=== PATIENT | female | born 1975 | race Caucasian/White ===

== ENCOUNTER → 2017-08-30 | Outpatient (CLI) | payer MEDICAID, OTHER ==
--- NOTE | 2017-08-30 18:55 | Diagnostic Imaging Report ---
Digital mammogram bilateral diagnostic. INDICATION: Left breast rash. This is the patient's baseline study. At this time, the patient does note a rash in the periareolar region of the left breast. The current study was also evaluated with a Computer Aided Detection (CAD) system. FINDINGS: There are bilateral breast implants in place. The implants appear to be intact. There is no sign of an extracapsular rupture of either implant. The fibroglandular tissue overlying the implants is heterogeneously dense. This does limit the sensitivity of this exam. There is no primary or secondary sign of malignancy noted. There is no abnormality in the left periareolar region to correspond to the patient's rash either. Even so, I would recommend that ultrasound of the left periareolar region be performed for further study. IMPRESSION: 1. There is no evidence for malignancy and there is no abnormality to account for the patient's left breast rash. Ultrasound will be recommended for further study. 2. The implants appear to be intact. ACR BI-RADS Category 0: Incomplete. (Needs additional imaging evaluation). Result letter will be mailed to the patient. Note: At least 10% of breast cancer is not imaged by mammography. Dictated by: Dictated on workstation # [id number]
--- NOTE | 2017-08-30 19:05 | Diagnostic Imaging Report ---
EXAMINATION: Ultrasound of the left breast limited. INDICATION: Left breast rash. FINDINGS: By history, the patient has a rash in the periareolar region of the left breast. The diagnostic mammogram performed earlier today failed to show any sign of malignancy or an acute abnormality in this area. On this exam, there is no discrete solid or cystic mass in the breast tissue in the region of the mass. Clinical follow-up is recommended. IMPRESSION: 1. There is no evidence for malignancy or for an acute abnormality. Clinical follow-up is recommended. 2. A dermatologic consult should be considered for further evaluation. ACR BI-RADS Category 1: Negative. Result letter will be mailed to the patient. Note: At least 10% of breast cancer is not imaged by mammography. Dictated by: Dictated on workstation # [id number]
== END ==
LOC: RAD 08:46
PROVIDERS: ATTEND Nurse Practitioner Family
DX: N64.89 Other specified disorders of breast (principal); Z98.82 Breast implant status
CPT/HCPCS: 76642; 77066

== ENCOUNTER 2019-01-13 17:13 | Emergency (ER) | payer OTHER ==
[~2019-01-13] VITALS: Ht 162.6 cm; Wt 65.8 kg
--- OUTSIDE RECORDS SUMMARY | 2019-01-13 17:20 | XMS REPORT | CCD ---
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 [employer] Name Role Phone PP Unavailable CCM Unavailable Summary Purpose Interface Exchange Insurance Providers Payer name Policy type / Coverage type Covered green party ID Effective Begin Date Effective End Date [facility] Commercial Insurance [id number] Unknown Family history Father Diagnosis Age At Onset Cancer Unknown Mother Diagnosis Age At Onset kidney disease Unknown genetic disease Unknown Hypertension Unknown Polycystic ovarian disease Unknown Arthritis Unknown Social History Social History Element Codes Description Effective Dates Marital status Unknown naun 03/15/2016 Number of children Unknown 2 03/15/[address]: 8962169 Quit less than 5 years ago 03/15/[address]: 748736 Currently drinks alcohol 03/15/2016 Frequency of drinks SNOMED CT: 747720994 1- 4 drinks per week 03/15/2016 Allergies, Adverse Reactions, Alerts Substance Reaction Codes Entered Date Inactivated Date Status Penicillin Unknown 03/15/2016 No Inactive Date Active Past Medical History Illness Codes Condition Status Onset Date Resolved Date Cutaneous abscess of right upper limb ICD-9: 682.3 ICD-10: L02.413 Active 01/07/2019 Unknown Contusion of right lower leg, initial encounter ICD-9: 924.10 ICD-10: S80.11XA Active 12/15/2018 Unknown Varicose veins of right lower extremity with other complications ICD-9: 454.8 ICD-10: I83.891 Active 12/15/2018 Unknown Menopausal and female climacteric states ICD-9: 627.2 ICD-10: N95.1 Active 11/25/2018 Unknown Other urticaria ICD-9: 708.8 ICD-10: L50.8 Active 08/13/2018 Unknown Rash and other nonspecific skin eruption ICD-9: 782.1 ICD-10: R21 Active 08/20/2017 Unknown Attention-deficit hyperactivity disorder, combined type ICD-9: 314.01 ICD-10: F90.2 Active 05/08/2017 Unknown Acute upper respiratory infection, unspecified ICD-9: 465.9 ICD-10: J06.9 Active 06/30/2018 Unknown Cough ICD-9: 786.2 ICD-10: R05 Active 06/30/2018 Unknown 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 ICD-10: B00.1 Active 05/08/2017 Unknown Mastodynia ICD-9: 611.71 ICD-10: N64.4 Active 12/31/2016 Unknown Cellulitis of left lower limb ICD-9: 682.6 ICD-10: L03.116 Active 03/14/2016 Unknown Problems Condition Codes Effective Dates Condition Status Cutaneous abscess of right upper limb ICD-9: 682.3 ICD-10: L02.413 01/07/2019 Active Contusion of right lower leg, initial encounter ICD-9: 924.10 ICD-10: S80.11XA 12/15/2018 Active Varicose veins of right lower extremity with other complications ICD-9: 454.8 ICD-10: I83.891 12/15/2018 Active Menopausal and female climacteric states ICD-9: 627.2 ICD-10: N95.1 11/25/2018 Active Other urticaria ICD-9: 708.8 ICD-10: L50.8 08/13/2018 Active Rash and other nonspecific skin eruption ICD-9: 782.1 ICD-10: R21 08/20/2017 Active Attention-deficit hyperactivity disorder, combined type ICD-9: 314.01 ICD-10: F90.2 05/08/2017 Active Acute upper respiratory infection, unspecified ICD-9: 465.9 ICD-10: J06.9 06/30/2018 Active Cough ICD-9: 786.2 ICD-10: R05 06/30/2018 Active 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 ICD-10: B00.1 05/08/2017 Active Mastodynia ICD-9: 611.71 ICD-10: N64.4 12/31/2016 Active Cellulitis of left lower limb ICD-9: 682.6 ICD-10: L03.116 03/14/2016 Active Medications Medication Codes Instructions Start Date Stop Date Status Fill Instructions doxycycline hyclate 100 mg capsule RxNorm: 0869739 1 Capsule(s) PO BID 01/07/2019 01/16/2019 Active dapsone 100 mg tablet RxNorm: 616058 1 Tablet(s) PO daily 01/07/2019 01/13/2019 Active Adderall 30 mg tablet RxNorm: 299752 1/2 Tablet(s) PO BID 12/09/2018 03/08/2019 Active Vitamin D2 50,000 unit capsule RxNorm: 7166890 1 Capsule(s) PO QW 11/28/2018 No Stop Date Active Vitamin D2 50,000 unit capsule RxNorm: 5096158 1 Capsule(s) PO QW 11/27/2018 11/27/2018 Inactive valacyclovir 1 gram tablet RxNorm: 516063 1 Tablet(s) PO TID as needed 11/25/2018 01/23/2019 Active Adderall 30 mg tablet RxNorm: 131911 1/2 Tablet(s) PO BID 11/06/2018 12/05/2018 Inactive Adderall 30 mg tablet RxNorm: 575135 1/2 Tablet(s) PO BID 10/07/2018 11/05/2018 Inactive lamotrigine 150 mg tablet RxNorm: 033374 Tablet(s) TAKE 1 TABLET BY MOUTH ONCE DAILY 09/25/2018 No Stop Date Active Adderall 30 mg tablet RxNorm: 416334 1/2 Tablet(s) PO BID 09/09/2018 10/06/2018 Inactive prednisone 10 mg tablet RxNorm: 145562 1 Tablet(s) PO UD 08/13/2018 No Stop Date Active 60,50,40,30,20,10 betamethasone dipropionate 0.05 % topical cream RxNorm: 991114 1 Application TOP BID 08/13/2018 No Stop Date Active Adderall 30 mg tablet RxNorm: 438995 1/2 Tablet(s) PO BID 08/11/2018 09/08/2018 Inactive Adderall 30 mg tablet RxNorm: 340187 1/2 Tablet(s) PO BID 07/15/2018 08/10/2018 Inactive Kenalog 40 mg/mL suspension for injection RxNorm: 8230376 Milliliter(s) Inj 06/30/2018 06/30/2018 Inactive lamotrigine 150 mg tablet RxNorm: 711198 Tablet(s) TAKE 1 TABLET BY MOUTH ONCE DAILY 06/27/2018 09/24/2018 Inactive Adderall 30 mg tablet RxNorm: 447303 1/2 Tablet(s) PO BID 06/27/2018 07/14/2018 Inactive acyclovir 400 mg tablet RxNorm: 618725 1 Tablet(s) PO TID 05/12/2018 06/09/2018 Inactive Adderall 30 mg tablet RxNorm: 278509 1/2 Tablet(s) PO BID 04/07/2018 05/06/2018 Inactive lamotrigine 150 mg tablet RxNorm: 610560 TAKE 1 TABLET BY MOUTH ONCE DAILY 03/31/2018 06/26/2018 Inactive Adderall 30 mg tablet RxNorm: 434859 1/2 Tablet(s) PO BID 03/19/2018 04/06/2018 Inactive lamotrigine 150 mg tablet RxNorm: 193200 TAKE ONE TABLET BY MOUTH ONCE DAILY 01/30/2018 03/30/2018 Inactive Adderall 30 mg tablet RxNorm: 032937 1/2 Tablet(s) PO BID 01/20/2018 02/18/2018 Inactive Adderall 30 mg tablet RxNorm: 038827 1/2 Tablet(s) PO BID 10/29/2017 11/27/2017 Inactive Diflucan 150 mg tablet RxNorm: 749182 1 Tablet(s) PO daily 08/20/2017 08/24/2017 Inactive betamethasone dipropionate 0.05 % topical cream RxNorm: 902218 1 Application TOP BID 08/20/2017 08/12/2018 Inactive triamcinolone acetonide 0.025 % topical cream RxNorm: 8332631 1 Application TOP BID 08/07/2017 No Stop Date Active Adderall 30 mg tablet RxNorm: 222896 1/2 Tablet(s) PO BID 08/07/2017 09/05/2017 Inactive triamcinolone acetonide 0.025 % topical cream RxNorm: 7894564 1 Application TOP BID 07/31/2017 08/06/2017 Inactive Adderall XR 30 mg capsule,extended release RxNorm: 496904 1 Capsule(s) PO daily 07/31/2017 08/06/2017 Inactive lamotrigine 150 mg tablet RxNorm: 915327 1 Tablet(s) PO daily 06/04/2017 10/01/2017 Inactive Adderall 30 mg tablet RxNorm: 084946 1/2 Tablet(s) PO BID 05/08/2017 06/06/2017 Inactive acyclovir 400 mg tablet RxNorm: 191551 1 Tablet(s) PO TID 05/08/2017 06/06/2017 Inactive nystatin 100,000 unit/gram topical cream RxNorm: 727938 1 Application TOP BID 12/31/2016 No Stop Date Active triamcinolone acetonide 0.025 % topical cream RxNorm: 2387603 1 Application TOP BID 12/31/2016 07/30/2017 Inactive Bactrim DS 800 mg-160 mg tablet RxNorm: 063073 1 Tablet(s) PO BID 03/15/2016 03/28/2016 Inactive Adderall XR 30 mg capsule,extended release RxNorm: 352667 1 Capsule(s) PO daily No Start Date 07/30/2017 Inactive Vitamin D2 50,000 unit capsule RxNorm: 5845555 1 Capsule(s) PO QW No Start Date 11/26/2018 Inactive lamotrigine 150 mg tablet RxNorm: 562625 1 Tablet(s) PO daily No Start Date 06/03/2017 Inactive Medication Administered Medication Codes Instructions Start Date Status Kenalog 40 mg/mL suspension for injection RxNorm: 1120065 Milliliter 06/30/2018 No longer Active Immunizations No Immunization data Assessments Condition Codes Effective Dates Cutaneous abscess of right upper limb ICD-10: L02.413 ICD-9: 682.3 01/07/2019 Contusion of right lower leg, initial encounter ICD-10: S80.11XA ICD-9: 924.10 12/15/2018 Varicose veins of right lower extremity with other complications ICD-10: I83.891 ICD-9: 454.8 12/15/2018 Menopausal and female climacteric states ICD-10: N95.1 ICD-9: 627.2 11/25/2018 Other urticaria ICD-10: L50.8 ICD-9: 708.8 08/13/2018 Rash and other nonspecific skin eruption ICD-10: R21 ICD-9: 782.1 08/13/2018 Attention-deficit hyperactivity disorder, combined type ICD-10: F90.2 ICD-9: 314.01 07/21/2018 Cough ICD-10: R05 ICD-9: 786.2 06/30/2018 Acute upper respiratory infection, unspecified ICD-10: J06.9 ICD-9: 465.9 06/30/2018 Herpesviral vesicular dermatitis ICD-10: B00.1 ICD-9: 054.9 05/08/2017 Mastodynia ICD-10: N64.4 ICD-9: 611.71 12/31/2016 Cellulitis of left lower limb ICD-10: L03.116 ICD-9: 682.6 03/15/2016 Reason For Visit Reason For Visit Effective Dates Notes skin lesion 01/07/2019 ecchymosis 12/15/2018 menopausal symptoms 11/25/2018 rash 08/13/2018 medication follow up 07/21/2018 cough 06/30/2018 medication follow up 01/21/2018 medication follow up 08/20/2017 oral ulcers 05/08/2017 cold sore breast complaint 12/31/2016 rash 03/15/2016 Results Observation Observation Code Item Item Code Result Date Estrogens, Total LC 309419 ESTROGENS, TOTAL 47 PG/ML 11/18/2018 Estrogens Total 211749 ESTROGENS, TOTAL 342 pg/mL 01/04/2017 Comp Metabolic Ifa097 NA 140 mEq/L 12/31/2016 Comp Metabolic Xhr851 K 4.2 mEq/L 12/31/2016 Comp Metabolic Srf841 CL 103 mEq/L 12/31/2016 Comp Metabolic Iny492 CO2 29.0 mEq/L 12/31/2016 Comp Metabolic Fwx578 ANION GAP 12 12/31/2016 Comp Metabolic Ndt945 GLUCOSE 87 mg/dL 12/31/2016 Comp Metabolic Rkc881 Creat 0.7 mg/dL 12/31/2016 Comp Metabolic Kal138 eGFR 96 ml/min/1.73m2 12/31/2016 Comp Metabolic Fff389 BUN 9 mg/dL 12/31/2016 Comp Metabolic Kuw036 B/C Ratio 12.7 Ratio 12/31/2016 Comp Metabolic Ymm177 CALCIUM 9.1 mg/dL 12/31/2016 Comp Metabolic Mnd891 ALK PHOS 93 U/L 12/31/2016 Comp Metabolic Pnl630 AST(SGOT) 12 U/L 12/31/2016 Comp Metabolic Qck403 ALT(SGPT) 10 U/L 12/31/2016 Comp Metabolic Fje763 BILI T 0.4 mg/dL 12/31/2016 Comp Metabolic Cum720 ALBUMIN 4.2 g/dL 12/31/2016 Comp Metabolic Byn797 TPRO 6.1 g/dL 12/31/2016 Comp Metabolic Muc206 GLOB 2.0 g/dL 12/31/2016 Comp Metabolic Dfu975 A/G Ratio 2.1 Ratio 12/31/2016 Comp Metabolic Phx118 Osmo 277 mOsmo 12/31/2016 Cbc With Differential Ord2 WBC 6.01 K/ul 12/31/2016 Cbc With Differential Ord2 RBC 4.51 M/ul 12/31/2016 Cbc With Differential Ord2 HGB 14.3 g/dl 12/31/2016 Cbc With Differential Ord2 HCT 42.1 % 12/31/2016 Cbc With Differential Ord2 Neut% 63.6 % 12/31/2016 Cbc With Differential Ord2 MCV 93.3 fl 12/31/2016 Cbc With Differential Ord2 Lymph% 24.1 % 12/31/2016 Cbc With Differential Ord2 MCH 31.7 pg 12/31/2016 Cbc With Differential Ord2 Webster% 11.3 % 12/31/2016 Cbc With Differential Ord2 MCHC 34.0 pg 12/31/2016 Cbc With Differential Ord2 Eos% 0.8 % 12/31/2016 Cbc With Differential Ord2 PLT 267 K/ul 12/31/2016 Cbc With Differential Ord2 Baso% 0.2 % 12/31/2016 Cbc With Differential Ord2 RDW 12.4 % 12/31/2016 Cbc With Differential Ord2 Neut ABS# 3.82 K/ul 12/31/2016 Cbc With Differential Ord2 Lymph ABS# 1.45 K/ul 12/31/2016 Cbc With Differential Ord2 Webster ABS# 0.7 K/ul 12/31/2016 Cbc With Differential Ord2 Eos ABS# 0.1 K/ul 12/31/2016 Cbc With Differential Ord2 Baso ABS# 0.0 K/ul 12/31/2016 Tsh Ord6 hTSH II 2.46 uIU/mL 12/31/2016 Progesterone Uan120 Prog 3.96 ng/mL 12/31/2016 Review of Systems System Result Effective Dates Constitutional No recent illness 01/07/2019 Constitutional No chills 01/07/2019 Constitutional No diaphoresis 01/07/2019 Constitutional No fever 01/07/2019 Eyes No eye erythema 01/07/2019 Ears/Nose/Throat/Neck No nasal discharge 01/07/2019 Cardiovascular No chest pain/pressure 01/07/2019 Respiratory No cough 01/07/2019 Neurologic No alteration of consciousness 01/07/2019 Neurologic No mental status change 01/07/2019 Dermatologic cyst 01/07/2019 Constitutional No recent illness 12/15/2018 Constitutional No chills 12/15/2018 Constitutional No diaphoresis 12/15/2018 Constitutional No fever 12/15/2018 Eyes No eye erythema 12/15/2018 Ears/Nose/Throat/Neck No nasal discharge 12/15/2018 Cardiovascular No chest pain/pressure 12/15/2018 Respiratory No cough 12/15/2018 Neurologic No alteration of consciousness 12/15/2018 Neurologic No mental status change 12/15/2018 Dermatologic ecchymosis 12/15/2018 Constitutional No recent illness 11/25/2018 Constitutional No chills 11/25/2018 Constitutional No diaphoresis 11/25/2018 Constitutional No fever 11/25/2018 Eyes No eye erythema 11/25/2018 Ears/Nose/Throat/Neck No nasal discharge 11/25/2018 Cardiovascular No chest pain/pressure 11/25/2018 Cardiovascular No dyspnea 11/25/2018 Respiratory No chest congestion 11/25/2018 Respiratory No cough 11/25/2018 Gastrointestinal No abdominal pain 11/25/2018 Neurologic No alteration of consciousness 11/25/2018 Neurologic No mental status change 11/25/2018 Genitourinary/Nephrology No breast complaint 11/25/2018 Genitourinary/Nephrology menopausal symptoms 11/25/2018 Genitourinary/Nephrology No pelvic pain 11/25/2018 Constitutional No recent illness 08/13/2018 Constitutional No chills 08/13/2018 Constitutional No diaphoresis 08/13/2018 Constitutional No fever 08/13/2018 Eyes No eye erythema 08/13/2018 Ears/Nose/Throat/Neck No nasal discharge 08/13/2018 Cardiovascular No chest pain/pressure 08/13/2018 Respiratory No cough 08/13/2018 Neurologic No alteration of consciousness 08/13/2018 Neurologic No mental status change 08/13/2018 Dermatologic rash 08/13/2018 Constitutional No recent illness 07/21/2018 Constitutional No chills 07/21/2018 Constitutional No diaphoresis 07/21/2018 Constitutional No fever 07/21/2018 Eyes No eye erythema 07/21/2018 Ears/Nose/Throat/Neck No nasal allergies 07/21/2018 Ears/Nose/Throat/Neck No nasal discharge 07/21/2018 Cardiovascular No chest pain/pressure 07/21/2018 Cardiovascular No dyspnea 07/21/2018 Respiratory No chest congestion 07/21/2018 Respiratory No cough 07/21/2018 Gastrointestinal No abdominal pain 07/21/2018 Gastrointestinal No constipation 07/21/2018 Gastrointestinal No diarrhea 07/21/2018 Gastrointestinal No nausea 07/21/2018 Gastrointestinal No vomiting 07/21/2018 Musculoskeletal No joint complaint 07/21/2018 Dermatologic No rash 07/21/2018 Neurologic No alteration of consciousness 07/21/2018 Neurologic No mental status change 07/21/2018 Constitutional recent illness 06/30/2018 Constitutional anorexia 06/30/2018 Constitutional night sweats 06/30/2018 Constitutional chills 06/30/2018 Constitutional diaphoresis 06/30/2018 Constitutional fatigue 06/30/2018 Constitutional fever 06/30/2018 Constitutional insomnia 06/30/2018 Constitutional malaise 06/30/2018 Constitutional No weight loss 06/30/2018 Constitutional No weight gain 06/30/2018 Eyes No eye discharge 06/30/2018 Eyes No eye erythema 06/30/2018 Ears/Nose/Throat/Neck No dizziness 06/30/2018 Ears/Nose/Throat/Neck No headache 06/30/2018 Ears/Nose/Throat/Neck nasal discharge 06/30/2018 Ears/Nose/Throat/Neck No otalgia 06/30/2018 Ears/Nose/Throat/Neck sinus congestion 06/30/2018 Ears/Nose/Throat/Neck sore throat 06/30/2018 Cardiovascular No chest pain/pressure 06/30/2018 Respiratory cough 06/30/2018 Respiratory productive sputum 06/30/2018 Gastrointestinal No vomiting 06/30/2018 Gastrointestinal No nausea 06/30/2018 Gastrointestinal No diarrhea 06/30/2018 Genitourinary/Nephrology No dysuria 06/30/2018 Musculoskeletal No joint complaint 06/30/2018 Dermatologic No rash 06/30/2018 Constitutional No recent illness 01/21/2018 Constitutional No chills 01/21/2018 Constitutional No diaphoresis 01/21/2018 Constitutional No fever 01/21/2018 Eyes No eye erythema 01/21/2018 Ears/Nose/Throat/Neck No nasal allergies 01/21/2018 Ears/Nose/Throat/Neck No nasal discharge 01/21/2018 Cardiovascular No chest pain/pressure 01/21/2018 Cardiovascular No dyspnea 01/21/2018 Respiratory No chest congestion 01/21/2018 Respiratory No cough 01/21/2018 Gastrointestinal No abdominal pain 01/21/2018 Gastrointestinal No constipation 01/21/2018 Gastrointestinal No diarrhea 01/21/2018 Gastrointestinal No nausea 01/21/2018 Gastrointestinal No vomiting 01/21/2018 Musculoskeletal No joint complaint 01/21/2018 Neurologic No alteration of consciousness 01/21/2018 Neurologic No mental status change 01/21/2018 Dermatologic No rash 01/21/2018 Constitutional No recent illness 08/20/2017 Constitutional No chills 08/20/2017 Constitutional No diaphoresis 08/20/2017 Constitutional No fever 08/20/2017 Eyes No eye erythema 08/20/2017 Ears/Nose/Throat/Neck No nasal discharge 08/20/2017 Ears/Nose/Throat/Neck No nasal allergies 08/20/2017 Cardiovascular No chest pain/pressure 08/20/2017 Cardiovascular No dyspnea 08/20/2017 Respiratory No cough 08/20/2017 Respiratory No chest congestion 08/20/2017 Gastrointestinal No abdominal pain 08/20/2017 Gastrointestinal No constipation 08/20/2017 Gastrointestinal No diarrhea 08/20/2017 Gastrointestinal No vomiting 08/20/2017 Gastrointestinal No nausea 08/20/2017 Musculoskeletal No joint complaint 08/20/2017 Dermatologic rash 08/20/2017 Neurologic No alteration of consciousness 08/20/2017 Neurologic No mental status change 08/20/2017 Constitutional No recent illness 05/08/2017 Constitutional No chills 05/08/2017 Constitutional No diaphoresis 05/08/2017 Constitutional No fever 05/08/2017 Eyes No eye erythema 05/08/2017 Ears/Nose/Throat/Neck No nasal discharge 05/08/2017 Ears/Nose/Throat/Neck No nasal allergies 05/08/2017 Cardiovascular No chest pain/pressure 05/08/2017 Cardiovascular No dyspnea 05/08/2017 Respiratory No cough 05/08/2017 Respiratory No chest congestion 05/08/2017 Musculoskeletal No joint complaint 05/08/2017 Dermatologic sores 05/08/2017 Neurologic No alteration of consciousness 05/08/2017 Neurologic No mental status change 05/08/2017 Constitutional No recent illness 12/31/2016 Constitutional No chills 12/31/2016 Constitutional No diaphoresis 12/31/2016 Constitutional No fever 12/31/2016 Eyes No eye erythema 12/31/2016 Ears/Nose/Throat/Neck No nasal allergies 12/31/2016 Ears/Nose/Throat/Neck No nasal discharge 12/31/2016 Cardiovascular No chest pain/pressure 12/31/2016 Cardiovascular No dyspnea 12/31/2016 Respiratory No cough 12/31/2016 Respiratory No dyspnea 12/31/2016 Gastrointestinal No abdominal pain 12/31/2016 Dermatologic rash 12/31/2016 Neurologic No alteration of consciousness 12/31/2016 Neurologic No mental status change 12/31/2016 Genitourinary/Nephrology breast complaint 12/31/2016 Constitutional No recent illness 03/15/2016 Constitutional No diaphoresis 03/15/2016 Constitutional No chills 03/15/2016 Constitutional No fever 03/15/2016 Eyes No eye erythema 03/15/2016 Ears/Nose/Throat/Neck No nasal discharge 03/15/2016 Ears/Nose/Throat/Neck No nasal allergies 03/15/2016 Cardiovascular No chest pain/pressure 03/15/2016 Cardiovascular No dyspnea 03/15/2016 Respiratory No cough 03/15/2016 Respiratory No chest congestion 03/15/2016 Respiratory No dyspnea 03/15/2016 Gastrointestinal No abdominal pain 03/15/2016 Gastrointestinal No constipation 03/15/2016 Gastrointestinal No diarrhea 03/15/2016 Gastrointestinal No vomiting 03/15/2016 Gastrointestinal No nausea 03/15/2016 Gastrointestinal No gastroesophageal reflux 03/15/2016 Genitourinary/Nephrology No flank pain 03/15/2016 Musculoskeletal No joint complaint 03/15/2016 Dermatologic rash 03/15/2016 Neurologic No alteration of consciousness 03/15/2016 Neurologic No mental status change 03/15/2016 Physical Exam Exam Name System Name Item Name Status Result Effective Dates Notes Full Exam - Dermatology Constitutional general appearance Overall: well nourished 01/07/2019 None Full Exam - Dermatology Constitutional general appearance Overall: well developed 01/07/2019 None Full Exam - Dermatology Constitutional general appearance Overall: in no acute distress 01/07/2019 None Full Exam - Dermatology Eyes conjunctiva/eyelids Overall: clear conjunctiva bilaterally 01/07/2019 None Full Exam - Dermatology Eyes conjunctiva/eyelids Overall: clear corneas 01/07/2019 None Full Exam - Dermatology Eyes conjunctiva/eyelids Overall: normal eyelids 01/07/2019 None Full Exam - Dermatology Ears/Nose/Throat lips/teeth/gingiva Overall: benign lips 01/07/2019 None Full Exam - Dermatology Ears/Nose/Throat oropharynx Overall: clear oral mucosa 01/07/2019 None Full Exam - Dermatology Respiratory respiratory effort/rhythm Overall: no retractions 01/07/2019 None Full Exam - Dermatology Respiratory respiratory effort/rhythm Overall: normal rate 01/07/2019 None Full Exam - Dermatology Musculoskeletal head and neck Overall: head atraumatic 01/07/2019 None Full Exam - Dermatology Psychiatric orientation Overall: oriented to person, place and time 01/07/2019 None Full Exam - Dermatology Psychiatric mood and affect Overall: normal mood and affect 01/07/2019 None Full Exam - Dermatology Integument insp & palp - right upper extremity Location: on the forearm 01/07/2019 None Full Exam - Dermatology Integument insp & palp - right upper extremity Lesion: cyst 01/07/2019 None Full Exam - Dermatology Integument insp & palp - right upper extremity Color: erythematous 01/07/2019 mild Full Exam - Dermatology Integument insp & palp - right upper extremity Appearance: edematous 01/07/2019 None Full Exam - Dermatology Integument insp & palp - right upper extremity Appearance: tender 01/07/2019 None Full Exam - Dermatology Constitutional general appearance Overall: well nourished 12/15/2018 None Full Exam - Dermatology Constitutional general appearance Overall: well developed 12/15/2018 None Full Exam - Dermatology Constitutional general appearance Overall: in no acute distress 12/15/2018 None Full Exam - Dermatology Eyes conjunctiva/eyelids Overall: clear conjunctiva bilaterally 12/15/2018 None Full Exam - Dermatology Eyes conjunctiva/eyelids Overall: clear corneas 12/15/2018 None Full Exam - Dermatology Eyes conjunctiva/eyelids Overall: normal eyelids 12/15/2018 None Full Exam - Dermatology Ears/Nose/Throat lips/teeth/gingiva Overall: benign lips 12/15/2018 None Full Exam - Dermatology Ears/Nose/Throat oropharynx Overall: clear oral mucosa 12/15/2018 None Full Exam - Dermatology Respiratory respiratory effort/rhythm Overall: no retractions 12/15/2018 None Full Exam - Dermatology Respiratory respiratory effort/rhythm Overall: normal rate 12/15/2018 None Full Exam - Dermatology Musculoskeletal head and neck Overall: head atraumatic 12/15/2018 None Full Exam - Dermatology Psychiatric orientation Overall: oriented to person, place and time 12/15/2018 None Full Exam - Dermatology Psychiatric mood and affect Overall: normal mood and affect 12/15/2018 None Full Exam - Dermatology Integument insp & palp - right lower extremity Location: on the calf 12/15/2018 ecchymosis - approximately 2 in x 1 in Full Exam - General 1994 Constitutional general appearance Overall: well developed 11/25/2018 None Full Exam - General 1994 Constitutional general appearance Overall: in no acute distress 11/25/2018 None Full Exam - General 1994 Constitutional general appearance Overall: well nourished 11/25/2018 None Full Exam - General 1994 Eyes conjunctiva/eyelids Overall: conjunctiva clear 11/25/2018 None Full Exam - General 1994 Eyes conjunctiva/eyelids Overall: cornea clear 11/25/2018 None Full Exam - General 1994 Eyes conjunctiva/eyelids Overall: eyelids normal 11/25/2018 None Full Exam - General 1994 Ears/Nose/Throat lips/teeth/gingiva Overall: benign lips 11/25/2018 None Full Exam - General 1994 Ears/Nose/Throat oral cavity/pharynx/larynx Overall: oral mucosa clear 11/25/2018 None Full Exam - General 1994 Ears/Nose/Throat oral cavity/pharynx/larynx Overall: oropharyngeal mucosa clear 11/25/2018 None Full Exam - General 1994 Respiratory auscultation Overall: breath sounds clear bilaterally 11/25/2018 None Full Exam - General 1994 Respiratory respiratory effort/rhythm Overall: no retractions 11/25/2018 None Full Exam - General 1994 Respiratory respiratory effort/rhythm Overall: normal rate 11/25/2018 None Full Exam - General 1994 Cardiovascular auscultation of heart Overall: regular rate 11/25/2018 None Full Exam - General 1994 Cardiovascular auscultation of heart Overall: normal heart sounds 11/25/2018 None Full Exam - General 1994 Musculoskeletal head and neck Overall: head atraumatic 11/25/2018 None Full Exam - General 1994 Neurologic cranial nerves Overall: crainial nerves 2 - 12 grossly intact 11/25/2018 None Full Exam - General 1994 Psychiatric orientation/consciousness Overall: oriented to person, place and time 11/25/2018 None Full Exam - General 1994 Psychiatric mood and affect Overall: normal mood and affect 11/25/2018 None Full Exam - General 1994 Psychiatric appearance Overall: well-groomed, good eye contact 11/25/2018 None Full Exam - Dermatology Constitutional general appearance Overall: well nourished 08/13/2018 None Full Exam - Dermatology Constitutional general appearance Overall: well developed 08/13/2018 None Full Exam - Dermatology Constitutional general appearance Overall: in no acute distress 08/13/2018 None Full Exam - Dermatology Eyes conjunctiva/eyelids Overall: clear conjunctiva bilaterally 08/13/2018 None Full Exam - Dermatology Eyes conjunctiva/eyelids Overall: clear corneas 08/13/2018 None Full Exam - Dermatology Eyes conjunctiva/eyelids Overall: normal eyelids 08/13/2018 None Full Exam - Dermatology Ears/Nose/Throat lips/teeth/gingiva Overall: benign lips 08/13/2018 None Full Exam - Dermatology Ears/Nose/Throat oropharynx Overall: clear oral mucosa 08/13/2018 None Full Exam - Dermatology Respiratory respiratory effort/rhythm Overall: no retractions 08/13/2018 None Full Exam - Dermatology Respiratory respiratory effort/rhythm Overall: normal rate 08/13/2018 None Full Exam - Dermatology Musculoskeletal head and neck Overall: head atraumatic 08/13/2018 None Full Exam - Dermatology Psychiatric orientation Overall: oriented to person, place and time 08/13/2018 None Full Exam - Dermatology Psychiatric mood and affect Overall: normal mood and affect 08/13/2018 None Full Exam - Dermatology Integument insp & palp - right lower extremity Lesion: patch 08/13/2018 None Full Exam - Dermatology Integument insp & palp - right lower extremity Color: erythematous 08/13/2018 None Full Exam - Dermatology Integument insp & palp - left lower extremity Color: erythematous 08/13/2018 None Full Exam - Dermatology Integument insp & palp - left lower extremity Lesion: patch 08/13/2018 None Full Exam - Dermatology Integument insp & palp - left upper extremity Lesion: patch 08/13/2018 None Full Exam - Dermatology Integument insp & palp - left upper extremity Color: erythematous 08/13/2018 None Full Exam - Dermatology Integument insp & palp - right upper extremity Lesion: patch 08/13/2018 None Full Exam - Dermatology Integument insp & palp - right upper extremity Color: erythematous 08/13/2018 None Full Exam - General 1994 Constitutional general appearance Overall: well developed 07/21/2018 None Full Exam - General 1994 Constitutional general appearance Overall: in no acute distress 07/21/2018 None Full Exam - General 1994 Constitutional general appearance Overall: well nourished 07/21/2018 None Full Exam - General 1994 Eyes conjunctiva/eyelids Overall: conjunctiva clear 07/21/2018 None Full Exam - General 1994 Eyes conjunctiva/eyelids Overall: cornea clear 07/21/2018 None Full Exam - General 1994 Eyes conjunctiva/eyelids Overall: eyelids normal 07/21/2018 None Full Exam - General 1994 Ears/Nose/Throat lips/teeth/gingiva Overall: benign lips 07/21/2018 None Full Exam - General 1994 Ears/Nose/Throat oral cavity/pharynx/larynx Overall: oral mucosa clear 07/21/2018 None Full Exam - General 1994 Respiratory auscultation Overall: breath sounds clear bilaterally 07/21/2018 None Full Exam - General 1994 Respiratory respiratory effort/rhythm Overall: no retractions 07/21/2018 None Full Exam - General 1994 Respiratory respiratory effort/rhythm Overall: normal rate 07/21/2018 None Full Exam - General 1994 Cardiovascular auscultation of heart Overall: regular rate 07/21/2018 None Full Exam - General 1994 Cardiovascular auscultation of heart Overall: normal heart sounds 07/21/2018 None Full Exam - General 1994 Abdomen abdominal exam Overall: no tenderness 07/21/2018 None Full Exam - General 1994 Abdomen abdominal exam Overall: normal bowel sounds 07/21/2018 None Full Exam - General 1994 Musculoskeletal gait and station Overall: normal gait 07/21/2018 None Full Exam - General 1994 Musculoskeletal gait and station Overall: normal station 07/21/2018 None Full Exam - General 1994 Musculoskeletal head and neck Overall: head atraumatic 07/21/2018 None Full Exam - General 1994 Neurologic cranial nerves Overall: crainial nerves 2 - 12 grossly intact 07/21/2018 None Full Exam - General 1994 Psychiatric orientation/consciousness Overall: oriented to person, place and time 07/21/2018 None Full Exam - General 1994 Psychiatric mood and affect Overall: normal mood and affect 07/21/2018 None Full Exam - General 1994 Psychiatric appearance Overall: well-groomed, good eye contact 07/21/2018 None Full Exam - General 1994 Ears/Nose/Throat otoscopic exam Overall: tympanic membranes clear 07/21/2018 None Full Exam - General 1994 Ears/Nose/Throat otoscopic exam Overall: external auditory canals clear 07/21/2018 None Full Exam - ENT Constitutional general appearance Overall: well nourished 06/30/2018 None Full Exam - ENT Constitutional general appearance Overall: well developed 06/30/2018 None Full Exam - ENT Constitutional general appearance Overall: in no acute distress 06/30/2018 None Full Exam - ENT Neurologic orientation Overall: oriented to person, place and time 06/30/2018 None Full Exam - ENT Integument inspection of skin Overall: no rash, lesions 06/30/2018 None Full Exam - ENT Lymphatic palpation of lymph nodes Overall: anterior cervical chain benign 06/30/2018 None Full Exam - ENT Lymphatic palpation of lymph nodes Overall: posterior cervical chain benign 06/30/2018 None Full Exam - ENT Cardiovascular auscultation of heart Overall: regular rate 06/30/2018 None Full Exam - ENT Cardiovascular auscultation of heart Overall: normal heart sounds 06/30/2018 None Full Exam - ENT Respiratory auscultation Overall: breath sounds clear bilaterally 06/30/2018 None Full Exam - ENT Respiratory inspection Overall: no retractions 06/30/2018 None Full Exam - ENT Respiratory inspection Overall: normal rate 06/30/2018 None Full Exam - ENT Face and Head palpation Overall: no sinus tenderness 06/30/2018 None Full Exam - ENT Ears/Nose/Throat otoscopic exam Overall: external auditory canals normal 06/30/2018 None Full Exam - ENT Ears/Nose/Throat otoscopic exam Overall: tympanic membranes normal 06/30/2018 None Full Exam - ENT Ears/Nose/Throat oropharynx Overall: oral mucosa clear 06/30/2018 None Full Exam - General 1994 Constitutional general appearance Overall: well developed 01/21/2018 None Full Exam - General 1994 Constitutional general appearance Overall: in no acute distress 01/21/2018 None Full Exam - General 1994 Constitutional general appearance Overall: well nourished 01/21/2018 None Full Exam - General 1994 Eyes conjunctiva/eyelids Overall: conjunctiva clear 01/21/2018 None Full Exam - General 1994 Eyes conjunctiva/eyelids Overall: cornea clear 01/21/2018 None Full Exam - General 1994 Eyes conjunctiva/eyelids Overall: eyelids normal 01/21/2018 None Full Exam - General 1994 Ears/Nose/Throat lips/teeth/gingiva Overall: benign lips 01/21/2018 None Full Exam - General 1994 Ears/Nose/Throat oral cavity/pharynx/larynx Overall: oral mucosa clear 01/21/2018 None Full Exam - General 1994 Respiratory auscultation Overall: breath sounds clear bilaterally 01/21/2018 None Full Exam - General 1994 Respiratory respiratory effort/rhythm Overall: no retractions 01/21/2018 None Full Exam - General 1994 Respiratory respiratory effort/rhythm Overall: normal rate 01/21/2018 None Full Exam - General 1994 Cardiovascular auscultation of heart Overall: regular rate 01/21/2018 None Full Exam - General 1994 Cardiovascular auscultation of heart Overall: normal heart sounds 01/21/2018 None Full Exam - General 1994 Musculoskeletal gait and station Overall: normal gait 01/21/2018 None Full Exam - General 1994 Musculoskeletal gait and station Overall: normal station 01/21/2018 None Full Exam - General 1994 Musculoskeletal head and neck Overall: head atraumatic 01/21/2018 None Full Exam - General 1994 Neurologic cranial nerves Overall: crainial nerves 2 - 12 grossly intact 01/21/2018 None Full Exam - General 1994 Psychiatric orientation/consciousness Overall: oriented to person, place and time 01/21/2018 None Full Exam - General 1994 Psychiatric mood and affect Overall: normal mood and affect 01/21/2018 None Full Exam - General 1994 Psychiatric appearance Overall: well-groomed, good eye contact 01/21/2018 None Full Exam - General 1994 Abdomen abdominal exam Overall: normal bowel sounds 01/21/2018 None Full Exam - General 1994 Abdomen abdominal exam Overall: no tenderness 01/21/2018 None Full Exam - General 1994 Constitutional general appearance Overall: well developed 08/20/2017 None Full Exam - General 1994 Constitutional general appearance Overall: in no acute distress 08/20/2017 None Full Exam - General 1994 Constitutional general appearance Overall: well nourished 08/20/2017 None Full Exam - General 1994 Eyes conjunctiva/eyelids Overall: conjunctiva clear 08/20/2017 None Full Exam - General 1994 Eyes conjunctiva/eyelids Overall: cornea clear 08/20/2017 None Full Exam - General 1994 Eyes conjunctiva/eyelids Overall: eyelids normal 08/20/2017 None Full Exam - General 1994 Ears/Nose/Throat lips/teeth/gingiva Overall: benign lips 08/20/2017 None Full Exam - General 1994 Ears/Nose/Throat oral cavity/pharynx/larynx Overall: oral mucosa clear 08/20/2017 None Full Exam - General 1994 Respiratory respiratory effort/rhythm Overall: no retractions 08/20/2017 None Full Exam - General 1994 Respiratory respiratory effort/rhythm Overall: normal rate 08/20/2017 None Full Exam - General 1994 Respiratory auscultation Overall: breath sounds clear bilaterally 08/20/2017 None Full Exam - General 1994 Cardiovascular auscultation of heart Overall: regular rate 08/20/2017 None Full Exam - General 1994 Cardiovascular auscultation of heart Overall: normal heart sounds 08/20/2017 None Full Exam - General 1994 Musculoskeletal head and neck Overall: head atraumatic 08/20/2017 None Full Exam - General 1994 Musculoskeletal gait and station Overall: normal gait 08/20/2017 None Full Exam - General 1994 Musculoskeletal gait and station Overall: normal station 08/20/2017 None Full Exam - General 1994 Chest/Breast breast/chest inspection Skin appearance: rash 08/20/2017 dry - left lower breast Full Exam - General 1994 Neurologic cranial nerves Overall: crainial nerves 2 - 12 grossly intact 08/20/2017 None Full Exam - General 1994 Psychiatric orientation/consciousness Overall: oriented to person, place and time 08/20/2017 None Full Exam - General 1994 Psychiatric mood and affect Overall: normal mood and affect 08/20/2017 None Full Exam - General 1994 Psychiatric appearance Overall: well-groomed, good eye contact 08/20/2017 None Full Exam - General 1994 Constitutional general appearance Overall: well developed 05/08/2017 None Full Exam - General 1994 Constitutional general appearance Overall: in no acute distress 05/08/2017 None Full Exam - General 1994 Constitutional general appearance Overall: well nourished 05/08/2017 None Full Exam - General 1994 Eyes conjunctiva/eyelids Overall: conjunctiva clear 05/08/2017 None Full Exam - General 1994 Eyes conjunctiva/eyelids Overall: cornea clear 05/08/2017 None Full Exam - General 1994 Eyes conjunctiva/eyelids Overall: eyelids normal 05/08/2017 None Full Exam - General 1994 Ears/Nose/Throat lips/teeth/gingiva Overall: benign lips 05/08/2017 None Full Exam - General 1994 Ears/Nose/Throat oral cavity/pharynx/larynx Overall: oral mucosa clear 05/08/2017 None Full Exam - General 1994 Respiratory respiratory effort/rhythm Overall: normal rate 05/08/2017 None Full Exam - General 1994 Respiratory respiratory effort/rhythm Overall: no retractions 05/08/2017 None Full Exam - General 1994 Respiratory auscultation Overall: breath sounds clear bilaterally 05/08/2017 None Full Exam - General 1994 Cardiovascular auscultation of heart Overall: normal heart sounds 05/08/2017 None Full Exam - General 1994 Cardiovascular auscultation of heart Overall: regular rate 05/08/2017 None Full Exam - General 1994 Musculoskeletal gait and station Overall: normal gait 05/08/2017 None Full Exam - General 1994 Musculoskeletal gait and station Overall: normal station 05/08/2017 None Full Exam - General 1994 Musculoskeletal head and neck Overall: head atraumatic 05/08/2017 None Full Exam - General 1994 Neurologic cranial nerves Overall: crainial nerves 2 - 12 grossly intact 05/08/2017 None Full Exam - General 1994 Psychiatric orientation/consciousness Overall: oriented to person, place and time 05/08/2017 None Full Exam - General 1994 Psychiatric mood and affect Overall: normal mood and affect 05/08/2017 None Full Exam - General 1994 Integument inspection of skin Location: face 05/08/2017 lip Full Exam - General 1994 Integument inspection of skin Rash/Lesions: vesicle 05/08/2017 None Full Exam - General 1994 Integument inspection of skin Pigmentation: erythematous 05/08/2017 healing Full Exam - Genitourinary/Female Constitutional general appearance Overall: well nourished 12/31/2016 None Full Exam - Genitourinary/Female Constitutional general appearance Overall: well developed 12/31/2016 None Full Exam - Genitourinary/Female Constitutional general appearance Overall: in no acute distress 12/31/2016 None Full Exam - Genitourinary/Female Eyes conjunctiva/eyelids Overall: conjunctiva clear 12/31/2016 None Full Exam - Genitourinary/Female Eyes conjunctiva/eyelids Overall: eyelids normal 12/31/2016 None Full Exam - Genitourinary/Female Ears/Nose/Throat oral cavity/pharynx/larynx Overall: oral mucosa clear 12/31/2016 None Full Exam - Genitourinary/Female Ears/Nose/Throat lips/teeth/gingiva Overall: benign lips 12/31/2016 None Full Exam - Genitourinary/Female Respiratory auscultation Overall: breath sounds clear bilaterally 12/31/2016 None Full Exam - Genitourinary/Female Respiratory respiratory effort/rhythm Overall: no retractions 12/31/2016 None Full Exam - Genitourinary/Female Respiratory respiratory effort/rhythm Overall: normal rate 12/31/2016 None Full Exam - Genitourinary/Female Cardiovascular auscultation of heart Overall: regular rate 12/31/2016 None Full Exam - Genitourinary/Female Cardiovascular auscultation of heart Overall: normal heart sounds 12/31/2016 None Full Exam - Genitourinary/Female Chest/Breast breast inspection and palpation Skin appearance: rash 12/31/2016 None Full Exam - Genitourinary/Female Chest/Breast breast inspection and palpation Skin appearance: red 12/31/2016 None Full Exam - Genitourinary/Female Chest/Breast breast inspection and palpation Implants: artifical implants 12/31/2016 None Full Exam - Genitourinary/Female Chest/Breast breast inspection and palpation Breast symmetry: asymmetric 12/31/2016 None Full Exam - Genitourinary/Female Musculoskeletal gait and station Overall: normal gait 12/31/2016 None Full Exam - Genitourinary/Female Musculoskeletal gait and station Overall: normal station 12/31/2016 None Full Exam - Genitourinary/Female Musculoskeletal spine, ribs and pelvis Overall: good posture 12/31/2016 None Full Exam - Genitourinary/Female Neurologic mood and affect Overall: normal affect 12/31/2016 None Full Exam - Genitourinary/Female Neurologic mood and affect Overall: normal mood 12/31/2016 None Full Exam - Genitourinary/Female Psychiatric orientation/consciousness Overall: oriented to person, place and time 12/31/2016 None Full Exam - Genitourinary/Female Psychiatric appearance Overall: well-groomed, good eye contact 12/31/2016 None Full Exam - General 1994 Constitutional general appearance Overall: well developed 03/15/2016 None Full Exam - General 1994 Constitutional general appearance Overall: in no acute distress 03/15/2016 None Full Exam - General 1994 Constitutional general appearance Overall: well nourished 03/15/2016 None Full Exam - General 1994 Eyes conjunctiva/eyelids Overall: conjunctiva clear 03/15/2016 None Full Exam - General 1994 Eyes conjunctiva/eyelids Overall: cornea clear 03/15/2016 None Full Exam - General 1994 Eyes conjunctiva/eyelids Overall: eyelids normal 03/15/2016 None Full Exam - General 1994 Eyes pupils and irises Overall: pupils equal, round, reactive to light and accomodation 03/15/2016 None Full Exam - General 1994 Ears/Nose/Throat otoscopic exam Overall: external auditory canals clear 03/15/2016 None Full Exam - General 1994 Ears/Nose/Throat otoscopic exam Overall: tympanic membranes clear 03/15/2016 None Full Exam - General 1994 Ears/Nose/Throat lips/teeth/gingiva Overall: benign lips 03/15/2016 None Full Exam - General 1994 Ears/Nose/Throat lips/teeth/gingiva Overall: normal dentition 03/15/2016 None Full Exam - General 1994 Ears/Nose/Throat oral cavity/pharynx/larynx Overall: oral mucosa clear 03/15/2016 None Full Exam - General 1994 Ears/Nose/Throat oral cavity/pharynx/larynx Overall: oropharyngeal mucosa clear 03/15/2016 None Full Exam - General 1994 Ears/Nose/Throat oral cavity/pharynx/larynx Overall: no masses 03/15/2016 None Full Exam - General 1994 Respiratory auscultation Overall: breath sounds clear bilaterally 03/15/2016 None Full Exam - General 1994 Respiratory respiratory effort/rhythm Overall: no retractions 03/15/2016 None Full Exam - General 1994 Respiratory respiratory effort/rhythm Overall: normal rate 03/15/2016 None Full Exam - General 1994 Cardiovascular auscultation of heart Overall: regular rate 03/15/2016 None Full Exam - General 1994 Cardiovascular auscultation of heart Overall: normal heart sounds 03/15/2016 None Full Exam - General 1994 Cardiovascular extremities Overall: no clubbing 03/15/2016 None Full Exam - General 1994 Abdomen abdominal exam Overall: no tenderness 03/15/2016 None Full Exam - General 1994 Abdomen abdominal exam Overall: normal bowel sounds 03/15/2016 None Full Exam - General 1994 Lymphatic neck nodes Overall: anterior cervical chain benign 03/15/2016 None Full Exam - General 1994 Lymphatic neck nodes Overall: posterior cervical chain benign 03/15/2016 None Full Exam - General 1994 Musculoskeletal spine, ribs and pelvis Overall: good posture 03/15/2016 None Full Exam - General 1994 Musculoskeletal gait and station Overall: normal gait 03/15/2016 None Full Exam - General 1994 Musculoskeletal gait and station Overall: normal station 03/15/2016 None Full Exam - General 1994 Musculoskeletal head and neck Overall: head atraumatic 03/15/2016 None Full Exam - General 1994 Neurologic cranial nerves Overall: crainial nerves 2 - 12 grossly intact 03/15/2016 None Full Exam - General 1994 Psychiatric orientation/consciousness Overall: oriented to person, place and time 03/15/2016 None Full Exam - General 1994 Psychiatric mood and affect Overall: normal mood and affect 03/15/2016 None Full Exam - General 1994 Psychiatric appearance Overall: well-groomed, good eye contact 03/15/2016 None Full Exam - General 1994 Integument inspection of skin Rash/Lesions: patch 03/15/2016 None Full Exam - General 1994 Integument inspection of skin Pigmentation: erythematous 03/15/2016 Warmth - left hip - some streaking present. Procedures Procedure Codes Date TRIAMCINOLONE ACET INJ NOS CPT-4: J3301 06/30/2018 Vital Signs Date Vital 01/07/2019 Blood Pressure 1: 120/68 Code: 8480-6 BMI: 25.3 Code: 07182-2 Heart Rate 1: 86 bpm Height: 5'4" SpO2: 98% Weight: 150 lbs 12/15/2018 Blood Pressure 1: 124/68 Code: 8480-6 BMI: 25.2 Code: 49122-3 Heart Rate 1: 80 bpm Height: 5'4" SpO2: 98% Weight: 149 lbs 11/25/2018 Blood Pressure 1: 122/70 Code: 8480-6 BMI: 24.8 Code: 31301-5 Heart Rate 1: 64 bpm Height: 5'4" SpO2: 98% Weight: 147 lbs 08/13/2018 Heart Rate 1: 94 bpm Height: Weight: 07/21/2018 Blood Pressure 1: 118/74 Code: 8480-6 BMI: 24.2 Code: 53451-1 Heart Rate 1: 100 bpm Height: 5'4" SpO2: 98% Weight: 143 lbs 06/30/2018 Blood Pressure 1: 120/68 Code: 8480-6 BMI: 24.5 Code: 95814-9 Heart Rate 1: 100 bpm Height: 5'4" SpO2: 96% Temperature: 37.1 (C) / 98.7 (F) Weight: 145 lbs 01/21/2018 Blood Pressure 1: 122/70 Code: 8480-6 BMI: 24.5 Code: 94554-1 Heart Rate 1: 97 bpm Height: 5'4" SpO2: 98% Weight: 145 lbs 08/20/2017 Blood Pressure 1: 120/78 Code: 8480-6 BMI: 24.3 Code: 11646-7 Heart Rate 1: 97 bpm Height: 5'4" SpO2: 97% Weight: 144 lbs 05/08/2017 Blood Pressure 1: 124/78 Code: 8480-6 BMI: 24.7 Code: 83130-4 Heart Rate 1: 101 bpm Height: 5'4" SpO2: 98% Weight: 146 lbs 12/31/2016 Blood Pressure 1: 128/74 Code: 8480-6 Heart Rate 1: 94 bpm SpO2: 99% Weight: 141 lbs 03/15/2016 Blood Pressure 1: 126/80 Code: 8480-6 BMI: 23.5 Code: 39838-2 Heart Rate 1: 94 bpm Height: 5'4" SpO2: 97% Weight: 139 lbs Functional Status No Functional Status data History of Present Illness Symptom Name Status Result Effective Date Notes Severity moderate 01/07/2019 None Onset and Resolution sudden in onset 01/07/2019 None Onset of Symptom 4 days ago 01/07/2019 None Pertinent Findings Denies fever 01/07/2019 None Location right arm 01/07/2019 None Quality acute 01/07/2019 None Location on the right leg 12/15/2018 None Quality acute 12/15/2018 None Onset and Resolution sudden in onset 12/15/2018 None Quality intermittent 11/25/2018 None Quality chronic 11/25/2018 None Onset and Resolution ongoing 11/25/2018 None Pertinent Findings Denies pelvic pain 11/25/2018 None Pertinent Findings Denies fever 11/25/2018 None Location-Major on the arms 08/13/2018 None Location-Major on the legs 08/13/2018 None Quality acute 08/13/2018 None Color erythematous 08/13/2018 None Pertinent Findings Denies fever 08/13/2018 None Location oral intake 07/21/2018 None Quality chronic 07/21/2018 None Location in the throat 06/30/2018 None Quality productive 06/30/2018 None Onset of Symptom 1 weeks ago 06/30/2018 None Pertinent Findings chest discomfort 06/30/2018 None Pertinent Findings Denies dyspnea 06/30/2018 None Pertinent Findings fever 06/30/2018 None Limitation on Activities does not limit activities 06/30/2018 None Frequency of Episodes increasing 06/30/2018 None Triggers no known associated factors 06/30/2018 None medication follow up Additional Comments medication use 01/21/2018 None medication follow up Location oral intake 01/21/2018 None medication follow up Location oral intake 08/20/2017 None oral ulcers Alleviating Factors prescription medication 05/08/2017 None oral ulcers Limitation on Activities does not limit activities 05/08/2017 None oral ulcers Pertinent Findings Denies fever 05/08/2017 None breast complaint Location in the left lower outer quadrant 12/31/2016 None breast complaint Location in the left lower inner quadrant 12/31/2016 None breast complaint Quality erythema 12/31/2016 None breast complaint Onset and Resolution ongoing 12/31/2016 None breast complaint Onset of Symptom 2 years ago 12/31/2016 None breast complaint Severity moderate 12/31/2016 None breast complaint Pertinent Findings Denies breast pain 12/31/2016 None breast complaint Pertinent Findings Denies fever 12/31/2016 None rash Location-Extremities on the left leg 03/15/2016 None rash Quality new 03/15/2016 None rash Quality constant 03/15/2016 None rash Color red 03/15/2016 None rash Quality worsening 03/15/2016 None rash Quality enlarging 03/15/2016 None rash Onset and Resolution sudden in onset 03/15/2016 None rash Onset of Symptom 1 week ago 03/15/2016 None rash Triggers no known triggers 03/15/2016 None rash Pertinent Findings itching 03/15/2016 None Advance Directives No Advance Directive data Encounters Encounter Performer Location Codes Date EST. PATIENT, LEVEL III Diagnosis: Cutaneous abscess of right upper limb[ICD10: L02.413] Anais Heredia MD, [facility] CPT-4: 46455 01/07/2019 [id number] EST. PATIENT, LEVEL III Diagnosis: Contusion of right lower leg, initial encounter[ICD10: S80.11XA] Diagnosis: Varicose veins of right lower extremity with other complications[ICD10: I83.891] Anais Heredia MD, [facility] CPT-4: 79605 12/15/2018 [id number] EST. PATIENT, LEVEL III Diagnosis: Menopausal and female climacteric states[ICD10: N95.1] Anais Heredia MD, [facility] CPT-4: 50821 11/25/2018 13486 EST. PATIENT, LEVEL III Diagnosis: Rash and other nonspecific skin eruption[ICD10: R21] Diagnosis: Other urticaria[ICD10: L50.8] [facility] CPT-4: 56885 08/13/2018 [id number] EST. PATIENT, LEVEL III Diagnosis: Attention-deficit hyperactivity disorder, combined type[ICD10: F90.2] Anais Heredia MD, [facility] CPT-4: 50476 07/21/2018 ([id number]) 04532 EST. PATIENT, LEVEL III Diagnosis: Cough[ICD10: R05] Diagnosis: Acute upper respiratory infection, unspecified[ICD10: J06.9] Elena Heredia MD, [facility] CPT-4: 05338 06/30/2018 [id number] EST. PATIENT, LEVEL III Diagnosis: Attention-deficit hyperactivity disorder, combined type[ICD10: F90.2] Anais Heredia MD, [facility] CPT-4: 04058 01/21/2018 [id number] EST. PATIENT, LEVEL III Diagnosis: Attention-deficit hyperactivity disorder, combined type[ICD10: F90.2] Diagnosis: Rash and other nonspecific skin eruption[ICD10: R21] Anais Heredia MD, [facility] CPT-4: 48258 08/20/2017 [id number] EST. 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 PATIENT, LEVEL III Diagnosis: Mastodynia[ICD10: N64.4] Anais Heredia MD, [facility] CPT-4: 09098 12/31/2016 ([id number]) OFFICE VISIT, NEW - LEVEL 3 Diagnosis: Cellulitis of left lower limb[ICD10: L03.116] Anais Heredia MD, [facility] CPT-4: 52413 03/15/2016 Plan of Care Planned Activity Notes Codes Status Date Visit Plan: Abscess/Cellulitis - The patient was instructed in appropriate wound care. The patient was instructed to use the antibiotic ointment as per RX. The patient is to call for any change in symptoms, increase in size of the lesion, increase in pain, worsening redness, warmth, discharge. 01/07/2019 Appointment: [facility] [id number] ([facility] 01/07/2019 Patient Education: Patient Medication Summary Completed 01/07/2019 Visit Plan: Bruise - right leg, Varicose Veins - recommended thigh-high compression, elevation of lower legs while seated. Pt to consider treatment for varicose veins with vein specialist. 12/15/2018 Appointment: Anais Hennessy WPtel: [facility] [place] [facility] [place] [id number] (30 min) Complex 12/15/2018 Patient Education: Patient Medication Summary Completed 12/15/2018 Visit Plan: menopausal symptoms, flushing, hot flashes, skin changes - will order hormone replacement therapy through [facility]. Pt is to notify clinic if symptoms do not improve, if they worsen, or with any changes, questions, or concerns. 11/25/2018 Appointment: Anais Hennessy WPtel: [facility] [place] [facility] [place] [id number] (30 min) Complex 11/25/2018 Patient Education: Patient Medication Summary Completed 11/25/2018 Visit Plan: Rash - The patient was instructed to use the medication as per RX. The patient is to call for any change in symptoms, increase in size of the lesion, increase in pain, worsening redness, warmth, discharge. 08/13/2018 Appointment: Anais Hennessy WPtel: [facility] [place] [facility] [place] [id number] (30 min) Complex 08/13/2018 Patient Education: Patient Medication Summary Completed 08/13/2018 Visit Plan: ADHD - medication working well for treatment of the pt's medical condition and the pt is to continue with current medication for treatment of the symptoms of ADHD. The pt is to call if they notice palpi tations, rapid weight loss, severe insomnia that does improve. Pt is to call for any acute concerns, or if the medication does not seem to be working for improvement of the ADHD symptoms. Pt is aware of risk associated with medication use, and the danger of the medication if in the hands of someone to whom the medication was not prescribed. 07/21/2018 Appointment: Anais Hennessy WPtel: [address] [id number] (15 min) Moderate 07/21/2018 Patient Education: Patient Medication Summary Completed 07/21/2018 Visit Plan: URI - Pt advised to increase fluids, vitamin C. Discussed natural and expected course of this diagnosis and need to alert me if symptoms do not follow expected course, or if any worse. RX sent to patient's pharmacy. 06/30/2018 Appointment: Elena Dong WPtel: [address] [id number] (15 min) Moderate 06/30/2018 Patient Education: Patient Medication Summary Completed 06/30/2018 Visit Plan: ADHD - medication working well for treatment of the pt's medical condition and the pt is to continue with current medication for treatment of the symptoms of ADHD. The pt is to call if they notice palpi tations, rapid weight loss, severe insomnia that does improve. Pt is to call for any acute concerns, or if the medication does not seem to be working for improvement of the ADHD symptoms. Pt is aware of risk associated with medication use, and the danger of the medication if in the hands of someone to whom the medication was not prescribed. 01/21/2018 Appointment: [facility] Henness[facility] WPtel[facility] [address] [facility] ([facility] 01/21/2018 Patient Education: Patient Medication Summary Completed 01/21/2018 Care Plan: Comp Metabolic Pending 01/21/2018 Care Plan: Cbc With Differential Pending 01/21/2018 Care Plan: Tsh Pending 01/21/2018 Care Plan: Lipid Pending 01/21/2018 Visit Plan: ADHD - medication working well for treatment of the pt's medical condition and the pt is to continue with current medication for treatment of the symptoms of ADHD. The pt is to call if they notice palpi tations, rapid weight loss, severe insomnia that does improve. Pt is to call for any acute concerns, or if the medication does not seem to be working for improvement of the ADHD symptoms. Pt is aware of risk associated with medication use, and the danger of the medication if in the hands of someone to whom the medication was not prescribed. Rash - left lower breast - improved with steroids - will send RX - will order mammogram - pt is to notify clinic with any changes, questions, or concerns. 08/20/2017 Appointment: Anais Hennessy WPtel: [facility] [place] [facility] [place] [id number] (30 min) Complex 08/20/2017 Patient Education: Patient Medication Summary Completed 08/20/2017 Care Plan: Unilateral DIAGNOSTICMAMMOGRAPHYDIGITAL LOINC : 33730-8 Pending 08/20/2017 Care Plan: SCREENINGMAMMOGRAPHYDIGITAL LOINC : 47267-8 Pending 08/20/2017 Visit Plan: Cold sores - will send RX - pt is to notify clinic if symptoms do not improve, if they worsen, or with any questions or concerns. ADHD - medication working well for treatment of the pt's medical condition and the pt is to continue with current medication for treatment of the symptoms of ADHD. The pt is to call if they notice palpitations, rapid weight loss, severe insomnia that does improve. Pt is to call for any acute concerns, or if the medication does not seem to be working for improvement of the ADHD symptoms. Pt is aware of risk associated with medication use, and the danger of the medication if in the hands of someone to whom the medication was not prescribed. 05/08/2017 Appointment: Anais Hennessy WPtel: [address] [place], [place] [id number] (15 min) Moderate 05/08/2017 Patient Education: Patient Medication Summary Completed 05/08/2017 Visit Plan: Rash to left breast - will send RX, will order mammogram - pt is to call for acute change in symptoms, worsening redness, warmth, discharge, increase in size of the lesion, increase in pain. 12/31/2016 Appointment: Anais Hennessy WPtel: [facility] [place] [facility] [place] [id number] (30 min) Complex 12/31/2016 Patient Education: Patient Medication Summary Completed 12/31/2016 Visit Plan: Cellulitis - continue with oral antibiotics as previously directed, return to clinic as previously directed, call for acute change in symptoms, worsening redness, warmth, discharge. 03/15/2016 Appointment: Anais Hennessy WPtel: [address] [place], [place] [id number] New Patient 03/15/2016 Patient Education: Patient Medication Summary Completed 03/15/2016 Instructions Comment . ADHD - medication working well for treatment of the pt's medical condition and the pt is to continue with current medication for treatment of the symptoms of ADHD. The pt is to call if they notice palpitations, rapid weight loss, severe insomnia that does improve. Pt is to call for any acute concerns, or if the medication does not seem to be working for improvement of the ADHD symptoms. Pt is aware of risk associated with medication use, and the danger of the medication if in the hands of someone to whom the medication was not prescribed. Rash - left lower breast - improved with steroids - will send RX - will order mammogram - pt is to notify clinic with any changes, questions, or concerns. . Rash to left breast - will send RX, will order mammogram - pt is to call for acute change in symptoms, worsening redness, warmth, discharge, increase in size of the lesion, increase in pain. . menopausal symptoms, flushing, hot flashes, skin changes - will order hormone replacement therapy through [facility]. Pt is to notify clinic if symptoms do not improve, if they worsen, or with any changes, questions, or concerns. . Abscess/Cellulitis - The patient was instructed in appropriate wound care. The patient was instructed to use the antibiotic ointment as per RX. The patient is to call for any change in symptoms, increase in size of the lesion, increase in pain, worsening redness, warmth, discharge. . ADHD - medication working well for treatment of the pt's medical condition and the pt is to continue with current medication for treatment of the symptoms of ADHD. The pt is to call if they notice palpitations, rapid weight loss, severe insomnia that does improve. Pt is to call for any acute concerns, or if the medication does not seem to be working for improvement of the ADHD symptoms. Pt is aware of risk associated with medication use, and the danger of the medication if in the hands of someone to whom the medication was not prescribed. . ADHD - medication working well for treatment of the pt's medical condition and the pt is to continue with current medication for treatment of the symptoms of ADHD. The pt is to call if they notice palpitations, rapid weight loss, severe insomnia that does improve. Pt is to call for any acute concerns, or if the medication does not seem to be working for improvement of the ADHD symptoms. Pt is aware of risk associated with medication use, and the danger of the medication if in the hands of someone to whom the medication was not prescribed. kenalog let us know if worse and we can send in an antibiotic . URI - Pt advised to increase fluids, vitamin C. Discussed natural and expected course of this diagnosis and need to alert me if symptoms do not follow expected course, or if any worse. RX sent to patient's pharmacy. If not any better follow up on Saturday. . Cellulitis - continue with oral antibiotics as previously directed, return to clinic as previously directed, call for acute change in symptoms, worsening redness, warmth, discharge. . Bruise - right leg, Varicose Veins - recommended thigh-high compression, elevation of lower legs while seated. Pt to consider treatment for varicose veins with vein specialist. . Rash - The patient was instructed to use the medication as per RX. The patient is to call for any change in symptoms, increase in size of the lesion, increase in pain, worsening redness, warmth, discharge. . Cold sores - will send RX - pt is to notify clinic if symptoms do not improve, if they worsen, or with any questions or concerns. ADHD - medication working well for treatment of the pt's medical condition and the pt is to continue with current medication for treatment of the symptoms of ADHD. The pt is to call if they notice palpitations, rapid weight loss, severe insomnia that does improve. Pt is to call for any acute concerns, or if the medication does not seem to be working for improvement of the ADHD symptoms. Pt is aware of risk associated with medication use, and the danger of the medication if in the hands of someone to whom the medication was not prescribed.
--- OUTSIDE RECORDS SUMMARY | 2019-01-13 17:21 | XMS REPORT | CCD ---
Author Author Anais Hennessy MD, [facility] Address [address] [place] [address] Phone Care Team Providers Care Manager Home Healthcare Name Role Phone PP Unavailable CCM Unavailable Summary Purpose Interface Exchange Insurance Providers Payer name Policy type / Coverage type Covered republican ID Effective Begin Date Effective End Date [facility] Commercial Insurance [id number] Unknown Family history Father Diagnosis Age At Onset Cancer Unknown Mother Diagnosis Age At Onset kidney disease Unknown genetic disease Unknown Hypertension Unknown Polycystic ovarian disease Unknown Arthritis Unknown Social History Social History Element Codes Description Effective Dates Marital status Unknown naun 03/15/2016 Number of children Unknown 2 03/15/[address]: 5376407 Quit less than 5 years ago 03/15/[address]: 563253 Currently drinks alcohol 03/15/2016 Frequency of drinks SNOMED CT: 076033496 1- 4 drinks per week 03/15/2016 Allergies, Adverse Reactions, Alerts Substance Reaction Codes Entered Date Inactivated Date Status Penicillin Unknown 03/15/2016 No Inactive Date Active Past Medical History Illness Codes Condition Status Onset Date Resolved Date Contusion of right lower leg, initial encounter [...] Problems Condition Codes Effective Dates Condition Status Contusion of right lower leg, initial encounter [...] Start Date Stop Date Status Fill Instructions Adderall 30 mg tablet RxNorm: 725243 1/2 Tablet(s) PO BID 12/09/2018 03/08/2019 Active Vitamin D2 50,000 unit capsule RxNorm: 9605231 1 Capsule(s) PO QW 11/28/2018 No Stop Date Active Vitamin D2 50,000 unit capsule RxNorm: 4228733 1 Capsule(s) PO QW 11/27/2018 11/27/2018 Inactive valacyclovir 1 gram tablet RxNorm: 383719 1 Tablet(s) PO TID as needed 11/25/2018 01/23/2019 Active Adderall 30 mg tablet RxNorm: 359829 1/2 Tablet(s) PO BID 11/06/2018 12/05/2018 Inactive Adderall 30 mg tablet RxNorm: 249037 1/2 Tablet(s) PO BID 10/07/2018 11/05/2018 Inactive lamotrigine 150 mg tablet RxNorm: 364224 Tablet(s) TAKE 1 TABLET BY MOUTH ONCE DAILY 09/25/2018 No Stop Date Active Adderall 30 mg tablet RxNorm: 059423 1/2 Tablet(s) PO BID 09/09/2018 10/06/2018 Inactive prednisone 10 mg tablet RxNorm: 244678 1 Tablet(s) PO UD 08/13/2018 No Stop Date Active 60,50,40,30,20,10 betamethasone dipropionate 0.05 % topical cream RxNorm: 520632 1 Application TOP BID 08/13/2018 No Stop Date Active Adderall 30 mg tablet RxNorm: 271000 1/2 Tablet(s) PO BID 08/11/2018 09/08/2018 Inactive Adderall 30 mg tablet RxNorm: 704920 1/2 Tablet(s) PO BID 07/15/2018 08/10/2018 Inactive Kenalog 40 mg/mL suspension for injection RxNorm: 8728323 Milliliter(s) Inj 06/30/2018 06/30/2018 Inactive lamotrigine 150 mg tablet RxNorm: 016679 Tablet(s) TAKE 1 TABLET BY MOUTH ONCE DAILY 06/27/2018 09/24/2018 Inactive Adderall 30 mg tablet RxNorm: 595434 1/2 Tablet(s) PO BID 06/27/2018 07/14/2018 Inactive acyclovir 400 mg tablet RxNorm: 031092 1 Tablet(s) PO TID 05/12/2018 06/09/2018 Inactive Adderall 30 mg tablet RxNorm: 414679 1/2 Tablet(s) PO BID 04/07/2018 05/06/2018 Inactive lamotrigine 150 mg tablet RxNorm: 884298 TAKE 1 TABLET BY MOUTH ONCE DAILY 03/31/2018 06/26/2018 Inactive Adderall 30 mg tablet RxNorm: 040026 1/2 Tablet(s) PO BID 03/19/2018 04/06/2018 Inactive lamotrigine 150 mg tablet RxNorm: 411085 TAKE ONE TABLET BY MOUTH ONCE DAILY 01/30/2018 03/30/2018 Inactive Adderall 30 mg tablet RxNorm: 624754 1/2 Tablet(s) PO BID 01/20/2018 02/18/2018 Inactive Adderall 30 mg tablet RxNorm: 237984 1/2 Tablet(s) PO BID 10/29/2017 11/27/2017 Inactive Diflucan 150 mg tablet RxNorm: 793203 1 Tablet(s) PO daily 08/20/2017 08/24/2017 Inactive betamethasone dipropionate 0.05 % topical cream RxNorm: 982243 1 Application TOP BID 08/20/2017 08/12/2018 Inactive triamcinolone acetonide 0.025 % topical cream RxNorm: 3187291 1 Application TOP BID 08/07/2017 No Stop Date Active Adderall 30 mg tablet RxNorm: 397782 1/2 Tablet(s) PO BID 08/07/2017 09/05/2017 Inactive triamcinolone acetonide 0.025 % topical cream RxNorm: 5989565 1 Application TOP BID 07/31/2017 08/06/2017 Inactive Adderall XR 30 mg capsule,extended release RxNorm: 489853 1 Capsule(s) PO daily 07/31/2017 08/06/2017 Inactive lamotrigine 150 mg tablet RxNorm: 972171 1 Tablet(s) PO daily 06/04/2017 10/01/2017 Inactive Adderall 30 mg tablet RxNorm: 646159 1/2 Tablet(s) PO BID 05/08/2017 06/06/2017 Inactive acyclovir 400 mg tablet RxNorm: 482786 1 Tablet(s) PO TID 05/08/2017 06/06/2017 Inactive nystatin 100,000 unit/gram topical cream RxNorm: 507637 1 Application TOP BID 12/31/2016 No Stop Date Active triamcinolone acetonide 0.025 % topical cream RxNorm: 8761866 1 Application TOP BID 12/31/2016 07/30/2017 Inactive Bactrim DS 800 mg-160 mg tablet RxNorm: 693134 1 Tablet(s) PO BID 03/15/2016 03/28/2016 Inactive Adderall XR 30 mg capsule,extended release RxNorm: 551750 1 Capsule(s) PO daily No Start Date 07/30/2017 Inactive Vitamin D2 50,000 unit capsule RxNorm: 1513224 1 Capsule(s) PO QW No Start Date 11/26/2018 Inactive lamotrigine 150 mg tablet RxNorm: 482213 1 Tablet(s) PO daily No Start Date 06/03/2017 Inactive Medication Administered Medication Codes Instructions Start Date Status Kenalog 40 mg/mL suspension for injection RxNorm: 0660722 Milliliter 06/30/2018 No longer Active Immunizations No Immunization data Assessments Condition Codes Effective Dates Contusion of right lower leg, initial encounter [...] Visit Reason For Visit Effective Dates Notes ecchymosis 12/15/2018 menopausal symptoms 11/25/2018 rash 08/13/2018 medication follow up 07/21/2018 cough 06/30/2018 medication follow up 01/21/2018 medication follow up 08/20/2017 oral ulcers 05/08/2017 cold sore breast complaint 12/31/2016 rash 03/15/2016 Results Observation Observation Code Item Item Code Result Date Estrogens, Total LC 577055 ESTROGENS, TOTAL 47 PG/ML 11/18/2018 Estrogens Total 734938 ESTROGENS, TOTAL 342 pg/mL 01/04/2017 Comp Metabolic Kaz331 NA 140 mEq/L 12/31/2016 Comp Metabolic Bpe110 K 4.2 mEq/L 12/31/2016 Comp Metabolic Fzb849 CL 103 mEq/L 12/31/2016 Comp Metabolic Uhz285 CO2 29.0 mEq/L 12/31/2016 Comp Metabolic Ywx812 ANION GAP 12 12/31/2016 Comp Metabolic Edj266 GLUCOSE 87 mg/dL 12/31/2016 Comp Metabolic Jlp651 Creat 0.7 mg/dL 12/31/2016 Comp Metabolic Oma092 eGFR 96 ml/min/1.73m2 12/31/2016 Comp Metabolic Giq033 BUN 9 mg/dL 12/31/2016 Comp Metabolic Txm787 B/C Ratio 12.7 Ratio 12/31/2016 Comp Metabolic Tst396 CALCIUM 9.1 mg/dL 12/31/2016 Comp Metabolic Ckz469 ALK PHOS 93 U/L 12/31/2016 Comp Metabolic Zgh090 AST(SGOT) 12 U/L 12/31/2016 Comp Metabolic Ctp786 ALT(SGPT) 10 U/L 12/31/2016 Comp Metabolic Vjq593 BILI T 0.4 mg/dL 12/31/2016 Comp Metabolic Gru550 ALBUMIN 4.2 g/dL 12/31/2016 Comp Metabolic Pfj941 TPRO 6.1 g/dL 12/31/2016 Comp Metabolic Vor084 GLOB 2.0 g/dL 12/31/2016 Comp Metabolic Dhx586 A/G Ratio 2.1 Ratio 12/31/2016 Comp Metabolic Jse041 Osmo 277 mOsmo 12/31/2016 Cbc With Differential [...] 31.7 pg 12/31/2016 Cbc With Differential Ord2 [place]% 11.3 % 12/31/2016 Cbc With Differential Ord2 [...] 1.45 K/ul 12/31/2016 Cbc With Differential Ord2 [place] ABS# 0.7 K/ul 12/31/2016 Cbc With Differential Ord2 Eos ABS# 0.1 K/ul 12/31/2016 Cbc With Differential Ord2 Baso ABS# 0.0 K/ul 12/31/2016 Tsh Ord6 hTSH II 2.46 uIU/mL 12/31/2016 Progesterone Bvm694 Prog 3.96 ng/mL 12/31/2016 Review of Systems System Result Effective Dates Constitutional No recent illness 12/15/2018 Constitutional No [...] normal 11/25/2018 None Full Exam - General 1995 Ears/Nose/Throat lips/teeth/gingiva Overall: benign lips 11/25/2018 None Full Exam - General 1995 Ears/Nose/Throat oral cavity/pharynx/larynx Overall: oral mucosa clear [...] CPT-4: J3301 06/30/2018 Vital Signs Date Vital 12/15/2018 Blood Pressure 1: 124/68 Code: 8480-6 BMI: 25.2 Code: 59552-9 Heart Rate 1: 80 bpm Height: 5'4" SpO2: 98% Weight: 149 lbs 11/25/2018 Blood Pressure 1: 122/70 Code: 8480-6 BMI: 24.8 Code: 47879-2 Heart Rate 1: 64 bpm Height: 5'4" SpO2: 98% Weight: 147 lbs 08/13/2018 Heart Rate 1: 94 bpm Height: Weight: 07/21/2018 Blood Pressure 1: 118/74 Code: 8480-6 BMI: 24.2 Code: 40235-7 Heart Rate 1: 100 bpm Height: 5'4" SpO2: 98% Weight: 143 lbs 06/30/2018 Blood Pressure 1: 120/68 Code: 8480-6 BMI: 24.5 Code: 89007-1 Heart Rate 1: 100 bpm Height: 5'4" SpO2: 96% Temperature: 37.1 (C) / 98.7 (F) Weight: 145 lbs 01/21/2018 Blood Pressure 1: 122/70 Code: 8480-6 BMI: 24.5 Code: 58528-4 Heart Rate 1: 97 bpm Height: 5'4" SpO2: 98% Weight: 145 lbs 08/20/2017 Blood Pressure 1: 120/78 Code: 8480-6 BMI: 24.3 Code: 63689-8 Heart Rate 1: 97 bpm Height: 5'4" SpO2: 97% Weight: 144 lbs 05/08/2017 Blood Pressure 1: 124/78 Code: 8480-6 BMI: 24.7 Code: 96086-3 Heart Rate 1: 101 bpm Height: 5'4" SpO2: 98% Weight: 146 lbs 12/31/2016 Blood Pressure 1: 128/74 Code: 8480-6 Heart Rate 1: 94 bpm SpO2: 99% Weight: 141 lbs 03/15/2016 Blood Pressure 1: 126/80 Code: 8480-6 BMI: 23.5 Code: 02343-0 Heart Rate 1: 94 bpm Height: 5'4" SpO2: 97% Weight: 139 lbs Functional Status No Functional Status data History of Present Illness Symptom Name Status Result Effective Date Notes Location on the right leg 12/15/2018 None [...] data Encounters Encounter Performer Location Codes Date 14653 EST. PATIENT, LEVEL III Diagnosis: Contusion of right lower leg, initial encounter[ICD10: S80.11XA] Diagnosis: Varicose veins of right lower extremity with other complications[ICD10: I83.891] Anais Heredia MD, [facility] CPT-4: 29599 12/15/2018 62582 EST. PATIENT, LEVEL III Diagnosis: Menopausal and female climacteric states[ICD10: N95.1] Anais Heredia MD, [facility] CPT-4: 06648 11/25/2018 45942 EST. PATIENT, LEVEL III Diagnosis: Rash and other nonspecific skin eruption[ICD10: R21] Diagnosis: Other urticaria[ICD10: L50.8] Anais Heredia MD, [facility] CPT-4: 60303 08/13/2018 [id number] EST. PATIENT, LEVEL III Diagnosis: Attention-deficit hyperactivity disorder, combined type[ICD10: F90.2] Anais Heredia MD, [facility] CPT-4: 82566 07/21/2018 ([id number]) 34579 EST. PATIENT, LEVEL III Diagnosis: Cough[ICD10: R05] Diagnosis: Acute upper respiratory infection, unspecified[ICD10: J06.9] Elena Heredia MD, [facility] CPT-4: 04086 06/30/2018 35625 EST. PATIENT, LEVEL III Diagnosis: Attention-deficit hyperactivity disorder, combined type[ICD10: F90.2] Anais Heredia MD, [facility] CPT-4: 63777 01/21/2018 27044 EST. PATIENT, LEVEL III Diagnosis: Attention-deficit hyperactivity disorder, combined type[ICD10: F90.2] Diagnosis: Rash and other nonspecific skin eruption[ICD10: R21] Anais Heredia MD, [facility] CPT-4: 20943 08/20/2017 [id number] EST. 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 PATIENT, LEVEL III Diagnosis: Mastodynia[ICD10: N64.4] [facility] CPT-4: 02930 12/31/2016 ([id number]) OFFICE VISIT, NEW - LEVEL 3 Diagnosis: Cellulitis of left lower limb[ICD10: L03.116] [facility] CPT-4: 88921 03/15/2016 Plan of Care Planned Activity Notes Codes Status Date Visit Plan: Bruise - right leg, Varicose Veins - recommended thigh-high compression, elevation of lower legs while seated. Pt to consider treatment for varicose veins with vein specialist. 12/15/2018 Patient Education: Patient Medication Summary Completed 12/15/2018 Visit Plan: menopausal symptoms, flushing, hot flashes, skin changes - will order hormone replacement therapy through [facility]. Pt is to notify clinic if symptoms do not improve, if they worsen, or with any changes, questions, or concerns. 11/25/2018 App[facility]ment: [facility]el[facility] [phone] [facility] ([facility] Complex 11/25/2018 Patient Education: Patient Medication Summary Completed 11/25/2018 Visit Plan: Rash - The patient was instructed to use the medication as per RX. The patient is to call for any change in symptoms, increase in size of the lesion, increase in pain, worsening redness, warmth, discharge. 08/13/2018 Appointment: Anais Hen[facility]ytel[facility] [phone] [facility] ([facility] min) Complex 08/13/2018 Patient Education: Patient [...] medication was not prescribed. 07/21/2018 Appointment: Anais Hennessytel: [phone] [facility] (15 min) Moderate 07/21/2018 Patient Education: Patient Medication Summary Completed 07/21/2018 Visit Plan: URI - Pt advised to increase fluids, vitamin C. Discussed natural and expected course of this diagnosis and need to alert me if symptoms do not follow expected course, or if any worse. RX sent to patient's pharmacy. 06/30/2018 Appointment: Elena Dong WPtel: [phone] [phone] (15 min) Moderate 06/30/2018 Patient Education: Patient [...] not prescribed. 01/21/2018 Appointment: Anais Hennessy WPtel: [facility] (30 min) Complex 01/21/2018 Patient Education: Patient [...] or concerns. 08/20/2017 Appointment: [facility] Henness[facility]Ptel[facility] [phone] [facility] ([facility] min) Complex 08/20/2017 Patient Education: Patient Medication Summary Completed 08/20/2017 Care Plan: Unilateral DIAGNOSTICMAMMOGRAPHYDIGITAL LOINC : 12045-4 Pending 08/20/2017 Care Plan: SCREENINGMAMMOGRAPHYDIGITAL LOINC : 87105-6 Pending 08/20/2017 Visit Plan: Cold sores - [...] not prescribed. 05/08/2017 Appointment: Anais Hennessy WPtel: [facility] (15 min) Moderate 05/08/2017 Patient Education: Patient Medication Summary Completed 05/08/2017 Visit Plan: Rash to left breast - will send RX, will order mammogram - pt is to call for acute change in symptoms, worsening redness, warmth, discharge, increase in size of the lesion, increase in pain. 12/31/2016 Appointment: Anais Hennessy WPtel: [facility] (30 min) Complex 12/31/2016 Patient Education: Patient Medication Summary Completed 12/31/2016 Visit Plan: Cellulitis - continue with oral antibiotics as previously directed, return to clinic as previously directed, call for acute change in symptoms, worsening redness, warmth, discharge. 03/15/2016 Appointment: Anais Hennessy WPtel[facility] [phone] [facility] New Patient 03/15/2016 Patient Education: Patient Medication [...] - will order hormone replacement therapy through [facility]. Pt is to notify clinic if symptoms do not improve, if they worsen, or with any changes, questions, or concerns. . ADHD - medication working well for [...] to whom the medication was not prescribed. howie let us know if worse and we [...]
--- OUTSIDE RECORDS SUMMARY | 2019-01-13 17:22 | XMS REPORT | CCD ---
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 Name Role Phone PP Unavailable CCM Unavailable Summary Purpose Interface Exchange Insurance Providers Payer name Policy type / Coverage type Covered green party ID Effective Begin Date Effective End Date [facility] Commercial Insurance [id number] Unknown Family history Father Diagnosis Age At Onset Cancer Unknown Mother Diagnosis Age At Onset kidney disease Unknown genetic disease Unknown Hypertension Unknown Polycystic ovarian disease Unknown Arthritis Unknown Social History Social History Element Codes Description Effective Dates Marital status Unknown naun 03/15/2016 Number of children Unknown 2 03/15/[address]: 8254007 Quit less than 5 years ago 03/15/[address]: 720464 Currently drinks alcohol 03/15/2016 Frequency of drinks SNOMED CT: 869379540 1- 4 drinks per week 03/15/2016 Allergies, [...] Fill Instructions Adderall 30 mg tablet RxNorm: 066832 1/2 Tablet(s) PO BID 12/09/2018 03/08/2019 Active Vitamin D2 50,000 unit capsule RxNorm: 9104666 1 Capsule(s) PO QW 11/28/2018 No Stop Date Active Vitamin D2 50,000 unit capsule RxNorm: 6375205 1 Capsule(s) PO QW 11/27/2018 11/27/2018 Inactive valacyclovir 1 gram tablet RxNorm: 765860 1 Tablet(s) PO TID as needed 11/25/2018 01/23/2019 Active Adderall 30 mg tablet RxNorm: 191516 1/2 Tablet(s) PO BID 11/06/2018 12/05/2018 Inactive Adderall 30 mg tablet RxNorm: 429541 1/2 Tablet(s) PO BID 10/07/2018 11/05/2018 Inactive lamotrigine 150 mg tablet RxNorm: 192117 Tablet(s) TAKE 1 TABLET BY MOUTH ONCE DAILY 09/25/2018 No Stop Date Active Adderall 30 mg tablet RxNorm: 090241 1/2 Tablet(s) PO BID 09/09/2018 10/06/2018 Inactive prednisone 10 mg tablet RxNorm: 670687 1 Tablet(s) PO UD 08/13/2018 No Stop Date Active 60,50,40,30,20,10 betamethasone dipropionate 0.05 % topical cream RxNorm: 625739 1 Application TOP BID 08/13/2018 No Stop Date Active Adderall 30 mg tablet RxNorm: 324323 1/2 Tablet(s) PO BID 08/11/2018 09/08/2018 Inactive Adderall 30 mg tablet RxNorm: 950882 1/2 Tablet(s) PO BID 07/15/2018 08/10/2018 Inactive Kenalog 40 mg/mL suspension for injection RxNorm: 0967695 Milliliter(s) Inj 06/30/2018 06/30/2018 Inactive lamotrigine 150 mg tablet RxNorm: 884405 Tablet(s) TAKE 1 TABLET BY MOUTH ONCE DAILY 06/27/2018 09/24/2018 Inactive Adderall 30 mg tablet RxNorm: 275520 1/2 Tablet(s) PO BID 06/27/2018 07/14/2018 Inactive acyclovir 400 mg tablet RxNorm: 302127 1 Tablet(s) PO TID 05/12/2018 06/09/2018 Inactive Adderall 30 mg tablet RxNorm: 860997 1/2 Tablet(s) PO BID 04/07/2018 05/06/2018 Inactive lamotrigine 150 mg tablet RxNorm: 011734 TAKE 1 TABLET BY MOUTH ONCE DAILY 03/31/2018 06/26/2018 Inactive Adderall 30 mg tablet RxNorm: 389716 1/2 Tablet(s) PO BID 03/19/2018 04/06/2018 Inactive lamotrigine 150 mg tablet RxNorm: 293298 TAKE ONE TABLET BY MOUTH ONCE DAILY 01/30/2018 03/30/2018 Inactive Adderall 30 mg tablet RxNorm: 188758 1/2 Tablet(s) PO BID 01/20/2018 02/18/2018 Inactive Adderall 30 mg tablet RxNorm: 637920 1/2 Tablet(s) PO BID 10/29/2017 11/27/2017 Inactive Diflucan 150 mg tablet RxNorm: 402892 1 Tablet(s) PO daily 08/20/2017 08/24/2017 Inactive betamethasone dipropionate 0.05 % topical cream RxNorm: 471407 1 Application TOP BID 08/20/2017 08/12/2018 Inactive triamcinolone acetonide 0.025 % topical cream RxNorm: 2705629 1 Application TOP BID 08/07/2017 No Stop Date Active Adderall 30 mg tablet RxNorm: 177364 1/2 Tablet(s) PO BID 08/07/2017 09/05/2017 Inactive triamcinolone acetonide 0.025 % topical cream RxNorm: 9096802 1 Application TOP BID 07/31/2017 08/06/2017 Inactive Adderall XR 30 mg capsule,extended release RxNorm: 141530 1 Capsule(s) PO daily 07/31/2017 08/06/2017 Inactive lamotrigine 150 mg tablet RxNorm: 479986 1 Tablet(s) PO daily 06/04/2017 10/01/2017 Inactive Adderall 30 mg tablet RxNorm: 972648 1/2 Tablet(s) PO BID 05/08/2017 06/06/2017 Inactive acyclovir 400 mg tablet RxNorm: 780264 1 Tablet(s) PO TID 05/08/2017 06/06/2017 Inactive nystatin 100,000 unit/gram topical cream RxNorm: 706744 1 Application TOP BID 12/31/2016 No Stop Date Active triamcinolone acetonide 0.025 % topical cream RxNorm: 2148644 1 Application TOP BID 12/31/2016 07/30/2017 Inactive Bactrim DS 800 mg-160 mg tablet RxNorm: 570132 1 Tablet(s) PO BID 03/15/2016 03/28/2016 Inactive Adderall XR 30 mg capsule,extended release RxNorm: 710832 1 Capsule(s) PO daily No Start Date 07/30/2017 Inactive Vitamin D2 50,000 unit capsule RxNorm: 1959730 1 Capsule(s) PO QW No Start Date 11/26/2018 Inactive lamotrigine 150 mg tablet RxNorm: 497785 1 Tablet(s) PO daily No Start Date 06/03/2017 Inactive Medication Administered Medication Codes Instructions Start Date Status Kenalog 40 mg/mL suspension for injection RxNorm: 6075214 Milliliter 06/30/2018 No longer Active Immunizations No [...] Item Code Result Date Estrogens, Total LC 036136 ESTROGENS, TOTAL 47 PG/ML 11/18/2018 Estrogens Total 753268 ESTROGENS, TOTAL 342 pg/mL 01/04/2017 Comp Metabolic Mti800 NA 140 mEq/L 12/31/2016 Comp Metabolic Tqh960 K 4.2 mEq/L 12/31/2016 Comp Metabolic Ugj072 CL 103 mEq/L 12/31/2016 Comp Metabolic Jyh211 CO2 29.0 mEq/L 12/31/2016 Comp Metabolic Xoy099 ANION GAP 12 12/31/2016 Comp Metabolic Cdq848 GLUCOSE 87 mg/dL 12/31/2016 Comp Metabolic Idp153 Creat 0.7 mg/dL 12/31/2016 Comp Metabolic Ivy332 eGFR 96 ml/min/1.73m2 12/31/2016 Comp Metabolic Qpd239 BUN 9 mg/dL 12/31/2016 Comp Metabolic Luf351 B/C Ratio 12.7 Ratio 12/31/2016 Comp Metabolic Ygs077 CALCIUM 9.1 mg/dL 12/31/2016 Comp Metabolic Mex474 ALK PHOS 93 U/L 12/31/2016 Comp Metabolic Jpy120 AST(SGOT) 12 U/L 12/31/2016 Comp Metabolic Rfb345 ALT(SGPT) 10 U/L 12/31/2016 Comp Metabolic Irt246 BILI T 0.4 mg/dL 12/31/2016 Comp Metabolic Zlc147 ALBUMIN 4.2 g/dL 12/31/2016 Comp Metabolic Wwx151 TPRO 6.1 g/dL 12/31/2016 Comp Metabolic Gqr634 GLOB 2.0 g/dL 12/31/2016 Comp Metabolic Wmu665 A/G Ratio 2.1 Ratio 12/31/2016 Comp Metabolic Xiq519 Osmo 277 mOsmo 12/31/2016 Cbc With Differential [...] 31.7 pg 12/31/2016 Cbc With Differential Ord2 [place]% 11.3 % 12/31/2016 Cbc With Differential Ord2 [...] 1.45 K/ul 12/31/2016 Cbc With Differential Ord2 [place] ABS# 0.7 K/ul 12/31/2016 Cbc With Differential Ord2 Eos ABS# 0.1 K/ul 12/31/2016 Cbc With Differential Ord2 Baso ABS# 0.0 K/ul 12/31/2016 Tsh Ord6 hTSH II 2.46 uIU/mL 12/31/2016 Progesterone Nkj701 Prog 3.96 ng/mL 12/31/2016 Review of Systems [...] 1: 124/68 Code: 8480-6 BMI: 25.2 Code: 96710-0 Heart Rate 1: 80 bpm Height: 5'4" SpO2: 98% Weight: 149 lbs 11/25/2018 Blood Pressure 1: 122/70 Code: 8480-6 BMI: 24.8 Code: 70735-2 Heart Rate 1: 64 bpm Height: 5'4" SpO2: 98% Weight: 147 lbs 08/13/2018 Heart Rate 1: 94 bpm Height: Weight: 07/21/2018 Blood Pressure 1: 118/74 Code: 8480-6 BMI: 24.2 Code: 33585-9 Heart Rate 1: 100 bpm Height: 5'4" SpO2: 98% Weight: 143 lbs 06/30/2018 Blood Pressure 1: 120/68 Code: 8480-6 BMI: 24.5 Code: 63665-7 Heart Rate 1: 100 bpm Height: 5'4" SpO2: 96% Temperature: 37.1 (C) / 98.7 (F) Weight: 145 lbs 01/21/2018 Blood Pressure 1: 122/70 Code: 8480-6 BMI: 24.5 Code: 45283-7 Heart Rate 1: 97 bpm Height: 5'4" SpO2: 98% Weight: 145 lbs 08/20/2017 Blood Pressure 1: 120/78 Code: 8480-6 BMI: 24.3 Code: 22765-5 Heart Rate 1: 97 bpm Height: 5'4" SpO2: 97% Weight: 144 lbs 05/08/2017 Blood Pressure 1: 124/78 Code: 8480-6 BMI: 24.7 Code: 03685-1 Heart Rate 1: 101 bpm Height: 5'4" SpO2: 98% Weight: 146 lbs 12/31/2016 Blood Pressure 1: 128/74 Code: 8480-6 Heart Rate 1: 94 bpm SpO2: 99% Weight: 141 lbs 03/15/2016 Blood Pressure 1: 126/80 Code: 8480-6 BMI: 23.5 Code: 29169-2 Heart Rate 1: 94 bpm Height: 5'4" [...] data Encounters Encounter Performer Location Codes Date 07651 EST. PATIENT, LEVEL III Diagnosis: Contusion of right lower leg, initial encounter[ICD10: S80.11XA] Diagnosis: Varicose veins of right lower extremity with other complications[ICD10: I83.891] Anais Heredia MD, [facility] CPT-4: 18304 12/15/2018 40011 EST. PATIENT, LEVEL III Diagnosis: Menopausal and female climacteric states[ICD10: N95.1] Anais Heredia MD, [facility] CPT-4: 29030 11/25/2018 03352 EST. PATIENT, LEVEL III Diagnosis: Rash and other nonspecific skin eruption[ICD10: R21] Diagnosis: Other urticaria[ICD10: L50.8] Anais Heredia MD, [facility] CPT-4: 08982 08/13/2018 05860 EST. PATIENT, LEVEL III Diagnosis: Attention-deficit hyperactivity disorder, combined type[ICD10: F90.2] Anais Heredia MD, [facility] CPT-4: 48862 07/21/2018 ([id number]) 81104 EST. PATIENT, LEVEL III Diagnosis: Cough[ICD10: R05] Diagnosis: Acute upper respiratory infection, unspecified[ICD10: J06.9] Elena Heredia MD, [facility] CPT-4: 05938 06/30/2018 17781 EST. PATIENT, LEVEL III Diagnosis: Attention-deficit hyperactivity disorder, combined type[ICD10: F90.2] Anais Heredia MD, [facility] CPT-4: 62059 01/21/2018 33155 EST. PATIENT, LEVEL III Diagnosis: Attention-deficit hyperactivity disorder, combined type[ICD10: F90.2] Diagnosis: Rash and other nonspecific skin eruption[ICD10: R21] Anais Heredia MD, [facility] CPT-4: 61535 08/20/2017 50941 EST. 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 PATIENT, LEVEL III Diagnosis: Mastodynia[ICD10: N64.4] [facility] CPT-4: 10398 12/31/2016 ([id number]) OFFICE VISIT, NEW - LEVEL 3 Diagnosis: Cellulitis of left lower limb[ICD10: L03.116] [facility] CPT-4: 00212 03/15/2016 Plan of Care Planned Activity Notes Codes Status Date Visit Plan: Bruise - right leg, Varicose Veins - recommended thigh-high compression, elevation of lower legs while seated. Pt to consider treatment for varicose veins with vein specialist. 12/15/2018 Patient Education: Patient Medication Summary Completed 12/15/2018 Visit Plan: menopausal symptoms, flushing, hot flashes, skin changes - will order hormone replacement therapy through [facility]. Pt is to notify clinic if symptoms do not improve, if they worsen, or with any changes, questions, or concerns. 11/25/2018 [facility] [phone] [facility] ([facility] 11/25/2018 Patient Education: Patient Medication Summary Completed 11/25/2018 Visit Plan: Rash - The patient was instructed to use the medication as per RX. The patient is to call for any change in symptoms, increase in size of the lesion, increase in pain, worsening redness, warmth, discharge. 08/13/2018 [facility]ment: [facility] [phone] [facility] ([facility] 08/13/2018 Patient Education: [...] not prescribed. 07/21/2018 Appointment: Anais Hennessytel: [phone] [facility] (15 min) Moderate 07/21/2018 Patient Education: Patient Medication Summary Completed 07/21/2018 Visit Plan: URI - Pt advised to increase fluids, vitamin C. Discussed natural and expected course of this diagnosis and need to alert me if symptoms do not follow expected course, or if any worse. RX sent to patient's pharmacy. 06/30/2018 Appointment: Elena Dong WPtel: [phone] [phone] (15 min) Moderate 06/30/2018 Patient Education: Patient [...] not prescribed. 01/21/2018 Appointment: Anais Hennessy WPtel: [facility] (30 min) Complex 01/21/2018 Patient Education: Patient [...] concerns. 08/20/2017 [facility]ment: [facility] [phone] [facility] ([facility] Complex 08/20/2017 Patient Education: Patient Medication Summary Completed 08/20/2017 Care Plan: Unilateral DIAGNOSTICMAMMOGRAPHYDIGITAL LOINC : 23482-3 Pending 08/20/2017 Care Plan: SCREENINGMAMMOGRAPHYDIGITAL LOINC : 65615-7 Pending 08/20/2017 Visit Plan: Cold sores - [...] not prescribed. 05/08/2017 Appointment: Anais Hennessy WPtel: [facility] (15 min) Moderate 05/08/2017 Patient Education: Patient Medication Summary Completed 05/08/2017 Visit Plan: Rash to left breast - will send RX, will order mammogram - pt is to call for acute change in symptoms, worsening redness, warmth, discharge, increase in size of the lesion, increase in pain. 12/31/2016 Appointment: Anais Hennessy WPtel: [facility] (30 min) Complex 12/31/2016 Patient Education: Patient Medication Summary Completed 12/31/2016 Visit Plan: Cellulitis - continue with oral antibiotics as previously directed, return to clinic as previously directed, call for acute change in symptoms, worsening redness, warmth, discharge. 03/15/2016 App[facility]ment: [facility] [phone] [facility] [facility] 03/15/2016 Patient Education: Patient [...] - will order hormone replacement therapy through [facility]. Pt is to notify clinic [...]
--- OUTSIDE RECORDS SUMMARY | 2019-01-13 17:23 | XMS REPORT | CCD ---
Author Author Anais Hennessy MD, [facility] Address [address] [place] [address] Phone Care Team Providers Care Front End Assistant Name Role Phone PP Unavailable CCM Unavailable Summary Purpose Interface Exchange Insurance Providers Payer name Policy type / Coverage type Covered republican ID Effective Begin Date Effective End Date [facility] Commercial Insurance [id number] Unknown Family history Father Diagnosis Age At Onset Cancer Unknown Mother Diagnosis Age At Onset kidney disease Unknown genetic disease Unknown Hypertension Unknown Polycystic ovarian disease Unknown Arthritis Unknown Social History Social History Element Codes Description Effective Dates Marital status Unknown naun 03/15/2016 Number of children Unknown 2 03/15/[address]: 6000493 Quit less than 5 years ago 03/15/[address]: 753894 Currently drinks alcohol 03/15/2016 Frequency of drinks SNOMED CT: 533912220 1- 4 drinks per week 03/15/2016 Allergies, Adverse Reactions, Alerts Substance Reaction Codes Entered Date Inactivated Date Status Penicillin Unknown 03/15/2016 No Inactive Date Active Past Medical History Illness Codes Condition Status Onset Date Resolved Date Menopausal and female climacteric states ICD-9: 627.2 [...] Problems Condition Codes Effective Dates Condition Status Menopausal and female climacteric states ICD-9: 627.2 [...] Fill Instructions Adderall 30 mg tablet RxNorm: 894792 1/2 Tablet(s) PO BID 12/09/2018 03/08/2019 Active Vitamin D2 50,000 unit capsule RxNorm: 6437700 1 Capsule(s) PO QW 11/28/2018 No Stop Date Active Vitamin D2 50,000 unit capsule RxNorm: 1629025 1 Capsule(s) PO QW 11/27/2018 11/27/2018 Inactive valacyclovir 1 gram tablet RxNorm: 052759 1 Tablet(s) PO TID as needed 11/25/2018 01/23/2019 Active Adderall 30 mg tablet RxNorm: 131806 1/2 Tablet(s) PO BID 11/06/2018 12/05/2018 Inactive Adderall 30 mg tablet RxNorm: 002295 1/2 Tablet(s) PO BID 10/07/2018 11/05/2018 Inactive lamotrigine 150 mg tablet RxNorm: 064306 Tablet(s) TAKE 1 TABLET BY MOUTH ONCE DAILY 09/25/2018 No Stop Date Active Adderall 30 mg tablet RxNorm: 838700 1/2 Tablet(s) PO BID 09/09/2018 10/06/2018 Inactive prednisone 10 mg tablet RxNorm: 829098 1 Tablet(s) PO UD 08/13/2018 No Stop Date Active 60,50,40,30,20,10 betamethasone dipropionate 0.05 % topical cream RxNorm: 120436 1 Application TOP BID 08/13/2018 No Stop Date Active Adderall 30 mg tablet RxNorm: 192502 1/2 Tablet(s) PO BID 08/11/2018 09/08/2018 Inactive Adderall 30 mg tablet RxNorm: 685691 1/2 Tablet(s) PO BID 07/15/2018 08/10/2018 Inactive Kenalog 40 mg/mL suspension for injection RxNorm: 3767354 Milliliter(s) Inj 06/30/2018 06/30/2018 Inactive lamotrigine 150 mg tablet RxNorm: 950946 Tablet(s) TAKE 1 TABLET BY MOUTH ONCE DAILY 06/27/2018 09/24/2018 Inactive Adderall 30 mg tablet RxNorm: 337707 1/2 Tablet(s) PO BID 06/27/2018 07/14/2018 Inactive acyclovir 400 mg tablet RxNorm: 244782 1 Tablet(s) PO TID 05/12/2018 06/09/2018 Inactive Adderall 30 mg tablet RxNorm: 795610 1/2 Tablet(s) PO BID 04/07/2018 05/06/2018 Inactive lamotrigine 150 mg tablet RxNorm: 557294 TAKE 1 TABLET BY MOUTH ONCE DAILY 03/31/2018 06/26/2018 Inactive Adderall 30 mg tablet RxNorm: 392835 1/2 Tablet(s) PO BID 03/19/2018 04/06/2018 Inactive lamotrigine 150 mg tablet RxNorm: 597832 TAKE ONE TABLET BY MOUTH ONCE DAILY 01/30/2018 03/30/2018 Inactive Adderall 30 mg tablet RxNorm: 435818 1/2 Tablet(s) PO BID 01/20/2018 02/18/2018 Inactive Adderall 30 mg tablet RxNorm: 745425 1/2 Tablet(s) PO BID 10/29/2017 11/27/2017 Inactive Diflucan 150 mg tablet RxNorm: 570257 1 Tablet(s) PO daily 08/20/2017 08/24/2017 Inactive betamethasone dipropionate 0.05 % topical cream RxNorm: 571898 1 Application TOP BID 08/20/2017 08/12/2018 Inactive triamcinolone acetonide 0.025 % topical cream RxNorm: 0339401 1 Application TOP BID 08/07/2017 No Stop Date Active Adderall 30 mg tablet RxNorm: 198535 1/2 Tablet(s) PO BID 08/07/2017 09/05/2017 Inactive triamcinolone acetonide 0.025 % topical cream RxNorm: 9730824 1 Application TOP BID 07/31/2017 08/06/2017 Inactive Adderall XR 30 mg capsule,extended release RxNorm: 563001 1 Capsule(s) PO daily 07/31/2017 08/06/2017 Inactive lamotrigine 150 mg tablet RxNorm: 220838 1 Tablet(s) PO daily 06/04/2017 10/01/2017 Inactive Adderall 30 mg tablet RxNorm: 619056 1/2 Tablet(s) PO BID 05/08/2017 06/06/2017 Inactive acyclovir 400 mg tablet RxNorm: 948638 1 Tablet(s) PO TID 05/08/2017 06/06/2017 Inactive nystatin 100,000 unit/gram topical cream RxNorm: 904436 1 Application TOP BID 12/31/2016 No Stop Date Active triamcinolone acetonide 0.025 % topical cream RxNorm: 3266242 1 Application TOP BID 12/31/2016 07/30/2017 Inactive Bactrim DS 800 mg-160 mg tablet RxNorm: 087548 1 Tablet(s) PO BID 03/15/2016 03/28/2016 Inactive Adderall XR 30 mg capsule,extended release RxNorm: 961114 1 Capsule(s) PO daily No Start Date 07/30/2017 Inactive Vitamin D2 50,000 unit capsule RxNorm: 0038659 1 Capsule(s) PO QW No Start Date 11/26/2018 Inactive lamotrigine 150 mg tablet RxNorm: 386754 1 Tablet(s) PO daily No Start Date 06/03/2017 Inactive Medication Administered Medication Codes Instructions Start Date Status Kenalog 40 mg/mL suspension for injection RxNorm: 8455911 Milliliter 06/30/2018 No longer Active Immunizations No Immunization data Assessments Condition Codes Effective Dates Menopausal and female climacteric states ICD-10: N95.1 [...] Visit Reason For Visit Effective Dates Notes menopausal symptoms 11/25/2018 rash 08/13/2018 medication follow up 07/21/2018 cough 06/30/2018 medication follow up 01/21/2018 medication follow up 08/20/2017 oral ulcers 05/08/2017 cold sore breast complaint 12/31/2016 rash 03/15/2016 Results Observation Observation Code Item Item Code Result Date Estrogens, Total LC 317772 ESTROGENS, TOTAL 47 PG/ML 11/18/2018 Estrogens Total 677099 ESTROGENS, TOTAL 342 pg/mL 01/04/2017 Comp Metabolic Cnc369 NA 140 mEq/L 12/31/2016 Comp Metabolic Uxl822 K 4.2 mEq/L 12/31/2016 Comp Metabolic Alh359 CL 103 mEq/L 12/31/2016 Comp Metabolic Inf177 CO2 29.0 mEq/L 12/31/2016 Comp Metabolic Yys738 ANION GAP 12 12/31/2016 Comp Metabolic Djh510 GLUCOSE 87 mg/dL 12/31/2016 Comp Metabolic Sfg072 Creat 0.7 mg/dL 12/31/2016 Comp Metabolic Slo141 eGFR 96 ml/min/1.73m2 12/31/2016 Comp Metabolic Wnc572 BUN 9 mg/dL 12/31/2016 Comp Metabolic Dhf099 B/C Ratio 12.7 Ratio 12/31/2016 Comp Metabolic Bjq458 CALCIUM 9.1 mg/dL 12/31/2016 Comp Metabolic Txd339 ALK PHOS 93 U/L 12/31/2016 Comp Metabolic Xjk169 AST(SGOT) 12 U/L 12/31/2016 Comp Metabolic Arz702 ALT(SGPT) 10 U/L 12/31/2016 Comp Metabolic Hga517 BILI T 0.4 mg/dL 12/31/2016 Comp Metabolic Rgb434 ALBUMIN 4.2 g/dL 12/31/2016 Comp Metabolic Dwf537 TPRO 6.1 g/dL 12/31/2016 Comp Metabolic Oka054 GLOB 2.0 g/dL 12/31/2016 Comp Metabolic Rwv485 A/G Ratio 2.1 Ratio 12/31/2016 Comp Metabolic Fvf494 Osmo 277 mOsmo 12/31/2016 Cbc With Differential [...] 31.7 pg 12/31/2016 Cbc With Differential Ord2 Amite% 11.3 % 12/31/2016 Cbc With Differential Ord2 [...] 1.45 K/ul 12/31/2016 Cbc With Differential Ord2 Amite ABS# 0.7 K/ul 12/31/2016 Cbc With Differential Ord2 Eos ABS# 0.1 K/ul 12/31/2016 Cbc With Differential Ord2 Baso ABS# 0.0 K/ul 12/31/2016 Tsh Ord6 hTSH II 2.46 uIU/mL 12/31/2016 Progesterone Bop366 Prog 3.96 ng/mL 12/31/2016 Review of Systems System Result Effective Dates Constitutional No recent illness 11/25/2018 Constitutional No [...] Result Effective Dates Notes Full Exam - General 1994 Constitutional general [...] developed 01/21/2018 None Full Exam - General 1995 Constitutional general appearance Overall: in no acute [...] CPT-4: J3301 06/30/2018 Vital Signs Date Vital 11/25/2018 Blood Pressure 1: 122/70 Code: 8480-6 BMI: 24.8 Code: 85585-5 Heart Rate 1: 64 bpm Height: 5'4" SpO2: 98% Weight: 147 lbs 08/13/2018 Heart Rate 1: 94 bpm Height: Weight: 07/21/2018 Blood Pressure 1: 118/74 Code: 8480-6 BMI: 24.2 Code: 39027-8 Heart Rate 1: 100 bpm Height: 5'4" SpO2: 98% Weight: 143 lbs 06/30/2018 Blood Pressure 1: 120/68 Code: 8480-6 BMI: 24.5 Code: 32965-7 Heart Rate 1: 100 bpm Height: 5'4" SpO2: 96% Temperature: 37.1 (C) / 98.7 (F) Weight: 145 lbs 01/21/2018 Blood Pressure 1: 122/70 Code: 8480-6 BMI: 24.5 Code: 76158-3 Heart Rate 1: 97 bpm Height: 5'4" SpO2: 98% Weight: 145 lbs 08/20/2017 Blood Pressure 1: 120/78 Code: 8480-6 BMI: 24.3 Code: 15619-2 Heart Rate 1: 97 bpm Height: 5'4" SpO2: 97% Weight: 144 lbs 05/08/2017 Blood Pressure 1: 124/78 Code: 8480-6 BMI: 24.7 Code: 41782-8 Heart Rate 1: 101 bpm Height: 5'4" SpO2: 98% Weight: 146 lbs 12/31/2016 Blood Pressure 1: 128/74 Code: 8480-6 Heart Rate 1: 94 bpm SpO2: 99% Weight: 141 lbs 03/15/2016 Blood Pressure 1: 126/80 Code: 8480-6 BMI: 23.5 Code: 92024-1 Heart Rate 1: 94 bpm Height: 5'4" SpO2: 97% Weight: 139 lbs Functional Status No Functional Status data History of Present Illness Symptom Name Status Result Effective Date Notes Quality intermittent 11/25/2018 None Quality chronic 11/25/2018 [...] Codes Date EST. PATIENT, LEVEL III Diagnosis: Menopausal and female climacteric states[ICD10: N95.1] Anais Heredia MD, [facility] CPT-4: 17029 11/25/2018 [id number] EST. PATIENT, LEVEL III Diagnosis: Rash and other nonspecific skin eruption[ICD10: R21] Diagnosis: Other urticaria[ICD10: L50.8] [facility] CPT-4: 42572 08/13/2018 [id number] EST. PATIENT, LEVEL III Diagnosis: Attention-deficit hyperactivity disorder, combined type[ICD10: F90.2] Anais Heredia MD, [facility] CPT-4: 98648 07/21/2018 ([id number]) [id number] EST. PATIENT, LEVEL III Diagnosis: Cough[ICD10: R05] Diagnosis: Acute upper respiratory infection, unspecified[ICD10: J06.9] Elena Heredia MD, [facility] CPT-4: 86130 06/30/2018 [id number] EST. PATIENT, LEVEL III Diagnosis: Attention-deficit hyperactivity disorder, combined type[ICD10: F90.2] Anais Heredia MD, [facility] CPT-4: 67562 01/21/2018 29581 EST. PATIENT, LEVEL III Diagnosis: Attention-deficit hyperactivity disorder, combined type[ICD10: F90.2] Diagnosis: Rash and other nonspecific skin eruption[ICD10: R21] Anais Heredia MD, [facility] CPT-4: 86237 08/20/2017 [id number] EST. 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 PATIENT, LEVEL III Diagnosis: Mastodynia[ICD10: N64.4] Anais Heredia MD, [facility] CPT-4: 08760 12/31/2016 ([id number]) OFFICE VISIT, NEW - LEVEL 3 Diagnosis: Cellulitis of left lower limb[ICD10: L03.116] Anais Heredia MD, [facility] CPT-4: 37879 03/15/2016 Plan of Care Planned Activity Notes Codes Status Date Visit Plan: menopausal symptoms, flushing, hot flashes, skin changes - will order hormone replacement therapy through [facility]. Pt is to notify clinic if symptoms do not improve, if they worsen, or with any changes, questions, or concerns. 11/25/2018 Appointment: Anais Hennessy WPtel: [address] [place], [place] [phone] (30 min) [facility] 11/25/2018 Patient Education: Patient Medication Summary Completed 11/25/2018 Visit Plan: Rash - The patient was instructed to use the medication as per RX. The patient is to call for any change in symptoms, increase in size of the lesion, increase in pain, worsening redness, warmth, discharge. 08/13/2018 Appointment: Anais Hennessyl: [phone] [facility] (30 min) Complex 08/13/2018 Patient Education: Patient [...] not prescribed. 07/21/2018 Appointment: Anais Hennessy WPtel: [phone] [facility] (15 min) Moderate 07/21/2018 Patient Education: Patient Medication Summary Completed 07/21/2018 Visit Plan: URI - Pt advised to increase fluids, vitamin C. Discussed natural and expected course of this diagnosis and need to alert me if symptoms do not follow expected course, or if any worse. RX sent to patient's pharmacy. 06/30/2018 Appointment: Elena Dong WPtel: [phone] [phone] (15 min) Moderate 06/30/2018 Patient Education: [...] not prescribed. 01/21/2018 Appointment: Anais Hennessy WPtel: [phone] [facility] (30 min) Complex 01/21/2018 Patient Education: [...] concerns. 08/20/2017 [facility] [phone] [facility] ([facility] 08/20/2017 Patient Education: Patient Medication Summary Completed 08/20/2017 Care Plan: Unilateral DIAGNOSTICMAMMOGRAPHYDIGITAL LOINC : 39364-6 Pending 08/20/2017 Care Plan: SCREENINGMAMMOGRAPHYDIGITAL LOINC : 86805-7 Pending 08/20/2017 Visit Plan: Cold sores - [...] not prescribed. 05/08/2017 [facility]ment: [facility] [phone] [facility] ([facility] 05/08/2017 Patient Education: Patient Medication Summary Completed 05/08/2017 Visit Plan: Rash to left breast - will send RX, will order mammogram - pt is to call for acute change in symptoms, worsening redness, warmth, discharge, increase in size of the lesion, increase in pain. 12/31/2016 Appointment: Anais Hennessy WPtel: [phone] [phone] (30 min) Complex 12/31/2016 Patient Education: Patient Medication Summary Completed 12/31/2016 Visit Plan: Cellulitis - continue with oral antibiotics as previously directed, return to clinic as previously directed, call for acute change in symptoms, worsening redness, warmth, discharge. 03/15/2016 Appointment: Anais Hennessy WPtel: [phone] [facility] New Patient 03/15/2016 Patient Education: Patient Medication [...] - will order hormone replacement therapy through [facility]. Pt is to notify clinic [...] in symptoms, worsening redness, warmth, discharge. . Rash - The patient was instructed [...]
--- OUTSIDE RECORDS SUMMARY | 2019-01-13 17:24 | XMS REPORT | CCD ---
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 Name Role Phone PP Unavailable CCM Unavailable Summary Purpose Interface Exchange Insurance Providers Payer name Policy type / Coverage type Covered democrat ID Effective Begin Date Effective End Date [facility] Commercial Insurance [id number] Unknown Family history Father Diagnosis Age At Onset Cancer Unknown Mother Diagnosis Age At Onset kidney disease Unknown genetic disease Unknown Hypertension Unknown Polycystic ovarian disease Unknown Arthritis Unknown Social History Social History Element Codes Description Effective Dates Marital status Unknown naun 03/15/2016 Number of children Unknown 2 03/15/[address]: 5702903 Quit less than 5 years ago 03/15/[address]: 639421 Currently drinks alcohol 03/15/2016 Frequency of drinks SNOMED CT: 335042451 1- 4 drinks per week 03/15/2016 Allergies, [...] Start Date Stop Date Status Fill Instructions Vitamin D2 50,000 unit capsule RxNorm: 2942772 1 Capsule(s) PO QW 11/28/2018 No Stop Date Active Vitamin D2 50,000 unit capsule RxNorm: 1196904 1 Capsule(s) PO QW 11/27/2018 11/27/2018 Inactive valacyclovir 1 gram tablet RxNorm: 339386 1 Tablet(s) PO TID as needed 11/25/2018 01/23/2019 Active Adderall 30 mg tablet RxNorm: 745311 1/2 Tablet(s) PO BID 11/06/2018 12/05/2018 Active Adderall 30 mg tablet RxNorm: 684849 1/2 Tablet(s) PO BID 10/07/2018 11/05/2018 Inactive lamotrigine 150 mg tablet RxNorm: 350847 Tablet(s) TAKE 1 TABLET BY MOUTH ONCE DAILY 09/25/2018 No Stop Date Active Adderall 30 mg tablet RxNorm: 319445 1/2 Tablet(s) PO BID 09/09/2018 10/06/2018 Inactive prednisone 10 mg tablet RxNorm: 662006 1 Tablet(s) PO UD 08/13/2018 No Stop Date Active 60,50,40,30,20,10 betamethasone dipropionate 0.05 % topical cream RxNorm: 416323 1 Application TOP BID 08/13/2018 No Stop Date Active Adderall 30 mg tablet RxNorm: 426866 1/2 Tablet(s) PO BID 08/11/2018 09/08/2018 Inactive Adderall 30 mg tablet RxNorm: 385331 1/2 Tablet(s) PO BID 07/15/2018 08/10/2018 Inactive Kenalog 40 mg/mL suspension for injection RxNorm: 0347299 Milliliter(s) Inj 06/30/2018 06/30/2018 Inactive lamotrigine 150 mg tablet RxNorm: 343508 Tablet(s) TAKE 1 TABLET BY MOUTH ONCE DAILY 06/27/2018 09/24/2018 Inactive Adderall 30 mg tablet RxNorm: 586043 1/2 Tablet(s) PO BID 06/27/2018 07/14/2018 Inactive acyclovir 400 mg tablet RxNorm: 462955 1 Tablet(s) PO TID 05/12/2018 06/09/2018 Inactive Adderall 30 mg tablet RxNorm: 774973 1/2 Tablet(s) PO BID 04/07/2018 05/06/2018 Inactive lamotrigine 150 mg tablet RxNorm: 120892 TAKE 1 TABLET BY MOUTH ONCE DAILY 03/31/2018 06/26/2018 Inactive Adderall 30 mg tablet RxNorm: 552522 1/2 Tablet(s) PO BID 03/19/2018 04/06/2018 Inactive lamotrigine 150 mg tablet RxNorm: 488194 TAKE ONE TABLET BY MOUTH ONCE DAILY 01/30/2018 03/30/2018 Inactive Adderall 30 mg tablet RxNorm: 614331 1/2 Tablet(s) PO BID 01/20/2018 02/18/2018 Inactive Adderall 30 mg tablet RxNorm: 468533 1/2 Tablet(s) PO BID 10/29/2017 11/27/2017 Inactive Diflucan 150 mg tablet RxNorm: 193560 1 Tablet(s) PO daily 08/20/2017 08/24/2017 Inactive betamethasone dipropionate 0.05 % topical cream RxNorm: 412039 1 Application TOP BID 08/20/2017 08/12/2018 Inactive triamcinolone acetonide 0.025 % topical cream RxNorm: 2854190 1 Application TOP BID 08/07/2017 No Stop Date Active Adderall 30 mg tablet RxNorm: 891453 1/2 Tablet(s) PO BID 08/07/2017 09/05/2017 Inactive triamcinolone acetonide 0.025 % topical cream RxNorm: 9990322 1 Application TOP BID 07/31/2017 08/06/2017 Inactive Adderall XR 30 mg capsule,extended release RxNorm: 543320 1 Capsule(s) PO daily 07/31/2017 08/06/2017 Inactive lamotrigine 150 mg tablet RxNorm: 084144 1 Tablet(s) PO daily 06/04/2017 10/01/2017 Inactive Adderall 30 mg tablet RxNorm: 181417 1/2 Tablet(s) PO BID 05/08/2017 06/06/2017 Inactive acyclovir 400 mg tablet RxNorm: 241120 1 Tablet(s) PO TID 05/08/2017 06/06/2017 Inactive nystatin 100,000 unit/gram topical cream RxNorm: 034105 1 Application TOP BID 12/31/2016 No Stop Date Active triamcinolone acetonide 0.025 % topical cream RxNorm: 1832385 1 Application TOP BID 12/31/2016 07/30/2017 Inactive Bactrim DS 800 mg-160 mg tablet RxNorm: 636313 1 Tablet(s) PO BID 03/15/2016 03/28/2016 Inactive Adderall XR 30 mg capsule,extended release RxNorm: 914059 1 Capsule(s) PO daily No Start Date 07/30/2017 Inactive Vitamin D2 50,000 unit capsule RxNorm: 2976174 1 Capsule(s) PO QW No Start Date 11/26/2018 Inactive lamotrigine 150 mg tablet RxNorm: 030033 1 Tablet(s) PO daily No Start Date 06/03/2017 Inactive Medication Administered Medication Codes Instructions Start Date Status Kenalog 40 mg/mL suspension for injection RxNorm: 8477199 Milliliter 06/30/2018 No longer Active Immunizations No [...] Item Code Result Date Estrogens, Total LC 475930 ESTROGENS, TOTAL 47 PG/ML 11/18/2018 Estrogens Total 581790 ESTROGENS, TOTAL 342 pg/mL 01/04/2017 Comp Metabolic Zzy551 NA 140 mEq/L 12/31/2016 Comp Metabolic Fzk836 K 4.2 mEq/L 12/31/2016 Comp Metabolic Blb502 CL 103 mEq/L 12/31/2016 Comp Metabolic Wge475 CO2 29.0 mEq/L 12/31/2016 Comp Metabolic Mta178 ANION GAP 12 12/31/2016 Comp Metabolic Rvt427 GLUCOSE 87 mg/dL 12/31/2016 Comp Metabolic Cyo053 Creat 0.7 mg/dL 12/31/2016 Comp Metabolic Gce111 eGFR 96 ml/min/1.73m2 12/31/2016 Comp Metabolic Pqm669 BUN 9 mg/dL 12/31/2016 Comp Metabolic Hnf159 B/C Ratio 12.7 Ratio 12/31/2016 Comp Metabolic Mzn471 CALCIUM 9.1 mg/dL 12/31/2016 Comp Metabolic Oek220 ALK PHOS 93 U/L 12/31/2016 Comp Metabolic Llx992 AST(SGOT) 12 U/L 12/31/2016 Comp Metabolic Zhg611 ALT(SGPT) 10 U/L 12/31/2016 Comp Metabolic Aix497 BILI T 0.4 mg/dL 12/31/2016 Comp Metabolic Oxz613 ALBUMIN 4.2 g/dL 12/31/2016 Comp Metabolic Aes828 TPRO 6.1 g/dL 12/31/2016 Comp Metabolic Tim570 GLOB 2.0 g/dL 12/31/2016 Comp Metabolic Cvc010 A/G Ratio 2.1 Ratio 12/31/2016 Comp Metabolic Vki138 Osmo 277 mOsmo 12/31/2016 Cbc With Differential Ord2 WBC 6.01 K/ul 12/31/2016 Cbc With Differential Ord2 RBC 4.51 M/ul 12/31/2016 Cbc With Differential Ord2 HGB 14.3 g/dl 12/31/2016 Cbc With Differential Ord2 Neut% 63.6 % 12/31/2016 Cbc With Differential Ord2 HCT 42.1 % 12/31/2016 Cbc With Differential Ord2 Lymph% 24.1 % 12/31/2016 Cbc With Differential Ord2 MCV 93.3 fl 12/31/2016 Cbc With Differential Ord2 MCH 31.7 pg 12/31/2016 Cbc With Differential Ord2 Bates% 11.3 % 12/31/2016 Cbc With Differential Ord2 [...] 1.45 K/ul 12/31/2016 Cbc With Differential Ord2 Bates ABS# 0.7 K/ul 12/31/2016 Cbc With Differential Ord2 Eos ABS# 0.1 K/ul 12/31/2016 Cbc With Differential Ord2 Baso ABS# 0.0 K/ul 12/31/2016 Tsh Ord6 hTSH II 2.46 uIU/mL 12/31/2016 Progesterone Sbc657 Prog 3.96 ng/mL 12/31/2016 Review of Systems [...] 1: 122/70 Code: 8480-6 BMI: 24.8 Code: 60985-4 Heart Rate 1: 64 bpm Height: 5'4" SpO2: 98% Weight: 147 lbs 08/13/2018 Heart Rate 1: 94 bpm Height: Weight: 07/21/2018 Blood Pressure 1: 118/74 Code: 8480-6 BMI: 24.2 Code: 40405-7 Heart Rate 1: 100 bpm Height: 5'4" SpO2: 98% Weight: 143 lbs 06/30/2018 Blood Pressure 1: 120/68 Code: 8480-6 BMI: 24.5 Code: 43676-5 Heart Rate 1: 100 bpm Height: 5'4" SpO2: 96% Temperature: 37.1 (C) / 98.7 (F) Weight: 145 lbs 01/21/2018 Blood Pressure 1: 122/70 Code: 8480-6 BMI: 24.5 Code: 07847-4 Heart Rate 1: 97 bpm Height: 5'4" SpO2: 98% Weight: 145 lbs 08/20/2017 Blood Pressure 1: 120/78 Code: 8480-6 BMI: 24.3 Code: 46049-7 Heart Rate 1: 97 bpm Height: 5'4" SpO2: 97% Weight: 144 lbs 05/08/2017 Blood Pressure 1: 124/78 Code: 8480-6 BMI: 24.7 Code: 06862-9 Heart Rate 1: 101 bpm Height: 5'4" SpO2: 98% Weight: 146 lbs 12/31/2016 Blood Pressure 1: 128/74 Code: 8480-6 Heart Rate 1: 94 bpm SpO2: 99% Weight: 141 lbs 03/15/2016 Blood Pressure 1: 126/80 Code: 8480-6 BMI: 23.5 Code: 01564-9 Heart Rate 1: 94 bpm Height: 5'4" [...] Anais Heredia MD, [facility] CPT-4: 94054 11/25/2018 [id number] EST. PATIENT, LEVEL III Diagnosis: Rash and other nonspecific skin eruption[ICD10: R21] Diagnosis: Other urticaria[ICD10: L50.8] Anais Heredia MD, [facility] CPT-4: 29504 08/13/2018 [id number] EST. PATIENT, LEVEL III Diagnosis: Attention-deficit hyperactivity disorder, combined type[ICD10: F90.2] Anais Heredia MD, [facility] CPT-4: 28368 07/21/2018 ([id number]) 72913 EST. PATIENT, LEVEL III Diagnosis: Cough[ICD10: R05] Diagnosis: Acute upper respiratory infection, unspecified[ICD10: J06.9] Elena Heredia MD, [facility] CPT-4: 03455 06/30/2018 94617 EST. PATIENT, LEVEL III Diagnosis: Attention-deficit hyperactivity disorder, combined type[ICD10: F90.2] Anais Heredia MD, [facility] CPT-4: 73873 01/21/2018 [id number] EST. PATIENT, LEVEL III Diagnosis: Attention-deficit hyperactivity disorder, combined type[ICD10: F90.2] Diagnosis: Rash and other nonspecific skin eruption[ICD10: R21] Anais Heredia MD, [facility] CPT-4: 87659 08/20/2017 54215 EST. 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 PATIENT, LEVEL III Diagnosis: Mastodynia[ICD10: N64.4] Anais Heredia MD, [facility] CPT-4: 11828 12/31/2016 ([id number]) OFFICE VISIT, NEW - LEVEL 3 Diagnosis: Cellulitis of left lower limb[ICD10: L03.116] Anais Heredia MD, [facility] CPT-4: 10638 03/15/2016 Plan of Care Planned Activity Notes Codes Status Date Visit Plan: menopausal symptoms, flushing, hot flashes, skin changes - will order hormone replacement therapy through [facility]. Pt is to notify clinic if symptoms do not improve, if they worsen, or with any changes, questions, or concerns. 11/25/2018 Appointment: Anais Hennessy WPtel: [facility] [place] (30 min) Complex 11/25/2018 Patient Education: Patient Medication Summary Completed 11/25/2018 Visit Plan: Rash - The patient was instructed to use the medication as per RX. The patient is to call for any change in symptoms, increase in size of the lesion, increase in pain, worsening redness, warmth, discharge. 08/13/2018 Appointment: Anais Hennessy WPtel: [address] [place], [place] [address] [place] (30 min) Complex 08/13/2018 Patient Education: Patient [...] prescribed. 07/21/2018 Appointment: Anais Hennessy WPtel: [phone] [facility] (15 min) Moderate 07/21/2018 Patient Education: Patient Medication Summary Completed 07/21/2018 Visit Plan: URI - Pt advised to increase fluids, vitamin C. Discussed natural and expected course of this diagnosis and need to alert me if symptoms do not follow expected course, or if any worse. RX sent to patient's pharmacy. 06/30/2018 Appointment: Elena Dong WPtel: [phone] [phone] [place] (15 min) Moderate 06/30/2018 Patient Education: Patient [...] not prescribed. 01/21/2018 Appointment: Anais Hennessy WPtel: [phone] [facility] (30 min) Complex 01/21/2018 Patient Education: [...] changes, questions, or concerns. 08/20/2017 Appointment: Anais Hennessyl: [address] [facility] [place] (30 min) Complex 08/20/2017 Patient Education: Patient Medication Summary Completed 08/20/2017 Care Plan: Unilateral DIAGNOSTICMAMMOGRAPHYDIGITAL LOINC : 27198-1 Pending 08/20/2017 Care Plan: SCREENINGMAMMOGRAPHYDIGITAL LOINC : 91620-6 Pending 08/20/2017 Visit Plan: Cold sores - [...] medication was not prescribed. 05/08/2017 Appointment: Anais Hennessyl: [address] [facility] [address] [place] [address] (15 min) Moderate 05/08/2017 Patient Education: Patient Medication Summary Completed 05/08/2017 Visit Plan: Rash to left breast - will send RX, will order mammogram - pt is to call for acute change in symptoms, worsening redness, warmth, discharge, increase in size of the lesion, increase in pain. 12/31/2016 Appointment: Anais Hennessy WPtel: [phone] [facility] [address] [place] [address] (30 min) Complex 12/31/2016 Patient Education: Patient Medication Summary Completed 12/31/2016 Visit Plan: Cellulitis - continue with oral antibiotics as previously directed, return to clinic as previously directed, call for acute change in symptoms, worsening redness, warmth, discharge. 03/15/2016 Appointment: Anais Hennessy WPtel: [address] [facility] [address] [place] [address] New Patient 03/15/2016 Patient Education: Patient Medication [...] - will order hormone replacement therapy through [facility]. Pt is to notify clinic if [...]
--- OUTSIDE RECORDS SUMMARY | 2019-01-13 17:25 | XMS REPORT | CCD ---
Author Author Anais Hennessy MD, [facility] Address [address] [place] [address] Phone Care Team Providers Care Scales Inspector Name Role Phone PP Unavailable CCM Unavailable Summary Purpose Interface Exchange Insurance Providers Payer name Policy type / Coverage type Covered green party ID Effective Begin Date Effective End Date [facility] Commercial Insurance [id number] Unknown Family history Father Diagnosis Age At Onset Cancer Unknown Mother Diagnosis Age At Onset kidney disease Unknown genetic disease Unknown Hypertension Unknown Polycystic ovarian disease Unknown Arthritis Unknown Social History Social History Element Codes Description Effective Dates Marital status Unknown naun 03/15/2016 Number of children Unknown 2 03/15/[address]: 8974887 Quit less than 5 years ago 03/15/[address]: 500931 Currently drinks alcohol 03/15/2016 Frequency of drinks SNOMED CT: 729579938 1- 4 drinks per week 03/15/2016 Allergies, [...] Instructions Vitamin D2 50,000 unit capsule RxNorm: 6041083 1 Capsule(s) PO QW 11/27/2018 No Stop Date Active valacyclovir 1 gram tablet RxNorm: 059667 1 Tablet(s) PO TID as needed 11/25/2018 01/23/2019 Active Adderall 30 mg tablet RxNorm: 593180 1/2 Tablet(s) PO BID 11/06/2018 12/05/2018 Active Adderall 30 mg tablet RxNorm: 927830 1/2 Tablet(s) PO BID 10/07/2018 11/05/2018 Inactive lamotrigine 150 mg tablet RxNorm: 150944 Tablet(s) TAKE 1 TABLET BY MOUTH ONCE DAILY 09/25/2018 No Stop Date Active Adderall 30 mg tablet RxNorm: 084488 1/2 Tablet(s) PO BID 09/09/2018 10/06/2018 Inactive prednisone 10 mg tablet RxNorm: 539858 1 Tablet(s) PO UD 08/13/2018 No Stop Date Active 60,50,40,30,20,10 betamethasone dipropionate 0.05 % topical cream RxNorm: 093295 1 Application TOP BID 08/13/2018 No Stop Date Active Adderall 30 mg tablet RxNorm: 080899 1/2 Tablet(s) PO BID 08/11/2018 09/08/2018 Inactive Adderall 30 mg tablet RxNorm: 309945 1/2 Tablet(s) PO BID 07/15/2018 08/10/2018 Inactive Kenalog 40 mg/mL suspension for injection RxNorm: 3308451 Milliliter(s) Inj 06/30/2018 06/30/2018 Inactive lamotrigine 150 mg tablet RxNorm: 391111 Tablet(s) TAKE 1 TABLET BY MOUTH ONCE DAILY 06/27/2018 09/24/2018 Inactive Adderall 30 mg tablet RxNorm: 600858 1/2 Tablet(s) PO BID 06/27/2018 07/14/2018 Inactive acyclovir 400 mg tablet RxNorm: 052510 1 Tablet(s) PO TID 05/12/2018 06/09/2018 Inactive Adderall 30 mg tablet RxNorm: 829573 1/2 Tablet(s) PO BID 04/07/2018 05/06/2018 Inactive lamotrigine 150 mg tablet RxNorm: 011287 TAKE 1 TABLET BY MOUTH ONCE DAILY 03/31/2018 06/26/2018 Inactive Adderall 30 mg tablet RxNorm: 825922 1/2 Tablet(s) PO BID 03/19/2018 04/06/2018 Inactive lamotrigine 150 mg tablet RxNorm: 372739 TAKE ONE TABLET BY MOUTH ONCE DAILY 01/30/2018 03/30/2018 Inactive Adderall 30 mg tablet RxNorm: 836039 1/2 Tablet(s) PO BID 01/20/2018 02/18/2018 Inactive Adderall 30 mg tablet RxNorm: 353737 1/2 Tablet(s) PO BID 10/29/2017 11/27/2017 Inactive Diflucan 150 mg tablet RxNorm: 177636 1 Tablet(s) PO daily 08/20/2017 08/24/2017 Inactive betamethasone dipropionate 0.05 % topical cream RxNorm: 834521 1 Application TOP BID 08/20/2017 08/12/2018 Inactive triamcinolone acetonide 0.025 % topical cream RxNorm: 8661804 1 Application TOP BID 08/07/2017 No Stop Date Active Adderall 30 mg tablet RxNorm: 465774 1/2 Tablet(s) PO BID 08/07/2017 09/05/2017 Inactive triamcinolone acetonide 0.025 % topical cream RxNorm: 6952942 1 Application TOP BID 07/31/2017 08/06/2017 Inactive Adderall XR 30 mg capsule,extended release RxNorm: 912828 1 Capsule(s) PO daily 07/31/2017 08/06/2017 Inactive lamotrigine 150 mg tablet RxNorm: 422142 1 Tablet(s) PO daily 06/04/2017 10/01/2017 Inactive Adderall 30 mg tablet RxNorm: 947315 1/2 Tablet(s) PO BID 05/08/2017 06/06/2017 Inactive acyclovir 400 mg tablet RxNorm: 752440 1 Tablet(s) PO TID 05/08/2017 06/06/2017 Inactive nystatin 100,000 unit/gram topical cream RxNorm: 487348 1 Application TOP BID 12/31/2016 No Stop Date Active triamcinolone acetonide 0.025 % topical cream RxNorm: 2743120 1 Application TOP BID 12/31/2016 07/30/2017 Inactive Bactrim DS 800 mg-160 mg tablet RxNorm: 722168 1 Tablet(s) PO BID 03/15/2016 03/28/2016 Inactive Adderall XR 30 mg capsule,extended release RxNorm: 129625 1 Capsule(s) PO daily No Start Date 07/30/2017 Inactive Vitamin D2 50,000 unit capsule RxNorm: 9063159 1 Capsule(s) PO QW No Start Date 11/26/2018 Inactive lamotrigine 150 mg tablet RxNorm: 676085 1 Tablet(s) PO daily No Start Date 06/03/2017 Inactive Medication Administered Medication Codes Instructions Start Date Status Kenalog 40 mg/mL suspension for injection RxNorm: 4354322 Milliliter 06/30/2018 No longer Active Immunizations No [...] Item Code Result Date Estrogens, Total LC 573300 ESTROGENS, TOTAL 47 PG/ML 11/18/2018 Estrogens Total 132593 ESTROGENS, TOTAL 342 pg/mL 01/04/2017 Comp Metabolic Mih085 NA 140 mEq/L 12/31/2016 Comp Metabolic Bia373 K 4.2 mEq/L 12/31/2016 Comp Metabolic Fkz832 CL 103 mEq/L 12/31/2016 Comp Metabolic Lpa230 CO2 29.0 mEq/L 12/31/2016 Comp Metabolic Weq468 ANION GAP 12 12/31/2016 Comp Metabolic Tua832 GLUCOSE 87 mg/dL 12/31/2016 Comp Metabolic Hxc091 Creat 0.7 mg/dL 12/31/2016 Comp Metabolic Jcu413 eGFR 96 ml/min/1.73m2 12/31/2016 Comp Metabolic Zqy082 BUN 9 mg/dL 12/31/2016 Comp Metabolic Bpq501 B/C Ratio 12.7 Ratio 12/31/2016 Comp Metabolic Yiq092 CALCIUM 9.1 mg/dL 12/31/2016 Comp Metabolic Wcp542 ALK PHOS 93 U/L 12/31/2016 Comp Metabolic Osc417 AST(SGOT) 12 U/L 12/31/2016 Comp Metabolic Snt765 ALT(SGPT) 10 U/L 12/31/2016 Comp Metabolic App112 BILI T 0.4 mg/dL 12/31/2016 Comp Metabolic Lgg038 ALBUMIN 4.2 g/dL 12/31/2016 Comp Metabolic Mxh618 TPRO 6.1 g/dL 12/31/2016 Comp Metabolic Dfr958 GLOB 2.0 g/dL 12/31/2016 Comp Metabolic Gqg671 A/G Ratio 2.1 Ratio 12/31/2016 Comp Metabolic Pne605 Osmo 277 mOsmo 12/31/2016 Cbc With Differential [...] 31.7 pg 12/31/2016 Cbc With Differential Ord2 Craig% 11.3 % 12/31/2016 Cbc With Differential Ord2 [...] 1.45 K/ul 12/31/2016 Cbc With Differential Ord2 Craig ABS# 0.7 K/ul 12/31/2016 Cbc With Differential Ord2 Eos ABS# 0.1 K/ul 12/31/2016 Cbc With Differential Ord2 Baso ABS# 0.0 K/ul 12/31/2016 Tsh Ord6 hTSH II 2.46 uIU/mL 12/31/2016 Progesterone Exw823 Prog 3.96 ng/mL 12/31/2016 Review of Systems [...] clear 01/21/2018 None Full Exam - General 1995 Eyes conjunctiva/eyelids Overall: cornea clear 01/21/2018 None [...] distress 08/20/2017 None Full Exam - General 1995 Constitutional general appearance Overall: well nourished 08/20/2017 None Full Exam - General 1995 Eyes conjunctiva/eyelids Overall: conjunctiva clear 08/20/2017 None Full Exam - General 1995 Eyes conjunctiva/eyelids Overall: cornea clear 08/20/2017 None Full Exam - General 1995 Eyes conjunctiva/eyelids Overall: eyelids normal 08/20/2017 None Full Exam - General 1995 Ears/Nose/Throat lips/teeth/gingiva Overall: benign lips 08/20/2017 None Full Exam - General 1995 Ears/Nose/Throat [...] 1: 122/70 Code: 8480-6 BMI: 24.8 Code: 10045-9 Heart Rate 1: 64 bpm Height: 5'4" SpO2: 98% Weight: 147 lbs 08/13/2018 Heart Rate 1: 94 bpm Height: Weight: 07/21/2018 Blood Pressure 1: 118/74 Code: 8480-6 BMI: 24.2 Code: 88264-8 Heart Rate 1: 100 bpm Height: 5'4" SpO2: 98% Weight: 143 lbs 06/30/2018 Blood Pressure 1: 120/68 Code: 8480-6 BMI: 24.5 Code: 19613-2 Heart Rate 1: 100 bpm Height: 5'4" SpO2: 96% Temperature: 37.1 (C) / 98.7 (F) Weight: 145 lbs 01/21/2018 Blood Pressure 1: 122/70 Code: 8480-6 BMI: 24.5 Code: 77292-5 Heart Rate 1: 97 bpm Height: 5'4" SpO2: 98% Weight: 145 lbs 08/20/2017 Blood Pressure 1: 120/78 Code: 8480-6 BMI: 24.3 Code: 38350-3 Heart Rate 1: 97 bpm Height: 5'4" SpO2: 97% Weight: 144 lbs 05/08/2017 Blood Pressure 1: 124/78 Code: 8480-6 BMI: 24.7 Code: 20806-6 Heart Rate 1: 101 bpm Height: 5'4" SpO2: 98% Weight: 146 lbs 12/31/2016 Blood Pressure 1: 128/74 Code: 8480-6 Heart Rate 1: 94 bpm SpO2: 99% Weight: 141 lbs 03/15/2016 Blood Pressure 1: 126/80 Code: 8480-6 BMI: 23.5 Code: 01188-9 Heart Rate 1: 94 bpm Height: 5'4" [...] female climacteric states[ICD10: N95.1] Anais Heredia MD, [facility] CPT-4: 51867 11/25/2018 53557 EST. PATIENT, LEVEL III Diagnosis: Rash and other nonspecific skin eruption[ICD10: R21] Diagnosis: Other urticaria[ICD10: L50.8] Anais eHredia MD, [facility] CPT-4: 43236 08/13/2018 47733 EST. PATIENT, LEVEL III Diagnosis: Attention-deficit hyperactivity disorder, combined type[ICD10: F90.2] Anais Heredia MD, [facility] CPT-4: 07191 07/21/2018 ([id number]) 10612 EST. PATIENT, LEVEL III Diagnosis: Cough[ICD10: R05] Diagnosis: Acute upper respiratory infection, unspecified[ICD10: J06.9] Elena Heredia MD, [facility] CPT-4: 76716 06/30/2018 56587 EST. PATIENT, LEVEL III Diagnosis: Attention-deficit hyperactivity disorder, combined type[ICD10: F90.2] Anais Heredia MD, [facility] CPT-4: 13575 01/21/2018 13634 EST. PATIENT, LEVEL III Diagnosis: Attention-deficit hyperactivity disorder, combined type[ICD10: F90.2] Diagnosis: Rash and other nonspecific skin eruption[ICD10: R21] Anais Heredia MD, [facility] CPT-4: 65074 08/20/2017 03800 EST. 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 PATIENT, LEVEL III Diagnosis: Mastodynia[ICD10: N64.4] Anais Heredia MD, [facility] CPT-4: 05491 12/31/2016 ([id number]) OFFICE VISIT, NEW - LEVEL 3 Diagnosis: Cellulitis of left lower limb[ICD10: L03.116] Anais Heredia MD, [facility] CPT-4: 53551 03/15/2016 Plan of Care Planned Activity Notes Codes Status Date Visit Plan: menopausal symptoms, flushing, hot flashes, skin changes - will order hormone replacement therapy through [facility]. Pt is to notify clinic if symptoms do not improve, if they worsen, or with any changes, questions, or concerns. 11/25/2018 Appointment: Anais Hennessy WPtel: [address] [place], [place] [phone] (30 min) Complex 11/25/2018 Patient Education: Patient Medication Summary Completed 11/25/2018 Visit Plan: Rash - The patient was instructed to use the medication as per RX. The patient is to call for any change in symptoms, increase in size of the lesion, increase in pain, worsening redness, warmth, discharge. 08/13/2018 Appointment: Anais Hennessy WPtel: [phone] (30 min) Complex 08/13/2018 Patient Education: Patient [...] not prescribed. 07/21/2018 Appointment: Anais Hennessy WPtel: [phone] [phone] (15 min) Moderate 07/21/2018 Patient Education: Patient Medication Summary Completed 07/21/2018 Visit Plan: URI - Pt advised to increase fluids, vitamin C. Discussed natural and expected course of this diagnosis and need to alert me if symptoms do not follow expected course, or if any worse. RX sent to patient's pharmacy. 06/30/2018 Appointment: Elena Dong WPtel: [phone] [phone] (15 min) Moderate 06/30/2018 Patient Education: Patient [...] not prescribed. 01/21/2018 [facility]ment[facility] [phone] [facility] [facility] 01/21/2018 Patient Education: [...] concerns. 08/20/2017 Appointment: [facility]el[facility] [phone] [facility] ([facility] Complex 08/20/2017 Patient Education: Patient Medication Summary Completed 08/20/2017 Care Plan: Unilateral DIAGNOSTICMAMMOGRAPHYDIGITAL LOINC : 87948-9 Pending 08/20/2017 Care Plan: SCREENINGMAMMOGRAPHYDIGITAL LOINC : 69404-0 Pending 08/20/2017 Visit Plan: Cold sores - [...] not prescribed. 05/08/2017 Appointment: [facility]el[facility] [phone] [facility] ([facility]) Moderate 05/08/2017 Patient Education: Patient Medication Summary Completed 05/08/2017 Visit Plan: Rash to left breast - will send RX, will order mammogram - pt is to call for acute change in symptoms, worsening redness, warmth, discharge, increase in size of the lesion, increase in pain. 12/31/2016 Appointment: [facility]ais [facility] [phone] [facility] ([facility]) Complex 12/31/2016 Patient Education: Patient Medication Summary Completed 12/31/2016 Visit Plan: Cellulitis - continue with oral antibiotics as previously directed, return to clinic as previously directed, call for acute change in symptoms, worsening redness, warmth, discharge. 03/15/2016 Appointment: [facility]el[facility] [phone] [facility] [facility] 03/15/2016 Patient Education: Patient [...] - will order hormone replacement therapy through [facility]. Pt is to notify clinic [...]
--- OUTSIDE RECORDS SUMMARY | 2019-01-13 17:26 | XMS REPORT | CCD ---
Author Author Anais Hennessy MD, [facility] Address [address] [place] [address] Phone Care Team Providers Care Automatic Buffer Name Role Phone PP Unavailable CCM Unavailable Summary Purpose Interface Exchange Insurance Providers Payer name Policy type / Coverage type Covered alliance party ID Effective Begin Date Effective End Date [facility] Commercial Insurance [id number] Unknown Family history Father Diagnosis Age At Onset Cancer Unknown Mother Diagnosis Age At Onset kidney disease Unknown genetic disease Unknown Hypertension Unknown Polycystic ovarian disease Unknown Arthritis Unknown Social History Social History Element Codes Description Effective Dates Marital status Unknown naun 03/15/2016 Number of children Unknown 2 03/15/[address]: 5525693 Quit less than 5 years ago 03/15/[address]: 376549 Currently drinks alcohol 03/15/2016 Frequency of drinks SNOMED CT: 479800448 1- 4 drinks per week 03/15/2016 Allergies, [...] Start Date Stop Date Status Fill Instructions valacyclovir 1 gram tablet RxNorm: 248556 1 Tablet(s) PO TID as needed 11/25/2018 01/23/2019 Active Adderall 30 mg tablet RxNorm: 910581 1/2 Tablet(s) PO BID 11/06/2018 12/05/2018 Active Adderall 30 mg tablet RxNorm: 578595 1/2 Tablet(s) PO BID 10/07/2018 11/05/2018 Inactive lamotrigine 150 mg tablet RxNorm: 624647 Tablet(s) TAKE 1 TABLET BY MOUTH ONCE DAILY 09/25/2018 No Stop Date Active Adderall 30 mg tablet RxNorm: 338669 1/2 Tablet(s) PO BID 09/09/2018 10/06/2018 Inactive prednisone 10 mg tablet RxNorm: 375405 1 Tablet(s) PO UD 08/13/2018 No Stop Date Active 60,50,40,30,20,10 betamethasone dipropionate 0.05 % topical cream RxNorm: 253729 1 Application TOP BID 08/13/2018 No Stop Date Active Adderall 30 mg tablet RxNorm: 684046 1/2 Tablet(s) PO BID 08/11/2018 09/08/2018 Inactive Adderall 30 mg tablet RxNorm: 186756 1/2 Tablet(s) PO BID 07/15/2018 08/10/2018 Inactive Kenalog 40 mg/mL suspension for injection RxNorm: 2762345 Milliliter(s) Inj 06/30/2018 06/30/2018 Inactive lamotrigine 150 mg tablet RxNorm: 354656 Tablet(s) TAKE 1 TABLET BY MOUTH ONCE DAILY 06/27/2018 09/24/2018 Inactive Adderall 30 mg tablet RxNorm: 020624 1/2 Tablet(s) PO BID 06/27/2018 07/14/2018 Inactive acyclovir 400 mg tablet RxNorm: 662182 1 Tablet(s) PO TID 05/12/2018 06/09/2018 Inactive Adderall 30 mg tablet RxNorm: 272616 1/2 Tablet(s) PO BID 04/07/2018 05/06/2018 Inactive lamotrigine 150 mg tablet RxNorm: 255510 TAKE 1 TABLET BY MOUTH ONCE DAILY 03/31/2018 06/26/2018 Inactive Adderall 30 mg tablet RxNorm: 530575 1/2 Tablet(s) PO BID 03/19/2018 04/06/2018 Inactive lamotrigine 150 mg tablet RxNorm: 004607 TAKE ONE TABLET BY MOUTH ONCE DAILY 01/30/2018 03/30/2018 Inactive Adderall 30 mg tablet RxNorm: 252547 1/2 Tablet(s) PO BID 01/20/2018 02/18/2018 Inactive Adderall 30 mg tablet RxNorm: 369459 1/2 Tablet(s) PO BID 10/29/2017 11/27/2017 Inactive Diflucan 150 mg tablet RxNorm: 010191 1 Tablet(s) PO daily 08/20/2017 08/24/2017 Inactive betamethasone dipropionate 0.05 % topical cream RxNorm: 366368 1 Application TOP BID 08/20/2017 08/12/2018 Inactive triamcinolone acetonide 0.025 % topical cream RxNorm: 1100572 1 Application TOP BID 08/07/2017 No Stop Date Active Adderall 30 mg tablet RxNorm: 649594 1/2 Tablet(s) PO BID 08/07/2017 09/05/2017 Inactive triamcinolone acetonide 0.025 % topical cream RxNorm: 4780819 1 Application TOP BID 07/31/2017 08/06/2017 Inactive Adderall XR 30 mg capsule,extended release RxNorm: 023868 1 Capsule(s) PO daily 07/31/2017 08/06/2017 Inactive lamotrigine 150 mg tablet RxNorm: 696604 1 Tablet(s) PO daily 06/04/2017 10/01/2017 Inactive Adderall 30 mg tablet RxNorm: 976323 1/2 Tablet(s) PO BID 05/08/2017 06/06/2017 Inactive acyclovir 400 mg tablet RxNorm: 001494 1 Tablet(s) PO TID 05/08/2017 06/06/2017 Inactive nystatin 100,000 unit/gram topical cream RxNorm: 932994 1 Application TOP BID 12/31/2016 No Stop Date Active triamcinolone acetonide 0.025 % topical cream RxNorm: 3174404 1 Application TOP BID 12/31/2016 07/30/2017 Inactive Bactrim DS 800 mg-160 mg tablet RxNorm: 913779 1 Tablet(s) PO BID 03/15/2016 03/28/2016 Inactive Adderall XR 30 mg capsule,extended release RxNorm: 134903 1 Capsule(s) PO daily No Start Date 07/30/2017 Inactive lamotrigine 150 mg tablet RxNorm: 391913 1 Tablet(s) PO daily No Start Date 06/03/2017 Inactive Medication Administered Medication Codes Instructions Start Date Status Kenalog 40 mg/mL suspension for injection RxNorm: 5154232 Milliliter 06/30/2018 No longer Active Immunizations No [...] Item Code Result Date Estrogens, Total LC 483796 ESTROGENS, TOTAL 47 PG/ML 11/18/2018 Estrogens Total 752339 ESTROGENS, TOTAL 342 pg/mL 01/04/2017 Comp Metabolic Ldo932 NA 140 mEq/L 12/31/2016 Comp Metabolic Wwg491 K 4.2 mEq/L 12/31/2016 Comp Metabolic Fft084 CL 103 mEq/L 12/31/2016 Comp Metabolic Rus601 CO2 29.0 mEq/L 12/31/2016 Comp Metabolic How705 ANION GAP 12 12/31/2016 Comp Metabolic Xkh601 GLUCOSE 87 mg/dL 12/31/2016 Comp Metabolic Byh812 Creat 0.7 mg/dL 12/31/2016 Comp Metabolic Ydm616 eGFR 96 ml/min/1.73m2 12/31/2016 Comp Metabolic Idc841 BUN 9 mg/dL 12/31/2016 Comp Metabolic Fkp580 B/C Ratio 12.7 Ratio 12/31/2016 Comp Metabolic Hbo933 CALCIUM 9.1 mg/dL 12/31/2016 Comp Metabolic Gkj678 ALK PHOS 93 U/L 12/31/2016 Comp Metabolic Lrv259 AST(SGOT) 12 U/L 12/31/2016 Comp Metabolic Rkh121 ALT(SGPT) 10 U/L 12/31/2016 Comp Metabolic Lxe405 BILI T 0.4 mg/dL 12/31/2016 Comp Metabolic Vax789 ALBUMIN 4.2 g/dL 12/31/2016 Comp Metabolic Xmi273 TPRO 6.1 g/dL 12/31/2016 Comp Metabolic Kug682 GLOB 2.0 g/dL 12/31/2016 Comp Metabolic Dqm403 A/G Ratio 2.1 Ratio 12/31/2016 Comp Metabolic Hcb751 Osmo 277 mOsmo 12/31/2016 Cbc With Differential [...] 31.7 pg 12/31/2016 Cbc With Differential Ord2 [place]% 11.3 % 12/31/2016 Cbc With Differential Ord2 [...] 1.45 K/ul 12/31/2016 Cbc With Differential Ord2 [place] ABS# 0.7 K/ul 12/31/2016 Cbc With Differential Ord2 Eos ABS# 0.1 K/ul 12/31/2016 Cbc With Differential Ord2 Baso ABS# 0.0 K/ul 12/31/2016 Tsh Ord6 hTSH II 2.46 uIU/mL 12/31/2016 Progesterone Tcy304 Prog 3.96 ng/mL 12/31/2016 Review of Systems [...] normal 01/21/2018 None Full Exam - General 1995 Ears/Nose/Throat lips/teeth/gingiva Overall: benign lips 01/21/2018 None [...] 1: 122/70 Code: 8480-6 BMI: 24.8 Code: 47077-7 Heart Rate 1: 64 bpm Height: 5'4" SpO2: 98% Weight: 147 lbs 08/13/2018 Heart Rate 1: 94 bpm Height: Weight: 07/21/2018 Blood Pressure 1: 118/74 Code: 8480-6 BMI: 24.2 Code: 73539-3 Heart Rate 1: 100 bpm Height: 5'4" SpO2: 98% Weight: 143 lbs 06/30/2018 Blood Pressure 1: 120/68 Code: 8480-6 BMI: 24.5 Code: 61266-1 Heart Rate 1: 100 bpm Height: 5'4" SpO2: 96% Temperature: 37.1 (C) / 98.7 (F) Weight: 145 lbs 01/21/2018 Blood Pressure 1: 122/70 Code: 8480-6 BMI: 24.5 Code: 74389-1 Heart Rate 1: 97 bpm Height: 5'4" SpO2: 98% Weight: 145 lbs 08/20/2017 Blood Pressure 1: 120/78 Code: 8480-6 BMI: 24.3 Code: 42591-5 Heart Rate 1: 97 bpm Height: 5'4" SpO2: 97% Weight: 144 lbs 05/08/2017 Blood Pressure 1: 124/78 Code: 8480-6 BMI: 24.7 Code: 40049-5 Heart Rate 1: 101 bpm Height: 5'4" SpO2: 98% Weight: 146 lbs 12/31/2016 Blood Pressure 1: 128/74 Code: 8480-6 Heart Rate 1: 94 bpm SpO2: 99% Weight: 141 lbs 03/15/2016 Blood Pressure 1: 126/80 Code: 8480-6 BMI: 23.5 Code: 41209-0 Heart Rate 1: 94 bpm Height: 5'4" [...] female climacteric states[ICD10: N95.1] Anais Heredia MD, [facility] CPT-4: 81671 11/25/2018 [id number] EST. PATIENT, LEVEL III Diagnosis: Rash and other nonspecific skin eruption[ICD10: R21] Diagnosis: Other urticaria[ICD10: L50.8] Anais Herdeia MD, [facility] CPT-4: 94170 08/13/2018 85713 EST. PATIENT, LEVEL III Diagnosis: Attention-deficit hyperactivity disorder, combined type[ICD10: F90.2] Anais Heredia MD, [facility] CPT-4: 65007 07/21/2018 ([id number]) 24303 EST. PATIENT, LEVEL III Diagnosis: Cough[ICD10: R05] Diagnosis: Acute upper respiratory infection, unspecified[ICD10: J06.9] Elena Heredia MD, [facility] CPT-4: 69547 06/30/2018 39024 EST. PATIENT, LEVEL III Diagnosis: Attention-deficit hyperactivity disorder, combined type[ICD10: F90.2] Anais Heredia MD, [facility] CPT-4: 69725 01/21/2018 30896 EST. PATIENT, LEVEL III Diagnosis: Attention-deficit hyperactivity disorder, combined type[ICD10: F90.2] Diagnosis: Rash and other nonspecific skin eruption[ICD10: R21] Anais Heredia MD, [facility] CPT-4: 04407 08/20/2017 40680 EST. 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 PATIENT, LEVEL III Diagnosis: Mastodynia[ICD10: N64.4] [facility] CPT-4: 78211 12/31/2016 ([id number]) OFFICE VISIT, NEW - LEVEL 3 Diagnosis: Cellulitis of left lower limb[ICD10: L03.116] Anais Heredia MD, [facility] CPT-4: 67720 03/15/2016 Plan of Care Planned Activity Notes Codes Status Date Visit Plan: menopausal symptoms, flushing, hot flashes, skin changes - will order hormone replacement therapy through [facility]. Pt is to notify clinic if symptoms do not improve, if they worsen, or with any changes, questions, or concerns. 11/25/2018 Appointment: Anais Hennessy WPtel: [facility][note 3]5 [facility] (30 min) Complex 11/25/2018 Patient Education: Patient Medication Summary Completed 11/25/2018 Visit Plan: Rash - The patient was instructed to use the medication as per RX. The patient is to call for any change in symptoms, increase in size of the lesion, increase in pain, worsening redness, warmth, discharge. 08/13/2018 [facility]ment[phone] [facility] [facility] 08/13/2018 Patient Education: [...] not prescribed. 07/21/2018 Appointment: Anais Hennessy WPtel: [phone] [facility] (15 min) Moderate 07/21/2018 Patient Education: Patient Medication Summary Completed 07/21/2018 Visit Plan: URI - Pt advised to increase fluids, vitamin C. Discussed natural and expected course of this diagnosis and need to alert me if symptoms do not follow expected course, or if any worse. RX sent to patient's pharmacy. 06/30/2018 Appointment: Elena Dong WPtel: [phone] [phone] (15 min) Moderate 06/30/2018 Patient Education: Patient [...] not prescribed. 01/21/2018 Appointment: Anais Hennessy WPtel: [phone] [facility] (30 min) Complex 01/21/2018 Patient Education: Patient [...] concerns. 08/20/2017 Appointment: Anais Hennessy WPtel: [phone] [facility] (30 min) Complex 08/20/2017 Patient Education: Patient Medication Summary Completed 08/20/2017 Care Plan: Unilateral DIAGNOSTICMAMMOGRAPHYDIGITAL LOINC : 21101-5 Pending 08/20/2017 Care Plan: SCREENINGMAMMOGRAPHYDIGITAL LOINC : 50471-1 Pending 08/20/2017 Visit Plan: Cold sores - [...] not prescribed. 05/08/2017 Appointment: Anais Hennessy WPtel: [facility][note 3]5 [facility] (15 min) Moderate 05/08/2017 Patient Education: Patient Medication Summary Completed 05/08/2017 Visit Plan: Rash to left breast - will send RX, will order mammogram - pt is to call for acute change in symptoms, worsening redness, warmth, discharge, increase in size of the lesion, increase in pain. 12/31/2016 [facility]ment: [facility] [phone] [facility] ([facility] 12/31/2016 Patient Education: Patient Medication Summary Completed 12/31/2016 Visit Plan: Cellulitis - continue with oral antibiotics as previously directed, return to clinic as previously directed, call for acute change in symptoms, worsening redness, warmth, discharge. 03/15/2016 Appointment: [facility] [phone] [facility] [place] New Patient 03/15/2016 Patient Education: Patient Medication [...] - will order hormone replacement therapy through [facility]. Pt is to notify [...]
--- OUTSIDE RECORDS SUMMARY | 2019-01-13 17:27 | XMS REPORT | CCD ---
Author Author Anais Hennessy MD, [facility] Address [address] [place] [address] Phone Care Team Providers Care Disaster Response Director Name Role Phone PP Unavailable CCM Unavailable Summary Purpose Interface Exchange Insurance Providers Payer name Policy type / Coverage type Covered green party ID Effective Begin Date Effective End Date [facility] Commercial Insurance [id number] Unknown Family history Father Diagnosis Age At Onset Cancer Unknown Mother Diagnosis Age At Onset kidney disease Unknown genetic disease Unknown Hypertension Unknown Polycystic ovarian disease Unknown Arthritis Unknown Social History Social History Element Codes Description Effective Dates Marital status Unknown naun 03/15/2016 Number of children Unknown 2 03/15/[address]: 9324192 Quit less than 5 years ago 03/15/[address]: 162719 Currently drinks alcohol 03/15/2016 Frequency of drinks SNOMED CT: 297793257 1- 4 drinks per week 03/15/2016 Allergies, [...] Fill Instructions valacyclovir 1 gram tablet RxNorm: 617396 1 Tablet(s) PO TID as needed 11/25/2018 01/23/2019 Active Adderall 30 mg tablet RxNorm: 064975 1/2 Tablet(s) PO BID 11/06/2018 12/05/2018 Active Adderall 30 mg tablet RxNorm: 183314 1/2 Tablet(s) PO BID 10/07/2018 11/05/2018 Inactive lamotrigine 150 mg tablet RxNorm: 424640 Tablet(s) TAKE 1 TABLET BY MOUTH ONCE DAILY 09/25/2018 No Stop Date Active Adderall 30 mg tablet RxNorm: 983604 1/2 Tablet(s) PO BID 09/09/2018 10/06/2018 Inactive prednisone 10 mg tablet RxNorm: 757061 1 Tablet(s) PO UD 08/13/2018 No Stop Date Active 60,50,40,30,20,10 betamethasone dipropionate 0.05 % topical cream RxNorm: 700900 1 Application TOP BID 08/13/2018 No Stop Date Active Adderall 30 mg tablet RxNorm: 792609 1/2 Tablet(s) PO BID 08/11/2018 09/08/2018 Inactive Adderall 30 mg tablet RxNorm: 848841 1/2 Tablet(s) PO BID 07/15/2018 08/10/2018 Inactive Kenalog 40 mg/mL suspension for injection RxNorm: 2679868 Milliliter(s) Inj 06/30/2018 06/30/2018 Inactive lamotrigine 150 mg tablet RxNorm: 935837 Tablet(s) TAKE 1 TABLET BY MOUTH ONCE DAILY 06/27/2018 09/24/2018 Inactive Adderall 30 mg tablet RxNorm: 251914 1/2 Tablet(s) PO BID 06/27/2018 07/14/2018 Inactive acyclovir 400 mg tablet RxNorm: 154069 1 Tablet(s) PO TID 05/12/2018 06/09/2018 Inactive Adderall 30 mg tablet RxNorm: 941644 1/2 Tablet(s) PO BID 04/07/2018 05/06/2018 Inactive lamotrigine 150 mg tablet RxNorm: 511566 TAKE 1 TABLET BY MOUTH ONCE DAILY 03/31/2018 06/26/2018 Inactive Adderall 30 mg tablet RxNorm: 196816 1/2 Tablet(s) PO BID 03/19/2018 04/06/2018 Inactive lamotrigine 150 mg tablet RxNorm: 227338 TAKE ONE TABLET BY MOUTH ONCE DAILY 01/30/2018 03/30/2018 Inactive Adderall 30 mg tablet RxNorm: 444972 1/2 Tablet(s) PO BID 01/20/2018 02/18/2018 Inactive Adderall 30 mg tablet RxNorm: 880076 1/2 Tablet(s) PO BID 10/29/2017 11/27/2017 Inactive Diflucan 150 mg tablet RxNorm: 708814 1 Tablet(s) PO daily 08/20/2017 08/24/2017 Inactive betamethasone dipropionate 0.05 % topical cream RxNorm: 925943 1 Application TOP BID 08/20/2017 08/12/2018 Inactive triamcinolone acetonide 0.025 % topical cream RxNorm: 8305418 1 Application TOP BID 08/07/2017 No Stop Date Active Adderall 30 mg tablet RxNorm: 981903 1/2 Tablet(s) PO BID 08/07/2017 09/05/2017 Inactive triamcinolone acetonide 0.025 % topical cream RxNorm: 5502955 1 Application TOP BID 07/31/2017 08/06/2017 Inactive Adderall XR 30 mg capsule,extended release RxNorm: 469627 1 Capsule(s) PO daily 07/31/2017 08/06/2017 Inactive lamotrigine 150 mg tablet RxNorm: 514904 1 Tablet(s) PO daily 06/04/2017 10/01/2017 Inactive Adderall 30 mg tablet RxNorm: 455580 1/2 Tablet(s) PO BID 05/08/2017 06/06/2017 Inactive acyclovir 400 mg tablet RxNorm: 074697 1 Tablet(s) PO TID 05/08/2017 06/06/2017 Inactive nystatin 100,000 unit/gram topical cream RxNorm: 966654 1 Application TOP BID 12/31/2016 No Stop Date Active triamcinolone acetonide 0.025 % topical cream RxNorm: 4294317 1 Application TOP BID 12/31/2016 07/30/2017 Inactive Bactrim DS 800 mg-160 mg tablet RxNorm: 292133 1 Tablet(s) PO BID 03/15/2016 03/28/2016 Inactive Adderall XR 30 mg capsule,extended release RxNorm: 431957 1 Capsule(s) PO daily No Start Date 07/30/2017 Inactive lamotrigine 150 mg tablet RxNorm: 160010 1 Tablet(s) PO daily No Start Date 06/03/2017 Inactive Medication Administered Medication Codes Instructions Start Date Status Kenalog 40 mg/mL suspension for injection RxNorm: 0732941 Milliliter 06/30/2018 No longer Active Immunizations No [...] Item Code Result Date Estrogens, Total LC 143735 ESTROGENS, TOTAL 47 PG/ML 11/18/2018 Estrogens Total 257798 ESTROGENS, TOTAL 342 pg/mL 01/04/2017 Comp Metabolic Zgt950 NA 140 mEq/L 12/31/2016 Comp Metabolic Sae000 K 4.2 mEq/L 12/31/2016 Comp Metabolic Cwy832 CL 103 mEq/L 12/31/2016 Comp Metabolic Pms499 CO2 29.0 mEq/L 12/31/2016 Comp Metabolic Mip664 ANION GAP 12 12/31/2016 Comp Metabolic Plk469 GLUCOSE 87 mg/dL 12/31/2016 Comp Metabolic Ghr380 Creat 0.7 mg/dL 12/31/2016 Comp Metabolic Eax073 eGFR 96 ml/min/1.73m2 12/31/2016 Comp Metabolic Rgj416 BUN 9 mg/dL 12/31/2016 Comp Metabolic Bgq053 B/C Ratio 12.7 Ratio 12/31/2016 Comp Metabolic Ylj942 CALCIUM 9.1 mg/dL 12/31/2016 Comp Metabolic Bza796 ALK PHOS 93 U/L 12/31/2016 Comp Metabolic Ayr967 AST(SGOT) 12 U/L 12/31/2016 Comp Metabolic Oam456 ALT(SGPT) 10 U/L 12/31/2016 Comp Metabolic Sjo695 BILI T 0.4 mg/dL 12/31/2016 Comp Metabolic Kmj535 ALBUMIN 4.2 g/dL 12/31/2016 Comp Metabolic Aro474 TPRO 6.1 g/dL 12/31/2016 Comp Metabolic Zhj934 GLOB 2.0 g/dL 12/31/2016 Comp Metabolic Udr746 A/G Ratio 2.1 Ratio 12/31/2016 Comp Metabolic Bzx170 Osmo 277 mOsmo 12/31/2016 Cbc With Differential [...] 31.7 pg 12/31/2016 Cbc With Differential Ord2 [place]% 11.3 % 12/31/2016 Cbc With Differential Ord2 [...] 1.45 K/ul 12/31/2016 Cbc With Differential Ord2 [place] ABS# 0.7 K/ul 12/31/2016 Cbc With Differential Ord2 Eos ABS# 0.1 K/ul 12/31/2016 Cbc With Differential Ord2 Baso ABS# 0.0 K/ul 12/31/2016 Tsh Ord6 hTSH II 2.46 uIU/mL 12/31/2016 Progesterone Wlr658 Prog 3.96 ng/mL 12/31/2016 Review of Systems [...] 1: 122/70 Code: 8480-6 BMI: 24.8 Code: 43163-7 Heart Rate 1: 64 bpm Height: 5'4" SpO2: 98% Weight: 147 lbs 08/13/2018 Heart Rate 1: 94 bpm Height: Weight: 07/21/2018 Blood Pressure 1: 118/74 Code: 8480-6 BMI: 24.2 Code: 61267-3 Heart Rate 1: 100 bpm Height: 5'4" SpO2: 98% Weight: 143 lbs 06/30/2018 Blood Pressure 1: 120/68 Code: 8480-6 BMI: 24.5 Code: 43658-0 Heart Rate 1: 100 bpm Height: 5'4" SpO2: 96% Temperature: 37.1 (C) / 98.7 (F) Weight: 145 lbs 01/21/2018 Blood Pressure 1: 122/70 Code: 8480-6 BMI: 24.5 Code: 95989-8 Heart Rate 1: 97 bpm Height: 5'4" SpO2: 98% Weight: 145 lbs 08/20/2017 Blood Pressure 1: 120/78 Code: 8480-6 BMI: 24.3 Code: 47429-4 Heart Rate 1: 97 bpm Height: 5'4" SpO2: 97% Weight: 144 lbs 05/08/2017 Blood Pressure 1: 124/78 Code: 8480-6 BMI: 24.7 Code: 03374-0 Heart Rate 1: 101 bpm Height: 5'4" SpO2: 98% Weight: 146 lbs 12/31/2016 Blood Pressure 1: 128/74 Code: 8480-6 Heart Rate 1: 94 bpm SpO2: 99% Weight: 141 lbs 03/15/2016 Blood Pressure 1: 126/80 Code: 8480-6 BMI: 23.5 Code: 75012-0 Heart Rate 1: 94 bpm Height: 5'4" [...] female climacteric states[ICD10: N95.1] Anais Heredia MD, [facility] CPT-4: 54413 11/25/2018 14498 EST. PATIENT, LEVEL III Diagnosis: Rash and other nonspecific skin eruption[ICD10: R21] Diagnosis: Other urticaria[ICD10: L50.8] Anais Heredia MD, [facility] CPT-4: 74618 08/13/2018 [id number] EST. PATIENT, LEVEL III Diagnosis: Attention-deficit hyperactivity disorder, combined type[ICD10: F90.2] Anais Heredia MD, [facility] CPT-4: 75135 07/21/2018 ([id number]) 10879 EST. PATIENT, LEVEL III Diagnosis: Cough[ICD10: R05] Diagnosis: Acute upper respiratory infection, unspecified[ICD10: J06.9] Elena Heredia MD, [facility] CPT-4: 97123 06/30/2018 89311 EST. PATIENT, LEVEL III Diagnosis: Attention-deficit hyperactivity disorder, combined type[ICD10: F90.2] Anais Heredia MD, [facility] CPT-4: 31161 01/21/2018 40849 EST. PATIENT, LEVEL III Diagnosis: Attention-deficit hyperactivity disorder, combined type[ICD10: F90.2] Diagnosis: Rash and other nonspecific skin eruption[ICD10: R21] Anais Heredia MD, [facility] CPT-4: 60025 08/20/2017 51060 EST. 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 PATIENT, LEVEL III Diagnosis: Mastodynia[ICD10: N64.4] [facility] CPT-4: 10074 12/31/2016 ([id number]) OFFICE VISIT, NEW - LEVEL 3 Diagnosis: Cellulitis of left lower limb[ICD10: L03.116] Anais Heredia MD, [facility] CPT-4: 89607 03/15/2016 Plan of Care Planned Activity Notes Codes Status Date Visit Plan: menopausal symptoms, flushing, hot flashes, skin changes - will order hormone replacement therapy through [facility]. Pt is to notify clinic if symptoms do not improve, if they worsen, or with any changes, questions, or concerns. 11/25/2018 Appointment: Anais Hennessy WPtel: [facility] (30 min) Complex 11/25/2018 Patient Education: Patient Medication Summary Completed 11/25/2018 Visit Plan: Rash - The patient was instructed to use the medication as per RX. The patient is to call for any change in symptoms, increase in size of the lesion, increase in pain, worsening redness, warmth, discharge. 08/13/2018 Appointment: [phone] ([facility] 08/13/2018 Patient Education: Patient [...] not prescribed. 07/21/2018 Appointment: Anais Hennessy WPtel: [phone] [facility] (15 min) Moderate 07/21/2018 Patient Education: Patient Medication Summary Completed 07/21/2018 Visit Plan: URI - Pt advised to increase fluids, vitamin C. Discussed natural and expected course of this diagnosis and need to alert me if symptoms do not follow expected course, or if any worse. RX sent to patient's pharmacy. 06/30/2018 Appointment: Elena Dong WPtel: [phone] [phone] (15 min) Moderate 06/30/2018 Patient [...] not prescribed. 01/21/2018 Appointment: Anais Hennessy WPtel: [phone] [facility] (30 min) Complex 01/21/2018 Patient [...] concerns. 08/20/2017 Appointment: Anais Hennessy WPtel: [phone] [facility] (30 min) Complex 08/20/2017 Patient Education: Patient Medication Summary Completed 08/20/2017 Care Plan: Unilateral DIAGNOSTICMAMMOGRAPHYDIGITAL LOINC : 87693-5 Pending 08/20/2017 Care Plan: SCREENINGMAMMOGRAPHYDIGITAL LOINC : 11554-8 Pending 08/20/2017 Visit Plan: Cold sores - [...] not prescribed. 05/08/2017 Appointment: Anais Hennessy WPtel: [facility] (15 min) Moderate 05/08/2017 Patient Education: Patient Medication Summary Completed 05/08/2017 Visit Plan: Rash to left breast - will send RX, will order mammogram - pt is to call for acute change in symptoms, worsening redness, warmth, discharge, increase in size of the lesion, increase in pain. 12/31/2016 Appointment: [phone] ([facility] 12/31/2016 Patient Education: Patient Medication Summary Completed 12/31/2016 Visit Plan: Cellulitis - continue with oral antibiotics as previously directed, return to clinic as previously directed, call for acute change in symptoms, worsening redness, warmth, discharge. 03/15/2016 Appointment: [phone] [facility] [place] New Patient 03/15/2016 Patient Education: Patient [...] - will order hormone replacement therapy through [facility]. Pt is to notify [...]
--- OUTSIDE RECORDS SUMMARY | 2019-01-13 17:28 | XMS REPORT | CCD ---
Author Author Anais Hennessy MD, [facility] Address [address] [place] [address] Phone Care Team Providers Care Scratch Brusher Name Role Phone PP Unavailable CCM Unavailable Summary Purpose Interface Exchange Insurance Providers Payer name Policy type / Coverage type Covered democrat ID Effective Begin Date Effective End Date [employer] Health Plans Commercial Insurance [id number] Unknown Family history Father Diagnosis Age At Onset Cancer Unknown Mother Diagnosis Age At Onset kidney disease Unknown genetic disease Unknown Hypertension Unknown Polycystic ovarian disease Unknown Arthritis Unknown Social History Social History Element Codes Description Effective Dates Marital status Unknown naun 03/15/2016 Number of children Unknown 2 03/15/[address]: 1966470 Quit less than 5 years ago 03/15/[address]: 807701 Currently drinks alcohol 03/15/2016 Frequency of drinks SNOMED CT: 875072645 1- 4 drinks per week 03/15/2016 Allergies, Adverse Reactions, Alerts Substance Reaction Codes Entered Date Inactivated Date Status Penicillin Unknown 03/15/2016 No Inactive Date Active Past Medical History Illness Codes Condition Status Onset Date Resolved Date Other urticaria ICD-9: 708.8 ICD-10: L50.8 Active [...] Problems Condition Codes Effective Dates Condition Status Other urticaria ICD-9: 708.8 ICD-10: L50.8 08/13/2018 [...] Fill Instructions Adderall 30 mg tablet RxNorm: 205892 1/2 Tablet(s) PO BID 11/06/2018 12/05/2018 Active Adderall 30 mg tablet RxNorm: 271192 1/2 Tablet(s) PO BID 10/07/2018 11/05/2018 Inactive lamotrigine 150 mg tablet RxNorm: 175600 Tablet(s) TAKE 1 TABLET BY MOUTH ONCE DAILY 09/25/2018 No Stop Date Active Adderall 30 mg tablet RxNorm: 030892 1/2 Tablet(s) PO BID 09/09/2018 10/06/2018 Inactive prednisone 10 mg tablet RxNorm: 026409 1 Tablet(s) PO UD 08/13/2018 No Stop Date Active 60,50,40,30,20,10 betamethasone dipropionate 0.05 % topical cream RxNorm: 389843 1 Application TOP BID 08/13/2018 No Stop Date Active Adderall 30 mg tablet RxNorm: 228253 1/2 Tablet(s) PO BID 08/11/2018 09/08/2018 Inactive Adderall 30 mg tablet RxNorm: 153354 1/2 Tablet(s) PO BID 07/15/2018 08/10/2018 Inactive Kenalog 40 mg/mL suspension for injection RxNorm: 2927839 Milliliter(s) Inj 06/30/2018 06/30/2018 Inactive lamotrigine 150 mg tablet RxNorm: 452485 Tablet(s) TAKE 1 TABLET BY MOUTH ONCE DAILY 06/27/2018 09/24/2018 Inactive Adderall 30 mg tablet RxNorm: 257667 1/2 Tablet(s) PO BID 06/27/2018 07/14/2018 Inactive acyclovir 400 mg tablet RxNorm: 561143 1 Tablet(s) PO TID 05/12/2018 06/10/2018 Inactive Adderall 30 mg tablet RxNorm: 589395 1/2 Tablet(s) PO BID 04/07/2018 05/06/2018 Inactive lamotrigine 150 mg tablet RxNorm: 578999 TAKE 1 TABLET BY MOUTH ONCE DAILY 03/31/2018 06/26/2018 Inactive Adderall 30 mg tablet RxNorm: 986580 1/2 Tablet(s) PO BID 03/19/2018 04/06/2018 Inactive lamotrigine 150 mg tablet RxNorm: 526148 TAKE ONE TABLET BY MOUTH ONCE DAILY 01/30/2018 03/30/2018 Inactive Adderall 30 mg tablet RxNorm: 638780 1/2 Tablet(s) PO BID 01/20/2018 02/18/2018 Inactive Adderall 30 mg tablet RxNorm: 305687 1/2 Tablet(s) PO BID 10/29/2017 11/27/2017 Inactive Diflucan 150 mg tablet RxNorm: 925459 1 Tablet(s) PO daily 08/20/2017 08/24/2017 Inactive betamethasone dipropionate 0.05 % topical cream RxNorm: 275784 1 Application TOP BID 08/20/2017 08/12/2018 Inactive triamcinolone acetonide 0.025 % topical cream RxNorm: 6814357 1 Application TOP BID 08/07/2017 No Stop Date Active Adderall 30 mg tablet RxNorm: 513780 1/2 Tablet(s) PO BID 08/07/2017 09/05/2017 Inactive triamcinolone acetonide 0.025 % topical cream RxNorm: 8543787 1 Application TOP BID 07/31/2017 08/06/2017 Inactive Adderall XR 30 mg capsule,extended release RxNorm: 558411 1 Capsule(s) PO daily 07/31/2017 08/06/2017 Inactive lamotrigine 150 mg tablet RxNorm: 614664 1 Tablet(s) PO daily 06/04/2017 10/01/2017 Inactive Adderall 30 mg tablet RxNorm: 334747 1/2 Tablet(s) PO BID 05/08/2017 06/06/2017 Inactive acyclovir 400 mg tablet RxNorm: 788887 1 Tablet(s) PO TID 05/08/2017 06/06/2017 Inactive nystatin 100,000 unit/gram topical cream RxNorm: 649727 1 Application TOP BID 12/31/2016 No Stop Date Active triamcinolone acetonide 0.025 % topical cream RxNorm: 2769112 1 Application TOP BID 12/31/2016 07/30/2017 Inactive Bactrim DS 800 mg-160 mg tablet RxNorm: 076089 1 Tablet(s) PO BID 03/15/2016 03/28/2016 Inactive Adderall XR 30 mg capsule,extended release RxNorm: 516963 1 Capsule(s) PO daily No Start Date 07/30/2017 Inactive lamotrigine 150 mg tablet RxNorm: 260258 1 Tablet(s) PO daily No Start Date 06/03/2017 Inactive Medication Administered Medication Codes Instructions Start Date Status Kenalog 40 mg/mL suspension for injection RxNorm: 0070370 Milliliter 06/30/2018 No longer Active Immunizations No Immunization data Assessments Condition Codes Effective Dates Other urticaria ICD-10: L50.8 ICD-9: 708.8 08/13/2018 [...] Visit Reason For Visit Effective Dates Notes rash 08/13/2018 medication follow up 07/21/2018 cough 06/30/2018 medication follow up 01/21/2018 medication follow up 08/20/2017 oral ulcers 05/08/2017 cold sore breast complaint 12/31/2016 rash 03/15/2016 Results Observation Observation Code Item Item Code Result Date Estrogens, [place] 099919 ESTROGENS, TOTAL 47 PG/ML 11/18/2018 Estrogens Total 049896 ESTROGENS, TOTAL 342 pg/mL 01/04/2017 Comp Metabolic Ktc584 NA 140 mEq/L 12/31/2016 Comp Metabolic Rfd912 K 4.2 mEq/L 12/31/2016 Comp Metabolic Nfa963 CL 103 mEq/L 12/31/2016 Comp Metabolic Yma467 CO2 29.0 mEq/L 12/31/2016 Comp Metabolic Yow324 ANION GAP 12 12/31/2016 Comp Metabolic Iyr228 GLUCOSE 87 mg/dL 12/31/2016 Comp Metabolic Etl380 Creat 0.7 mg/dL 12/31/2016 Comp Metabolic Stz572 eGFR 96 ml/min/1.73m2 12/31/2016 Comp Metabolic Iky263 BUN 9 mg/dL 12/31/2016 Comp Metabolic Eqc066 B/C Ratio 12.7 Ratio 12/31/2016 Comp Metabolic Nqj221 CALCIUM 9.1 mg/dL 12/31/2016 Comp Metabolic Lsj409 ALK PHOS 93 U/L 12/31/2016 Comp Metabolic Sxq784 AST(SGOT) 12 U/L 12/31/2016 Comp Metabolic Ybc809 ALT(SGPT) 10 U/L 12/31/2016 Comp Metabolic Joc691 BILI T 0.4 mg/dL 12/31/2016 Comp Metabolic Pwa248 ALBUMIN 4.2 g/dL 12/31/2016 Comp Metabolic Qfo441 TPRO 6.1 g/dL 12/31/2016 Comp Metabolic Cmz486 GLOB 2.0 g/dL 12/31/2016 Comp Metabolic Eiq704 A/G Ratio 2.1 Ratio 12/31/2016 Comp Metabolic Qhf430 Osmo 277 mOsmo 12/31/2016 Cbc With Differential [...] 31.7 pg 12/31/2016 Cbc With Differential Ord2 [place]% 11.3 % 12/31/2016 Cbc With Differential Ord2 [...] 1.45 K/ul 12/31/2016 Cbc With Differential Ord2 [place] ABS# 0.7 K/ul 12/31/2016 Cbc With Differential Ord2 Eos ABS# 0.1 K/ul 12/31/2016 Cbc With Differential Ord2 Baso ABS# 0.0 K/ul 12/31/2016 Tsh Ord6 hTSH II 2.46 uIU/mL 12/31/2016 Progesterone Nim121 Prog 3.96 ng/mL 12/31/2016 Review of Systems System Result Effective Dates Constitutional No recent illness 08/13/2018 Constitutional No [...] CPT-4: J3301 06/30/2018 Vital Signs Date Vital 08/13/2018 Heart Rate 1: 94 bpm Height: Weight: 07/21/2018 Blood Pressure 1: 118/74 Code: 8480-6 BMI: 24.2 Code: 17125-3 Heart Rate 1: 100 bpm Height: 5'4" SpO2: 98% Weight: 143 lbs 06/30/2018 Blood Pressure 1: 120/68 Code: 8480-6 BMI: 24.5 Code: 07125-9 Heart Rate 1: 100 bpm Height: 5'4" SpO2: 96% Temperature: 37.1 (C) / 98.7 (F) Weight: 145 lbs 01/21/2018 Blood Pressure 1: 122/70 Code: 8480-6 BMI: 24.5 Code: 03215-4 Heart Rate 1: 97 bpm Height: 5'4" SpO2: 98% Weight: 145 lbs 08/20/2017 Blood Pressure 1: 120/78 Code: 8480-6 BMI: 24.3 Code: 99231-0 Heart Rate 1: 97 bpm Height: 5'4" SpO2: 97% Weight: 144 lbs 05/08/2017 Blood Pressure 1: 124/78 Code: 8480-6 BMI: 24.7 Code: 49549-2 Heart Rate 1: 101 bpm Height: 5'4" SpO2: 98% Weight: 146 lbs 12/31/2016 Blood Pressure 1: 128/74 Code: 8480-6 Heart Rate 1: 94 bpm SpO2: 99% Weight: 141 lbs 03/15/2016 Blood Pressure 1: 126/80 Code: 8480-6 BMI: 23.5 Code: 95272-1 Heart Rate 1: 94 bpm Height: 5'4" SpO2: 97% Weight: 139 lbs Functional Status No Functional Status data History of Present Illness Symptom Name Status Result Effective Date Notes Location-Major on the arms 08/13/2018 None Location-Major [...] Codes Date EST. PATIENT, LEVEL III Diagnosis: Rash and other nonspecific skin eruption[ICD10: R21] Diagnosis: Other urticaria[ICD10: L50.8] [facility] CPT-4: 20959 08/13/2018 [id number] EST. PATIENT, LEVEL III Diagnosis: Attention-deficit hyperactivity disorder, combined type[ICD10: F90.2] Anais Heredia MD, [facility] CPT-4: 40402 07/21/2018 ([id number]) [id number] EST. PATIENT, LEVEL III Diagnosis: Cough[ICD10: R05] Diagnosis: Acute upper respiratory infection, unspecified[ICD10: J06.9] Elena Heredia MD, [facility] CPT-4: 24150 06/30/2018 [id number] EST. PATIENT, LEVEL III Diagnosis: Attention-deficit hyperactivity disorder, combined type[ICD10: F90.2] Anais Heredia MD, [facility] CPT-4: 19470 01/21/2018 22439 EST. PATIENT, LEVEL III Diagnosis: Attention-deficit hyperactivity disorder, combined type[ICD10: F90.2] Diagnosis: Rash and other nonspecific skin eruption[ICD10: R21] Anais Heredia MD, [facility] CPT-4: 12140 08/20/2017 [id number] EST. 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 PATIENT, LEVEL III Diagnosis: Mastodynia[ICD10: N64.4] Anais Heredia MD, [facility] CPT-4: 96114 12/31/2016 ([id number]) OFFICE VISIT, NEW - LEVEL 3 Diagnosis: Cellulitis of left lower limb[ICD10: L03.116] Anais Heredia MD, [facility] CPT-4: 95854 03/15/2016 Plan of Care Planned Activity Notes Codes Status Date Visit Plan: Rash - The patient was instructed to use the medication as per RX. The patient is to call for any change in symptoms, increase in size of the lesion, increase in pain, worsening redness, warmth, discharge. 08/13/2018 Appointment: Anais Hennessy WPtel: [facility] [place] ([place] min) [facility] 08/13/2018 Patient Education: Patient Medication Summary Completed [...] not prescribed. 07/21/2018 Appointment: Anais Hennessy WPtel: [phone] [facility] (15 min) Moderate 07/21/2018 Patient Education: Patient Medication Summary Completed 07/21/2018 Visit Plan: URI - Pt advised to increase fluids, vitamin C. Discussed natural and expected course of this diagnosis and need to alert me if symptoms do not follow expected course, or if any worse. RX sent to patient's pharmacy. 06/30/2018 Appointment: Elena Dong WPtel: [phone] [phone] (15 min) Moderate [...] prescribed. 01/21/2018 Appointment: Anais Hennessy WPtel: [phone] [facility] (30 min) Complex [...] or concerns. 08/20/2017 Appointment: Anais Hennessy WPtel: [facility] (30 min) Complex 08/20/2017 Patient Education: Patient Medication Summary Completed 08/20/2017 Care Plan: Unilateral DIAGNOSTICMAMMOGRAPHYDIGITAL LOINC : 74782-5 Pending 08/20/2017 Care Plan: SCREENINGMAMMOGRAPHYDIGITAL LOINC : 33944-1 Pending 08/20/2017 Visit Plan: Cold sores - [...] not prescribed. 05/08/2017 Appointment: Anais Hennessy WPtel: [address] [place], [place] [id number] (15 min) Moderate 05/08/2017 Patient Education: Patient Medication Summary Completed 05/08/2017 Visit Plan: Rash to left breast - will send RX, will order mammogram - pt is to call for acute change in symptoms, worsening redness, warmth, discharge, increase in size of the lesion, increase in pain. 12/31/2016 Appointment: Anais Hennessy WPtel: [phone] [facility] (30 min) Complex 12/31/2016 Patient Education: Patient Medication Summary Completed 12/31/2016 Visit Plan: Cellulitis - continue with oral antibiotics as previously directed, return to clinic as previously directed, call for acute change in symptoms, worsening redness, warmth, discharge. 03/15/2016 Appointment: Gerhard Anais WPtel: [phone] [facility] [place] [place] New Patient 03/15/2016 Patient Education: Patient [...] of the lesion, increase in pain. . ADHD - medication working well for [...]
--- OUTSIDE RECORDS SUMMARY | 2019-01-13 17:29 | XMS REPORT | CCD ---
Author Author Anais Hennessy MD, [facility] Address [address] [place] [address] Phone Care Team Providers Care [employer] Principal Name Role Phone PP Unavailable CCM Unavailable Summary Purpose Interface Exchange Insurance Providers Payer name Policy type / Coverage type Covered constitution party ID Effective Begin Date Effective End Date [employer] Health Plans Commercial Insurance [id number] Unknown Family history Father Diagnosis Age At Onset Cancer Unknown Mother Diagnosis Age At Onset kidney disease Unknown genetic disease Unknown Hypertension Unknown Polycystic ovarian disease Unknown Arthritis Unknown Social History Social History Element Codes Description Effective Dates Marital status Unknown naun 03/15/2016 Number of children Unknown 2 03/15/[address]: 8536044 Quit less than 5 years ago 03/15/[address]: 808478 Currently drinks alcohol 03/15/2016 Frequency of drinks SNOMED CT: 225481179 1- 4 drinks per week 03/15/2016 Allergies, [...] Fill Instructions Adderall 30 mg tablet RxNorm: 742147 1/2 Tablet(s) PO BID 11/06/2018 12/05/2018 Active Adderall 30 mg tablet RxNorm: 009065 1/2 Tablet(s) PO BID 10/07/2018 11/05/2018 Inactive lamotrigine 150 mg tablet RxNorm: 977827 Tablet(s) TAKE 1 TABLET BY MOUTH ONCE DAILY 09/25/2018 No Stop Date Active Adderall 30 mg tablet RxNorm: 529151 1/2 Tablet(s) PO BID 09/09/2018 10/06/2018 Inactive prednisone 10 mg tablet RxNorm: 098335 1 Tablet(s) PO UD 08/13/2018 No Stop Date Active 60,50,40,30,20,10 betamethasone dipropionate 0.05 % topical cream RxNorm: 249455 1 Application TOP BID 08/13/2018 No Stop Date Active Adderall 30 mg tablet RxNorm: 856564 1/2 Tablet(s) PO BID 08/11/2018 09/08/2018 Inactive Adderall 30 mg tablet RxNorm: 171461 1/2 Tablet(s) PO BID 07/15/2018 08/10/2018 Inactive Kenalog 40 mg/mL suspension for injection RxNorm: 7269353 Milliliter(s) Inj 06/30/2018 06/30/2018 Inactive lamotrigine 150 mg tablet RxNorm: 606697 Tablet(s) TAKE 1 TABLET BY MOUTH ONCE DAILY 06/27/2018 09/24/2018 Inactive Adderall 30 mg tablet RxNorm: 362362 1/2 Tablet(s) PO BID 06/27/2018 07/14/2018 Inactive acyclovir 400 mg tablet RxNorm: 037617 1 Tablet(s) PO TID 05/12/2018 06/10/2018 Inactive Adderall 30 mg tablet RxNorm: 012963 1/2 Tablet(s) PO BID 04/07/2018 05/06/2018 Inactive lamotrigine 150 mg tablet RxNorm: 557352 TAKE 1 TABLET BY MOUTH ONCE DAILY 03/31/2018 06/26/2018 Inactive Adderall 30 mg tablet RxNorm: 786136 1/2 Tablet(s) PO BID 03/19/2018 04/06/2018 Inactive lamotrigine 150 mg tablet RxNorm: 204347 TAKE ONE TABLET BY MOUTH ONCE DAILY 01/30/2018 03/30/2018 Inactive Adderall 30 mg tablet RxNorm: 884104 1/2 Tablet(s) PO BID 01/20/2018 02/18/2018 Inactive Adderall 30 mg tablet RxNorm: 099026 1/2 Tablet(s) PO BID 10/29/2017 11/27/2017 Inactive Diflucan 150 mg tablet RxNorm: 892289 1 Tablet(s) PO daily 08/20/2017 08/24/2017 Inactive betamethasone dipropionate 0.05 % topical cream RxNorm: 876002 1 Application TOP BID 08/20/2017 08/12/2018 Inactive triamcinolone acetonide 0.025 % topical cream RxNorm: 1460749 1 Application TOP BID 08/07/2017 No Stop Date Active Adderall 30 mg tablet RxNorm: 952922 1/2 Tablet(s) PO BID 08/07/2017 09/05/2017 Inactive triamcinolone acetonide 0.025 % topical cream RxNorm: 2347501 1 Application TOP BID 07/31/2017 08/06/2017 Inactive Adderall XR 30 mg capsule,extended release RxNorm: 293950 1 Capsule(s) PO daily 07/31/2017 08/06/2017 Inactive lamotrigine 150 mg tablet RxNorm: 357040 1 Tablet(s) PO daily 06/04/2017 10/01/2017 Inactive Adderall 30 mg tablet RxNorm: 318354 1/2 Tablet(s) PO BID 05/08/2017 06/06/2017 Inactive acyclovir 400 mg tablet RxNorm: 893593 1 Tablet(s) PO TID 05/08/2017 06/06/2017 Inactive nystatin 100,000 unit/gram topical cream RxNorm: 648454 1 Application TOP BID 12/31/2016 No Stop Date Active triamcinolone acetonide 0.025 % topical cream RxNorm: 1260349 1 Application TOP BID 12/31/2016 07/30/2017 Inactive Bactrim DS 800 mg-160 mg tablet RxNorm: 762505 1 Tablet(s) PO BID 03/15/2016 03/28/2016 Inactive Adderall XR 30 mg capsule,extended release RxNorm: 209575 1 Capsule(s) PO daily No Start Date 07/30/2017 Inactive lamotrigine 150 mg tablet RxNorm: 494446 1 Tablet(s) PO daily No Start Date 06/03/2017 Inactive Medication Administered Medication Codes Instructions Start Date Status Kenalog 40 mg/mL suspension for injection RxNorm: 8263139 Milliliter 06/30/2018 No longer Active Immunizations No [...] Observation Code Item Item Code Result Date Estrogens Total 566026 ESTROGENS, TOTAL 342 pg/mL 01/04/2017 Comp Metabolic Hzm534 NA 140 mEq/L 12/31/2016 Comp Metabolic Bwl534 K 4.2 mEq/L 12/31/2016 Comp Metabolic Lli113 CL 103 mEq/L 12/31/2016 Comp Metabolic Qhn512 CO2 29.0 mEq/L 12/31/2016 Comp Metabolic Icn360 ANION GAP 12 12/31/2016 Comp Metabolic Pxr941 GLUCOSE 87 mg/dL 12/31/2016 Comp Metabolic Ybw463 Creat 0.7 mg/dL 12/31/2016 Comp Metabolic Upr559 eGFR 96 ml/min/1.73m2 12/31/2016 Comp Metabolic Mrp529 BUN 9 mg/dL 12/31/2016 Comp Metabolic Hqb447 B/C Ratio 12.7 Ratio 12/31/2016 Comp Metabolic Fot684 CALCIUM 9.1 mg/dL 12/31/2016 Comp Metabolic Qdi681 ALK PHOS 93 U/L 12/31/2016 Comp Metabolic Uoe671 AST(SGOT) 12 U/L 12/31/2016 Comp Metabolic Lfu891 ALT(SGPT) 10 U/L 12/31/2016 Comp Metabolic Rer053 BILI T 0.4 mg/dL 12/31/2016 Comp Metabolic Lhp708 ALBUMIN 4.2 g/dL 12/31/2016 Comp Metabolic Qsw628 TPRO 6.1 g/dL 12/31/2016 Comp Metabolic Pgv035 GLOB 2.0 g/dL 12/31/2016 Comp Metabolic Snq568 A/G Ratio 2.1 Ratio 12/31/2016 Comp Metabolic Fnb437 Osmo 277 mOsmo 12/31/2016 Cbc With Differential [...] 31.7 pg 12/31/2016 Cbc With Differential Ord2 [place]% 11.3 % 12/31/2016 Cbc With Differential Ord2 [...] 1.45 K/ul 12/31/2016 Cbc With Differential Ord2 [place] ABS# 0.7 K/ul 12/31/2016 Cbc With Differential Ord2 Eos ABS# 0.1 K/ul 12/31/2016 Cbc With Differential Ord2 Baso ABS# 0.0 K/ul 12/31/2016 Tsh Ord6 hTSH II 2.46 uIU/mL 12/31/2016 Progesterone Pem863 Prog 3.96 ng/mL 12/31/2016 Review of Systems [...] 1: 118/74 Code: 8480-6 BMI: 24.2 Code: 83536-7 Heart Rate 1: 100 bpm Height: 5'4" SpO2: 98% Weight: 143 lbs 06/30/2018 Blood Pressure 1: 120/68 Code: 8480-6 BMI: 24.5 Code: 52845-1 Heart Rate 1: 100 bpm Height: 5'4" SpO2: 96% Temperature: 37.1 (C) / 98.7 (F) Weight: 145 lbs 01/21/2018 Blood Pressure 1: 122/70 Code: 8480-6 BMI: 24.5 Code: 76521-9 Heart Rate 1: 97 bpm Height: 5'4" SpO2: 98% Weight: 145 lbs 08/20/2017 Blood Pressure 1: 120/78 Code: 8480-6 BMI: 24.3 Code: 33148-9 Heart Rate 1: 97 bpm Height: 5'4" SpO2: 97% Weight: 144 lbs 05/08/2017 Blood Pressure 1: 124/78 Code: 8480-6 BMI: 24.7 Code: 95869-7 Heart Rate 1: 101 bpm Height: 5'4" SpO2: 98% Weight: 146 lbs 12/31/2016 Blood Pressure 1: 128/74 Code: 8480-6 Heart Rate 1: 94 bpm SpO2: 99% Weight: 141 lbs 03/15/2016 Blood Pressure 1: 126/80 Code: 8480-6 BMI: 23.5 Code: 59486-1 Heart Rate 1: 94 bpm Height: 5'4" [...] Diagnosis: Other urticaria[ICD10: L50.8] Anais Heredia MD, [facility] CPT-4: 11901 08/13/2018 [id number] EST. PATIENT, LEVEL III Diagnosis: Attention-deficit hyperactivity disorder, combined type[ICD10: F90.2] Anais Heredia MD, [facility] CPT-4: 09743 07/21/2018 ([id number]) [id number] EST. PATIENT, LEVEL III Diagnosis: Cough[ICD10: R05] Diagnosis: Acute upper respiratory infection, unspecified[ICD10: J06.9] Elena Heredia MD, [facility] CPT-4: 20017 06/30/2018 [id number] EST. PATIENT, LEVEL III Diagnosis: Attention-deficit hyperactivity disorder, combined type[ICD10: F90.2] Anais Heredia MD, [facility] CPT-4: 37000 01/21/2018 28581 EST. PATIENT, LEVEL III Diagnosis: Attention-deficit hyperactivity disorder, combined type[ICD10: F90.2] Diagnosis: Rash and other nonspecific skin eruption[ICD10: R21] Anais Heredia MD, [facility] CPT-4: 19835 08/20/2017 [id number] EST. 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 PATIENT, LEVEL III Diagnosis: Mastodynia[ICD10: N64.4] Anais Heredia MD, [facility] CPT-4: 91532 12/31/2016 ([id number]) OFFICE VISIT, NEW - LEVEL 3 Diagnosis: Cellulitis of left lower limb[ICD10: L03.116] Anais Heredia MD, [facility] CPT-4: 76979 03/15/2016 Plan of Care Planned Activity Notes Codes Status Date Visit Plan: Rash - The patient was instructed to use the medication as per RX. The patient is to call for any change in symptoms, increase in size of the lesion, increase in pain, worsening redness, warmth, discharge. 08/13/2018 Appointment: Anais Hennessy WPtel: [address] [place], [place] [address] (30 min) [facility] 08/13/2018 Patient Education: Patient Medication Summary Completed [...] prescribed. 07/21/2018 Appointment: Anais Hennessy WPtel: [phone] [facility] (15 min) Moderate 07/21/2018 Patient Education: Patient Medication Summary Completed 07/21/2018 Visit Plan: URI - Pt advised to increase fluids, vitamin C. Discussed natural and expected course of this diagnosis and need to alert me if symptoms do not follow expected course, or if any worse. RX sent to patient's pharmacy. 06/30/2018 Appointment: Elena Dong WPtel: [phone] [phone] (15 min) Moderate 06/30/2018 Patient [...] prescribed. 01/21/2018 Appointment: Anais Hennessy WPtel: [phone] [facility] (30 min) Complex 01/21/2018 Patient Education: Patient [...] or concerns. 08/20/2017 Appointment: Anais Hennessy WPtel: [phone] [facility] (30 min) Complex 08/20/2017 Patient Education: Patient Medication Summary Completed 08/20/2017 Care Plan: Unilateral DIAGNOSTICMAMMOGRAPHYDIGITAL LOINC : 30493-3 Pending 08/20/2017 Care Plan: SCREENINGMAMMOGRAPHYDIGITAL LOINC : 44511-8 Pending 08/20/2017 Visit Plan: Cold sores - [...] not prescribed. 05/08/2017 Appointment: Anais Hennessy WPtel[facility] (15 min) Moderate 05/08/2017 Patient Education: Patient Medication Summary Completed 05/08/2017 Visit Plan: Rash to left breast - will send RX, will order mammogram - pt is to call for acute change in symptoms, worsening redness, warmth, discharge, increase in size of the lesion, increase in pain. 12/31/2016 Appointment: Anais Hennessy WPtel: [phone] [facility] (30 min) Complex 12/31/2016 Patient Education: Patient Medication Summary Completed 12/31/2016 Visit Plan: Cellulitis - continue with oral antibiotics as previously directed, return to clinic as previously directed, call for acute change in symptoms, worsening redness, warmth, discharge. 03/15/2016 Appointment: [facility] Hen[facility]Ptel[phone] [facility] [place] New [facility] 03/15/2016 Patient Education: [...]
--- OUTSIDE RECORDS SUMMARY | 2019-01-13 17:30 | XMS REPORT | CCD ---
Author Author Anais Hennessy MD, [facility] Address [address] [place] [address] Phone Care Team Providers Care Enrollment Eligibility Representative Name Role Phone PP Unavailable CCM Unavailable Summary Purpose Interface Exchange Insurance Providers Payer name Policy type / Coverage type Covered green party ID Effective Begin Date Effective End Date [employer]ounds Health Plans Commercial Insurance [id number] Unknown Family history Father Diagnosis Age At Onset Cancer Unknown Mother Diagnosis Age At Onset kidney disease Unknown genetic disease Unknown Hypertension Unknown Polycystic ovarian disease Unknown Arthritis Unknown Social History Social History Element Codes Description Effective Dates Marital status Unknown naun 03/15/2016 Number of children Unknown 2 03/15/[address]: 3381658 Quit less than 5 years ago 03/15/[address]: 509402 Currently drinks alcohol 03/15/2016 Frequency of drinks SNOMED CT: 373010016 1- 4 drinks per week 03/15/2016 Allergies, Adverse Reactions, Alerts Allergies, Adverse Reactions, Alerts data not found Past Medical History Illness Codes Condition Status Onset Date Resolved Date Mastodynia ICD-9: 611.71 ICD-10: N64.4 Active 12/31/2016 Unknown Cellulitis of left lower limb ICD-9: 682.6 ICD-10: L03.116 Active 03/14/2016 Unknown Problems Condition Codes Effective Dates Condition Status Mastodynia ICD-9: 611.71 ICD-10: N64.4 12/31/2016 Active Cellulitis of left lower limb ICD-9: 682.6 ICD-10: L03.116 03/14/2016 Active Medications Medication Codes Instructions Start Date Stop Date Status Fill Instructions nystatin 100,000 unit/gram topical cream RxNorm: 529494 1 Application TOP BID 12/31/2016 No Stop Date Active triamcinolone acetonide 0.025 % topical cream RxNorm: 0323816 1 Application TOP BID 12/31/2016 No Stop Date Active Bactrim DS 800 mg-160 mg tablet RxNorm: 256323 1 Tablet(s) PO BID 03/15/2016 03/28/2016 Inactive Adderall XR 30 mg capsule,extended release RxNorm: 399870 1 Capsule(s) PO daily No Start Date Active lamotrigine 150 mg tablet RxNorm: 597495 1 Tablet(s) PO daily No Start Date Active Medication Administered No Medication Administered data Immunizations No Immunization data Assessments Condition Codes Effective Dates Mastodynia ICD-10: N64.4 ICD-9: 611.71 12/31/2016 Cellulitis of left lower limb ICD-10: L03.116 ICD-9: 682.6 03/15/2016 Reason For Visit Reason For Visit Effective Dates Notes breast complaint 12/31/2016 rash 03/15/2016 Results Observation Observation Code Item Item Code Result Date Comp Metabolic Ctq796 NA 140 mEq/L 12/31/2016 Comp Metabolic Fev609 K 4.2 mEq/L 12/31/2016 Comp Metabolic Zcp236 CL 103 mEq/L 12/31/2016 Comp Metabolic Eqo373 CO2 29.0 mEq/L 12/31/2016 Comp Metabolic Kyj783 ANION GAP 12 12/31/2016 Comp Metabolic Jbl850 GLUCOSE 87 mg/dL 12/31/2016 Comp Metabolic Kgg109 Creat 0.7 mg/dL 12/31/2016 Comp Metabolic Khr898 eGFR 96 ml/min/1.73m2 12/31/2016 Comp Metabolic Dys074 BUN 9 mg/dL 12/31/2016 Comp Metabolic Khl769 B/C Ratio 12.7 Ratio 12/31/2016 Comp Metabolic Vtt641 CALCIUM 9.1 mg/dL 12/31/2016 Comp Metabolic Oxg139 ALK PHOS 93 U/L 12/31/2016 Comp Metabolic Mww997 AST(SGOT) 12 U/L 12/31/2016 Comp Metabolic Eup580 ALT(SGPT) 10 U/L 12/31/2016 Comp Metabolic Bma168 BILI T 0.4 mg/dL 12/31/2016 Comp Metabolic Zvy101 ALBUMIN 4.2 g/dL 12/31/2016 Comp Metabolic Qly428 TPRO 6.1 g/dL 12/31/2016 Comp Metabolic Ieh560 GLOB 2.0 g/dL 12/31/2016 Comp Metabolic Tnf712 A/G Ratio 2.1 Ratio 12/31/2016 Comp Metabolic Hnl669 Osmo 277 mOsmo 12/31/2016 Cbc With Differential Ord2 WBC 6.01 K/ul 12/31/2016 Cbc With Differential Ord2 RBC 4.51 M/ul 12/31/2016 Cbc With Differential Ord2 HGB 14.3 g/dl 12/31/2016 Cbc With Differential Ord2 Neut% 63.6 % 12/31/2016 Cbc With Differential Ord2 HCT 42.1 % 12/31/2016 Cbc With Differential Ord2 MCV 93.3 fl 12/31/2016 Cbc With Differential Ord2 Lymph% 24.1 % 12/31/2016 Cbc With Differential Ord2 MCH 31.7 pg 12/31/2016 Cbc With Differential Ord2 [place]% 11.3 % 12/31/2016 Cbc With Differential Ord2 [...] 1.45 K/ul 12/31/2016 Cbc With Differential Ord2 [place] ABS# 0.7 K/ul 12/31/2016 Cbc With Differential Ord2 Eos ABS# 0.1 K/ul 12/31/2016 Cbc With Differential Ord2 Baso ABS# 0.0 K/ul 12/31/2016 Tsh Ord6 hTSH II 2.46 uIU/mL 12/31/2016 Progesterone Scw058 Prog 3.96 ng/mL 12/31/2016 Review of Systems System Result Effective Dates Constitutional No recent illness 12/31/2016 Constitutional No [...] Result Effective Dates Notes Full Exam - Genitourinary/Female Constitutional general appearance [...] left hip - some streaking present. Procedures No Procedures data Vital Signs Date Vital 12/31/2016 Blood Pressure 1: 128/74 Code: 8480-6 Heart Rate 1: 94 bpm SpO2: 99% Weight: 141 lbs 03/15/2016 Blood Pressure 1: 126/80 Code: 8480-6 BMI: 23.5 Code: 92608-7 Heart Rate 1: 94 bpm Height: 5'4" SpO2: 97% Weight: 139 lbs Functional Status No Functional Status data History of Present Illness Symptom Name Status Result Effective Date Notes breast complaint Location in the left lower [...] data Encounters Encounter Performer Location Codes Date 44252 EST. PATIENT, LEVEL III Diagnosis: Mastodynia[ICD10: N64.4] [facility] CPT-4: 21962 12/31/2016 ([id number]) OFFICE VISIT, NEW - LEVEL 3 Diagnosis: Cellulitis of left lower limb[ICD10: L03.116] [facility] CPT-4: 28598 03/15/2016 Plan of Care Planned Activity Notes Codes Status Date Visit Plan: Rash to left breast - will send RX, will order mammogram - pt is to call for acute change in symptoms, worsening redness, warmth, discharge, increase in size of the lesion, increase in pain. 12/31/2016 Patient Education: Patient Medication Summary Completed 12/31/2016 Care Plan: Estrogens Total Pending 12/31/2016 Visit Plan: Cellulitis - continue with oral antibiotics as previously directed, return to clinic as previously directed, call for acute change in symptoms, worsening redness, warmth, discharge. 03/15/2016 Appointment: Anais Hennessy WPtel: [address] [place], [place] [id number] New Patient 03/15/2016 Patient Education: Patient Medication Summary Completed 03/15/2016 Instructions Comment . Rash to left breast - will send RX, will order mammogram - pt is to call for acute change in symptoms, worsening redness, warmth, discharge, increase in size of the lesion, increase in pain. If not any better follow up on Saturday. . Cellulitis - continue with oral antibiotics as previously directed, return to clinic as previously directed, call for acute change in symptoms, worsening redness, warmth, discharge.
--- OUTSIDE RECORDS SUMMARY | 2019-01-13 17:30 | XMS REPORT | CCD ---
Author Author Anais Hennessy MD, [facility] Address [address] [place] [address] Phone Care Team Providers Care Area Forester Name Role Phone PP Unavailable CCM Unavailable Summary Purpose Interface Exchange Insurance Providers Payer name Policy type / Coverage type Covered libertarian ID Effective Begin Date Effective End Date [employer] Health Plans Commercial Insurance [id number] Unknown Family history Father Diagnosis Age At Onset Cancer Unknown Mother Diagnosis Age At Onset kidney disease Unknown genetic disease Unknown Hypertension Unknown Polycystic ovarian disease Unknown Arthritis Unknown Social History Social History Element Codes Description Effective Dates Marital status Unknown naun 03/15/2016 Number of children Unknown 2 03/15/[address]: 7603383 Quit less than 5 years ago 03/15/[address]: 230814 Currently drinks alcohol 03/15/2016 Frequency of drinks SNOMED CT: 676194530 1- 4 drinks per week 03/15/2016 Allergies, [...] Instructions nystatin 100,000 unit/gram topical cream RxNorm: 400611 1 Application TOP BID 12/31/2016 No Stop Date Active triamcinolone acetonide 0.025 % topical cream RxNorm: 1654443 1 Application TOP BID 12/31/2016 No Stop Date Active Bactrim DS 800 mg-160 mg tablet RxNorm: 442785 1 Tablet(s) PO BID 03/15/2016 03/28/2016 Inactive Adderall XR 30 mg capsule,extended release RxNorm: 393735 1 Capsule(s) PO daily No Start Date Active lamotrigine 150 mg tablet RxNorm: 395059 1 Tablet(s) PO daily No Start Date [...] Item Item Code Result Date Comp Metabolic Zng445 NA 140 mEq/L 12/31/2016 Comp Metabolic Ndz055 K 4.2 mEq/L 12/31/2016 Comp Metabolic Kkz343 CL 103 mEq/L 12/31/2016 Comp Metabolic Jgc673 CO2 29.0 mEq/L 12/31/2016 Comp Metabolic Nlf265 ANION GAP 12 12/31/2016 Comp Metabolic Gdb081 GLUCOSE 87 mg/dL 12/31/2016 Comp Metabolic Rul321 Creat 0.7 mg/dL 12/31/2016 Comp Metabolic Bqv099 eGFR 96 ml/min/1.73m2 12/31/2016 Comp Metabolic Kzh725 BUN 9 mg/dL 12/31/2016 Comp Metabolic Vzv592 B/C Ratio 12.7 Ratio 12/31/2016 Comp Metabolic Cjb551 CALCIUM 9.1 mg/dL 12/31/2016 Comp Metabolic Kpb416 ALK PHOS 93 U/L 12/31/2016 Comp Metabolic Jzi108 AST(SGOT) 12 U/L 12/31/2016 Comp Metabolic Fwc385 ALT(SGPT) 10 U/L 12/31/2016 Comp Metabolic Bdi878 BILI T 0.4 mg/dL 12/31/2016 Comp Metabolic Jvy583 ALBUMIN 4.2 g/dL 12/31/2016 Comp Metabolic Gik354 TPRO 6.1 g/dL 12/31/2016 Comp Metabolic Vlw485 GLOB 2.0 g/dL 12/31/2016 Comp Metabolic Bgd625 A/G Ratio 2.1 Ratio 12/31/2016 Comp Metabolic Eky851 Osmo 277 mOsmo 12/31/2016 Cbc With Differential [...] 31.7 pg 12/31/2016 Cbc With Differential Ord2 [place]% 11.3 % 12/31/2016 Cbc With Differential Ord2 [...] 1.45 K/ul 12/31/2016 Cbc With Differential Ord2 [place] ABS# 0.7 K/ul 12/31/2016 Cbc With Differential Ord2 Eos ABS# 0.1 K/ul 12/31/2016 Cbc With Differential Ord2 Baso ABS# 0.0 K/ul 12/31/2016 Tsh Ord6 hTSH II 2.46 uIU/mL 12/31/2016 Progesterone Nfr050 Prog 3.96 ng/mL 12/31/2016 Review of Systems [...] 1: 126/80 Code: 8480-6 BMI: 23.5 Code: 56847-3 Heart Rate 1: 94 bpm Height: 5'4" [...] data Encounters Encounter Performer Location Codes Date 18060 EST. PATIENT, LEVEL III Diagnosis: Mastodynia[ICD10: N64.4] [facility] CPT-4: 15562 12/31/2016 ([id number]) OFFICE VISIT, NEW - LEVEL 3 Diagnosis: Cellulitis of left lower limb[ICD10: L03.116] [facility] CPT-4: 33916 03/15/2016 Plan of Care Planned Activity Notes Codes Status Date Visit Plan: Rash to left breast - will send RX, will order mammogram - pt is to call for acute change in symptoms, worsening redness, warmth, discharge, increase in size of the lesion, increase in pain. 12/31/2016 Appointment: Anais Hennessy WPtel: [address] [place], [place] [phone] (30 min) Complex 12/31/2016 Patient Education: Patient Medication Summary Completed 12/31/2016 Care Plan: Estrogens Total Pending 12/31/2016 Visit Plan: Cellulitis - continue with oral antibiotics as previously directed, return to clinic as previously directed, call for acute change in symptoms, worsening redness, warmth, discharge. 03/15/2016 Appointment: Anais Hennessy WPtel: [facility] New Patient 03/15/2016 Patient Education: Patient Medication [...]
[2019-01-13] MEDS ORDERED: DAPS100T3 (17:31)
[2019-01-13] MEDS ORDERED: LAMO150T2 (17:31)
[2019-01-13] MEDS ORDERED: DOXY100C2 (17:31)
[2019-01-13] MEDS ORDERED: DEXT30TA12 (17:31)
[2019-01-13] MEDS ORDERED: ERGO50006 (17:31)
--- OUTSIDE RECORDS SUMMARY | 2019-01-13 17:31 | XMS REPORT | CCD ---
Author Author Anais Hennessy MD, [facility] Address [address] [place] [address] Phone Care Team Providers Care Founder Name Role Phone PP Unavailable CCM Unavailable Summary Purpose Interface Exchange Insurance Providers Payer name Policy type / Coverage type Covered green party ID Effective Begin Date Effective End Date [employer] Plans Commercial Insurance [id number] Unknown Family history Father Diagnosis Age At Onset Cancer Unknown Mother Diagnosis Age At Onset kidney disease Unknown genetic disease Unknown Hypertension Unknown Polycystic ovarian disease Unknown Arthritis Unknown Social History Social History Element Codes Description Effective Dates Marital status Unknown naun 03/15/2016 Number of children Unknown 2 03/15/[address]: 4114130 Quit less than 5 years ago 03/15/[address]: 207438 Currently drinks alcohol 03/15/2016 Frequency of drinks SNOMED CT: 413353064 1- 4 drinks per week 03/15/2016 Allergies, [...] Fill Instructions Adderall 30 mg tablet RxNorm: 685436 1/2 Tablet(s) PO BID 10/07/2018 11/05/2018 Active lamotrigine 150 mg tablet RxNorm: 640546 Tablet(s) TAKE 1 TABLET BY MOUTH ONCE DAILY 09/25/2018 No Stop Date Active Adderall 30 mg tablet RxNorm: 836896 1/2 Tablet(s) PO BID 09/09/2018 10/06/2018 Inactive prednisone 10 mg tablet RxNorm: 641692 1 Tablet(s) PO UD 08/13/2018 No Stop Date Active 60,50,40,30,20,10 betamethasone dipropionate 0.05 % topical cream RxNorm: 045557 1 Application TOP BID 08/13/2018 No Stop Date Active Adderall 30 mg tablet RxNorm: 024838 1/2 Tablet(s) PO BID 08/11/2018 09/08/2018 Inactive Adderall 30 mg tablet RxNorm: 354592 1/2 Tablet(s) PO BID 07/15/2018 08/10/2018 Inactive Kenalog 40 mg/mL suspension for injection RxNorm: 4947982 Milliliter(s) Inj 06/30/2018 06/30/2018 Inactive lamotrigine 150 mg tablet RxNorm: 471226 Tablet(s) TAKE 1 TABLET BY MOUTH ONCE DAILY 06/27/2018 09/24/2018 Inactive Adderall 30 mg tablet RxNorm: 512464 1/2 Tablet(s) PO BID 06/27/2018 07/14/2018 Inactive acyclovir 400 mg tablet RxNorm: 661442 1 Tablet(s) PO TID 05/12/2018 06/10/2018 Inactive Adderall 30 mg tablet RxNorm: 615808 1/2 Tablet(s) PO BID 04/07/2018 05/06/2018 Inactive lamotrigine 150 mg tablet RxNorm: 594194 TAKE 1 TABLET BY MOUTH ONCE DAILY 03/31/2018 06/26/2018 Inactive Adderall 30 mg tablet RxNorm: 294308 1/2 Tablet(s) PO BID 03/19/2018 04/06/2018 Inactive lamotrigine 150 mg tablet RxNorm: 520452 TAKE ONE TABLET BY MOUTH ONCE DAILY 01/30/2018 03/30/2018 Inactive Adderall 30 mg tablet RxNorm: 412129 1/2 Tablet(s) PO BID 01/20/2018 02/18/2018 Inactive Adderall 30 mg tablet RxNorm: 517022 1/2 Tablet(s) PO BID 10/29/2017 11/27/2017 Inactive Diflucan 150 mg tablet RxNorm: 110756 1 Tablet(s) PO daily 08/20/2017 08/24/2017 Inactive betamethasone dipropionate 0.05 % topical cream RxNorm: 764570 1 Application TOP BID 08/20/2017 08/12/2018 Inactive triamcinolone acetonide 0.025 % topical cream RxNorm: 4828546 1 Application TOP BID 08/07/2017 No Stop Date Active Adderall 30 mg tablet RxNorm: 443087 1/2 Tablet(s) PO BID 08/07/2017 09/05/2017 Inactive triamcinolone acetonide 0.025 % topical cream RxNorm: 4724971 1 Application TOP BID 07/31/2017 08/06/2017 Inactive Adderall XR 30 mg capsule,extended release RxNorm: 700284 1 Capsule(s) PO daily 07/31/2017 08/06/2017 Inactive lamotrigine 150 mg tablet RxNorm: 658272 1 Tablet(s) PO daily 06/04/2017 10/01/2017 Inactive Adderall 30 mg tablet RxNorm: 574372 1/2 Tablet(s) PO BID 05/08/2017 06/06/2017 Inactive acyclovir 400 mg tablet RxNorm: 950912 1 Tablet(s) PO TID 05/08/2017 06/06/2017 Inactive nystatin 100,000 unit/gram topical cream RxNorm: 328020 1 Application TOP BID 12/31/2016 No Stop Date Active triamcinolone acetonide 0.025 % topical cream RxNorm: 5204217 1 Application TOP BID 12/31/2016 07/30/2017 Inactive Bactrim DS 800 mg-160 mg tablet RxNorm: 942217 1 Tablet(s) PO BID 03/15/2016 03/28/2016 Inactive Adderall XR 30 mg capsule,extended release RxNorm: 656520 1 Capsule(s) PO daily No Start Date 07/30/2017 Inactive lamotrigine 150 mg tablet RxNorm: 540624 1 Tablet(s) PO daily No Start Date 06/03/2017 Inactive Medication Administered Medication Codes Instructions Start Date Status Kenalog 40 mg/mL suspension for injection RxNorm: 3018262 Milliliter 06/30/2018 No longer Active Immunizations No [...] Item Item Code Result Date Estrogens Total 320184 ESTROGENS, TOTAL 342 pg/mL 01/04/2017 Comp Metabolic Lgc445 NA 140 mEq/L 12/31/2016 Comp Metabolic Snc654 K 4.2 mEq/L 12/31/2016 Comp Metabolic Gev112 CL 103 mEq/L 12/31/2016 Comp Metabolic Sat148 CO2 29.0 mEq/L 12/31/2016 Comp Metabolic Zhl580 ANION GAP 12 12/31/2016 Comp Metabolic Ptv365 GLUCOSE 87 mg/dL 12/31/2016 Comp Metabolic Suj119 Creat 0.7 mg/dL 12/31/2016 Comp Metabolic Asi353 eGFR 96 ml/min/1.73m2 12/31/2016 Comp Metabolic Bdx170 BUN 9 mg/dL 12/31/2016 Comp Metabolic Pdi262 B/C Ratio 12.7 Ratio 12/31/2016 Comp Metabolic Apo242 CALCIUM 9.1 mg/dL 12/31/2016 Comp Metabolic Utf846 ALK PHOS 93 U/L 12/31/2016 Comp Metabolic Vfa872 AST(SGOT) 12 U/L 12/31/2016 Comp Metabolic Kkz924 ALT(SGPT) 10 U/L 12/31/2016 Comp Metabolic Xln528 BILI T 0.4 mg/dL 12/31/2016 Comp Metabolic Vsv011 ALBUMIN 4.2 g/dL 12/31/2016 Comp Metabolic Cmm542 TPRO 6.1 g/dL 12/31/2016 Comp Metabolic Crb988 GLOB 2.0 g/dL 12/31/2016 Comp Metabolic Ohf054 A/G Ratio 2.1 Ratio 12/31/2016 Comp Metabolic Sob755 Osmo 277 mOsmo 12/31/2016 Cbc With Differential [...] 31.7 pg 12/31/2016 Cbc With Differential Ord2 [place]% 11.3 % 12/31/2016 Cbc With Differential Ord2 [...] 1.45 K/ul 12/31/2016 Cbc With Differential Ord2 [place] ABS# 0.7 K/ul 12/31/2016 Cbc With Differential Ord2 Eos ABS# 0.1 K/ul 12/31/2016 Cbc With Differential Ord2 Baso ABS# 0.0 K/ul 12/31/2016 Tsh Ord6 hTSH II 2.46 uIU/mL 12/31/2016 Progesterone Nvk738 Prog 3.96 ng/mL 12/31/2016 Review of Systems [...] 1: 118/74 Code: 8480-6 BMI: 24.2 Code: 35327-4 Heart Rate 1: 100 bpm Height: 5'4" SpO2: 98% Weight: 143 lbs 06/30/2018 Blood Pressure 1: 120/68 Code: 8480-6 BMI: 24.5 Code: 66235-2 Heart Rate 1: 100 bpm Height: 5'4" SpO2: 96% Temperature: 37.1 (C) / 98.7 (F) Weight: 145 lbs 01/21/2018 Blood Pressure 1: 122/70 Code: 8480-6 BMI: 24.5 Code: 22664-3 Heart Rate 1: 97 bpm Height: 5'4" SpO2: 98% Weight: 145 lbs 08/20/2017 Blood Pressure 1: 120/78 Code: 8480-6 BMI: 24.3 Code: 96682-6 Heart Rate 1: 97 bpm Height: 5'4" SpO2: 97% Weight: 144 lbs 05/08/2017 Blood Pressure 1: 124/78 Code: 8480-6 BMI: 24.7 Code: 43339-7 Heart Rate 1: 101 bpm Height: 5'4" SpO2: 98% Weight: 146 lbs 12/31/2016 Blood Pressure 1: 128/74 Code: 8480-6 Heart Rate 1: 94 bpm SpO2: 99% Weight: 141 lbs 03/15/2016 Blood Pressure 1: 126/80 Code: 8480-6 BMI: 23.5 Code: 48413-2 Heart Rate 1: 94 bpm Height: 5'4" [...] data Encounters Encounter Performer Location Codes Date [address] EST. PATIENT, LEVEL III Diagnosis: Rash and other nonspecific skin eruption[ICD10: R21] Diagnosis: Other urticaria[ICD10: L50.8] Anais Heredia MD, [facility] CPT-4: 16132 08/13/2018 34138 EST. PATIENT, LEVEL III Diagnosis: Attention-deficit hyperactivity disorder, combined type[ICD10: F90.2] Anais Heredia MD, [facility] CPT-4: 88522 07/21/2018 ([id number]) 60872 EST. PATIENT, LEVEL III Diagnosis: Cough[ICD10: R05] Diagnosis: Acute upper respiratory infection, unspecified[ICD10: J06.9] Elena Heredia MD, [facility] CPT-4: 08830 06/30/2018 84442 EST. PATIENT, LEVEL III Diagnosis: Attention-deficit hyperactivity disorder, combined type[ICD10: F90.2] Anais Heredia MD, [facility] CPT-4: 88578 01/21/2018 08967 EST. PATIENT, LEVEL III Diagnosis: Attention-deficit hyperactivity disorder, combined type[ICD10: F90.2] Diagnosis: Rash and other nonspecific skin eruption[ICD10: R21] Anais Heredia MD, [facility] CPT-4: 36329 08/20/2017 85308 EST. 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 PATIENT, LEVEL III Diagnosis: Mastodynia[ICD10: N64.4] Anais Heredia MD, [facility] CPT-4: 46835 12/31/2016 ([id number]) OFFICE VISIT, NEW - LEVEL 3 Diagnosis: Cellulitis of left lower limb[ICD10: L03.116] Anais Heredia MD, [facility] CPT-4: 29750 03/15/2016 Plan of Care Planned Activity Notes Codes Status Date Visit Plan: Rash - The patient was instructed to use the medication as per RX. The patient is to call for any change in symptoms, increase in size of the lesion, increase in pain, worsening redness, warmth, discharge. 08/13/2018 Appointment: Anais Hennessy WPtel: [address] [place], [place] [phone] (30 min) [facility] 08/13/2018 Patient Education: Patient Medication Summary [...] prescribed. 07/21/2018 Appointment: Anais Hennessy WPtel: [phone] [facility] (15 min) Moderate 07/21/2018 Patient Education: Patient Medication Summary Completed 07/21/2018 Visit Plan: URI - Pt advised to increase fluids, vitamin C. Discussed natural and expected course of this diagnosis and need to alert me if symptoms do not follow expected course, or if any worse. RX sent to patient's pharmacy. 06/30/2018 Appointment: Elena Dong WPtel: [phone] [phone] (15 min) Moderate 06/30/2018 Patient Education: [...] not prescribed. 01/21/2018 Appointment: Anais Hennessy WPtel: [facility] (30 min) Complex 01/21/2018 Patient Education: [...] or concerns. 08/20/2017 Appointment: Anais Hennessy WPtel: [facility] ([facility] min) Complex 08/20/2017 Patient Education: Patient Medication Summary Completed 08/20/2017 Care Plan: Unilateral DIAGNOSTICMAMMOGRAPHYDIGITAL LOINC : 23143-8 Pending 08/20/2017 Care Plan: SCREENINGMAMMOGRAPHYDIGITAL LOINC : 32668-9 Pending 08/20/2017 Visit Plan: Cold sores - [...] not prescribed. 05/08/2017 Appointment: Anais Hennessy WPtel: [facility] (15 min) Moderate 05/08/2017 Patient Education: Patient Medication Summary Completed 05/08/2017 Visit Plan: Rash to left breast - will send RX, will order mammogram - pt is to call for acute change in symptoms, worsening redness, warmth, discharge, increase in size of the lesion, increase in pain. 12/31/2016 Appointment: Anais Hennessy WPtel: [facility] (30 min) Complex 12/31/2016 Patient Education: Patient Medication Summary Completed 12/31/2016 Visit Plan: Cellulitis - continue with oral antibiotics as previously directed, return to clinic as previously directed, call for acute change in symptoms, worsening redness, warmth, discharge. 03/15/2016 Appointment: [facility]el[facility] [phone] [facility] [facility] Patient 03/15/2016 Patient Education: Patient Medication [...]
--- OUTSIDE RECORDS SUMMARY | 2019-01-13 17:32 | XMS REPORT | CCD ---
Author Author Anais Hennessy MD, [facility] Address [address] [place] [address] Phone Care Team Providers Care Jet Blade Polisher Name Role Phone PP Unavailable CCM Unavailable Summary Purpose Interface Exchange Insurance Providers Payer name Policy type / Coverage type Covered alliance party ID Effective Begin Date Effective End Date [employer] Plans Commercial Insurance [id number] Unknown Family history Father Diagnosis Age At Onset Cancer Unknown Mother Diagnosis Age At Onset kidney disease Unknown genetic disease Unknown Hypertension Unknown Polycystic ovarian disease Unknown Arthritis Unknown Social History Social History Element Codes Description Effective Dates Marital status Unknown naun 03/15/2016 Number of children Unknown 2 03/15/[address]: 1793090 Quit less than 5 years ago 03/15/[address]: 938986 Currently drinks alcohol 03/15/2016 Frequency of drinks SNOMED CT: 120055008 1- 4 drinks per week 03/15/2016 Allergies, [...] Start Date Stop Date Status Fill Instructions lamotrigine 150 mg tablet RxNorm: 796352 Tablet(s) TAKE 1 TABLET BY MOUTH ONCE DAILY 09/25/2018 No Stop Date Active Adderall 30 mg tablet RxNorm: 251362 1/2 Tablet(s) PO BID 09/09/2018 10/08/2018 Active prednisone 10 mg tablet RxNorm: 543971 1 Tablet(s) PO UD 08/13/2018 No Stop Date Active 60,50,40,30,20,10 betamethasone dipropionate 0.05 % topical cream RxNorm: 082714 1 Application TOP BID 08/13/2018 No Stop Date Active Adderall 30 mg tablet RxNorm: 979339 1/2 Tablet(s) PO BID 08/11/2018 09/08/2018 Inactive Adderall 30 mg tablet RxNorm: 326793 1/2 Tablet(s) PO BID 07/15/2018 08/10/2018 Inactive Kenalog 40 mg/mL suspension for injection RxNorm: 5155005 Milliliter(s) Inj 06/30/2018 06/30/2018 Inactive lamotrigine 150 mg tablet RxNorm: 306405 Tablet(s) TAKE 1 TABLET BY MOUTH ONCE DAILY 06/27/2018 09/24/2018 Inactive Adderall 30 mg tablet RxNorm: 418520 1/2 Tablet(s) PO BID 06/27/2018 07/14/2018 Inactive acyclovir 400 mg tablet RxNorm: 495558 1 Tablet(s) PO TID 05/12/2018 06/10/2018 Inactive Adderall 30 mg tablet RxNorm: 580159 1/2 Tablet(s) PO BID 04/07/2018 05/06/2018 Inactive lamotrigine 150 mg tablet RxNorm: 146360 TAKE 1 TABLET BY MOUTH ONCE DAILY 03/31/2018 06/26/2018 Inactive Adderall 30 mg tablet RxNorm: 944966 1/2 Tablet(s) PO BID 03/19/2018 04/06/2018 Inactive lamotrigine 150 mg tablet RxNorm: 708816 TAKE ONE TABLET BY MOUTH ONCE DAILY 01/30/2018 03/30/2018 Inactive Adderall 30 mg tablet RxNorm: 148623 1/2 Tablet(s) PO BID 01/20/2018 02/18/2018 Inactive Adderall 30 mg tablet RxNorm: 012795 1/2 Tablet(s) PO BID 10/29/2017 11/27/2017 Inactive Diflucan 150 mg tablet RxNorm: 096434 1 Tablet(s) PO daily 08/20/2017 08/24/2017 Inactive betamethasone dipropionate 0.05 % topical cream RxNorm: 901482 1 Application TOP BID 08/20/2017 08/12/2018 Inactive triamcinolone acetonide 0.025 % topical cream RxNorm: 6104532 1 Application TOP BID 08/07/2017 No Stop Date Active Adderall 30 mg tablet RxNorm: 926687 1/2 Tablet(s) PO BID 08/07/2017 09/05/2017 Inactive triamcinolone acetonide 0.025 % topical cream RxNorm: 2270786 1 Application TOP BID 07/31/2017 08/06/2017 Inactive Adderall XR 30 mg capsule,extended release RxNorm: 712252 1 Capsule(s) PO daily 07/31/2017 08/06/2017 Inactive lamotrigine 150 mg tablet RxNorm: 861694 1 Tablet(s) PO daily 06/04/2017 10/01/2017 Inactive Adderall 30 mg tablet RxNorm: 677944 1/2 Tablet(s) PO BID 05/08/2017 06/06/2017 Inactive acyclovir 400 mg tablet RxNorm: 486668 1 Tablet(s) PO TID 05/08/2017 06/06/2017 Inactive nystatin 100,000 unit/gram topical cream RxNorm: 400754 1 Application TOP BID 12/31/2016 No Stop Date Active triamcinolone acetonide 0.025 % topical cream RxNorm: 6837932 1 Application TOP BID 12/31/2016 07/30/2017 Inactive Bactrim DS 800 mg-160 mg tablet RxNorm: 211946 1 Tablet(s) PO BID 03/15/2016 03/28/2016 Inactive Adderall XR 30 mg capsule,extended release RxNorm: 422020 1 Capsule(s) PO daily No Start Date 07/30/2017 Inactive lamotrigine 150 mg tablet RxNorm: 912746 1 Tablet(s) PO daily No Start Date 06/03/2017 Inactive Medication Administered Medication Codes Instructions Start Date Status Kenalog 40 mg/mL suspension for injection RxNorm: 4875902 Milliliter 06/30/2018 No longer Active Immunizations No [...] Item Item Code Result Date Estrogens Total 980037 ESTROGENS, TOTAL 342 pg/mL 01/04/2017 Comp Metabolic Klg193 NA 140 mEq/L 12/31/2016 Comp Metabolic Iui534 K 4.2 mEq/L 12/31/2016 Comp Metabolic Cld354 CL 103 mEq/L 12/31/2016 Comp Metabolic Aki685 CO2 29.0 mEq/L 12/31/2016 Comp Metabolic Mol834 ANION GAP 12 12/31/2016 Comp Metabolic Myj894 GLUCOSE 87 mg/dL 12/31/2016 Comp Metabolic Qzi070 Creat 0.7 mg/dL 12/31/2016 Comp Metabolic Fty135 eGFR 96 ml/min/1.73m2 12/31/2016 Comp Metabolic Oib096 BUN 9 mg/dL 12/31/2016 Comp Metabolic Xks166 B/C Ratio 12.7 Ratio 12/31/2016 Comp Metabolic Vle065 CALCIUM 9.1 mg/dL 12/31/2016 Comp Metabolic Fxz193 ALK PHOS 93 U/L 12/31/2016 Comp Metabolic Uxz053 AST(SGOT) 12 U/L 12/31/2016 Comp Metabolic Zob825 ALT(SGPT) 10 U/L 12/31/2016 Comp Metabolic Oni773 BILI T 0.4 mg/dL 12/31/2016 Comp Metabolic Lty636 ALBUMIN 4.2 g/dL 12/31/2016 Comp Metabolic Hip715 TPRO 6.1 g/dL 12/31/2016 Comp Metabolic Wly556 GLOB 2.0 g/dL 12/31/2016 Comp Metabolic Euq567 A/G Ratio 2.1 Ratio 12/31/2016 Comp Metabolic Ksu946 Osmo 277 mOsmo 12/31/2016 Cbc With Differential [...] 31.7 pg 12/31/2016 Cbc With Differential Ord2 [place]% 11.3 % 12/31/2016 Cbc With Differential Ord2 [...] 1.45 K/ul 12/31/2016 Cbc With Differential Ord2 [place] ABS# 0.7 K/ul 12/31/2016 Cbc With Differential Ord2 Eos ABS# 0.1 K/ul 12/31/2016 Cbc With Differential Ord2 Baso ABS# 0.0 K/ul 12/31/2016 Tsh Ord6 hTSH II 2.46 uIU/mL 12/31/2016 Progesterone Pna006 Prog 3.96 ng/mL 12/31/2016 Review of Systems [...] clear 06/30/2018 None Full Exam - General 1995 Constitutional general appearance Overall: well developed 01/21/2018 [...] vesicle 05/08/2017 None Full Exam - General 1995 Integument inspection of skin Pigmentation: erythematous 05/08/2017 [...] 1: 118/74 Code: 8480-6 BMI: 24.2 Code: 93001-0 Heart Rate 1: 100 bpm Height: 5'4" SpO2: 98% Weight: 143 lbs 06/30/2018 Blood Pressure 1: 120/68 Code: 8480-6 BMI: 24.5 Code: 39442-1 Heart Rate 1: 100 bpm Height: 5'4" SpO2: 96% Temperature: 37.1 (C) / 98.7 (F) Weight: 145 lbs 01/21/2018 Blood Pressure 1: 122/70 Code: 8480-6 BMI: 24.5 Code: 21271-7 Heart Rate 1: 97 bpm Height: 5'4" SpO2: 98% Weight: 145 lbs 08/20/2017 Blood Pressure 1: 120/78 Code: 8480-6 BMI: 24.3 Code: 62634-5 Heart Rate 1: 97 bpm Height: 5'4" SpO2: 97% Weight: 144 lbs 05/08/2017 Blood Pressure 1: 124/78 Code: 8480-6 BMI: 24.7 Code: 70486-2 Heart Rate 1: 101 bpm Height: 5'4" SpO2: 98% Weight: 146 lbs 12/31/2016 Blood Pressure 1: 128/74 Code: 8480-6 Heart Rate 1: 94 bpm SpO2: 99% Weight: 141 lbs 03/15/2016 Blood Pressure 1: 126/80 Code: 8480-6 BMI: 23.5 Code: 41214-4 Heart Rate 1: 94 bpm Height: 5'4" [...] Other urticaria[ICD10: L50.8] Anais Heredia MD, [facility] CPT-4: 92654 08/13/2018 03081 EST. PATIENT, LEVEL III Diagnosis: Attention-deficit hyperactivity disorder, combined type[ICD10: F90.2] Anais Heredia MD, [facility] CPT-4: 80599 07/21/2018 ([id number]) 61673 EST. PATIENT, LEVEL III Diagnosis: Cough[ICD10: R05] Diagnosis: Acute upper respiratory infection, unspecified[ICD10: J06.9] Elena Heredia MD, [facility] CPT-4: 24899 06/30/2018 06733 EST. PATIENT, LEVEL III Diagnosis: Attention-deficit hyperactivity disorder, combined type[ICD10: F90.2] Anais Heredia MD, [facility] CPT-4: 02056 01/21/2018 [id number] EST. PATIENT, LEVEL III Diagnosis: Attention-deficit hyperactivity disorder, combined type[ICD10: F90.2] Diagnosis: Rash and other nonspecific skin eruption[ICD10: R21] Aanis Heredia MD, [facility] CPT-4: 09632 08/20/2017 28043 EST. 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 PATIENT, LEVEL III Diagnosis: Mastodynia[ICD10: N64.4] Anais Heredia MD, [facility] CPT-4: 78068 12/31/2016 ([id number]) OFFICE VISIT, NEW - LEVEL 3 Diagnosis: Cellulitis of left lower limb[ICD10: L03.116] Anais Heredia MD, [facility] CPT-4: 49215 03/15/2016 Plan of Care Planned Activity Notes Codes Status Date Visit Plan: Rash - The patient was instructed to use the medication as per RX. The patient is to call for any change in symptoms, increase in size of the lesion, increase in pain, worsening redness, warmth, discharge. 08/13/2018 Appointment: Anais Hennessy WPtel: [address] [place], [place] [id number] (30 min) Complex 08/13/2018 Patient Education: Patient [...] not prescribed. 07/21/2018 Appointment: Anais Hennessy WPtel: [address] [place], [place] [id number] (15 min) Moderate 07/21/2018 Patient Education: Patient Medication Summary Completed 07/21/2018 Visit Plan: URI - Pt advised to increase fluids, vitamin C. Discussed natural and expected course of this diagnosis and need to alert me if symptoms do not follow expected course, or if any worse. RX sent to patient's pharmacy. 06/30/2018 Appointment: Elena Dong WPtel: [phone] [facility] (15 min) Moderate 06/30/2018 Patient Education: Patient [...] not prescribed. 01/21/2018 Appointment: [facility] [phone] [facility] [place] (30 min) Complex 01/21/2018 Patient Education: Patient [...] changes, questions, or concerns. 08/20/2017 Appointment: Anais Hennessytel: [facility] (30 min) Complex 08/20/2017 Patient Education: Patient Medication Summary Completed 08/20/2017 Care Plan: Unilateral DIAGNOSTICMAMMOGRAPHYDIGITAL LOINC : 69229-2 Pending 08/20/2017 Care Plan: SCREENINGMAMMOGRAPHYDIGITAL LOINC : 42010-6 Pending 08/20/2017 Visit Plan: Cold sores - [...] not prescribed. 05/08/2017 Appointment: Anais Hennessy WPtel: [facility] (15 min) Moderate 05/08/2017 Patient Education: Patient Medication Summary Completed 05/08/2017 Visit Plan: Rash to left breast - will send RX, will order mammogram - pt is to call for acute change in symptoms, worsening redness, warmth, discharge, increase in size of the lesion, increase in pain. 12/31/2016 Appointment: Anais Hennessy WPtel: [facility] (30 min) Complex 12/31/2016 Patient Education: Patient Medication Summary Completed 12/31/2016 Visit Plan: Cellulitis - continue with oral antibiotics as previously directed, return to clinic as previously directed, call for acute change in symptoms, worsening redness, warmth, discharge. 03/15/2016 Appointment: Anais Hennessy WPtel: [facility] New Patient 03/15/2016 Patient Education: Patient [...]
--- OUTSIDE RECORDS SUMMARY | 2019-01-13 17:33 | XMS REPORT | CCD ---
Author Author Anais Hennessy MD, [facility] Address [address] [place] [address] Phone Care Team Providers Care Crab Catcher Name Role Phone PP Unavailable CCM Unavailable Summary Purpose Interface Exchange Insurance Providers Payer name Policy type / Coverage type Covered constitution party ID Effective Begin Date Effective End Date [employer] Plans Commercial Insurance [id number] Unknown Family history Father Diagnosis Age At Onset Cancer Unknown Mother Diagnosis Age At Onset kidney disease Unknown genetic disease Unknown Hypertension Unknown Polycystic ovarian disease Unknown Arthritis Unknown Social History Social History Element Codes Description Effective Dates Marital status Unknown naun 03/15/2016 Number of children Unknown 2 03/15/[address]: 6285956 Quit less than 5 years ago 03/15/[address]: 204660 Currently drinks alcohol 03/15/2016 Frequency of drinks SNOMED CT: 534239585 1- 4 drinks per week 03/15/2016 Allergies, [...] Fill Instructions Adderall 30 mg tablet RxNorm: 434668 1/2 Tablet(s) PO BID 09/09/2018 10/08/2018 Active prednisone 10 mg tablet RxNorm: 232853 1 Tablet(s) PO UD 08/13/2018 No Stop Date Active 60,50,40,30,20,10 betamethasone dipropionate 0.05 % topical cream RxNorm: 519789 1 Application TOP BID 08/13/2018 No Stop Date Active Adderall 30 mg tablet RxNorm: 231499 1/2 Tablet(s) PO BID 08/11/2018 09/08/2018 Inactive Adderall 30 mg tablet RxNorm: 132754 1/2 Tablet(s) PO BID 07/15/2018 08/10/2018 Inactive Kenalog 40 mg/mL suspension for injection RxNorm: 4502428 Milliliter(s) Inj 06/30/2018 06/30/2018 Inactive lamotrigine 150 mg tablet RxNorm: 911671 Tablet(s) TAKE 1 TABLET BY MOUTH ONCE DAILY 06/27/2018 No Stop Date Active Adderall 30 mg tablet RxNorm: 724745 1/2 Tablet(s) PO BID 06/27/2018 07/14/2018 Inactive acyclovir 400 mg tablet RxNorm: 860404 1 Tablet(s) PO TID 05/12/2018 06/10/2018 Inactive Adderall 30 mg tablet RxNorm: 900646 1/2 Tablet(s) PO BID 04/07/2018 05/06/2018 Inactive lamotrigine 150 mg tablet RxNorm: 659452 TAKE 1 TABLET BY MOUTH ONCE DAILY 03/31/2018 06/26/2018 Inactive Adderall 30 mg tablet RxNorm: 428114 1/2 Tablet(s) PO BID 03/19/2018 04/06/2018 Inactive lamotrigine 150 mg tablet RxNorm: 161667 TAKE ONE TABLET BY MOUTH ONCE DAILY 01/30/2018 03/30/2018 Inactive Adderall 30 mg tablet RxNorm: 634777 1/2 Tablet(s) PO BID 01/20/2018 02/18/2018 Inactive Adderall 30 mg tablet RxNorm: 962960 1/2 Tablet(s) PO BID 10/29/2017 11/27/2017 Inactive Diflucan 150 mg tablet RxNorm: 595512 1 Tablet(s) PO daily 08/20/2017 08/24/2017 Inactive betamethasone dipropionate 0.05 % topical cream RxNorm: 319830 1 Application TOP BID 08/20/2017 08/12/2018 Inactive triamcinolone acetonide 0.025 % topical cream RxNorm: 2550017 1 Application TOP BID 08/07/2017 No Stop Date Active Adderall 30 mg tablet RxNorm: 178857 1/2 Tablet(s) PO BID 08/07/2017 09/05/2017 Inactive triamcinolone acetonide 0.025 % topical cream RxNorm: 6682805 1 Application TOP BID 07/31/2017 08/06/2017 Inactive Adderall XR 30 mg capsule,extended release RxNorm: 217867 1 Capsule(s) PO daily 07/31/2017 08/06/2017 Inactive lamotrigine 150 mg tablet RxNorm: 396708 1 Tablet(s) PO daily 06/04/2017 10/01/2017 Inactive Adderall 30 mg tablet RxNorm: 176324 1/2 Tablet(s) PO BID 05/08/2017 06/06/2017 Inactive acyclovir 400 mg tablet RxNorm: 190660 1 Tablet(s) PO TID 05/08/2017 06/06/2017 Inactive nystatin 100,000 unit/gram topical cream RxNorm: 215710 1 Application TOP BID 12/31/2016 No Stop Date Active triamcinolone acetonide 0.025 % topical cream RxNorm: 9441546 1 Application TOP BID 12/31/2016 07/30/2017 Inactive Bactrim DS 800 mg-160 mg tablet RxNorm: 430704 1 Tablet(s) PO BID 03/15/2016 03/28/2016 Inactive Adderall XR 30 mg capsule,extended release RxNorm: 932930 1 Capsule(s) PO daily No Start Date 07/30/2017 Inactive lamotrigine 150 mg tablet RxNorm: 722557 1 Tablet(s) PO daily No Start Date 06/03/2017 Inactive Medication Administered Medication Codes Instructions Start Date Status Kenalog 40 mg/mL suspension for injection RxNorm: 0300284 Milliliter 06/30/2018 No longer Active Immunizations No [...] Item Item Code Result Date Estrogens Total 757485 ESTROGENS, TOTAL 342 pg/mL 01/04/2017 Comp Metabolic Pwu166 NA 140 mEq/L 12/31/2016 Comp Metabolic Tyo048 K 4.2 mEq/L 12/31/2016 Comp Metabolic Mus102 CL 103 mEq/L 12/31/2016 Comp Metabolic Nqv292 CO2 29.0 mEq/L 12/31/2016 Comp Metabolic Byz905 ANION GAP 12 12/31/2016 Comp Metabolic Qhp832 GLUCOSE 87 mg/dL 12/31/2016 Comp Metabolic Neu897 Creat 0.7 mg/dL 12/31/2016 Comp Metabolic Mhr812 eGFR 96 ml/min/1.73m2 12/31/2016 Comp Metabolic Lpm981 BUN 9 mg/dL 12/31/2016 Comp Metabolic Fvw078 B/C Ratio 12.7 Ratio 12/31/2016 Comp Metabolic Sfd530 CALCIUM 9.1 mg/dL 12/31/2016 Comp Metabolic Rny341 ALK PHOS 93 U/L 12/31/2016 Comp Metabolic Ylk702 AST(SGOT) 12 U/L 12/31/2016 Comp Metabolic Mxp964 ALT(SGPT) 10 U/L 12/31/2016 Comp Metabolic Rcn971 BILI T 0.4 mg/dL 12/31/2016 Comp Metabolic Kqu434 ALBUMIN 4.2 g/dL 12/31/2016 Comp Metabolic Mov096 TPRO 6.1 g/dL 12/31/2016 Comp Metabolic Npl558 GLOB 2.0 g/dL 12/31/2016 Comp Metabolic Pea109 A/G Ratio 2.1 Ratio 12/31/2016 Comp Metabolic Keh459 Osmo 277 mOsmo 12/31/2016 Cbc With Differential [...] 31.7 pg 12/31/2016 Cbc With Differential Ord2 [place]% 11.3 % 12/31/2016 Cbc With Differential Ord2 [...] 1.45 K/ul 12/31/2016 Cbc With Differential Ord2 [place] ABS# 0.7 K/ul 12/31/2016 Cbc With Differential Ord2 Eos ABS# 0.1 K/ul 12/31/2016 Cbc With Differential Ord2 Baso ABS# 0.0 K/ul 12/31/2016 Tsh Ord6 hTSH II 2.46 uIU/mL 12/31/2016 Progesterone Vmm924 Prog 3.96 ng/mL 12/31/2016 Review of Systems [...] distress 01/21/2018 None Full Exam - General 1995 Constitutional general appearance Overall: well nourished 01/21/2018 None Full Exam - General 1995 Eyes conjunctiva/eyelids Overall: conjunctiva clear 01/21/2018 None [...] 1: 118/74 Code: 8480-6 BMI: 24.2 Code: 30116-2 Heart Rate 1: 100 bpm Height: 5'4" SpO2: 98% Weight: 143 lbs 06/30/2018 Blood Pressure 1: 120/68 Code: 8480-6 BMI: 24.5 Code: 55840-5 Heart Rate 1: 100 bpm Height: 5'4" SpO2: 96% Temperature: 37.1 (C) / 98.7 (F) Weight: 145 lbs 01/21/2018 Blood Pressure 1: 122/70 Code: 8480-6 BMI: 24.5 Code: 09147-6 Heart Rate 1: 97 bpm Height: 5'4" SpO2: 98% Weight: 145 lbs 08/20/2017 Blood Pressure 1: 120/78 Code: 8480-6 BMI: 24.3 Code: 94873-8 Heart Rate 1: 97 bpm Height: 5'4" SpO2: 97% Weight: 144 lbs 05/08/2017 Blood Pressure 1: 124/78 Code: 8480-6 BMI: 24.7 Code: 75243-5 Heart Rate 1: 101 bpm Height: 5'4" SpO2: 98% Weight: 146 lbs 12/31/2016 Blood Pressure 1: 128/74 Code: 8480-6 Heart Rate 1: 94 bpm SpO2: 99% Weight: 141 lbs 03/15/2016 Blood Pressure 1: 126/80 Code: 8480-6 BMI: 23.5 Code: 28359-9 Heart Rate 1: 94 bpm Height: 5'4" [...] data Encounters Encounter Performer Location Codes Date 75020 EST. PATIENT, LEVEL III Diagnosis: Rash and other nonspecific skin eruption[ICD10: R21] Diagnosis: Other urticaria[ICD10: L50.8] Anais Heredia MD, [facility] CPT-4: 95810 08/13/2018 78043 EST. PATIENT, LEVEL III Diagnosis: Attention-deficit hyperactivity disorder, combined type[ICD10: F90.2] Anais Heredia MD, [facility] CPT-4: 53914 07/21/2018 ([id number]) 35202 EST. PATIENT, LEVEL III Diagnosis: Cough[ICD10: R05] Diagnosis: Acute upper respiratory infection, unspecified[ICD10: J06.9] Elena Heredia MD, [facility] CPT-4: 11093 06/30/2018 52601 EST. PATIENT, LEVEL III Diagnosis: Attention-deficit hyperactivity disorder, combined type[ICD10: F90.2] Anais Heredia MD, [facility] CPT-4: 00952 01/21/2018 69978 EST. PATIENT, LEVEL III Diagnosis: Attention-deficit hyperactivity disorder, combined type[ICD10: F90.2] Diagnosis: Rash and other nonspecific skin eruption[ICD10: R21] Anais Heredia MD, [facility] CPT-4: 84269 08/20/2017 86732 EST. 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 PATIENT, LEVEL III Diagnosis: Mastodynia[ICD10: N64.4] Anais Heredia MD, [facility] CPT-4: 56401 12/31/2016 ([id number]) OFFICE VISIT, NEW - LEVEL 3 Diagnosis: Cellulitis of left lower limb[ICD10: L03.116] Anais Heredia MD, [facility] CPT-4: 39214 03/15/2016 Plan of Care Planned Activity Notes Codes Status Date Visit Plan: Rash - The patient was instructed to use the medication as per RX. The patient is to call for any change in symptoms, increase in size of the lesion, increase in pain, worsening redness, warmth, discharge. 08/13/2018 Appointment: Anais Hennessy WPtel: [facility] [address] [facility] (30 min) Complex 08/13/2018 Patient Education: Patient [...] not prescribed. 07/21/2018 Appointment: Anais Hennessy WPtel: [facility] [address] [facility] (15 min) Moderate 07/21/2018 Patient Education: Patient Medication Summary Completed 07/21/2018 Visit Plan: URI - Pt advised to increase fluids, vitamin C. Discussed natural and expected course of this diagnosis and need to alert me if symptoms do not follow expected course, or if any worse. RX sent to patient's pharmacy. 06/30/2018 Appointment: Elena Dong WPtel: [address] [phone] (15 min) Moderate 06/30/2018 Patient Education: [...] prescribed. 01/21/2018 App[facility]ment[facility] ([facility] min) Complex 01/21/2018 Patient [...] concerns. 08/20/2017 Appointment: Anais Hennessy WPtel: [address] [facility] (30 min) Complex 08/20/2017 Patient Education: Patient Medication Summary Completed 08/20/2017 Care Plan: Unilateral DIAGNOSTICMAMMOGRAPHYDIGITAL LOINC : 87066-8 Pending 08/20/2017 Care Plan: SCREENINGMAMMOGRAPHYDIGITAL LOINC : 68379-9 Pending 08/20/2017 Visit Plan: Cold sores - [...] not prescribed. 05/08/2017 Appointment: Anais Hennessy WPtel: [facility] [address] [facility] (15 min) Moderate 05/08/2017 Patient Education: Patient Medication Summary Completed 05/08/2017 Visit Plan: Rash to left breast - will send RX, will order mammogram - pt is to call for acute change in symptoms, worsening redness, warmth, discharge, increase in size of the lesion, increase in pain. 12/31/2016 Appointment: Anais Hennessy WPtel: [facility] [address] [facility] (30 min) Complex 12/31/2016 Patient Education: Patient Medication Summary Completed 12/31/2016 Visit Plan: Cellulitis - continue with oral antibiotics as previously directed, return to clinic as previously directed, call for acute change in symptoms, worsening redness, warmth, discharge. 03/15/2016 Appointment: Anais Hennessy WPtel: [facility] [address] [facility] New Patient 03/15/2016 Patient Education: Patient [...]
--- OUTSIDE RECORDS SUMMARY | 2019-01-13 17:34 | XMS REPORT | CCD ---
Author Author Anais Hennessy MD, [facility] Address [address] [place] [address] Phone Care Team Providers Care Associate Director Financial Aid Name Role Phone PP Unavailable CCM Unavailable Summary Purpose Interface Exchange Insurance Providers Payer name Policy type / Coverage type Covered alliance party ID Effective Begin Date Effective End Date Simple-Fill Health Plans Commercial Insurance [id number] Unknown Family history Father Diagnosis Age At Onset Cancer Unknown Mother Diagnosis Age At Onset kidney disease Unknown genetic disease Unknown Hypertension Unknown Polycystic ovarian disease Unknown Arthritis Unknown Social History Social History Element Codes Description Effective Dates Marital status Unknown naun 03/15/2016 Number of children Unknown 2 03/15/[address]: 1531010 Quit less than 5 years ago 03/15/[address]: 580434 Currently drinks alcohol 03/15/2016 Frequency of drinks SNOMED CT: 936681973 1- 4 drinks per week 03/15/2016 Allergies, Adverse Reactions, Alerts Substance Reaction Codes Entered Date Inactivated Date Status Penicillin Unknown 03/15/2016 No Inactive Date Active Past Medical History Illness Codes Condition Status Onset Date Resolved Date Attention-deficit hyperactivity disorder, combined type ICD-9: 314.01 ICD-10: F90.2 Active 05/08/2017 Unknown Acute upper respiratory infection, unspecified ICD-9: 465.9 ICD-10: J06.9 Active 06/30/2018 Unknown Cough ICD-9: 786.2 ICD-10: R05 Active 06/30/2018 Unknown Rash and other nonspecific skin eruption ICD-9: 782.1 ICD-10: R21 Active 08/20/2017 Unknown 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 ICD-10: B00.1 Active 05/08/2017 Unknown Mastodynia ICD-9: 611.71 ICD-10: N64.4 Active 12/31/2016 Unknown Cellulitis of left lower limb ICD-9: 682.6 ICD-10: L03.116 Active 03/14/2016 Unknown Problems Condition Codes Effective Dates Condition Status Attention-deficit hyperactivity disorder, combined type ICD-9: 314.01 ICD-10: F90.2 05/08/2017 Active Acute upper respiratory infection, unspecified ICD-9: 465.9 ICD-10: J06.9 06/30/2018 Active Cough ICD-9: 786.2 ICD-10: R05 06/30/2018 Active Rash and other nonspecific skin eruption ICD-9: 782.1 ICD-10: R21 08/20/2017 Active 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 ICD-10: B00.1 05/08/2017 Active Mastodynia ICD-9: 611.71 ICD-10: N64.4 12/31/2016 Active Cellulitis of left lower limb ICD-9: 682.6 ICD-10: L03.116 03/14/2016 Active Medications Medication Codes Instructions Start Date Stop Date Status Fill Instructions Adderall 30 mg tablet RxNorm: 784247 1/2 Tablet(s) PO BID 08/11/2018 09/09/2018 Active Adderall 30 mg tablet RxNorm: 283361 1/2 Tablet(s) PO BID 07/15/2018 08/10/2018 Inactive Kenalog 40 mg/mL suspension for injection RxNorm: 8782875 Milliliter(s) Inj 06/30/2018 06/30/2018 Inactive lamotrigine 150 mg tablet RxNorm: 147921 Tablet(s) TAKE 1 TABLET BY MOUTH ONCE DAILY 06/27/2018 No Stop Date Active Adderall 30 mg tablet RxNorm: 186675 1/2 Tablet(s) PO BID 06/27/2018 07/14/2018 Inactive acyclovir 400 mg tablet RxNorm: 798662 1 Tablet(s) PO TID 05/12/2018 06/10/2018 Inactive Adderall 30 mg tablet RxNorm: 232915 1/2 Tablet(s) PO BID 04/07/2018 05/06/2018 Inactive lamotrigine 150 mg tablet RxNorm: 109648 TAKE 1 TABLET BY MOUTH ONCE DAILY 03/31/2018 06/26/2018 Inactive Adderall 30 mg tablet RxNorm: 889802 1/2 Tablet(s) PO BID 03/19/2018 04/06/2018 Inactive lamotrigine 150 mg tablet RxNorm: 566929 TAKE ONE TABLET BY MOUTH ONCE DAILY 01/30/2018 03/30/2018 Inactive Adderall 30 mg tablet RxNorm: 515353 1/2 Tablet(s) PO BID 01/20/2018 02/18/2018 Inactive Adderall 30 mg tablet RxNorm: 605987 1/2 Tablet(s) PO BID 10/29/2017 11/27/2017 Inactive betamethasone dipropionate 0.05 % topical cream RxNorm: 898222 1 Application TOP BID 08/20/2017 No Stop Date Active Diflucan 150 mg tablet RxNorm: 940500 1 Tablet(s) PO daily 08/20/2017 08/24/2017 Inactive triamcinolone acetonide 0.025 % topical cream RxNorm: 4713229 1 Application TOP BID 08/07/2017 No Stop Date Active Adderall 30 mg tablet RxNorm: 798715 1/2 Tablet(s) PO BID 08/07/2017 09/05/2017 Inactive triamcinolone acetonide 0.025 % topical cream RxNorm: 2267474 1 Application TOP BID 07/31/2017 08/06/2017 Inactive Adderall XR 30 mg capsule,extended release RxNorm: 345755 1 Capsule(s) PO daily 07/31/2017 08/06/2017 Inactive lamotrigine 150 mg tablet RxNorm: 013519 1 Tablet(s) PO daily 06/04/2017 10/01/2017 Inactive Adderall 30 mg tablet RxNorm: 634440 1/2 Tablet(s) PO BID 05/08/2017 06/06/2017 Inactive acyclovir 400 mg tablet RxNorm: 406720 1 Tablet(s) PO TID 05/08/2017 06/06/2017 Inactive nystatin 100,000 unit/gram topical cream RxNorm: 008799 1 Application TOP BID 12/31/2016 No Stop Date Active triamcinolone acetonide 0.025 % topical cream RxNorm: 4728760 1 Application TOP BID 12/31/2016 07/30/2017 Inactive Bactrim DS 800 mg-160 mg tablet RxNorm: 793101 1 Tablet(s) PO BID 03/15/2016 03/28/2016 Inactive Adderall XR 30 mg capsule,extended release RxNorm: 024119 1 Capsule(s) PO daily No Start Date 07/30/2017 Inactive lamotrigine 150 mg tablet RxNorm: 102699 1 Tablet(s) PO daily No Start Date 06/03/2017 Inactive Medication Administered Medication Codes Instructions Start Date Status Kenalog 40 mg/mL suspension for injection RxNorm: 8246058 Milliliter 06/30/2018 No longer Active Immunizations No Immunization data Assessments Condition Codes Effective Dates Attention-deficit hyperactivity disorder, combined type ICD-10: F90.2 ICD-9: 314.01 07/21/2018 Cough ICD-10: R05 ICD-9: 786.2 06/30/2018 Acute upper respiratory infection, unspecified ICD-10: J06.9 ICD-9: 465.9 06/30/2018 Rash and other nonspecific skin eruption ICD-10: R21 ICD-9: 782.1 08/20/2017 Herpesviral vesicular dermatitis ICD-10: B00.1 ICD-9: 054.9 05/08/2017 Mastodynia ICD-10: N64.4 ICD-9: 611.71 12/31/2016 Cellulitis of left lower limb ICD-10: L03.116 ICD-9: 682.6 03/15/2016 Reason For Visit Reason For Visit Effective Dates Notes medication follow up 07/21/2018 cough 06/30/2018 medication follow up 01/21/2018 medication follow up 08/20/2017 oral ulcers 05/08/2017 cold sore breast complaint 12/31/2016 rash 03/15/2016 Results Observation Observation Code Item Item Code Result Date Estrogens Total 039701 ESTROGENS, TOTAL 342 pg/mL 01/04/2017 Comp Metabolic Jho249 NA 140 mEq/L 12/31/2016 Comp Metabolic Hfz643 K 4.2 mEq/L 12/31/2016 Comp Metabolic Lrh134 CL 103 mEq/L 12/31/2016 Comp Metabolic Cgo516 CO2 29.0 mEq/L 12/31/2016 Comp Metabolic Poa071 ANION GAP 12 12/31/2016 Comp Metabolic Nrj941 GLUCOSE 87 mg/dL 12/31/2016 Comp Metabolic Igd747 Creat 0.7 mg/dL 12/31/2016 Comp Metabolic Wjs332 eGFR 96 ml/min/1.73m2 12/31/2016 Comp Metabolic Dcd319 BUN 9 mg/dL 12/31/2016 Comp Metabolic Xsx851 B/C Ratio 12.7 Ratio 12/31/2016 Comp Metabolic Rcv108 CALCIUM 9.1 mg/dL 12/31/2016 Comp Metabolic Ixl042 ALK PHOS 93 U/L 12/31/2016 Comp Metabolic Rdf773 AST(SGOT) 12 U/L 12/31/2016 Comp Metabolic Ywl240 ALT(SGPT) 10 U/L 12/31/2016 Comp Metabolic Ylv002 BILI T 0.4 mg/dL 12/31/2016 Comp Metabolic Epf580 ALBUMIN 4.2 g/dL 12/31/2016 Comp Metabolic Zia003 TPRO 6.1 g/dL 12/31/2016 Comp Metabolic Vvc129 GLOB 2.0 g/dL 12/31/2016 Comp Metabolic Tsv077 A/G Ratio 2.1 Ratio 12/31/2016 Comp Metabolic Iim073 Osmo 277 mOsmo 12/31/2016 Cbc With Differential [...] 31.7 pg 12/31/2016 Cbc With Differential Ord2 [place]% 11.3 % 12/31/2016 Cbc With Differential Ord2 [...] 1.45 K/ul 12/31/2016 Cbc With Differential Ord2 [place] ABS# 0.7 K/ul 12/31/2016 Cbc With Differential Ord2 Eos ABS# 0.1 K/ul 12/31/2016 Cbc With Differential Ord2 Baso ABS# 0.0 K/ul 12/31/2016 Tsh Ord6 hTSH II 2.46 uIU/mL 12/31/2016 Progesterone Ckn848 Prog 3.96 ng/mL 12/31/2016 Review of Systems System Result Effective Dates Constitutional No recent illness 07/21/2018 Constitutional No [...] distress 07/21/2018 None Full Exam - General 1995 Constitutional general appearance Overall: well nourished 07/21/2018 [...] CPT-4: J3301 06/30/2018 Vital Signs Date Vital 07/21/2018 Blood Pressure 1: 118/74 Code: 8480-6 BMI: 24.2 Code: 45060-5 Heart Rate 1: 100 bpm Height: 5'4" SpO2: 98% Weight: 143 lbs 06/30/2018 Blood Pressure 1: 120/68 Code: 8480-6 BMI: 24.5 Code: 29449-1 Heart Rate 1: 100 bpm Height: 5'4" SpO2: 96% Temperature: 37.1 (C) / 98.7 (F) Weight: 145 lbs 01/21/2018 Blood Pressure 1: 122/70 Code: 8480-6 BMI: 24.5 Code: 92340-1 Heart Rate 1: 97 bpm Height: 5'4" SpO2: 98% Weight: 145 lbs 08/20/2017 Blood Pressure 1: 120/78 Code: 8480-6 BMI: 24.3 Code: 86889-1 Heart Rate 1: 97 bpm Height: 5'4" SpO2: 97% Weight: 144 lbs 05/08/2017 Blood Pressure 1: 124/78 Code: 8480-6 BMI: 24.7 Code: 26664-7 Heart Rate 1: 101 bpm Height: 5'4" SpO2: 98% Weight: 146 lbs 12/31/2016 Blood Pressure 1: 128/74 Code: 8480-6 Heart Rate 1: 94 bpm SpO2: 99% Weight: 141 lbs 03/15/2016 Blood Pressure 1: 126/80 Code: 8480-6 BMI: 23.5 Code: 22199-7 Heart Rate 1: 94 bpm Height: 5'4" SpO2: 97% Weight: 139 lbs Functional Status No Functional Status data History of Present Illness Symptom Name Status Result Effective Date Notes Location oral intake 07/21/2018 None Quality chronic [...] data Encounters Encounter Performer Location Codes Date 91366 EST. PATIENT, LEVEL III Diagnosis: Attention-deficit hyperactivity disorder, combined type[ICD10: F90.2] Anais Heredia MD, [facility] CPT-4: 88310 07/21/2018 ([id number]) 15115 EST. PATIENT, LEVEL III Diagnosis: Cough[ICD10: R05] Diagnosis: Acute upper respiratory infection, unspecified[ICD10: J06.9] Elena Heredia MD, [facility] CPT-4: 80434 06/30/2018 35067 EST. PATIENT, LEVEL III Diagnosis: Attention-deficit hyperactivity disorder, combined type[ICD10: F90.2] Anais Heredia MD, [facility] CPT-4: 84176 01/21/2018 22001 EST. PATIENT, LEVEL III Diagnosis: Attention-deficit hyperactivity disorder, combined type[ICD10: F90.2] Diagnosis: Rash and other nonspecific skin eruption[ICD10: R21] Anais Heredia MD, [facility] CPT-4: 20551 08/20/2017 15447 EST. 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 PATIENT, LEVEL III Diagnosis: Mastodynia[ICD10: N64.4] Anais Heredia MD, [facility] CPT-4: 78022 12/31/2016 ([id number]) OFFICE VISIT, NEW - LEVEL 3 Diagnosis: Cellulitis of left lower limb[ICD10: L03.116] Anais Heredia MD, [facility] CPT-4: 21779 03/15/2016 Plan of Care Planned Activity Notes Codes Status Date Visit Plan: ADHD - medication working well [...] not prescribed. 07/21/2018 Appointment: Anais Hennessy WPtel: [address] [place], [place] [phone] (15 min) Moderate 07/21/2018 Patient Education: Patient Medication Summary Completed 07/21/2018 Visit Plan: URI - Pt advised to increase fluids, vitamin C. Discussed natural and expected course of this diagnosis and need to alert me if symptoms do not follow expected course, or if any worse. RX sent to patient's pharmacy. 06/30/2018 Appointment: Elena Dong WPtel: [phone] [phone] (15 min) Moderate 06/30/2018 Patient Education: Patient [...] not prescribed. 01/21/2018 Appointment: Anais Hennessy WPtel: [phone] (30 min) Complex 01/21/2018 Patient Education: Patient [...] concerns. 08/20/2017 Appointment: Anais Hennessy WPtel: [phone] [phone] (30 min) Complex 08/20/2017 Patient Education: Patient Medication Summary Completed 08/20/2017 Care Plan: Unilateral DIAGNOSTICMAMMOGRAPHYDIGITAL LOINC : 91401-3 Pending 08/20/2017 Care Plan: SCREENINGMAMMOGRAPHYDIGITAL LOINC : 37488-9 Pending 08/20/2017 Visit Plan: Cold sores - [...] not prescribed. 05/08/2017 Appointment: Anais Hennessy WPtel: [phone] (15 min) Moderate 05/08/2017 Patient Education: Patient Medication Summary Completed 05/08/2017 Visit Plan: Rash to left breast - will send RX, will order mammogram - pt is to call for acute change in symptoms, worsening redness, warmth, discharge, increase in size of the lesion, increase in pain. 12/31/2016 Appointment: Anais Hennessy WPtel: [address] [place], [place] [phone] (30 min) Complex 12/31/2016 Patient Education: Patient Medication Summary Completed 12/31/2016 Visit Plan: Cellulitis - continue with oral antibiotics as previously directed, return to clinic as previously directed, call for acute change in symptoms, worsening redness, warmth, discharge. 03/15/2016 Appointment: Anais Hennessy WPtel: [phone] New Patient 03/15/2016 Patient Education: Patient Medication [...] in symptoms, worsening redness, warmth, discharge. . Cold sores [...]
--- OUTSIDE RECORDS SUMMARY | 2019-01-13 17:34 | XMS REPORT | CCD ---
Author Author Anais Hennessy MD, [facility] Address [address] [place] [address] Phone Care Team Providers Care Tourist Information Officer Name Role Phone PP Unavailable CCM Unavailable Summary Purpose Interface Exchange Insurance Providers Payer name Policy type / Coverage type Covered republican ID Effective Begin Date Effective End Date [place] [employer] Plans Commercial Insurance [id number] Unknown Family history Father Diagnosis Age At Onset Cancer Unknown Mother Diagnosis Age At Onset kidney disease Unknown genetic disease Unknown Hypertension Unknown Polycystic ovarian disease Unknown Arthritis Unknown Social History Social History Element Codes Description Effective Dates Marital status Unknown naun 03/15/2016 Number of children Unknown 2 03/15/[address]: 5008266 Quit less than 5 years ago 03/15/[address]: 552778 Currently drinks alcohol 03/15/2016 Frequency of drinks SNOMED CT: 645306378 1- 4 drinks per week 03/15/2016 Allergies, [...] Start Date Stop Date Status Fill Instructions prednisone 10 mg tablet RxNorm: 974319 1 Tablet(s) PO UD 08/13/2018 No Stop Date Active 60,50,40,30,20,10 betamethasone dipropionate 0.05 % topical cream RxNorm: 741794 1 Application TOP BID 08/13/2018 No Stop Date Active Adderall 30 mg tablet RxNorm: 369645 1/2 Tablet(s) PO BID 08/11/2018 09/09/2018 Active Adderall 30 mg tablet RxNorm: 802725 1/2 Tablet(s) PO BID 07/15/2018 08/10/2018 Inactive Kenalog 40 mg/mL suspension for injection RxNorm: 0844083 Milliliter(s) Inj 06/30/2018 06/30/2018 Inactive lamotrigine 150 mg tablet RxNorm: 290334 Tablet(s) TAKE 1 TABLET BY MOUTH ONCE DAILY 06/27/2018 No Stop Date Active Adderall 30 mg tablet RxNorm: 273567 1/2 Tablet(s) PO BID 06/27/2018 07/14/2018 Inactive acyclovir 400 mg tablet RxNorm: 204695 1 Tablet(s) PO TID 05/12/2018 06/10/2018 Inactive Adderall 30 mg tablet RxNorm: 523439 1/2 Tablet(s) PO BID 04/07/2018 05/06/2018 Inactive lamotrigine 150 mg tablet RxNorm: 441185 TAKE 1 TABLET BY MOUTH ONCE DAILY 03/31/2018 06/26/2018 Inactive Adderall 30 mg tablet RxNorm: 113971 1/2 Tablet(s) PO BID 03/19/2018 04/06/2018 Inactive lamotrigine 150 mg tablet RxNorm: 424615 TAKE ONE TABLET BY MOUTH ONCE DAILY 01/30/2018 03/30/2018 Inactive Adderall 30 mg tablet RxNorm: 266155 1/2 Tablet(s) PO BID 01/20/2018 02/18/2018 Inactive Adderall 30 mg tablet RxNorm: 964510 1/2 Tablet(s) PO BID 10/29/2017 11/27/2017 Inactive Diflucan 150 mg tablet RxNorm: 751752 1 Tablet(s) PO daily 08/20/2017 08/24/2017 Inactive betamethasone dipropionate 0.05 % topical cream RxNorm: 137803 1 Application TOP BID 08/20/2017 08/12/2018 Inactive triamcinolone acetonide 0.025 % topical cream RxNorm: 6727521 1 Application TOP BID 08/07/2017 No Stop Date Active Adderall 30 mg tablet RxNorm: 266936 1/2 Tablet(s) PO BID 08/07/2017 09/05/2017 Inactive triamcinolone acetonide 0.025 % topical cream RxNorm: 0939576 1 Application TOP BID 07/31/2017 08/06/2017 Inactive Adderall XR 30 mg capsule,extended release RxNorm: 891056 1 Capsule(s) PO daily 07/31/2017 08/06/2017 Inactive lamotrigine 150 mg tablet RxNorm: 678049 1 Tablet(s) PO daily 06/04/2017 10/01/2017 Inactive Adderall 30 mg tablet RxNorm: 562283 1/2 Tablet(s) PO BID 05/08/2017 06/06/2017 Inactive acyclovir 400 mg tablet RxNorm: 593001 1 Tablet(s) PO TID 05/08/2017 06/06/2017 Inactive nystatin 100,000 unit/gram topical cream RxNorm: 346581 1 Application TOP BID 12/31/2016 No Stop Date Active triamcinolone acetonide 0.025 % topical cream RxNorm: 5075714 1 Application TOP BID 12/31/2016 07/30/2017 Inactive Bactrim DS 800 mg-160 mg tablet RxNorm: 586622 1 Tablet(s) PO BID 03/15/2016 03/28/2016 Inactive Adderall XR 30 mg capsule,extended release RxNorm: 173407 1 Capsule(s) PO daily No Start Date 07/30/2017 Inactive lamotrigine 150 mg tablet RxNorm: 381189 1 Tablet(s) PO daily No Start Date 06/03/2017 Inactive Medication Administered Medication Codes Instructions Start Date Status Kenalog 40 mg/mL suspension for injection RxNorm: 4164578 Milliliter 06/30/2018 No longer Active Immunizations No [...] Item Item Code Result Date Estrogens Total 364149 ESTROGENS, TOTAL 342 pg/mL 01/04/2017 Comp Metabolic Vsz579 NA 140 mEq/L 12/31/2016 Comp Metabolic Mfi264 K 4.2 mEq/L 12/31/2016 Comp Metabolic Tom990 CL 103 mEq/L 12/31/2016 Comp Metabolic Hpn639 CO2 29.0 mEq/L 12/31/2016 Comp Metabolic Gln067 ANION GAP 12 12/31/2016 Comp Metabolic Woq289 GLUCOSE 87 mg/dL 12/31/2016 Comp Metabolic Spz172 Creat 0.7 mg/dL 12/31/2016 Comp Metabolic Srl817 eGFR 96 ml/min/1.73m2 12/31/2016 Comp Metabolic Obc312 BUN 9 mg/dL 12/31/2016 Comp Metabolic Ogf778 B/C Ratio 12.7 Ratio 12/31/2016 Comp Metabolic Hmb309 CALCIUM 9.1 mg/dL 12/31/2016 Comp Metabolic Fqy273 ALK PHOS 93 U/L 12/31/2016 Comp Metabolic Ytv449 AST(SGOT) 12 U/L 12/31/2016 Comp Metabolic Cmm714 ALT(SGPT) 10 U/L 12/31/2016 Comp Metabolic Kpq312 BILI T 0.4 mg/dL 12/31/2016 Comp Metabolic Boe671 ALBUMIN 4.2 g/dL 12/31/2016 Comp Metabolic Wzu913 TPRO 6.1 g/dL 12/31/2016 Comp Metabolic Lqm511 GLOB 2.0 g/dL 12/31/2016 Comp Metabolic Zyu926 A/G Ratio 2.1 Ratio 12/31/2016 Comp Metabolic Coc143 Osmo 277 mOsmo 12/31/2016 Cbc With Differential [...] 31.7 pg 12/31/2016 Cbc With Differential Ord2 [place]% 11.3 % 12/31/2016 Cbc With Differential Ord2 [...] 1.45 K/ul 12/31/2016 Cbc With Differential Ord2 [place] ABS# 0.7 K/ul 12/31/2016 Cbc With Differential Ord2 Eos ABS# 0.1 K/ul 12/31/2016 Cbc With Differential Ord2 Baso ABS# 0.0 K/ul 12/31/2016 Tsh Ord6 hTSH II 2.46 uIU/mL 12/31/2016 Progesterone Akb463 Prog 3.96 ng/mL 12/31/2016 Review of Systems [...] 1: 118/74 Code: 8480-6 BMI: 24.2 Code: 67169-7 Heart Rate 1: 100 bpm Height: 5'4" SpO2: 98% Weight: 143 lbs 06/30/2018 Blood Pressure 1: 120/68 Code: 8480-6 BMI: 24.5 Code: 15498-6 Heart Rate 1: 100 bpm Height: 5'4" SpO2: 96% Temperature: 37.1 (C) / 98.7 (F) Weight: 145 lbs 01/21/2018 Blood Pressure 1: 122/70 Code: 8480-6 BMI: 24.5 Code: 92783-7 Heart Rate 1: 97 bpm Height: 5'4" SpO2: 98% Weight: 145 lbs 08/20/2017 Blood Pressure 1: 120/78 Code: 8480-6 BMI: 24.3 Code: 48908-6 Heart Rate 1: 97 bpm Height: 5'4" SpO2: 97% Weight: 144 lbs 05/08/2017 Blood Pressure 1: 124/78 Code: 8480-6 BMI: 24.7 Code: 09219-2 Heart Rate 1: 101 bpm Height: 5'4" SpO2: 98% Weight: 146 lbs 12/31/2016 Blood Pressure 1: 128/74 Code: 8480-6 Heart Rate 1: 94 bpm SpO2: 99% Weight: 141 lbs 03/15/2016 Blood Pressure 1: 126/80 Code: 8480-6 BMI: 23.5 Code: 16134-2 Heart Rate 1: 94 bpm Height: 5'4" [...] data Encounters Encounter Performer Location Codes Date 32811 EST. PATIENT, LEVEL III Diagnosis: Rash and other nonspecific skin eruption[ICD10: R21] Diagnosis: Other urticaria[ICD10: L50.8] Anais Heredia MD, [facility] CPT-4: 87305 08/13/2018 32085 EST. PATIENT, LEVEL III Diagnosis: Attention-deficit hyperactivity disorder, combined type[ICD10: F90.2] Anais Heredia MD, [facility] CPT-4: 67175 07/21/2018 ([id number]) 46422 EST. PATIENT, LEVEL III Diagnosis: Cough[ICD10: R05] Diagnosis: Acute upper respiratory infection, unspecified[ICD10: J06.9] Elena Heredia MD, [facility] CPT-4: 73730 06/30/2018 91587 EST. PATIENT, LEVEL III Diagnosis: Attention-deficit hyperactivity disorder, combined type[ICD10: F90.2] Anais Heredia MD, [facility] CPT-4: 51346 01/21/2018 83104 EST. PATIENT, LEVEL III Diagnosis: Attention-deficit hyperactivity disorder, combined type[ICD10: F90.2] Diagnosis: Rash and other nonspecific skin eruption[ICD10: R21] Anais Heredia MD, [facility] CPT-4: 81259 08/20/2017 [id number] EST. 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 PATIENT, LEVEL III Diagnosis: Mastodynia[ICD10: N64.4] Anais Heredia MD, [facility] CPT-4: 91042 12/31/2016 ([id number]) OFFICE VISIT, NEW - LEVEL 3 Diagnosis: Cellulitis of left lower limb[ICD10: L03.116] Anais Heredia MD, [facility] CPT-4: 79087 03/15/2016 Plan of Care Planned Activity Notes Codes Status Date Visit Plan: Rash - The patient was instructed to use the medication as per RX. The patient is to call for any change in symptoms, increase in size of the lesion, increase in pain, worsening redness, warmth, discharge. 08/13/2018 Appointment: Anais Hennessy WPtel: [phone] (30 min) Complex 08/13/2018 Patient Education: Patient [...] not prescribed. 07/21/2018 Appointment: Anais Hennessy WPtel: [phone] (15 min) Moderate 07/21/2018 Patient Education: Patient Medication Summary Completed 07/21/2018 Visit Plan: URI - Pt advised to increase fluids, vitamin C. Discussed natural and expected course of this diagnosis and need to alert me if symptoms do not follow expected course, or if any worse. RX sent to patient's pharmacy. 06/30/2018 Appointment: Elena Dong WPtel: [phone] [phone] (15 min) Moderate 06/30/2018 Patient Education: Patient [...] prescribed. 01/21/2018 Appointment: Anais Hennessy WPtel: [phone] [phone] (30 min) Complex 01/21/2018 Patient Education: Patient [...] concerns. 08/20/2017 [phone] (30 min) Complex 08/20/2017 Patient Education: Patient Medication Summary Completed 08/20/2017 Care Plan: Unilateral DIAGNOSTICMAMMOGRAPHYDIGITAL LOINC : 06606-5 Pending 08/20/2017 Care Plan: SCREENINGMAMMOGRAPHYDIGITAL [facility] : 37188-0 Pending 08/20/2017 Visit Plan: Cold sores - [...] medication was not prescribed. 05/08/2017 Appointment: Anais Hennessytel: [facility] (15 min) Moderate 05/08/2017 Patient Education: Patient Medication Summary Completed 05/08/2017 Visit Plan: Rash to left breast - will send RX, will order mammogram - pt is to call for acute change in symptoms, worsening redness, warmth, discharge, increase in size of the lesion, increase in pain. 12/31/2016 Appointment: Anais Hennessytel: [phone] (30 min) Complex 12/31/2016 Patient Education: Patient Medication Summary Completed 12/31/2016 Visit Plan: Cellulitis - continue with oral antibiotics as previously directed, return to clinic as previously directed, call for acute change in symptoms, worsening redness, warmth, discharge. 03/15/2016 Appointment: Anais Hennessytel: [facility] New Patient 03/15/2016 Patient Education: Patient Medication [...]
--- OUTSIDE RECORDS SUMMARY | 2019-01-13 17:35 | XMS REPORT | CCD ---
Author Author Anais Hennessy MD, [facility] Address [address] [place] [address] Phone Care Team Providers Care Cutting Room Supervisor Name Role Phone PP Unavailable CCM Unavailable Summary Purpose Interface Exchange Insurance Providers Payer name Policy type / Coverage type Covered constitution party ID Effective Begin Date Effective End Date [employer] Plans Commercial Insurance [id number] Unknown Family history Father Diagnosis Age At Onset Cancer Unknown Mother Diagnosis Age At Onset kidney disease Unknown genetic disease Unknown Hypertension Unknown Polycystic ovarian disease Unknown Arthritis Unknown Social History Social History Element Codes Description Effective Dates Marital status Unknown naun 03/15/2016 Number of children Unknown 2 03/15/[address]: 2610064 Quit less than 5 years ago 03/15/[address]: 620381 Currently drinks alcohol 03/15/2016 Frequency of drinks SNOMED CT: 559121837 1- 4 drinks per week 03/15/2016 Allergies, [...] Fill Instructions Adderall 30 mg tablet RxNorm: 274430 1/2 Tablet(s) PO BID 07/15/2018 08/13/2018 Active Kenalog 40 mg/mL suspension for injection RxNorm: 1266486 Milliliter(s) Inj 06/30/2018 06/30/2018 Inactive lamotrigine 150 mg tablet RxNorm: 675013 Tablet(s) TAKE 1 TABLET BY MOUTH ONCE DAILY 06/27/2018 No Stop Date Active Adderall 30 mg tablet RxNorm: 735884 1/2 Tablet(s) PO BID 06/27/2018 07/14/2018 Inactive acyclovir 400 mg tablet RxNorm: 119260 1 Tablet(s) PO TID 05/12/2018 06/10/2018 Inactive Adderall 30 mg tablet RxNorm: 932321 1/2 Tablet(s) PO BID 04/07/2018 05/06/2018 Inactive lamotrigine 150 mg tablet RxNorm: 164937 TAKE 1 TABLET BY MOUTH ONCE DAILY 03/31/2018 06/26/2018 Inactive Adderall 30 mg tablet RxNorm: 424587 1/2 Tablet(s) PO BID 03/19/2018 04/06/2018 Inactive lamotrigine 150 mg tablet RxNorm: 234907 TAKE ONE TABLET BY MOUTH ONCE DAILY 01/30/2018 03/30/2018 Inactive Adderall 30 mg tablet RxNorm: 321391 1/2 Tablet(s) PO BID 01/20/2018 02/18/2018 Inactive Adderall 30 mg tablet RxNorm: 020327 1/2 Tablet(s) PO BID 10/29/2017 11/27/2017 Inactive betamethasone dipropionate 0.05 % topical cream RxNorm: 020725 1 Application TOP BID 08/20/2017 No Stop Date Active Diflucan 150 mg tablet RxNorm: 281632 1 Tablet(s) PO daily 08/20/2017 08/24/2017 Inactive triamcinolone acetonide 0.025 % topical cream RxNorm: 5526036 1 Application TOP BID 08/07/2017 No Stop Date Active Adderall 30 mg tablet RxNorm: 178687 1/2 Tablet(s) PO BID 08/07/2017 09/05/2017 Inactive triamcinolone acetonide 0.025 % topical cream RxNorm: 2046315 1 Application TOP BID 07/31/2017 08/06/2017 Inactive Adderall XR 30 mg capsule,extended release RxNorm: 545792 1 Capsule(s) PO daily 07/31/2017 08/06/2017 Inactive lamotrigine 150 mg tablet RxNorm: 270044 1 Tablet(s) PO daily 06/04/2017 10/01/2017 Inactive Adderall 30 mg tablet RxNorm: 635433 1/2 Tablet(s) PO BID 05/08/2017 06/06/2017 Inactive acyclovir 400 mg tablet RxNorm: 862013 1 Tablet(s) PO TID 05/08/2017 06/06/2017 Inactive nystatin 100,000 unit/gram topical cream RxNorm: 143333 1 Application TOP BID 12/31/2016 No Stop Date Active triamcinolone acetonide 0.025 % topical cream RxNorm: 6570013 1 Application TOP BID 12/31/2016 07/30/2017 Inactive Bactrim DS 800 mg-160 mg tablet RxNorm: 316438 1 Tablet(s) PO BID 03/15/2016 03/28/2016 Inactive Adderall XR 30 mg capsule,extended release RxNorm: 020044 1 Capsule(s) PO daily No Start Date 07/30/2017 Inactive lamotrigine 150 mg tablet RxNorm: 956115 1 Tablet(s) PO daily No Start Date 06/03/2017 Inactive Medication Administered Medication Codes Instructions Start Date Status Kenalog 40 mg/mL suspension for injection RxNorm: 5885389 Milliliter 06/30/2018 No longer Active Immunizations No [...] Item Item Code Result Date Estrogens Total 470026 ESTROGENS, TOTAL 342 pg/mL 01/04/2017 Comp Metabolic Rfg844 NA 140 mEq/L 12/31/2016 Comp Metabolic Oum748 K 4.2 mEq/L 12/31/2016 Comp Metabolic Hhz913 CL 103 mEq/L 12/31/2016 Comp Metabolic Bmt447 CO2 29.0 mEq/L 12/31/2016 Comp Metabolic Ngf367 ANION GAP 12 12/31/2016 Comp Metabolic Awv716 GLUCOSE 87 mg/dL 12/31/2016 Comp Metabolic Zpx298 Creat 0.7 mg/dL 12/31/2016 Comp Metabolic Uao426 eGFR 96 ml/min/1.73m2 12/31/2016 Comp Metabolic Tkq466 BUN 9 mg/dL 12/31/2016 Comp Metabolic Xaq021 B/C Ratio 12.7 Ratio 12/31/2016 Comp Metabolic Oxw208 CALCIUM 9.1 mg/dL 12/31/2016 Comp Metabolic Ktb035 ALK PHOS 93 U/L 12/31/2016 Comp Metabolic Dfw540 AST(SGOT) 12 U/L 12/31/2016 Comp Metabolic Sru834 ALT(SGPT) 10 U/L 12/31/2016 Comp Metabolic Vcw127 BILI T 0.4 mg/dL 12/31/2016 Comp Metabolic Uii484 ALBUMIN 4.2 g/dL 12/31/2016 Comp Metabolic Cdv596 TPRO 6.1 g/dL 12/31/2016 Comp Metabolic Kup007 GLOB 2.0 g/dL 12/31/2016 Comp Metabolic Pbg769 A/G Ratio 2.1 Ratio 12/31/2016 Comp Metabolic Qtv522 Osmo 277 mOsmo 12/31/2016 Cbc With Differential [...] 31.7 pg 12/31/2016 Cbc With Differential Ord2 [place]% 11.3 % 12/31/2016 Cbc With Differential Ord2 [...] 1.45 K/ul 12/31/2016 Cbc With Differential Ord2 [place] ABS# 0.7 K/ul 12/31/2016 Cbc With Differential Ord2 Eos ABS# 0.1 K/ul 12/31/2016 Cbc With Differential Ord2 Baso ABS# 0.0 K/ul 12/31/2016 Tsh Ord6 hTSH II 2.46 uIU/mL 12/31/2016 Progesterone Orv838 Prog 3.96 ng/mL 12/31/2016 Review of Systems [...] 1: 118/74 Code: 8480-6 BMI: 24.2 Code: 78987-8 Heart Rate 1: 100 bpm Height: 5'4" SpO2: 98% Weight: 143 lbs 06/30/2018 Blood Pressure 1: 120/68 Code: 8480-6 BMI: 24.5 Code: 52916-4 Heart Rate 1: 100 bpm Height: 5'4" SpO2: 96% Temperature: 37.1 (C) / 98.7 (F) Weight: 145 lbs 01/21/2018 Blood Pressure 1: 122/70 Code: 8480-6 BMI: 24.5 Code: 15984-9 Heart Rate 1: 97 bpm Height: 5'4" SpO2: 98% Weight: 145 lbs 08/20/2017 Blood Pressure 1: 120/78 Code: 8480-6 BMI: 24.3 Code: 39043-8 Heart Rate 1: 97 bpm Height: 5'4" SpO2: 97% Weight: 144 lbs 05/08/2017 Blood Pressure 1: 124/78 Code: 8480-6 BMI: 24.7 Code: 33743-6 Heart Rate 1: 101 bpm Height: 5'4" SpO2: 98% Weight: 146 lbs 12/31/2016 Blood Pressure 1: 128/74 Code: 8480-6 Heart Rate 1: 94 bpm SpO2: 99% Weight: 141 lbs 03/15/2016 Blood Pressure 1: 126/80 Code: 8480-6 BMI: 23.5 Code: 26980-8 Heart Rate 1: 94 bpm Height: 5'4" [...] data Encounters Encounter Performer Location Codes Date 48261 EST. PATIENT, LEVEL III Diagnosis: Attention-deficit hyperactivity disorder, combined type[ICD10: F90.2] [facility] CPT-4: 33875 07/21/2018 ([id number] EST. PATIENT, LEVEL III Diagnosis: Cough[ICD10: R05] Diagnosis: Acute upper respiratory infection, unspecified[ICD10: J06.9] [facility] CPT-4: 27972 06/30/2018 [id number] EST. PATIENT, LEVEL III Diagnosis: Attention-deficit hyperactivity disorder, combined type[ICD10: F90.2] Anais Heredia MD, [facility] CPT-4: 69639 01/21/2018 [id number] EST. PATIENT, LEVEL III Diagnosis: Attention-deficit hyperactivity disorder, combined type[ICD10: F90.2] Diagnosis: Rash and other nonspecific skin eruption[ICD10: R21] Anais Heredia MD, [facility] CPT-4: 86098 08/20/2017 13121 EST. 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 PATIENT, LEVEL III Diagnosis: Mastodynia[ICD10: N64.4] Anais Heredia MD, [facility] CPT-4: 78147 12/31/2016 ([id number]) OFFICE VISIT, NEW - LEVEL 3 Diagnosis: Cellulitis of left lower limb[ICD10: L03.116] Anais Heredia MD, [facility] CPT-4: 63566 03/15/2016 Plan of Care Planned Activity Notes [...] not prescribed. 07/21/2018 Appointment: Anais Hennessy WPtel: [address] [place], [place] [id number] (15 min) Moderate 07/21/2018 Patient Education: Patient Medication Summary Completed 07/21/2018 Visit Plan: URI - Pt advised to increase fluids, vitamin C. Discussed natural and expected course of this diagnosis and need to alert me if symptoms do not follow expected course, or if any worse. RX sent to patient's pharmacy. 06/30/2018 Appointment: Elena Dong WPtel: [phone] [phone] [place] (15 min) Moderate 06/30/2018 Patient Education: [...] prescribed. 01/21/2018 Appointment: Anais Hennessy WPtel: [phone] [facility] (30 min) Complex 01/21/2018 Patient Education: [...] concerns. 08/20/2017 Appointment: Anais Hennessy WPtel: [phone] [facility] (30 min) Complex 08/20/2017 Patient Education: Patient Medication Summary Completed 08/20/2017 Care Plan: Unilateral DIAGNOSTICMAMMOGRAPHYDIGITAL LOINC : 39054-7 Pending 08/20/2017 Care Plan: SCREENINGMAMMOGRAPHYDIGITAL LOINC : 50449-9 Pending 08/20/2017 Visit Plan: Cold sores - [...] not prescribed. 05/08/2017 Appointment: Anais Hennessy WPtel: [address] [place], [place] [address] (15 min) Moderate 05/08/2017 Patient Education: Patient Medication Summary Completed 05/08/2017 Visit Plan: Rash to left breast - will send RX, will order mammogram - pt is to call for acute change in symptoms, worsening redness, warmth, discharge, increase in size of the lesion, increase in pain. 12/31/2016 Appointment: Anais Hennessy WPtel: [address] [place], [place] [phone] (30 min) Complex 12/31/2016 Patient Education: Patient Medication Summary Completed 12/31/2016 Visit Plan: Cellulitis - continue with oral antibiotics as previously directed, return to clinic as previously directed, call for acute change in symptoms, worsening redness, warmth, discharge. 03/15/2016 Appointment: Anais Hennessy WPtel: [facility]66[facility] New Patient 03/15/2016 Patient Education: Patient [...]
--- OUTSIDE RECORDS SUMMARY | 2019-01-13 17:36 | XMS REPORT | CCD ---
Author Author Anais Hennessy MD, [facility] Address [address] [place] [address] Phone Care Team Providers Care Mother Baby Rn Name Role Phone PP Unavailable CCM Unavailable Summary Purpose Interface Exchange Insurance Providers Payer name Policy type / Coverage type Covered alliance party ID Effective Begin Date Effective End Date [employer] Plans Commercial Insurance [id number] Unknown Family history Father Diagnosis Age At Onset Cancer Unknown Mother Diagnosis Age At Onset kidney disease Unknown genetic disease Unknown Hypertension Unknown Polycystic ovarian disease Unknown Arthritis Unknown Social History Social History Element Codes Description Effective Dates Marital status Unknown naun 03/15/2016 Number of children Unknown 2 03/15/[address]: 5991844 Quit less than 5 years ago 03/15/[address]: 580084 Currently drinks alcohol 03/15/2016 Frequency of drinks SNOMED CT: 301451247 1- 4 drinks per week 03/15/2016 Allergies, [...] Fill Instructions Adderall 30 mg tablet RxNorm: 221529 1/2 Tablet(s) PO BID 07/15/2018 08/13/2018 Active Kenalog 40 mg/mL suspension for injection RxNorm: 6465189 Milliliter(s) Inj 06/30/2018 06/30/2018 Inactive lamotrigine 150 mg tablet RxNorm: 565407 Tablet(s) TAKE 1 TABLET BY MOUTH ONCE DAILY 06/27/2018 No Stop Date Active Adderall 30 mg tablet RxNorm: 225973 1/2 Tablet(s) PO BID 06/27/2018 07/14/2018 Inactive acyclovir 400 mg tablet RxNorm: 611067 1 Tablet(s) PO TID 05/12/2018 06/10/2018 Inactive Adderall 30 mg tablet RxNorm: 829282 1/2 Tablet(s) PO BID 04/07/2018 05/06/2018 Inactive lamotrigine 150 mg tablet RxNorm: 036444 TAKE 1 TABLET BY MOUTH ONCE DAILY 03/31/2018 06/26/2018 Inactive Adderall 30 mg tablet RxNorm: 076180 1/2 Tablet(s) PO BID 03/19/2018 04/06/2018 Inactive lamotrigine 150 mg tablet RxNorm: 222557 TAKE ONE TABLET BY MOUTH ONCE DAILY 01/30/2018 03/30/2018 Inactive Adderall 30 mg tablet RxNorm: 671398 1/2 Tablet(s) PO BID 01/20/2018 02/18/2018 Inactive Adderall 30 mg tablet RxNorm: 697056 1/2 Tablet(s) PO BID 10/29/2017 11/27/2017 Inactive betamethasone dipropionate 0.05 % topical cream RxNorm: 039003 1 Application TOP BID 08/20/2017 No Stop Date Active Diflucan 150 mg tablet RxNorm: 049536 1 Tablet(s) PO daily 08/20/2017 08/24/2017 Inactive triamcinolone acetonide 0.025 % topical cream RxNorm: 8764269 1 Application TOP BID 08/07/2017 No Stop Date Active Adderall 30 mg tablet RxNorm: 575361 1/2 Tablet(s) PO BID 08/07/2017 09/05/2017 Inactive triamcinolone acetonide 0.025 % topical cream RxNorm: 1858416 1 Application TOP BID 07/31/2017 08/06/2017 Inactive Adderall XR 30 mg capsule,extended release RxNorm: 483093 1 Capsule(s) PO daily 07/31/2017 08/06/2017 Inactive lamotrigine 150 mg tablet RxNorm: 153260 1 Tablet(s) PO daily 06/04/2017 10/01/2017 Inactive Adderall 30 mg tablet RxNorm: 924708 1/2 Tablet(s) PO BID 05/08/2017 06/06/2017 Inactive acyclovir 400 mg tablet RxNorm: 993138 1 Tablet(s) PO TID 05/08/2017 06/06/2017 Inactive nystatin 100,000 unit/gram topical cream RxNorm: 124410 1 Application TOP BID 12/31/2016 No Stop Date Active triamcinolone acetonide 0.025 % topical cream RxNorm: 0009620 1 Application TOP BID 12/31/2016 07/30/2017 Inactive Bactrim DS 800 mg-160 mg tablet RxNorm: 719997 1 Tablet(s) PO BID 03/15/2016 03/28/2016 Inactive Adderall XR 30 mg capsule,extended release RxNorm: 719735 1 Capsule(s) PO daily No Start Date 07/30/2017 Inactive lamotrigine 150 mg tablet RxNorm: 111973 1 Tablet(s) PO daily No Start Date 06/03/2017 Inactive Medication Administered Medication Codes Instructions Start Date Status Kenalog 40 mg/mL suspension for injection RxNorm: 3624068 Milliliter 06/30/2018 No longer Active Immunizations No [...] Item Item Code Result Date Estrogens Total 793800 ESTROGENS, TOTAL 342 pg/mL 01/04/2017 Comp Metabolic Han721 NA 140 mEq/L 12/31/2016 Comp Metabolic Bgv007 K 4.2 mEq/L 12/31/2016 Comp Metabolic Tlh881 CL 103 mEq/L 12/31/2016 Comp Metabolic Crf892 CO2 29.0 mEq/L 12/31/2016 Comp Metabolic Aes884 ANION GAP 12 12/31/2016 Comp Metabolic Gua537 GLUCOSE 87 mg/dL 12/31/2016 Comp Metabolic Vkp892 Creat 0.7 mg/dL 12/31/2016 Comp Metabolic Knm061 eGFR 96 ml/min/1.73m2 12/31/2016 Comp Metabolic Qki752 BUN 9 mg/dL 12/31/2016 Comp Metabolic Jht715 B/C Ratio 12.7 Ratio 12/31/2016 Comp Metabolic Oad663 CALCIUM 9.1 mg/dL 12/31/2016 Comp Metabolic Dnj902 ALK PHOS 93 U/L 12/31/2016 Comp Metabolic Sln631 AST(SGOT) 12 U/L 12/31/2016 Comp Metabolic Ewv002 ALT(SGPT) 10 U/L 12/31/2016 Comp Metabolic Btb918 BILI T 0.4 mg/dL 12/31/2016 Comp Metabolic Pre298 ALBUMIN 4.2 g/dL 12/31/2016 Comp Metabolic Bhz748 TPRO 6.1 g/dL 12/31/2016 Comp Metabolic Uua165 GLOB 2.0 g/dL 12/31/2016 Comp Metabolic Idy125 A/G Ratio 2.1 Ratio 12/31/2016 Comp Metabolic Mmb219 Osmo 277 mOsmo 12/31/2016 Cbc With Differential [...] 31.7 pg 12/31/2016 Cbc With Differential Ord2 [place]% 11.3 % 12/31/2016 Cbc With Differential Ord2 [...] 1.45 K/ul 12/31/2016 Cbc With Differential Ord2 [place] ABS# 0.7 K/ul 12/31/2016 Cbc With Differential Ord2 Eos ABS# 0.1 K/ul 12/31/2016 Cbc With Differential Ord2 Baso ABS# 0.0 K/ul 12/31/2016 Tsh Ord6 hTSH II 2.46 uIU/mL 12/31/2016 Progesterone Vwz233 Prog 3.96 ng/mL 12/31/2016 Review of Systems [...] 1: 118/74 Code: 8480-6 BMI: 24.2 Code: 02313-0 Heart Rate 1: 100 bpm Height: 5'4" SpO2: 98% Weight: 143 lbs 06/30/2018 Blood Pressure 1: 120/68 Code: 8480-6 BMI: 24.5 Code: 77191-4 Heart Rate 1: 100 bpm Height: 5'4" SpO2: 96% Temperature: 37.1 (C) / 98.7 (F) Weight: 145 lbs 01/21/2018 Blood Pressure 1: 122/70 Code: 8480-6 BMI: 24.5 Code: 93648-4 Heart Rate 1: 97 bpm Height: 5'4" SpO2: 98% Weight: 145 lbs 08/20/2017 Blood Pressure 1: 120/78 Code: 8480-6 BMI: 24.3 Code: 41966-0 Heart Rate 1: 97 bpm Height: 5'4" SpO2: 97% Weight: 144 lbs 05/08/2017 Blood Pressure 1: 124/78 Code: 8480-6 BMI: 24.7 Code: 95702-3 Heart Rate 1: 101 bpm Height: 5'4" SpO2: 98% Weight: 146 lbs 12/31/2016 Blood Pressure 1: 128/74 Code: 8480-6 Heart Rate 1: 94 bpm SpO2: 99% Weight: 141 lbs 03/15/2016 Blood Pressure 1: 126/80 Code: 8480-6 BMI: 23.5 Code: 11364-1 Heart Rate 1: 94 bpm Height: 5'4" [...] data Encounters Encounter Performer Location Codes Date 88432 EST. PATIENT, LEVEL III Diagnosis: Attention-deficit hyperactivity disorder, combined type[ICD10: F90.2] [facility] CPT-4: 04076 07/21/2018 ([id number] [id number] EST. PATIENT, LEVEL III Diagnosis: Cough[ICD10: R05] Diagnosis: Acute upper respiratory infection, unspecified[ICD10: J06.9] [facility] CPT-4: 19344 06/30/2018 44271 EST. PATIENT, LEVEL III Diagnosis: Attention-deficit hyperactivity disorder, combined type[ICD10: F90.2] Anais Heredia MD, [facility] CPT-4: 58470 01/21/2018 36103 EST. PATIENT, LEVEL III Diagnosis: Attention-deficit hyperactivity disorder, combined type[ICD10: F90.2] Diagnosis: Rash and other nonspecific skin eruption[ICD10: R21] Anais Heredia MD, [facility] CPT-4: 29519 08/20/2017 [id number] EST. 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 PATIENT, LEVEL III Diagnosis: Mastodynia[ICD10: N64.4] Anais Heredia MD, [facility] CPT-4: 22507 12/31/2016 ([id number]) OFFICE VISIT, NEW - LEVEL 3 Diagnosis: Cellulitis of left lower limb[ICD10: L03.116] Anais Heredia MD, [facility] CPT-4: 57447 03/15/2016 Plan of Care Planned Activity Notes [...] not prescribed. 07/21/2018 Appointment: Anais Hennessy WPtel: [address] [place], [place] [phone] (15 min) Moderate 07/21/2018 Patient Education: Patient Medication Summary Completed 07/21/2018 Visit Plan: URI - Pt advised to increase fluids, vitamin C. Discussed natural and expected course of this diagnosis and need to alert me if symptoms do not follow expected course, or if any worse. RX sent to patient's pharmacy. 06/30/2018 Appointment: Elena Dong WPtel: [phone] [phone] [place] (15 min) Moderate 06/30/2018 Patient [...] prescribed. 01/21/2018 Appointment: Anais Hennessy WPtel: [phone] [facility] (30 min) Complex 01/21/2018 Patient Education: [...] concerns. 08/20/2017 Appointment: Anais Hennessy WPtel: [phone] [facility] (30 min) Complex 08/20/2017 Patient Education: Patient Medication Summary Completed 08/20/2017 Care Plan: Unilateral DIAGNOSTICMAMMOGRAPHYDIGITAL LOINC : 99227-9 Pending 08/20/2017 Care Plan: SCREENINGMAMMOGRAPHYDIGITAL LOINC : 34633-8 Pending 08/20/2017 Visit Plan: Cold sores - [...] not prescribed. 05/08/2017 Appointment: Anais Hennessy WPtel: [address] [place], [place] [address] (15 min) Moderate 05/08/2017 Patient Education: Patient Medication Summary Completed 05/08/2017 Visit Plan: Rash to left breast - will send RX, will order mammogram - pt is to call for acute change in symptoms, worsening redness, warmth, discharge, increase in size of the lesion, increase in pain. 12/31/2016 Appointment: Anais Hennessy WPtel: [address] [place], [place] [phone] (30 min) Complex 12/31/2016 Patient Education: Patient Medication Summary Completed 12/31/2016 Visit Plan: Cellulitis - continue with oral antibiotics as previously directed, return to clinic as previously directed, call for acute change in symptoms, worsening redness, warmth, discharge. 03/15/2016 Appointment: Anais Hennessy WPtel: [facility]66[facility] New Patient 03/15/2016 Patient Education: Patient Medication [...]
--- OUTSIDE RECORDS SUMMARY | 2019-01-13 17:37 | XMS REPORT | CCD ---
Author Author Anais Hennessy MD, [facility] Address [address] [place] [address] Phone Care Team Providers Care Literacy Specialist Name Role Phone PP Unavailable CCM Unavailable Summary Purpose Interface Exchange Insurance Providers Payer name Policy type / Coverage type Covered alliance party ID Effective Begin Date Effective End Date [employer] Plans Commercial Insurance [id number] Unknown Family history Father Diagnosis Age At Onset Cancer Unknown Mother Diagnosis Age At Onset kidney disease Unknown genetic disease Unknown Hypertension Unknown Polycystic ovarian disease Unknown Arthritis Unknown Social History Social History Element Codes Description Effective Dates Marital status Unknown naun 03/15/2016 Number of children Unknown 2 03/15/[address]: 7563079 Quit less than 5 years ago 03/15/[address]: 838886 Currently drinks alcohol 03/15/2016 Frequency of drinks SNOMED CT: 948857558 1- 4 drinks per week 03/15/2016 Allergies, Adverse Reactions, Alerts Substance Reaction Codes Entered Date Inactivated Date Status Penicillin Unknown 03/15/2016 No Inactive Date Active Past Medical History Illness Codes Condition Status Onset Date Resolved Date Acute upper respiratory infection, unspecified ICD-9: 465.9 ICD-10: J06.9 Active 06/30/2018 Unknown Cough ICD-9: 786.2 ICD-10: R05 Active 06/30/2018 Unknown Attention-deficit hyperactivity disorder, combined type ICD-9: 314.01 ICD-10: F90.2 Active 05/08/2017 Unknown Rash and other nonspecific skin eruption ICD-9: 782.1 ICD-10: R21 Active 08/20/2017 Unknown 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 ICD-10: B00.1 Active 05/08/2017 Unknown Mastodynia ICD-9: 611.71 ICD-10: N64.4 Active 12/31/2016 Unknown Cellulitis of left lower limb ICD-9: 682.6 ICD-10: L03.116 Active 03/14/2016 Unknown Problems Condition Codes Effective Dates Condition Status Acute upper respiratory infection, unspecified ICD-9: 465.9 ICD-10: J06.9 06/30/2018 Active Cough ICD-9: 786.2 ICD-10: R05 06/30/2018 Active Attention-deficit hyperactivity disorder, combined type ICD-9: 314.01 ICD-10: F90.2 05/08/2017 Active Rash and other nonspecific skin eruption ICD-9: 782.1 ICD-10: R21 08/20/2017 Active 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 ICD-10: B00.1 05/08/2017 Active Mastodynia ICD-9: 611.71 ICD-10: N64.4 12/31/2016 Active Cellulitis of left lower limb ICD-9: 682.6 ICD-10: L03.116 03/14/2016 Active Medications Medication Codes Instructions Start Date Stop Date Status Fill Instructions Kenalog 40 mg/mL suspension for injection RxNorm: 7006425 Milliliter(s) Inj 06/30/2018 06/30/2018 Inactive lamotrigine 150 mg tablet RxNorm: 886775 Tablet(s) TAKE 1 TABLET BY MOUTH ONCE DAILY 06/27/2018 No Stop Date Active Adderall 30 mg tablet RxNorm: 205869 1/2 Tablet(s) PO BID 06/27/2018 09/24/2018 Active acyclovir 400 mg tablet RxNorm: 168113 1 Tablet(s) PO TID 05/12/2018 06/10/2018 Inactive Adderall 30 mg tablet RxNorm: 319948 1/2 Tablet(s) PO BID 04/07/2018 05/06/2018 Inactive lamotrigine 150 mg tablet RxNorm: 666784 TAKE 1 TABLET BY MOUTH ONCE DAILY 03/31/2018 06/26/2018 Inactive Adderall 30 mg tablet RxNorm: 146594 1/2 Tablet(s) PO BID 03/19/2018 04/06/2018 Inactive lamotrigine 150 mg tablet RxNorm: 623794 TAKE ONE TABLET BY MOUTH ONCE DAILY 01/30/2018 03/30/2018 Inactive Adderall 30 mg tablet RxNorm: 314892 1/2 Tablet(s) PO BID 01/20/2018 02/18/2018 Inactive Adderall 30 mg tablet RxNorm: 326641 1/2 Tablet(s) PO BID 10/29/2017 11/27/2017 Inactive betamethasone dipropionate 0.05 % topical cream RxNorm: 677723 1 Application TOP BID 08/20/2017 No Stop Date Active Diflucan 150 mg tablet RxNorm: 340066 1 Tablet(s) PO daily 08/20/2017 08/24/2017 Inactive triamcinolone acetonide 0.025 % topical cream RxNorm: 1089428 1 Application TOP BID 08/07/2017 No Stop Date Active Adderall 30 mg tablet RxNorm: 564351 1/2 Tablet(s) PO BID 08/07/2017 09/05/2017 Inactive triamcinolone acetonide 0.025 % topical cream RxNorm: 9336769 1 Application TOP BID 07/31/2017 08/06/2017 Inactive Adderall XR 30 mg capsule,extended release RxNorm: 651154 1 Capsule(s) PO daily 07/31/2017 08/06/2017 Inactive lamotrigine 150 mg tablet RxNorm: 106229 1 Tablet(s) PO daily 06/04/2017 10/01/2017 Inactive Adderall 30 mg tablet RxNorm: 574519 1/2 Tablet(s) PO BID 05/08/2017 06/06/2017 Inactive acyclovir 400 mg tablet RxNorm: 675222 1 Tablet(s) PO TID 05/08/2017 06/06/2017 Inactive nystatin 100,000 unit/gram topical cream RxNorm: 743344 1 Application TOP BID 12/31/2016 No Stop Date Active triamcinolone acetonide 0.025 % topical cream RxNorm: 1245685 1 Application TOP BID 12/31/2016 07/30/2017 Inactive Bactrim DS 800 mg-160 mg tablet RxNorm: 412252 1 Tablet(s) PO BID 03/15/2016 03/28/2016 Inactive Adderall XR 30 mg capsule,extended release RxNorm: 078216 1 Capsule(s) PO daily No Start Date 07/30/2017 Inactive lamotrigine 150 mg tablet RxNorm: 856429 1 Tablet(s) PO daily No Start Date 06/03/2017 Inactive Medication Administered Medication Codes Instructions Start Date Status Kenalog 40 mg/mL suspension for injection RxNorm: 3476426 Milliliter 06/30/2018 Active Immunizations No Immunization data Assessments Condition Codes Effective Dates Cough ICD-10: R05 ICD-9: 786.2 06/30/2018 Acute upper respiratory infection, unspecified ICD-10: J06.9 ICD-9: 465.9 06/30/2018 Attention-deficit hyperactivity disorder, combined type ICD-10: F90.2 ICD-9: 314.01 01/21/2018 Rash and other nonspecific skin eruption ICD-10: R21 ICD-9: 782.1 08/20/2017 Herpesviral vesicular dermatitis ICD-10: B00.1 ICD-9: 054.9 05/08/2017 Mastodynia ICD-10: N64.4 ICD-9: 611.71 12/31/2016 Cellulitis of left lower limb ICD-10: L03.116 ICD-9: 682.6 03/15/2016 Reason For Visit Reason For Visit Effective Dates Notes cough 06/30/2018 medication follow up 01/21/2018 medication follow up 08/20/2017 oral ulcers 05/08/2017 cold sore breast complaint 12/31/2016 rash 03/15/2016 Results Observation Observation Code Item Item Code Result Date Estrogens Total 212703 ESTROGENS, TOTAL 342 pg/mL 01/04/2017 Comp Metabolic Uxp932 NA 140 mEq/L 12/31/2016 Comp Metabolic Iax877 K 4.2 mEq/L 12/31/2016 Comp Metabolic Edy925 CL 103 mEq/L 12/31/2016 Comp Metabolic Dtd990 CO2 29.0 mEq/L 12/31/2016 Comp Metabolic Gig064 ANION GAP 12 12/31/2016 Comp Metabolic Vvk544 GLUCOSE 87 mg/dL 12/31/2016 Comp Metabolic Ims735 Creat 0.7 mg/dL 12/31/2016 Comp Metabolic Vnp036 eGFR 96 ml/min/1.73m2 12/31/2016 Comp Metabolic Rye202 BUN 9 mg/dL 12/31/2016 Comp Metabolic Uqe212 B/C Ratio 12.7 Ratio 12/31/2016 Comp Metabolic Nbs278 CALCIUM 9.1 mg/dL 12/31/2016 Comp Metabolic Qvq886 ALK PHOS 93 U/L 12/31/2016 Comp Metabolic Ofg715 AST(SGOT) 12 U/L 12/31/2016 Comp Metabolic Eqo792 ALT(SGPT) 10 U/L 12/31/2016 Comp Metabolic Uub842 BILI T 0.4 mg/dL 12/31/2016 Comp Metabolic Rzj732 ALBUMIN 4.2 g/dL 12/31/2016 Comp Metabolic Lmf815 TPRO 6.1 g/dL 12/31/2016 Comp Metabolic Tpa276 GLOB 2.0 g/dL 12/31/2016 Comp Metabolic Bfv888 A/G Ratio 2.1 Ratio 12/31/2016 Comp Metabolic Oez067 Osmo 277 mOsmo 12/31/2016 Cbc With Differential [...] 31.7 pg 12/31/2016 Cbc With Differential Ord2 [place]% 11.3 % 12/31/2016 Cbc With Differential Ord2 [...] 1.45 K/ul 12/31/2016 Cbc With Differential Ord2 [place] ABS# 0.7 K/ul 12/31/2016 Cbc With Differential Ord2 Eos ABS# 0.1 K/ul 12/31/2016 Cbc With Differential Ord2 Baso ABS# 0.0 K/ul 12/31/2016 Tsh Ord6 hTSH II 2.46 uIU/mL 12/31/2016 Progesterone Dqy647 Prog 3.96 ng/mL 12/31/2016 Review of Systems System Result Effective Dates Constitutional recent illness 06/30/2018 Constitutional anorexia 06/30/2018 [...] Result Effective Dates Notes Full Exam - ENT Constitutional general appearance [...] CPT-4: J3301 06/30/2018 Vital Signs Date Vital 06/30/2018 Blood Pressure 1: 120/68 Code: 8480-6 BMI: 24.5 Code: 12936-5 Heart Rate 1: 100 bpm Height: 5'4" SpO2: 96% Temperature: 37.1 (C) / 98.7 (F) Weight: 145 lbs 01/21/2018 Blood Pressure 1: 122/70 Code: 8480-6 BMI: 24.5 Code: 97776-6 Heart Rate 1: 97 bpm Height: 5'4" SpO2: 98% Weight: 145 lbs 08/20/2017 Blood Pressure 1: 120/78 Code: 8480-6 BMI: 24.3 Code: 83861-8 Heart Rate 1: 97 bpm Height: 5'4" SpO2: 97% Weight: 144 lbs 05/08/2017 Blood Pressure 1: 124/78 Code: 8480-6 BMI: 24.7 Code: 03978-4 Heart Rate 1: 101 bpm Height: 5'4" SpO2: 98% Weight: 146 lbs 12/31/2016 Blood Pressure 1: 128/74 Code: 8480-6 Heart Rate 1: 94 bpm SpO2: 99% Weight: 141 lbs 03/15/2016 Blood Pressure 1: 126/80 Code: 8480-6 BMI: 23.5 Code: 75062-6 Heart Rate 1: 94 bpm Height: 5'4" SpO2: 97% Weight: 139 lbs Functional Status No Functional Status data History of Present Illness Symptom Name Status Result Effective Date Notes Location in the throat 06/30/2018 None Quality [...] data Encounters Encounter Performer Location Codes Date () 14336 EST. PATIENT, LEVEL III Diagnosis: Cough[ICD10: R05] Diagnosis: Acute upper respiratory infection, unspecified[ICD10: J06.9] Elena Heredia MD, [facility] CPT-4: 84783 06/30/2018 70810 EST. PATIENT, LEVEL III Diagnosis: Attention-deficit hyperactivity disorder, combined type[ICD10: F90.2] Anais Heredia MD, [facility] CPT-4: 42030 01/21/2018 02600 EST. PATIENT, LEVEL III Diagnosis: Attention-deficit hyperactivity disorder, combined type[ICD10: F90.2] Diagnosis: Rash and other nonspecific skin eruption[ICD10: R21] Anais Heredia MD, [facility] CPT-4: 40619 08/20/2017 [id number] EST. PATIENT, LEVEL III Diagnosis: Herpesviral vesicular dermatitis[ICD10: B00.1] Diagnosis: Attention-deficit hyperactivity disorder, combined type[ICD10: F90.2] Anais Heredia MD, [facility] CPT-4: 71197 05/08/2017 80231 EST. PATIENT, LEVEL III Diagnosis: Mastodynia[ICD10: N64.4] Anais Heredia MD, [facility] CPT-4: 13313 12/31/2016 ([id number]) OFFICE VISIT, NEW - LEVEL 3 Diagnosis: Cellulitis of left lower limb[ICD10: L03.116] Anais Heredia MD, [facility] CPT-4: 08786 03/15/2016 Plan of Care Planned Activity Notes Codes Status Date Visit Plan: URI - Pt advised to increase fluids, vitamin C. Discussed natural and expected course of this diagnosis and need to alert me if symptoms do not follow expected course, or if any worse. RX sent to patient's pharmacy. 06/30/2018 Patient Education: Patient Medication Summary Completed [...] prescribed. 01/21/2018 Appointment: Anais Hennessy WPtel: [phone] [facility] (30 min) Complex 01/21/2018 Patient Education: [...] [phone] [facility] ([facility] Complex 08/20/2017 Patient Education: Patient Medication Summary Completed 08/20/2017 Care Plan: Unilateral DIAGNOSTICMAMMOGRAPHYDIGITAL LOINC : 55443-2 Pending 08/20/2017 Care Plan: SCREENINGMAMMOGRAPHYDIGITAL LOINC : 97895-4 Pending 08/20/2017 Visit Plan: Cold sores - [...] not prescribed. 05/08/2017 Appointment: Anais Hennessy WPtel: [phone] [facility] (15 min) Moderate 05/08/2017 Patient Education: Patient Medication Summary Completed 05/08/2017 Visit Plan: Rash to left breast - will send RX, will order mammogram - pt is to call for acute change in symptoms, worsening redness, warmth, discharge, increase in size of the lesion, increase in pain. 12/31/2016 Appointment: Anais Hennessytel: [phone] [facility] (30 min) Complex 12/31/2016 Patient Education: Patient Medication Summary Completed 12/31/2016 Visit Plan: Cellulitis - continue with oral antibiotics as previously directed, return to clinic as previously directed, call for acute change in symptoms, worsening redness, warmth, discharge. 03/15/2016 Appointment: Anais Hennessytel: [phone] [facility] New Patient 03/15/2016 Patient Education: Patient [...]
--- OUTSIDE RECORDS SUMMARY | 2019-01-13 17:37 | XMS REPORT | CCD ---
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 Role Phone PP Unavailable CCM Unavailable Summary Purpose Interface Exchange Insurance Providers Payer name Policy type / Coverage type Covered democrat ID Effective Begin Date Effective End Date [employer] Plans Commercial Insurance [id number] Unknown Family history Father Diagnosis Age At Onset Cancer Unknown Mother Diagnosis Age At Onset kidney disease Unknown genetic disease Unknown Hypertension Unknown Polycystic ovarian disease Unknown Arthritis Unknown Social History Social History Element Codes Description Effective Dates Marital status Unknown naun 03/15/2016 Number of children Unknown 2 03/15/[address]: 2376726 Quit less than 5 years ago 03/15/[address]: 225624 Currently drinks alcohol 03/15/2016 Frequency of drinks SNOMED CT: 814392018 1- 4 drinks per week 03/15/2016 Allergies, [...] Fill Instructions Adderall 30 mg tablet RxNorm: 460066 1/2 Tablet(s) PO BID 07/15/2018 08/13/2018 Active Kenalog 40 mg/mL suspension for injection RxNorm: 2326442 Milliliter(s) Inj 06/30/2018 06/30/2018 Inactive lamotrigine 150 mg tablet RxNorm: 630335 Tablet(s) TAKE 1 TABLET BY MOUTH ONCE DAILY 06/27/2018 No Stop Date Active Adderall 30 mg tablet RxNorm: 921258 1/2 Tablet(s) PO BID 06/27/2018 07/14/2018 Inactive acyclovir 400 mg tablet RxNorm: 941358 1 Tablet(s) PO TID 05/12/2018 06/10/2018 Inactive Adderall 30 mg tablet RxNorm: 384696 1/2 Tablet(s) PO BID 04/07/2018 05/06/2018 Inactive lamotrigine 150 mg tablet RxNorm: 089611 TAKE 1 TABLET BY MOUTH ONCE DAILY 03/31/2018 06/26/2018 Inactive Adderall 30 mg tablet RxNorm: 001751 1/2 Tablet(s) PO BID 03/19/2018 04/06/2018 Inactive lamotrigine 150 mg tablet RxNorm: 196463 TAKE ONE TABLET BY MOUTH ONCE DAILY 01/30/2018 03/30/2018 Inactive Adderall 30 mg tablet RxNorm: 573604 1/2 Tablet(s) PO BID 01/20/2018 02/18/2018 Inactive Adderall 30 mg tablet RxNorm: 928334 1/2 Tablet(s) PO BID 10/29/2017 11/27/2017 Inactive betamethasone dipropionate 0.05 % topical cream RxNorm: 401473 1 Application TOP BID 08/20/2017 No Stop Date Active Diflucan 150 mg tablet RxNorm: 445468 1 Tablet(s) PO daily 08/20/2017 08/24/2017 Inactive triamcinolone acetonide 0.025 % topical cream RxNorm: 4765797 1 Application TOP BID 08/07/2017 No Stop Date Active Adderall 30 mg tablet RxNorm: 864306 1/2 Tablet(s) PO BID 08/07/2017 09/05/2017 Inactive triamcinolone acetonide 0.025 % topical cream RxNorm: 6577798 1 Application TOP BID 07/31/2017 08/06/2017 Inactive Adderall XR 30 mg capsule,extended release RxNorm: 154286 1 Capsule(s) PO daily 07/31/2017 08/06/2017 Inactive lamotrigine 150 mg tablet RxNorm: 651710 1 Tablet(s) PO daily 06/04/2017 10/01/2017 Inactive Adderall 30 mg tablet RxNorm: 409272 1/2 Tablet(s) PO BID 05/08/2017 06/06/2017 Inactive acyclovir 400 mg tablet RxNorm: 566290 1 Tablet(s) PO TID 05/08/2017 06/06/2017 Inactive nystatin 100,000 unit/gram topical cream RxNorm: 592197 1 Application TOP BID 12/31/2016 No Stop Date Active triamcinolone acetonide 0.025 % topical cream RxNorm: 6555430 1 Application TOP BID 12/31/2016 07/30/2017 Inactive Bactrim DS 800 mg-160 mg tablet RxNorm: 580361 1 Tablet(s) PO BID 03/15/2016 03/28/2016 Inactive Adderall XR 30 mg capsule,extended release RxNorm: 405196 1 Capsule(s) PO daily No Start Date 07/30/2017 Inactive lamotrigine 150 mg tablet RxNorm: 562612 1 Tablet(s) PO daily No Start Date 06/03/2017 Inactive Medication Administered Medication Codes Instructions Start Date Status Kenalog 40 mg/mL suspension for injection RxNorm: 4717441 Milliliter 06/30/2018 No longer Active Immunizations No [...] Item Item Code Result Date Estrogens Total 282108 ESTROGENS, TOTAL 342 pg/mL 01/04/2017 Comp Metabolic Byq613 NA 140 mEq/L 12/31/2016 Comp Metabolic Stw769 K 4.2 mEq/L 12/31/2016 Comp Metabolic Yxl069 CL 103 mEq/L 12/31/2016 Comp Metabolic Iqz987 CO2 29.0 mEq/L 12/31/2016 Comp Metabolic Chy558 ANION GAP 12 12/31/2016 Comp Metabolic Xwi554 GLUCOSE 87 mg/dL 12/31/2016 Comp Metabolic Ajp419 Creat 0.7 mg/dL 12/31/2016 Comp Metabolic Pla516 eGFR 96 ml/min/1.73m2 12/31/2016 Comp Metabolic Edw256 BUN 9 mg/dL 12/31/2016 Comp Metabolic Yvo444 B/C Ratio 12.7 Ratio 12/31/2016 Comp Metabolic Xoz063 CALCIUM 9.1 mg/dL 12/31/2016 Comp Metabolic Icl972 ALK PHOS 93 U/L 12/31/2016 Comp Metabolic Hka891 AST(SGOT) 12 U/L 12/31/2016 Comp Metabolic Bii889 ALT(SGPT) 10 U/L 12/31/2016 Comp Metabolic Nnj870 BILI T 0.4 mg/dL 12/31/2016 Comp Metabolic Ofy862 ALBUMIN 4.2 g/dL 12/31/2016 Comp Metabolic Wsm890 TPRO 6.1 g/dL 12/31/2016 Comp Metabolic Fxa345 GLOB 2.0 g/dL 12/31/2016 Comp Metabolic Ssn153 A/G Ratio 2.1 Ratio 12/31/2016 Comp Metabolic Qjy838 Osmo 277 mOsmo 12/31/2016 Cbc With Differential [...] 31.7 pg 12/31/2016 Cbc With Differential Ord2 [place]% 11.3 % 12/31/2016 Cbc With Differential Ord2 [...] 1.45 K/ul 12/31/2016 Cbc With Differential Ord2 [place] ABS# 0.7 K/ul 12/31/2016 Cbc With Differential Ord2 Eos ABS# 0.1 K/ul 12/31/2016 Cbc With Differential Ord2 Baso ABS# 0.0 K/ul 12/31/2016 Tsh Ord6 hTSH II 2.46 uIU/mL 12/31/2016 Progesterone Jel502 Prog 3.96 ng/mL 12/31/2016 Review of Systems [...] 1: 120/68 Code: 8480-6 BMI: 24.5 Code: 62326-3 Heart Rate 1: 100 bpm Height: 5'4" SpO2: 96% Temperature: 37.1 (C) / 98.7 (F) Weight: 145 lbs 01/21/2018 Blood Pressure 1: 122/70 Code: 8480-6 BMI: 24.5 Code: 68642-9 Heart Rate 1: 97 bpm Height: 5'4" SpO2: 98% Weight: 145 lbs 08/20/2017 Blood Pressure 1: 120/78 Code: 8480-6 BMI: 24.3 Code: 42585-4 Heart Rate 1: 97 bpm Height: 5'4" SpO2: 97% Weight: 144 lbs 05/08/2017 Blood Pressure 1: 124/78 Code: 8480-6 BMI: 24.7 Code: 10999-1 Heart Rate 1: 101 bpm Height: 5'4" SpO2: 98% Weight: 146 lbs 12/31/2016 Blood Pressure 1: 128/74 Code: 8480-6 Heart Rate 1: 94 bpm SpO2: 99% Weight: 141 lbs 03/15/2016 Blood Pressure 1: 126/80 Code: 8480-6 BMI: 23.5 Code: 59536-9 Heart Rate 1: 94 bpm Height: 5'4" [...] Encounters Encounter Performer Location Codes Date () 93655 EST. PATIENT, LEVEL III Diagnosis: Cough[ICD10: R05] Diagnosis: Acute upper respiratory infection, unspecified[ICD10: J06.9] Elena Heredia MD, [facility] CPT-4: 99662 06/30/2018 62512 EST. PATIENT, LEVEL III Diagnosis: Attention-deficit hyperactivity disorder, combined type[ICD10: F90.2] Anais Heredia MD, [facility] CPT-4: 56193 01/21/2018 14721 EST. PATIENT, LEVEL III Diagnosis: Attention-deficit hyperactivity disorder, combined type[ICD10: F90.2] Diagnosis: Rash and other nonspecific skin eruption[ICD10: R21] Anais Heredia MD, [facility] CPT-4: 37476 08/20/2017 60215 EST. 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 PATIENT, LEVEL III Diagnosis: Mastodynia[ICD10: N64.4] Anais Heredia MD, [facility] CPT-4: 40783 12/31/2016 ([id number]) OFFICE VISIT, NEW - LEVEL 3 Diagnosis: Cellulitis of left lower limb[ICD10: L03.116] Anais Heredia MD, [facility] CPT-4: 75519 03/15/2016 Plan of Care Planned Activity Notes Codes Status Date Visit Plan: URI - Pt advised to increase fluids, vitamin C. Discussed natural and expected course of this diagnosis and need to alert me if symptoms do not follow expected course, or if any worse. RX sent to patient's pharmacy. 06/30/2018 Appointment: Elena Dong WPtel: [phone] [phone] (15 min) Moderate 06/30/2018 Patient Education: [...] prescribed. 01/21/2018 Appointment: Anais Hennessy WPtel: [phone] [facility] (30 min) Complex 01/21/2018 Patient Education: [...] or concerns. 08/20/2017 [facility]ment[phone] ([facility] 08/20/2017 Patient Education: Patient Medication Summary Completed 08/20/2017 Care Plan: Unilateral DIAGNOSTICMAMMOGRAPHYDIGITAL LOINC : 03417-7 Pending 08/20/2017 Care Plan: SCREENINGMAMMOGRAPHYDIGITAL [facility] : 86260-3 Pending 08/20/2017 Visit Plan: Cold sores - [...] was not prescribed. 05/08/2017 Appointment: Anais Hennessytel: [facility] (15 min) Moderate 05/08/2017 Patient Education: Patient Medication Summary Completed 05/08/2017 Visit Plan: Rash to left breast - will send RX, will order mammogram - pt is to call for acute change in symptoms, worsening redness, warmth, discharge, increase in size of the lesion, increase in pain. 12/31/2016 Appointment: Anais Hennessyl: [facility] (30 min) Complex 12/31/2016 Patient Education: Patient Medication Summary Completed 12/31/2016 Visit Plan: Cellulitis - continue with oral antibiotics as previously directed, return to clinic as previously directed, call for acute change in symptoms, worsening redness, warmth, discharge. 03/15/2016 Appointment: Anais Hennessytel: [facility] New Patient 03/15/2016 Patient Education: Patient [...]
--- OUTSIDE RECORDS SUMMARY | 2019-01-13 17:38 | XMS REPORT | CCD ---
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 Name Role Phone PP Unavailable CCM Unavailable Summary Purpose Interface Exchange Insurance Providers Payer name Policy type / Coverage type Covered green party ID Effective Begin Date Effective End Date [facility] Plans Commercial Insurance [id number] Unknown Family history Father Diagnosis Age At Onset Cancer Unknown Mother Diagnosis Age At Onset kidney disease Unknown genetic disease Unknown Hypertension Unknown Polycystic ovarian disease Unknown Arthritis Unknown Social History Social History Element Codes Description Effective Dates Marital status Unknown naun 03/15/2016 Number of children Unknown 2 03/15/[address]: 8856622 Quit less than 5 years ago 03/15/[address]: 613516 Currently drinks alcohol 03/15/2016 Frequency of drinks SNOMED CT: 852771073 1- 4 drinks per week 03/15/2016 Allergies, [...] Kenalog 40 mg/mL suspension for injection RxNorm: 3103940 Milliliter(s) Inj 06/30/2018 06/30/2018 Inactive lamotrigine 150 mg tablet RxNorm: 451902 Tablet(s) TAKE 1 TABLET BY MOUTH ONCE DAILY 06/27/2018 No Stop Date Active Adderall 30 mg tablet RxNorm: 537888 1/2 Tablet(s) PO BID 06/27/2018 09/24/2018 Active acyclovir 400 mg tablet RxNorm: 050656 1 Tablet(s) PO TID 05/12/2018 06/10/2018 Inactive Adderall 30 mg tablet RxNorm: 430604 1/2 Tablet(s) PO BID 04/07/2018 05/06/2018 Inactive lamotrigine 150 mg tablet RxNorm: 707078 TAKE 1 TABLET BY MOUTH ONCE DAILY 03/31/2018 06/26/2018 Inactive Adderall 30 mg tablet RxNorm: 052594 1/2 Tablet(s) PO BID 03/19/2018 04/06/2018 Inactive lamotrigine 150 mg tablet RxNorm: 436545 TAKE ONE TABLET BY MOUTH ONCE DAILY 01/30/2018 03/30/2018 Inactive Adderall 30 mg tablet RxNorm: 181112 1/2 Tablet(s) PO BID 01/20/2018 02/18/2018 Inactive Adderall 30 mg tablet RxNorm: 139155 1/2 Tablet(s) PO BID 10/29/2017 11/27/2017 Inactive betamethasone dipropionate 0.05 % topical cream RxNorm: 851788 1 Application TOP BID 08/20/2017 No Stop Date Active Diflucan 150 mg tablet RxNorm: 840655 1 Tablet(s) PO daily 08/20/2017 08/24/2017 Inactive triamcinolone acetonide 0.025 % topical cream RxNorm: 3662802 1 Application TOP BID 08/07/2017 No Stop Date Active Adderall 30 mg tablet RxNorm: 997133 1/2 Tablet(s) PO BID 08/07/2017 09/05/2017 Inactive triamcinolone acetonide 0.025 % topical cream RxNorm: 4617761 1 Application TOP BID 07/31/2017 08/06/2017 Inactive Adderall XR 30 mg capsule,extended release RxNorm: 913963 1 Capsule(s) PO daily 07/31/2017 08/06/2017 Inactive lamotrigine 150 mg tablet RxNorm: 728986 1 Tablet(s) PO daily 06/04/2017 10/01/2017 Inactive Adderall 30 mg tablet RxNorm: 418750 1/2 Tablet(s) PO BID 05/08/2017 06/06/2017 Inactive acyclovir 400 mg tablet RxNorm: 148235 1 Tablet(s) PO TID 05/08/2017 06/06/2017 Inactive nystatin 100,000 unit/gram topical cream RxNorm: 764004 1 Application TOP BID 12/31/2016 No Stop Date Active triamcinolone acetonide 0.025 % topical cream RxNorm: 5689429 1 Application TOP BID 12/31/2016 07/30/2017 Inactive Bactrim DS 800 mg-160 mg tablet RxNorm: 183215 1 Tablet(s) PO BID 03/15/2016 03/28/2016 Inactive Adderall XR 30 mg capsule,extended release RxNorm: 540406 1 Capsule(s) PO daily No Start Date 07/30/2017 Inactive lamotrigine 150 mg tablet RxNorm: 233062 1 Tablet(s) PO daily No Start Date 06/03/2017 Inactive Medication Administered Medication Codes Instructions Start Date Status Kenalog 40 mg/mL suspension for injection RxNorm: 0370655 Milliliter 06/30/2018 Active Immunizations No Immunization data [...] Item Item Code Result Date Estrogens Total 037880 ESTROGENS, TOTAL 342 pg/mL 01/04/2017 Comp Metabolic Wuh512 NA 140 mEq/L 12/31/2016 Comp Metabolic Kxt153 K 4.2 mEq/L 12/31/2016 Comp Metabolic Esj794 CL 103 mEq/L 12/31/2016 Comp Metabolic Syq674 CO2 29.0 mEq/L 12/31/2016 Comp Metabolic Jwp332 ANION GAP 12 12/31/2016 Comp Metabolic Hxz229 GLUCOSE 87 mg/dL 12/31/2016 Comp Metabolic Nri280 Creat 0.7 mg/dL 12/31/2016 Comp Metabolic Mau495 eGFR 96 ml/min/1.73m2 12/31/2016 Comp Metabolic Rht764 BUN 9 mg/dL 12/31/2016 Comp Metabolic Cen250 B/C Ratio 12.7 Ratio 12/31/2016 Comp Metabolic Uif649 CALCIUM 9.1 mg/dL 12/31/2016 Comp Metabolic Sil728 ALK PHOS 93 U/L 12/31/2016 Comp Metabolic Nqq934 AST(SGOT) 12 U/L 12/31/2016 Comp Metabolic Pwh221 ALT(SGPT) 10 U/L 12/31/2016 Comp Metabolic Hsf535 BILI T 0.4 mg/dL 12/31/2016 Comp Metabolic Ezr758 ALBUMIN 4.2 g/dL 12/31/2016 Comp Metabolic Edt790 TPRO 6.1 g/dL 12/31/2016 Comp Metabolic Sow718 GLOB 2.0 g/dL 12/31/2016 Comp Metabolic Qgh364 A/G Ratio 2.1 Ratio 12/31/2016 Comp Metabolic Twj137 Osmo 277 mOsmo 12/31/2016 Cbc With Differential [...] 31.7 pg 12/31/2016 Cbc With Differential Ord2 [place]% 11.3 % 12/31/2016 Cbc With Differential Ord2 [...] 1.45 K/ul 12/31/2016 Cbc With Differential Ord2 [place] ABS# 0.7 K/ul 12/31/2016 Cbc With Differential Ord2 Eos ABS# 0.1 K/ul 12/31/2016 Cbc With Differential Ord2 Baso ABS# 0.0 K/ul 12/31/2016 Tsh Ord6 hTSH II 2.46 uIU/mL 12/31/2016 Progesterone Ncb727 Prog 3.96 ng/mL 12/31/2016 Review of Systems [...] 1: 120/68 Code: 8480-6 BMI: 24.5 Code: 19860-9 Heart Rate 1: 100 bpm Height: 5'4" SpO2: 96% Temperature: 37.1 (C) / 98.7 (F) Weight: 145 lbs 01/21/2018 Blood Pressure 1: 122/70 Code: 8480-6 BMI: 24.5 Code: 42266-8 Heart Rate 1: 97 bpm Height: 5'4" SpO2: 98% Weight: 145 lbs 08/20/2017 Blood Pressure 1: 120/78 Code: 8480-6 BMI: 24.3 Code: 59563-6 Heart Rate 1: 97 bpm Height: 5'4" SpO2: 97% Weight: 144 lbs 05/08/2017 Blood Pressure 1: 124/78 Code: 8480-6 BMI: 24.7 Code: 51335-2 Heart Rate 1: 101 bpm Height: 5'4" SpO2: 98% Weight: 146 lbs 12/31/2016 Blood Pressure 1: 128/74 Code: 8480-6 Heart Rate 1: 94 bpm SpO2: 99% Weight: 141 lbs 03/15/2016 Blood Pressure 1: 126/80 Code: 8480-6 BMI: 23.5 Code: 11909-5 Heart Rate 1: 94 bpm Height: 5'4" [...] Encounters Encounter Performer Location Codes Date () 07864 EST. PATIENT, LEVEL III Diagnosis: Cough[ICD10: R05] Diagnosis: Acute upper respiratory infection, unspecified[ICD10: J06.9] Elena Heredia MD, [facility] CPT-4: 91378 06/30/2018 [id number] EST. PATIENT, LEVEL III Diagnosis: Attention-deficit hyperactivity disorder, combined type[ICD10: F90.2] Anais Heredia MD, [facility] CPT-4: 84510 01/21/2018 14116 EST. PATIENT, LEVEL III Diagnosis: Attention-deficit hyperactivity disorder, combined type[ICD10: F90.2] Diagnosis: Rash and other nonspecific skin eruption[ICD10: R21] Anais Heredia MD, [facility] CPT-4: 45770 08/20/2017 54551 EST. 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 PATIENT, LEVEL III Diagnosis: Mastodynia[ICD10: N64.4] Anais Heredia MD, [facility] CPT-4: 92428 12/31/2016 ([id number]) OFFICE VISIT, NEW - LEVEL 3 Diagnosis: Cellulitis of left lower limb[ICD10: L03.116] Anais Heredia MD, [facility] CPT-4: 28838 03/15/2016 Plan of Care Planned Activity Notes [...] prescribed. 01/21/2018 Appointment: Anais Hennessy WPtel: [phone] [facility] (30 min) Complex 01/21/2018 Patient [...] concerns. 08/20/2017 Appointment: [facility] [phone] [facility] ([facility] min) Complex 08/20/2017 Patient Education: Patient Medication Summary Completed 08/20/2017 Care Plan: Unilateral DIAGNOSTICMAMMOGRAPHYDIGITAL LOINC : 05971-1 Pending 08/20/2017 Care Plan: SCREENINGMAMMOGRAPHYDIGITAL LOINC : 99670-3 Pending 08/20/2017 Visit Plan: Cold sores - [...] not prescribed. 05/08/2017 Appointment: Anais Hennessy WPtel: [phone] [facility] (15 min) Moderate 05/08/2017 Patient Education: Patient Medication Summary Completed 05/08/2017 Visit Plan: Rash to left breast - will send RX, will order mammogram - pt is to call for acute change in symptoms, worsening redness, warmth, discharge, increase in size of the lesion, increase in pain. 12/31/2016 Appointment: Anais Hennessytel: [phone] [facility] (30 min) Complex 12/31/2016 Patient Education: Patient Medication Summary Completed 12/31/2016 Visit Plan: Cellulitis - continue with oral antibiotics as previously directed, return to clinic as previously directed, call for acute change in symptoms, worsening redness, warmth, discharge. 03/15/2016 Appointment: Anais Hennessytel: [phone] [facility] New Patient 03/15/2016 Patient Education: Patient Medication [...]
--- OUTSIDE RECORDS SUMMARY | 2019-01-13 17:39 | XMS REPORT | CCD ---
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 Phone PP Unavailable CCM Unavailable Summary Purpose Interface Exchange Insurance Providers Payer name Policy type / Coverage type Covered republican ID Effective Begin Date Effective End Date [facility] Plans Commercial Insurance [id number] Unknown Family history Father Diagnosis Age At Onset Cancer Unknown Mother Diagnosis Age At Onset kidney disease Unknown genetic disease Unknown Hypertension Unknown Polycystic ovarian disease Unknown Arthritis Unknown Social History Social History Element Codes Description Effective Dates Marital status Unknown naun 03/15/2016 Number of children Unknown 2 03/15/[address]: 6579361 Quit less than 5 years ago 03/15/[address]: 409581 Currently drinks alcohol 03/15/2016 Frequency of drinks SNOMED CT: 974514852 1- 4 drinks per week 03/15/2016 Allergies, [...] Start Date Stop Date Status Fill Instructions acyclovir 400 mg tablet RxNorm: 286610 1 Tablet(s) PO TID 05/12/2018 06/10/2018 Active Adderall 30 mg tablet RxNorm: 757152 1/2 Tablet(s) PO BID 04/07/2018 05/06/2018 Inactive lamotrigine 150 mg tablet RxNorm: 576483 TAKE 1 TABLET BY MOUTH ONCE DAILY 03/31/2018 No Stop Date Active Adderall 30 mg tablet RxNorm: 140036 1/2 Tablet(s) PO BID 03/19/2018 04/06/2018 Inactive lamotrigine 150 mg tablet RxNorm: 965480 TAKE ONE TABLET BY MOUTH ONCE DAILY 01/30/2018 03/30/2018 Inactive Adderall 30 mg tablet RxNorm: 166141 1/2 Tablet(s) PO BID 01/20/2018 02/18/2018 Inactive Adderall 30 mg tablet RxNorm: 609712 1/2 Tablet(s) PO BID 10/29/2017 11/27/2017 Inactive betamethasone dipropionate 0.05 % topical cream RxNorm: 483919 1 Application TOP BID 08/20/2017 No Stop Date Active Diflucan 150 mg tablet RxNorm: 645536 1 Tablet(s) PO daily 08/20/2017 08/24/2017 Inactive triamcinolone acetonide 0.025 % topical cream RxNorm: 7537259 1 Application TOP BID 08/07/2017 No Stop Date Active Adderall 30 mg tablet RxNorm: 083620 1/2 Tablet(s) PO BID 08/07/2017 09/05/2017 Inactive triamcinolone acetonide 0.025 % topical cream RxNorm: 5380398 1 Application TOP BID 07/31/2017 08/06/2017 Inactive Adderall XR 30 mg capsule,extended release RxNorm: 865882 1 Capsule(s) PO daily 07/31/2017 08/06/2017 Inactive lamotrigine 150 mg tablet RxNorm: 467959 1 Tablet(s) PO daily 06/04/2017 10/01/2017 Inactive Adderall 30 mg tablet RxNorm: 727749 1/2 Tablet(s) PO BID 05/08/2017 06/06/2017 Inactive acyclovir 400 mg tablet RxNorm: 970478 1 Tablet(s) PO TID 05/08/2017 06/06/2017 Inactive nystatin 100,000 unit/gram topical cream RxNorm: 064884 1 Application TOP BID 12/31/2016 No Stop Date Active triamcinolone acetonide 0.025 % topical cream RxNorm: 1835194 1 Application TOP BID 12/31/2016 07/30/2017 Inactive Bactrim DS 800 mg-160 mg tablet RxNorm: 285150 1 Tablet(s) PO BID 03/15/2016 03/28/2016 Inactive Adderall XR 30 mg capsule,extended release RxNorm: 811378 1 Capsule(s) PO daily No Start Date 07/30/2017 Inactive lamotrigine 150 mg tablet RxNorm: 634493 1 Tablet(s) PO daily No Start Date 06/03/2017 Inactive Medication Administered No Medication Administered data Immunizations [...] Visit Effective Dates Notes medication follow up 01/21/2018 medication follow up 08/20/2017 oral ulcers 05/08/2017 cold sore breast complaint 12/31/2016 rash 03/15/2016 Results Observation Observation Code Item Item Code Result Date Estrogens Total 443047 ESTROGENS, TOTAL 342 pg/mL 01/04/2017 Comp Metabolic Dbz073 NA 140 mEq/L 12/31/2016 Comp Metabolic Jjz849 K 4.2 mEq/L 12/31/2016 Comp Metabolic Juv769 CL 103 mEq/L 12/31/2016 Comp Metabolic Lkh292 CO2 29.0 mEq/L 12/31/2016 Comp Metabolic Aer969 ANION GAP 12 12/31/2016 Comp Metabolic Pfs084 GLUCOSE 87 mg/dL 12/31/2016 Comp Metabolic Yfg506 Creat 0.7 mg/dL 12/31/2016 Comp Metabolic Dfz784 eGFR 96 ml/min/1.73m2 12/31/2016 Comp Metabolic Dwp206 BUN 9 mg/dL 12/31/2016 Comp Metabolic Yfr910 B/C Ratio 12.7 Ratio 12/31/2016 Comp Metabolic Lpv321 CALCIUM 9.1 mg/dL 12/31/2016 Comp Metabolic Woa524 ALK PHOS 93 U/L 12/31/2016 Comp Metabolic Yxf389 AST(SGOT) 12 U/L 12/31/2016 Comp Metabolic Ieq159 ALT(SGPT) 10 U/L 12/31/2016 Comp Metabolic Txh826 BILI T 0.4 mg/dL 12/31/2016 Comp Metabolic Jsd805 ALBUMIN 4.2 g/dL 12/31/2016 Comp Metabolic Ktr986 TPRO 6.1 g/dL 12/31/2016 Comp Metabolic Cpo498 GLOB 2.0 g/dL 12/31/2016 Comp Metabolic Vfc904 A/G Ratio 2.1 Ratio 12/31/2016 Comp Metabolic Pwz434 Osmo 277 mOsmo 12/31/2016 Cbc With Differential [...] 31.7 pg 12/31/2016 Cbc With Differential Ord2 [place]% 11.3 % 12/31/2016 Cbc With Differential Ord2 [...] 1.45 K/ul 12/31/2016 Cbc With Differential Ord2 [place] ABS# 0.7 K/ul 12/31/2016 Cbc With Differential Ord2 Eos ABS# 0.1 K/ul 12/31/2016 Cbc With Differential Ord2 Baso ABS# 0.0 K/ul 12/31/2016 Tsh Ord6 hTSH II 2.46 uIU/mL 12/31/2016 Progesterone Fvg991 Prog 3.96 ng/mL 12/31/2016 Review of Systems System Result Effective Dates Constitutional No recent illness 01/21/2018 Constitutional No [...] No Procedures data Vital Signs Date Vital 01/21/2018 Blood Pressure 1: 122/70 Code: 8480-6 BMI: 24.5 Code: 87088-2 Heart Rate 1: 97 bpm Height: 5'4" SpO2: 98% Weight: 145 lbs 08/20/2017 Blood Pressure 1: 120/78 Code: 8480-6 BMI: 24.3 Code: 93390-8 Heart Rate 1: 97 bpm Height: 5'4" SpO2: 97% Weight: 144 lbs 05/08/2017 Blood Pressure 1: 124/78 Code: 8480-6 BMI: 24.7 Code: 96376-1 Heart Rate 1: 101 bpm Height: 5'4" SpO2: 98% Weight: 146 lbs 12/31/2016 Blood Pressure 1: 128/74 Code: 8480-6 Heart Rate 1: 94 bpm SpO2: 99% Weight: 141 lbs 03/15/2016 Blood Pressure 1: 126/80 Code: 8480-6 BMI: 23.5 Code: 04538-7 Heart Rate 1: 94 bpm Height: 5'4" SpO2: 97% Weight: 139 lbs Functional Status No Functional Status data History of Present Illness Symptom Name Status Result Effective Date Notes medication follow up Additional Comments medication use [...] data Encounters Encounter Performer Location Codes Date 44438 EST. PATIENT, LEVEL III Diagnosis: Attention-deficit hyperactivity disorder, combined type[ICD10: F90.2] Anais Heredia MD, [facility] CPT-4: 52317 01/21/2018 11417 EST. PATIENT, LEVEL III Diagnosis: Attention-deficit hyperactivity disorder, combined type[ICD10: F90.2] Diagnosis: Rash and other nonspecific skin eruption[ICD10: R21] Anais Heredia MD, [facility] CPT-4: 58004 08/20/2017 20120 EST. 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 CPT-4: 64214 05/08/2017 41885 EST. PATIENT, LEVEL III Diagnosis: Mastodynia[ICD10: N64.4] Anais Heredia MD, [facility] CPT-4: 82748 12/31/2016 ([id number]) OFFICE VISIT, NEW - LEVEL 3 Diagnosis: Cellulitis of left lower limb[ICD10: L03.116] Anais Heredia MD, [facility] CPT-4: 59421 03/15/2016 Plan of Care Planned Activity Notes [...] not prescribed. 01/21/2018 Appointment: Anais Hennessy WPtel: [address] [place], [place] [phone] (30 min) [facility] 01/21/2018 Patient Education: Patient Medication Summary Completed [...] concerns. 08/20/2017 App[facility]ment: [facility] [phone] [facility] ([facility] Complex 08/20/2017 Patient Education: Patient Medication Summary Completed 08/20/2017 Care Plan: Unilateral DIAGNOSTICMAMMOGRAPHYDIGITAL LOINC : 98467-5 Pending 08/20/2017 Care Plan: SCREENINGMAMMOGRAPHYDIGITAL LOINC : 86596-9 Pending 08/20/2017 Visit Plan: Cold sores - [...] prescribed. 05/08/2017 Appointment: [facility] [phone] [facility] (15 min) Moderate 05/08/2017 Patient Education: Patient Medication Summary Completed 05/08/2017 Visit Plan: Rash to left breast - will send RX, will order mammogram - pt is to call for acute change in symptoms, worsening redness, warmth, discharge, increase in size of the lesion, increase in pain. 12/31/2016 Appointment: [facility] [phone] [facility] ([facility]) Complex 12/31/2016 Patient Education: Patient Medication Summary Completed 12/31/2016 Visit Plan: Cellulitis - continue with oral antibiotics as previously directed, return to clinic as previously directed, call for acute change in symptoms, worsening redness, warmth, discharge. 03/15/2016 Appointment: Silvia Hennessyie [facility]el[facility] [phone] [facility] New Patient 03/15/2016 Patient Education: Patient [...] to whom the medication was not prescribed. If not any better follow up on [...]
--- OUTSIDE RECORDS SUMMARY | 2019-01-13 17:39 | XMS REPORT | CCD ---
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 Phone PP Unavailable CCM Unavailable Summary Purpose Interface Exchange Insurance Providers Payer name Policy type / Coverage type Covered green party ID Effective Begin Date Effective End Date [employer] Plans Commercial Insurance [id number] Unknown Family history Father Diagnosis Age At Onset Cancer Unknown Mother Diagnosis Age At Onset kidney disease Unknown genetic disease Unknown Hypertension Unknown Polycystic ovarian disease Unknown Arthritis Unknown Social History Social History Element Codes Description Effective Dates Marital status Unknown naun 03/15/2016 Number of children Unknown 2 03/15/[address]: 3989814 Quit less than 5 years ago 03/15/[address]: 699415 Currently drinks alcohol 03/15/2016 Frequency of drinks SNOMED CT: 369479392 1- 4 drinks per week 03/15/2016 Allergies, [...] Fill Instructions Adderall 30 mg tablet RxNorm: 676358 1/2 Tablet(s) PO BID 06/27/2018 09/24/2018 Active acyclovir 400 mg tablet RxNorm: 958420 1 Tablet(s) PO TID 05/12/2018 06/10/2018 Inactive Adderall 30 mg tablet RxNorm: 810695 1/2 Tablet(s) PO BID 04/07/2018 05/06/2018 Inactive lamotrigine 150 mg tablet RxNorm: 762246 TAKE 1 TABLET BY MOUTH ONCE DAILY 03/31/2018 No Stop Date Active Adderall 30 mg tablet RxNorm: 899807 1/2 Tablet(s) PO BID 03/19/2018 04/06/2018 Inactive lamotrigine 150 mg tablet RxNorm: 416892 TAKE ONE TABLET BY MOUTH ONCE DAILY 01/30/2018 03/30/2018 Inactive Adderall 30 mg tablet RxNorm: 258576 1/2 Tablet(s) PO BID 01/20/2018 02/18/2018 Inactive Adderall 30 mg tablet RxNorm: 083634 1/2 Tablet(s) PO BID 10/29/2017 11/27/2017 Inactive betamethasone dipropionate 0.05 % topical cream RxNorm: 951279 1 Application TOP BID 08/20/2017 No Stop Date Active Diflucan 150 mg tablet RxNorm: 597619 1 Tablet(s) PO daily 08/20/2017 08/24/2017 Inactive triamcinolone acetonide 0.025 % topical cream RxNorm: 5816097 1 Application TOP BID 08/07/2017 No Stop Date Active Adderall 30 mg tablet RxNorm: 894472 1/2 Tablet(s) PO BID 08/07/2017 09/05/2017 Inactive triamcinolone acetonide 0.025 % topical cream RxNorm: 7892668 1 Application TOP BID 07/31/2017 08/06/2017 Inactive Adderall XR 30 mg capsule,extended release RxNorm: 996316 1 Capsule(s) PO daily 07/31/2017 08/06/2017 Inactive lamotrigine 150 mg tablet RxNorm: 293348 1 Tablet(s) PO daily 06/04/2017 10/01/2017 Inactive Adderall 30 mg tablet RxNorm: 513879 1/2 Tablet(s) PO BID 05/08/2017 06/06/2017 Inactive acyclovir 400 mg tablet RxNorm: 126970 1 Tablet(s) PO TID 05/08/2017 06/06/2017 Inactive nystatin 100,000 unit/gram topical cream RxNorm: 456863 1 Application TOP BID 12/31/2016 No Stop Date Active triamcinolone acetonide 0.025 % topical cream RxNorm: 4483303 1 Application TOP BID 12/31/2016 07/30/2017 Inactive Bactrim DS 800 mg-160 mg tablet RxNorm: 887099 1 Tablet(s) PO BID 03/15/2016 03/28/2016 Inactive Adderall XR 30 mg capsule,extended release RxNorm: 424673 1 Capsule(s) PO daily No Start Date 07/30/2017 Inactive lamotrigine 150 mg tablet RxNorm: 061558 1 Tablet(s) PO daily No Start Date [...] Item Item Code Result Date Estrogens Total 086263 ESTROGENS, TOTAL 342 pg/mL 01/04/2017 Comp Metabolic Urf833 NA 140 mEq/L 12/31/2016 Comp Metabolic Amm318 K 4.2 mEq/L 12/31/2016 Comp Metabolic Bmg875 CL 103 mEq/L 12/31/2016 Comp Metabolic Vxn244 CO2 29.0 mEq/L 12/31/2016 Comp Metabolic Xxg730 ANION GAP 12 12/31/2016 Comp Metabolic Rwm479 GLUCOSE 87 mg/dL 12/31/2016 Comp Metabolic Qve009 Creat 0.7 mg/dL 12/31/2016 Comp Metabolic Tjr258 eGFR 96 ml/min/1.73m2 12/31/2016 Comp Metabolic Nna357 BUN 9 mg/dL 12/31/2016 Comp Metabolic Rpj109 B/C Ratio 12.7 Ratio 12/31/2016 Comp Metabolic Smj027 CALCIUM 9.1 mg/dL 12/31/2016 Comp Metabolic Lhh201 ALK PHOS 93 U/L 12/31/2016 Comp Metabolic Aif666 AST(SGOT) 12 U/L 12/31/2016 Comp Metabolic Qgu561 ALT(SGPT) 10 U/L 12/31/2016 Comp Metabolic Snt926 BILI T 0.4 mg/dL 12/31/2016 Comp Metabolic Xcr620 ALBUMIN 4.2 g/dL 12/31/2016 Comp Metabolic Xoi149 TPRO 6.1 g/dL 12/31/2016 Comp Metabolic Iwp132 GLOB 2.0 g/dL 12/31/2016 Comp Metabolic Aal227 A/G Ratio 2.1 Ratio 12/31/2016 Comp Metabolic Qjw793 Osmo 277 mOsmo 12/31/2016 Cbc With Differential [...] 31.7 pg 12/31/2016 Cbc With Differential Ord2 [place]% 11.3 % 12/31/2016 Cbc With Differential Ord2 [...] 1.45 K/ul 12/31/2016 Cbc With Differential Ord2 [place] ABS# 0.7 K/ul 12/31/2016 Cbc With Differential Ord2 Eos ABS# 0.1 K/ul 12/31/2016 Cbc With Differential Ord2 Baso ABS# 0.0 K/ul 12/31/2016 Tsh Ord6 hTSH II 2.46 uIU/mL 12/31/2016 Progesterone Zct149 Prog 3.96 ng/mL 12/31/2016 Review of Systems [...] 1: 122/70 Code: 8480-6 BMI: 24.5 Code: 28712-6 Heart Rate 1: 97 bpm Height: 5'4" SpO2: 98% Weight: 145 lbs 08/20/2017 Blood Pressure 1: 120/78 Code: 8480-6 BMI: 24.3 Code: 86868-5 Heart Rate 1: 97 bpm Height: 5'4" SpO2: 97% Weight: 144 lbs 05/08/2017 Blood Pressure 1: 124/78 Code: 8480-6 BMI: 24.7 Code: 72454-7 Heart Rate 1: 101 bpm Height: 5'4" SpO2: 98% Weight: 146 lbs 12/31/2016 Blood Pressure 1: 128/74 Code: 8480-6 Heart Rate 1: 94 bpm SpO2: 99% Weight: 141 lbs 03/15/2016 Blood Pressure 1: 126/80 Code: 8480-6 BMI: 23.5 Code: 29801-2 Heart Rate 1: 94 bpm Height: 5'4" [...] data Encounters Encounter Performer Location Codes Date 61345 EST. PATIENT, LEVEL III Diagnosis: Attention-deficit hyperactivity disorder, combined type[ICD10: F90.2] Anais Heredia MD, [facility] CPT-4: 48187 01/21/2018 [id number] EST. PATIENT, LEVEL III Diagnosis: Attention-deficit hyperactivity disorder, combined type[ICD10: F90.2] Diagnosis: Rash and other nonspecific skin eruption[ICD10: R21] Anais Heredia MD, [facility] CPT-4: 60114 08/20/2017 [id number] EST. 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 PATIENT, LEVEL III Diagnosis: Mastodynia[ICD10: N64.4] Anais Heredia MD, [facility] CPT-4: 27545 12/31/2016 ([id number]) OFFICE VISIT, NEW - LEVEL 3 Diagnosis: Cellulitis of left lower limb[ICD10: L03.116] Anais Heredia MD, [facility] CPT-4: 08124 03/15/2016 Plan of Care Planned Activity Notes [...] not prescribed. 01/21/2018 Appointment: Anais Hennessy WPtel: [address] [place], [place] [phone] (30 min) [facility] 01/21/2018 Patient Education: Patient Medication [...] questions, or concerns. 08/20/2017 [facility]ment[facility] [phone] [facility] ([facility] Complex 08/20/2017 Patient Education: Patient Medication Summary Completed 08/20/2017 Care Plan: Unilateral DIAGNOSTICMAMMOGRAPHYDIGITAL LOINC : 87088-7 Pending 08/20/2017 Care Plan: SCREENINGMAMMOGRAPHYDIGITAL LOINC : 95665-2 Pending 08/20/2017 Visit Plan: Cold sores - [...] was not prescribed. 05/08/2017 App[facility]ment: [facility] [phone] [facility] (15 min) Moderate 05/08/2017 Patient Education: Patient Medication Summary Completed 05/08/2017 Visit Plan: Rash to left breast - will send RX, will order mammogram - pt is to call for acute change in symptoms, worsening redness, warmth, discharge, increase in size of the lesion, increase in pain. 12/31/2016 Appointment: Anais Hennessy WPtel: [phone] [facility] (30 min) Complex 12/31/2016 Patient Education: Patient Medication Summary Completed 12/31/2016 Visit Plan: Cellulitis - continue with oral antibiotics as previously directed, return to clinic as previously directed, call for acute change in symptoms, worsening redness, warmth, discharge. 03/15/2016 Appointment: [facility] [phone] [facility] New Patient 03/15/2016 Patient Education: Patient [...]
--- OUTSIDE RECORDS SUMMARY | 2019-01-13 17:40 | XMS REPORT | CCD ---
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 Phone PP Unavailable CCM Unavailable Summary Purpose Interface Exchange Insurance Providers Payer name Policy type / Coverage type Covered democrat ID Effective Begin Date Effective End Date [employer] Plans Commercial Insurance [id number] Unknown Family history Father Diagnosis Age At Onset Cancer Unknown Mother Diagnosis Age At Onset kidney disease Unknown genetic disease Unknown Hypertension Unknown Polycystic ovarian disease Unknown Arthritis Unknown Social History Social History Element Codes Description Effective Dates Marital status Unknown naun 03/15/2016 Number of children Unknown 2 03/15/[address]: 1357881 Quit less than 5 years ago 03/15/[address]: 274551 Currently drinks alcohol 03/15/2016 Frequency of drinks SNOMED CT: 240988130 1- 4 drinks per week 03/15/2016 Allergies, [...] Fill Instructions Adderall 30 mg tablet RxNorm: 516638 1/2 Tablet(s) PO BID 04/07/2018 05/06/2018 Active lamotrigine 150 mg tablet RxNorm: 392740 TAKE 1 TABLET BY MOUTH ONCE DAILY 03/31/2018 No Stop Date Active Adderall 30 mg tablet RxNorm: 453976 1/2 Tablet(s) PO BID 03/19/2018 04/06/2018 Inactive lamotrigine 150 mg tablet RxNorm: 206161 TAKE ONE TABLET BY MOUTH ONCE DAILY 01/30/2018 03/30/2018 Inactive Adderall 30 mg tablet RxNorm: 720032 1/2 Tablet(s) PO BID 01/20/2018 02/18/2018 Inactive Adderall 30 mg tablet RxNorm: 745069 1/2 Tablet(s) PO BID 10/29/2017 11/27/2017 Inactive betamethasone dipropionate 0.05 % topical cream RxNorm: 163411 1 Application TOP BID 08/20/2017 No Stop Date Active Diflucan 150 mg tablet RxNorm: 699300 1 Tablet(s) PO daily 08/20/2017 08/24/2017 Inactive triamcinolone acetonide 0.025 % topical cream RxNorm: 5161960 1 Application TOP BID 08/07/2017 No Stop Date Active Adderall 30 mg tablet RxNorm: 992088 1/2 Tablet(s) PO BID 08/07/2017 09/05/2017 Inactive triamcinolone acetonide 0.025 % topical cream RxNorm: 1455718 1 Application TOP BID 07/31/2017 08/06/2017 Inactive Adderall XR 30 mg capsule,extended release RxNorm: 852161 1 Capsule(s) PO daily 07/31/2017 08/06/2017 Inactive lamotrigine 150 mg tablet RxNorm: 086635 1 Tablet(s) PO daily 06/04/2017 10/01/2017 Inactive Adderall 30 mg tablet RxNorm: 097112 1/2 Tablet(s) PO BID 05/08/2017 06/06/2017 Inactive acyclovir 400 mg tablet RxNorm: 595236 1 Tablet(s) PO TID 05/08/2017 06/06/2017 Inactive nystatin 100,000 unit/gram topical cream RxNorm: 462221 1 Application TOP BID 12/31/2016 No Stop Date Active triamcinolone acetonide 0.025 % topical cream RxNorm: 4183876 1 Application TOP BID 12/31/2016 07/30/2017 Inactive Bactrim DS 800 mg-160 mg tablet RxNorm: 884417 1 Tablet(s) PO BID 03/15/2016 03/28/2016 Inactive Adderall XR 30 mg capsule,extended release RxNorm: 521018 1 Capsule(s) PO daily No Start Date 07/30/2017 Inactive lamotrigine 150 mg tablet RxNorm: 887136 1 Tablet(s) PO daily No Start Date [...] Item Item Code Result Date Estrogens Total 166399 ESTROGENS, TOTAL 342 pg/mL 01/04/2017 Comp Metabolic Csm802 NA 140 mEq/L 12/31/2016 Comp Metabolic Tuu561 K 4.2 mEq/L 12/31/2016 Comp Metabolic Csb293 CL 103 mEq/L 12/31/2016 Comp Metabolic Vnf296 CO2 29.0 mEq/L 12/31/2016 Comp Metabolic Wba296 ANION GAP 12 12/31/2016 Comp Metabolic Fvg162 GLUCOSE 87 mg/dL 12/31/2016 Comp Metabolic Ipy726 Creat 0.7 mg/dL 12/31/2016 Comp Metabolic Qeo839 eGFR 96 ml/min/1.73m2 12/31/2016 Comp Metabolic Oqw032 BUN 9 mg/dL 12/31/2016 Comp Metabolic Ggq168 B/C Ratio 12.7 Ratio 12/31/2016 Comp Metabolic Ibq144 CALCIUM 9.1 mg/dL 12/31/2016 Comp Metabolic Uty266 ALK PHOS 93 U/L 12/31/2016 Comp Metabolic Wcl693 AST(SGOT) 12 U/L 12/31/2016 Comp Metabolic Mur340 ALT(SGPT) 10 U/L 12/31/2016 Comp Metabolic Xzw055 BILI T 0.4 mg/dL 12/31/2016 Comp Metabolic Vrx068 ALBUMIN 4.2 g/dL 12/31/2016 Comp Metabolic Yfs391 TPRO 6.1 g/dL 12/31/2016 Comp Metabolic Tnt510 GLOB 2.0 g/dL 12/31/2016 Comp Metabolic Odi708 A/G Ratio 2.1 Ratio 12/31/2016 Comp Metabolic Yrw424 Osmo 277 mOsmo 12/31/2016 Cbc With Differential [...] 31.7 pg 12/31/2016 Cbc With Differential Ord2 White% 11.3 % 12/31/2016 Cbc With Differential Ord2 [...] 1.45 K/ul 12/31/2016 Cbc With Differential Ord2 White ABS# 0.7 K/ul 12/31/2016 Cbc With Differential Ord2 Eos ABS# 0.1 K/ul 12/31/2016 Cbc With Differential Ord2 Baso ABS# 0.0 K/ul 12/31/2016 Tsh Ord6 hTSH II 2.46 uIU/mL 12/31/2016 Progesterone Dsu827 Prog 3.96 ng/mL 12/31/2016 Review of Systems [...] 1: 122/70 Code: 8480-6 BMI: 24.5 Code: 68422-5 Heart Rate 1: 97 bpm Height: 5'4" SpO2: 98% Weight: 145 lbs 08/20/2017 Blood Pressure 1: 120/78 Code: 8480-6 BMI: 24.3 Code: 21027-6 Heart Rate 1: 97 bpm Height: 5'4" SpO2: 97% Weight: 144 lbs 05/08/2017 Blood Pressure 1: 124/78 Code: 8480-6 BMI: 24.7 Code: 31026-2 Heart Rate 1: 101 bpm Height: 5'4" SpO2: 98% Weight: 146 lbs 12/31/2016 Blood Pressure 1: 128/74 Code: 8480-6 Heart Rate 1: 94 bpm SpO2: 99% Weight: 141 lbs 03/15/2016 Blood Pressure 1: 126/80 Code: 8480-6 BMI: 23.5 Code: 24174-5 Heart Rate 1: 94 bpm Height: 5'4" [...] data Encounters Encounter Performer Location Codes Date 02816 EST. PATIENT, LEVEL III Diagnosis: Attention-deficit hyperactivity disorder, combined type[ICD10: F90.2] [facility] CPT-4: 83709 01/21/2018 14208 EST. PATIENT, LEVEL III Diagnosis: Attention-deficit hyperactivity disorder, combined type[ICD10: F90.2] Diagnosis: Rash and other nonspecific skin eruption[ICD10: R21] Anais Heredia MD, [facility] CPT-4: 52940 08/20/2017 71932 EST. 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 PATIENT, LEVEL III Diagnosis: Mastodynia[ICD10: N64.4] Anais Heredia MD, [facility] CPT-4: 93866 12/31/2016 ([id number]) OFFICE VISIT, NEW - LEVEL 3 Diagnosis: Cellulitis of left lower limb[ICD10: L03.116] Anais Heredia MD, [facility] CPT-4: 96219 03/15/2016 Plan of Care Planned Activity Notes [...] not prescribed. 01/21/2018 Appointment: Anais Hennessy WPtel: [address] [place], [place] [id number] (30 min) [facility] 01/21/2018 Patient Education: Patient Medication Summary [...] concerns. 08/20/2017 Appointment: [facility] [phone] [facility] ([facility] min) Complex 08/20/2017 Patient Education: Patient Medication Summary Completed 08/20/2017 Care Plan: Unilateral DIAGNOSTICMAMMOGRAPHYDIGITAL LOINC : 30144-6 Pending 08/20/2017 Care Plan: SCREENINGMAMMOGRAPHYDIGITAL LOINC : 40409-6 Pending 08/20/2017 Visit Plan: Cold sores - [...] not prescribed. 05/08/2017 Appointment: Anais Hennessy WPtel: [facility] [place] (15 min) Moderate 05/08/2017 Patient Education: Patient Medication Summary Completed 05/08/2017 Visit Plan: Rash to left breast - will send RX, will order mammogram - pt is to call for acute change in symptoms, worsening redness, warmth, discharge, increase in size of the lesion, increase in pain. 12/31/2016 Appointment: An[facility] Hennessy WPtel[facility] [phone] [facility] [place] (30 min) Complex 12/31/2016 Patient Education: Patient Medication Summary Completed 12/31/2016 Visit Plan: Cellulitis - continue with oral antibiotics as previously directed, return to clinic as previously directed, call for acute change in symptoms, worsening redness, warmth, discharge. 03/15/2016 Appointment: [facility] Hennessy WPtel[facility] [phone] [facility] New Patient 03/15/2016 Patient Education: [...]
--- NOTE | 2019-01-13 17:41 | ED General ---
General Chief Complaint: General Problems/Pain Stated Complaint: LOW OXYGEN SAT Nursing Triage Note: PT SENT FROM DR GUILLEN OFFICE FOR LOW O2 SAT. PT STATES IT WAS 88-89 AT [facility]. PT STATES LAST NIGHT SHE NOTICED THAT HER LIPS WERE BLUE AND WORSENED TODAY. PTS FINGERS AND TOES ARE DUSKY IN COLOR. PT HAS BEEN TAKING DAPSONE AND DOXYCYCLINE FOR A POSSIBLE SPIDER BITE ON RIGHT ARM. PT ALSO RECENTLY STARTED A ESTROGEN/PROGESTERONE COMPOUND. Nursing Sepsis Screen: No Definite Risk Source of Information: Patient Exam Limitations: No Limitations History of Present Illness Date Seen by Provider: Jan 13, 2019 Time Seen by Provider: 17:37 Initial Comments To ER with blue lips hands and feet. This began earlier today. She doesn't specifically feel short of breath but states like she's been "running all day". She called her primary care provider Dr. Heredia who had her come to the office, while there she was found to have an oxygen saturation of 88% on room air and a heart rate of about 120. She does not have any known heart or lung dis ease. Interestingly on about 01/07 she was started on dapsone and an antibiotic for a nodule to the dorsal right forearm which was suspected to possibly be a brown recluse bite. She is a nonsmoker, uses estrogen cream but no oral or systemic estrogen, no history of clots. She does state that she had too prominent varicose veins on the medial proximal right calf about 2 weeks ago. Th e nodule to the right forearm is without redness or bruising or necrosis, it has reduced in size and tenderness over the past week. Timing/Duration: 12-24 Hours Severity: Moderate Associated Systoms: Denies Symptoms Allergies and Home Medications Allergies Coded Allergies: Penicillins (Verified Allergy, Unknown, 01/13/19) codeine (Verified Allergy, Unknown, 01/13/19) Patient Home Medication List Home Medication List Reviewed: Yes Review of Systems Review of Systems Constitutional: see HPI; No chills, No fever; malaise, weakness EENTM: other Respiratory: see HPI Cardiovascular: no symptoms reported Genitourinary: no symptoms reported Musculoskeletal: no symptoms reported Skin: no symptoms reported Psychiatric/Neurological: No Symptoms Reported Hematologic/Lymphatic: No Symptoms Reported Past Hvlkduk-Plnxhs-Vryhxj Hx Patient Social History Alcohol Use: Occasionally Uses Recreational Drug Use: No Smoking Status: Current Someday Smoker Type Used: Electronic/Vapor Recent Foreign Travel: No Contact w/Someone Who Travel: No Recent Infectious Disease Expo: No Recent Hopitalizations: No Immunizations Up To Date Tetanus Booster (TDap): Unknown PED Vaccines UTD: Yes Seasonal Allergies Seasonal Allergies: No Past Medical History Surgeries: Yes Breast, Hysterectomy Respiratory: No Cardiac: No Neurological: No Concussion MENTAL HEALTH NURSE History: Hysterectomy Genitourinary: No Gastrointestinal: No Musculoskeletal: No Endocrine: No HEENT: No Cancer: No Psychosocial: Yes ADD/ADHD, Anxiety, Depression Integumentary: No Blood Disorders: No Physical Exam Vital Signs Vital Signs - First Documented 01/13/19 17:18 Temp 97.3 Pulse 97 Resp 16 B/P (MAP) 127/94 (105) Pulse Ox 92 O2 Delivery Room Air Capillary Refill : Less Than 3 Seconds Height, Weight, BMI Height: 5'4.00" Weight: 145lbs. oz. 65.034883ct; BMI Method:Stated General Appearance: No Apparent Distress, WD/WN, Other (no distress, speaks in full sentences. On the rn cardiac she is 93% on room air, heart rate is 97. Blood pressure is 126/76. There is a bluish discoloration to the pad of all of the fingers on the right hand, to a lesser degree the left hand. She states that it has improved in appearance since leaving Dr. Heredia's office. Her lips are somewhat cyanotic.) HEENT: PERRL/EOMI, TMs Normal Neck: Full Range of Motion, Normal Inspection Respiratory: No Accessory Muscle Use, No Respiratory Distress Cardiovascular: Regular Rate, Rhythm, Normal Peripheral Pulses Gastrointestinal: Normal Bowel Sounds, Non Tender, Soft Extremity: Normal Capillary Refill, Normal Inspection, Other Neurologic/Psychiatric: Alert, Oriented x3 Skin: Normal Color, Warm/Dry Comments Given her history of dapsone use would suspect either hemolytic anemia from G6PD deficiency or methemoglobinemia. We will check both of these things. I will go ahead and order a CT angios chest given her varicose veins that were prominent in her leg though neither leg is red, neither leg is swollen and I do not suspect PE. Progress/Results/Core Measures Suspected Sepsis Recent Fever Within 48 Hours: No Infection Criteria Present: None New/Unexplained Altered Menta: No Sepsis Screen: No Definite Risk SIRS Temperature:97.3 Pulse: 97 Respiratory Rate: 16 Laboratory Tests 01/13/19 17:42: White Blood Count 5.1 Blood Pressure 127 /94 Mean: 105 Laboratory Tests 01/13/19 17:42: Creatinine 0.82, Platelet Count 273, Total Bilirubin 0.5 Results/Orders Lab Results Laboratory Tests Test 01/13/19 17:42 Range/Units White Blood Count 5.1 4.3-11.0 10^3/uL Red Blood Count 4.31 L 4.35-5.85 10^6/uL Hemoglobin 13.1 11.5-16.0 G/DL Hematocrit 40 35-52 % Mean Corpuscular Volume 93 80-99 FL Mean Corpuscular Hemoglobin 30 25-34 PG Mean Corpuscular Hemoglobin Concent 33 32-36 G/DL Red Cell Distribution Width 12.3 10.0-14.5 % Platelet Count 273 130-400 10^3/uL Mean Platelet Volume 9.5 7.4-10.4 FL Neutrophils (%) (Auto) 59 42-75 % Lymphocytes (%) (Auto) 29 12-44 % Monocytes (%) (Auto) 10 0-12 % Eosinophils (%) (Auto) 1 0-10 % Basophils (%) (Auto) 1 0-10 % Neutrophils # (Auto) 3.0 1.8-7.8 X 10^3 Lymphocytes # (Auto) 1.5 1.0-4.0 X 10^3 Monocytes # (Auto) 0.5 0.0-1.0 X 10^3 Eosinophils # (Auto) 0.1 0.0-0.3 10^3/uL Basophils # (Auto) 0.0 0.0-0.1 10^3/uL D-Dimer <= 0.27 0.00-0.49 UG/ML Urine Color YELLOW Urine Clarity CLEAR Urine pH 5 5-9 Urine Specific [place] 1.020 1.016-1.022 Urine Protein NEGATIVE NEGATIVE Urine Glucose (UA) NEGATIVE NEGATIVE Urine Ketones NEGATIVE NEGATIVE Urine Nitrite NEGATIVE NEGATIVE Urine Bilirubin NEGATIVE NEGATIVE Urine Urobilinogen NORMAL NORMAL MG/DL Urine Leukocyte Esterase NEGATIVE NEGATIVE Urine RBC (Auto) NEGATIVE NEGATIVE Urine RBC NONE /HPF Urine WBC NONE /HPF Urine Squamous Epithelial Cells 5-10 /HPF Urine Crystals NONE /LPF Urine Bacteria FEW H /HPF Urine Casts NONE /LPF Urine Mucus NEGATIVE /LPF Urine Culture Indicated NO Methemoglobin 7.7 H 0.4-1.5 % Sodium Level 140 135-145 MMOL/L Potassium Level 3.9 3.6-5.0 MMOL/L Chloride Level 104 98-107 MMOL/L Carbon Dioxide Level 25 21-32 MMOL/L Anion Gap 11 5-14 MMOL/L Blood Urea Nitrogen 11 7-18 MG/DL Creatinine 0.82 0.60-1.30 MG/DL Estimat Glomerular Filtration Rate > 60 BUN/Creatinine Ratio 13 Glucose Level 93 70-105 MG/DL Calcium Level 9.4 8.5-10.1 MG/DL Corrected Calcium 9.1 8.5-10.1 MG/DL Total Bilirubin 0.5 0.1-1.0 MG/DL Aspartate Amino Transf (AST/SGOT) 17 5-34 U/L Alanine Aminotransferase (ALT/SGPT) 15 0-55 U/L Alkaline Phosphatase 119 40-136 U/L Troponin I < 0.028 <0.028 NG/ML B-Type Natriuretic Peptide 14.0 <100.0 PG/ML Total Protein 6.7 6.4-8.2 GM/DL Albumin 4.4 3.2-4.5 GM/DL Serum Test, Qualitative NEGATIVE NEGATIVE My Orders Orders - AYAKA BRIGHT APRN Methemoglobin (01/13/19 17:19) Cbc With Automated Diff (01/13/19 17:19) Comprehensive Metabolic Panel (01/13/19 17:19) Ua Culture If Indicated (01/13/19 17:19) Ed Iv/Invasive Line Start (01/13/19 17:19) Fibrin Degradation Products (01/13/19 17:19) BNP (01/13/19 17:19) Troponin I (01/13/19 17:19) Hcg,Qualitative Serum (01/13/19 17:19) Iohexol Injection (Omnipaque 350 Mg/Ml 1 (01/13/19 17:45) Received Contrast (Hold Metformin- Contr (01/13/19 17:45) Sodium Chloride Flush (Catheter Flush Sy (01/13/19 17:45) Ns (Ivpb) (Sodium Chloride 0.9% Ivpb Bag (01/13/19 17:45) Ct Shea Chest/Noang Abd-Pelv W (01/13/19 17:36) Medications Given in ED Current Medications Medications Dose Ordered Sig/Phan Route Start Time Stop Time Status Last Admin Dose Admin Iohexol 100 ml ONCE ONCE IV 01/13/19 17:45 01/13/19 17:46 DC 01/13/19 18:23 62 ML Sodium Chloride 10 ml NEEDED PRN IV 01/13/19 17:45 01/13/19 19:13 DC 01/13/19 18:23 10 ML Sodium Chloride 100 ml ONCE ONCE IV 01/13/19 17:45 01/13/19 17:46 DC 01/13/19 18:23 80 ML Vital Signs/I&O 01/13/19 01/13/19 17:18 19:10 Temp 97.3 97.3 Pulse 97 81 Resp 16 18 B/P (MAP) 127/94 (105) 121/96 (104) Pulse Ox 92 94 O2 Delivery Room Air Capillary Refill : Less Than 3 Seconds Blood Pressure Mean: 105 Diagnostic Imaging Diagonstic Imaging: CT Comments NAME: IRMA SOARES MED REC#: [id number] PT STATUS: REG ER : 1975 PHYSICIAN: AYAKA BRIGHT OCEANOLOGIST ADMIT DATE: 01/13/19/ER Draft Date of Exam:01/13/19 CT SHEA CHEST/NOANG ABD-PELV W INDICATION: Decreased oxygen saturation. Patient also reports some duskiness in the lips and both fingers and toes. TECHNIQUE: Axial imaging through the chest, abdomen and pelvis was performed after the administration of intravenous contrast. CT angiography protocol for the chest was utilized. Multiplanar, 3-D and MIP reformations of the chest were also performed. COMPARISON: No prior studies are available for comparison. CT ANGIOGRAM CHEST: The thoracic aorta is normal in caliber. No dissection is seen. The pulmonary arterial system is without thromboembolism. No filling defects are seen within central, lobar or segmental branches. No pericardial or pleural fluid is identified. No pulmonary infiltrates, nodules or masses are seen. There are postsurgical changes of bilateral breast augmentation. IMPRESSION: Unremarkable CT angiogram of the chest. There is no evidence of thoracic aortic dissection or pulmonary embolism. CT ABDOMEN AND PELVIS: The liver contains innumerable circumscribed low-density masses consistent with cysts. Gallbladder is unremarkable. No biliary duct dilatation is seen. The pancreas and spleen are unremarkable. No adrenal mass is seen. Numerous cysts involving bilateral kidneys are also noted. There is no hydronephrosis. Aorta is nonaneurysmal. Moderate stool throughout the colon is seen consistent with constipation. Small bowel loops do not appear to be appreciably dilated. There is no ascites. No inflammatory changes are seen. Delayed images demonstrate excretion of contrast from both renal collecting systems into the ureters. The bladder is unremarkable. Bony structures are nonacute. IMPRESSION: 1. Polycystic hepatic and renal disease. 2. Moderate stool suggestive of constipation. 3. No acute feature in the abdomen or pelvis is identified. Dictated on workstation # [id number] Dict: 01/13/19 1845 Trans: 01/13/19 1858 [id number] Interpreted by: RJ FRANZ MD Electronically signed by: Departure Communication (Admissions) Patient went down to CT for Angio chest as part of the workup for her tachycardia and hypoxia. Top of her liver was noticed to have several cystic structures so stress test technician called to ask if we wanted to include an abdomen pelvis. I did order that, abdomen pelvis with contrast and with delay. Discussed with the patient whether she has any known personal history or family history of polycystic kidney disease and she states that she in fact does. She does not know herself to have it but states that there are a few family members that do. Impression Primary Impression: Methemoglobinemia Additional Impressions: Polycystic kidney Liver, polycystic Disposition: 01 HOME, SELF-CARE Condition: Stable Departure-Patient Inst. Decision time for Depature: 18:13 Referrals: BONITA HEREDIA MD (PCP/Family) Primary Care Physician Patient Instructions: NO INSTRUCTIONS GIVEN Add. Discharge Instructions: 1. Stop the dapsone 2. Follow-up with Dr. Heredia 3. Return to ER for any worsening or other concerns. All discharge instructions reviewed with patient and/or family. Voiced understanding. Copy Copies To 1: BONITA HEREDIA MD, PETER J APRN Jan 13, 2019 17:41
--- OUTSIDE RECORDS SUMMARY | 2019-01-13 17:41 | XMS REPORT | CCD ---
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 Name Role Phone PP Unavailable CCM Unavailable Summary Purpose Interface Exchange Insurance Providers Payer name Policy type / Coverage type Covered libertarian ID Effective Begin Date Effective End Date HelpHive Health Plans Commercial Insurance [id number] Unknown Family history Father Diagnosis Age At Onset Cancer Unknown Mother Diagnosis Age At Onset kidney disease Unknown genetic disease Unknown Hypertension Unknown Polycystic ovarian disease Unknown Arthritis Unknown Social History Social History Element Codes Description Effective Dates Marital status Unknown naun 03/15/2016 Number of children Unknown 2 03/15/[address]: 0393183 Quit less than 5 years ago 03/15/[address]: 698462 Currently drinks alcohol 03/15/2016 Frequency of drinks SNOMED CT: 365122535 1- 4 drinks per week 03/15/2016 Allergies, Adverse Reactions, Alerts Allergies, Adverse Reactions, Alerts data not found Past Medical History Illness Codes Condition Status Onset Date Resolved Date Attention-deficit hyperactivity disorder, combined type ICD-9: 314.01 ICD-10: F90.2 Active 05/08/2017 Unknown 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 ICD-10: B00.1 Active 05/08/2017 Unknown Mastodynia ICD-9: 611.71 ICD-10: N64.4 Active 12/31/2016 Unknown Cellulitis of left lower limb ICD-9: 682.6 ICD-10: L03.116 Active 03/14/2016 Unknown Problems Condition Codes Effective Dates Condition Status Attention-deficit hyperactivity disorder, combined type ICD-9: 314.01 ICD-10: F90.2 05/08/2017 Active 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 ICD-10: B00.1 05/08/2017 Active Mastodynia ICD-9: 611.71 ICD-10: N64.4 12/31/2016 Active Cellulitis of left lower limb ICD-9: 682.6 ICD-10: L03.116 03/14/2016 Active Medications Medication Codes Instructions Start Date Stop Date Status Fill Instructions triamcinolone acetonide 0.025 % topical cream RxNorm: 7842557 1 Application TOP BID 07/31/2017 No Stop Date Active Adderall XR 30 mg capsule,extended release RxNorm: 008051 1 Capsule(s) PO daily 07/31/2017 No Stop Date Active lamotrigine 150 mg tablet RxNorm: 976890 1 Tablet(s) PO daily 06/04/2017 10/01/2017 Active Adderall 30 mg tablet RxNorm: 056916 1/2 Tablet(s) PO BID 05/08/2017 06/06/2017 Inactive acyclovir 400 mg tablet RxNorm: 276592 1 Tablet(s) PO TID 05/08/2017 06/06/2017 Inactive nystatin 100,000 unit/gram topical cream RxNorm: 880070 1 Application TOP BID 12/31/2016 No Stop Date Active triamcinolone acetonide 0.025 % topical cream RxNorm: 9456174 1 Application TOP BID 12/31/2016 07/30/2017 Inactive Bactrim DS 800 mg-160 mg tablet RxNorm: 941479 1 Tablet(s) PO BID 03/15/2016 03/28/2016 Inactive Adderall XR 30 mg capsule,extended release RxNorm: 025141 1 Capsule(s) PO daily No Start Date 07/30/2017 Inactive lamotrigine 150 mg tablet RxNorm: 304669 1 Tablet(s) PO daily No Start Date 06/03/2017 Inactive Medication Administered No Medication Administered data Immunizations No Immunization data Assessments Condition Codes Effective Dates Herpesviral vesicular dermatitis ICD-10: B00.1 ICD-9: 054.9 05/08/2017 Attention-deficit hyperactivity disorder, combined type ICD-10: F90.2 ICD-9: 314.01 05/08/2017 Mastodynia ICD-10: N64.4 ICD-9: 611.71 12/31/2016 Cellulitis of left lower limb ICD-10: L03.116 ICD-9: 682.6 03/15/2016 Reason For Visit Reason For Visit Effective Dates Notes oral ulcers 05/08/2017 cold sore breast complaint 12/31/2016 rash 03/15/2016 Results Observation Observation Code Item Item Code Result Date Estrogens Total 101995 ESTROGENS, TOTAL 342 pg/mL 01/04/2017 Comp Metabolic Mdf917 NA 140 mEq/L 12/31/2016 Comp Metabolic Mzk393 K 4.2 mEq/L 12/31/2016 Comp Metabolic Tii134 CL 103 mEq/L 12/31/2016 Comp Metabolic Lvy550 CO2 29.0 mEq/L 12/31/2016 Comp Metabolic Tbd544 ANION GAP 12 12/31/2016 Comp Metabolic Yqz866 GLUCOSE 87 mg/dL 12/31/2016 Comp Metabolic Xvj061 Creat 0.7 mg/dL 12/31/2016 Comp Metabolic Ltr613 eGFR 96 ml/min/1.73m2 12/31/2016 Comp Metabolic Wrs281 BUN 9 mg/dL 12/31/2016 Comp Metabolic Yjq652 B/C Ratio 12.7 Ratio 12/31/2016 Comp Metabolic Coa369 CALCIUM 9.1 mg/dL 12/31/2016 Comp Metabolic Iqw183 ALK PHOS 93 U/L 12/31/2016 Comp Metabolic Ncs328 AST(SGOT) 12 U/L 12/31/2016 Comp Metabolic Uus364 ALT(SGPT) 10 U/L 12/31/2016 Comp Metabolic Bpa887 BILI T 0.4 mg/dL 12/31/2016 Comp Metabolic Vey714 ALBUMIN 4.2 g/dL 12/31/2016 Comp Metabolic Cto456 TPRO 6.1 g/dL 12/31/2016 Comp Metabolic Afx478 GLOB 2.0 g/dL 12/31/2016 Comp Metabolic Lee117 A/G Ratio 2.1 Ratio 12/31/2016 Comp Metabolic Ltz511 Osmo 277 mOsmo 12/31/2016 Cbc With Differential [...] 31.7 pg 12/31/2016 Cbc With Differential Ord2 Morrison% 11.3 % 12/31/2016 Cbc With Differential Ord2 [...] 1.45 K/ul 12/31/2016 Cbc With Differential Ord2 Morrison ABS# 0.7 K/ul 12/31/2016 Cbc With Differential Ord2 Eos ABS# 0.1 K/ul 12/31/2016 Cbc With Differential Ord2 Baso ABS# 0.0 K/ul 12/31/2016 Tsh Ord6 hTSH II 2.46 uIU/mL 12/31/2016 Progesterone Ugu757 Prog 3.96 ng/mL 12/31/2016 Review of Systems System Result Effective Dates Constitutional No recent illness 05/08/2017 Constitutional No [...] No Procedures data Vital Signs Date Vital 05/08/2017 Blood Pressure 1: 124/78 Code: 8480-6 BMI: 24.7 Code: 26745-3 Heart Rate 1: 101 bpm Height: 5'4" SpO2: 98% Weight: 146 lbs 12/31/2016 Blood Pressure 1: 128/74 Code: 8480-6 Heart Rate 1: 94 bpm SpO2: 99% Weight: 141 lbs 03/15/2016 Blood Pressure 1: 126/80 Code: 8480-6 BMI: 23.5 Code: 97139-3 Heart Rate 1: 94 bpm Height: 5'4" SpO2: 97% Weight: 139 lbs Functional Status No Functional Status data History of Present Illness Symptom Name Status Result Effective Date Notes oral ulcers Alleviating Factors prescription medication 05/08/2017 [...] data Encounters Encounter Performer Location Codes Date 51334 EST. PATIENT, LEVEL III Diagnosis: Herpesviral vesicular dermatitis[ICD10: B00.1] Diagnosis: Attention-deficit hyperactivity disorder, combined type[ICD10: F90.2] Anais Heredia MD, [facility] CPT-4: 78861 05/08/2017 25381 EST. PATIENT, LEVEL III Diagnosis: Mastodynia[ICD10: N64.4] Anais Heredia MD, [facility] CPT-4: 63586 12/31/2016 ([id number]) OFFICE VISIT, NEW - LEVEL 3 Diagnosis: Cellulitis of left lower limb[ICD10: L03.116] Anais Heredia MD, [facility] CPT-4: 21063 03/15/2016 Plan of Care Planned Activity Notes Codes Status Date Visit Plan: Cold sores - will send [...] prescribed. 05/08/2017 Appointment: Anais Hennessy [facility] [phone] [id number] (15 min) Moderate 05/08/2017 Patient Education: Patient Medication Summary Completed 05/08/2017 Visit Plan: Rash to left breast - will send RX, will order mammogram - pt is to call for acute change in symptoms, worsening redness, warmth, discharge, increase in size of the lesion, increase in pain. 12/31/2016 Appointment: Anais Hennessy WPtel: [id number] (30 min) Complex 12/31/2016 Patient Education: Patient Medication Summary Completed 12/31/2016 Visit Plan: Cellulitis - continue with oral antibiotics as previously directed, return to clinic as previously directed, call for acute change in symptoms, worsening redness, warmth, discharge. 03/15/2016 Appointment: Anais Hennessy WPtel: [phone] [id number] New Patient 03/15/2016 Patient Education: Patient Medication [...]
--- OUTSIDE RECORDS SUMMARY | 2019-01-13 17:41 | XMS REPORT | CCD ---
Author Author [facility] Address [address] [place] [address] Phone Care Team Providers Care Green Building Design Specialist Name Role Phone PP Unavailable CCM Unavailable Summary Purpose Interface Exchange Insurance Providers Payer name Policy type / Coverage type Covered republican ID Effective Begin Date Effective End Date [employer] Health Plans Commercial Insurance [id number] Unknown Family history Father Diagnosis Age At Onset Cancer Unknown Mother Diagnosis Age At Onset kidney disease Unknown genetic disease Unknown Hypertension Unknown Polycystic ovarian disease Unknown Arthritis Unknown Social History Social History Element Codes Description Effective Dates Marital status Unknown naun 03/15/2016 Number of children Unknown 2 03/15/[address]: 8637999 Quit less than 5 years ago 03/15/[address]: 743462 Currently drinks alcohol 03/15/2016 Frequency of drinks SNOMED CT: 880755242 1- 4 drinks per week 03/15/2016 Allergies, [...] Fill Instructions lamotrigine 150 mg tablet RxNorm: 713770 TAKE ONE TABLET BY MOUTH ONCE DAILY 01/30/2018 No Stop Date Active Adderall 30 mg tablet RxNorm: 316693 1/2 Tablet(s) PO BID 01/20/2018 02/18/2018 Active Adderall 30 mg tablet RxNorm: 811284 1/2 Tablet(s) PO BID 10/29/2017 11/27/2017 Inactive betamethasone dipropionate 0.05 % topical cream RxNorm: 110607 1 Application TOP BID 08/20/2017 No Stop Date Active Diflucan 150 mg tablet RxNorm: 911517 1 Tablet(s) PO daily 08/20/2017 08/24/2017 Inactive triamcinolone acetonide 0.025 % topical cream RxNorm: 2085166 1 Application TOP BID 08/07/2017 No Stop Date Active Adderall 30 mg tablet RxNorm: 548364 1/2 Tablet(s) PO BID 08/07/2017 09/05/2017 Inactive triamcinolone acetonide 0.025 % topical cream RxNorm: 4006267 1 Application TOP BID 07/31/2017 08/06/2017 Inactive Adderall XR 30 mg capsule,extended release RxNorm: 330215 1 Capsule(s) PO daily 07/31/2017 08/06/2017 Inactive lamotrigine 150 mg tablet RxNorm: 768780 1 Tablet(s) PO daily 06/04/2017 10/01/2017 Inactive Adderall 30 mg tablet RxNorm: 328114 1/2 Tablet(s) PO BID 05/08/2017 06/06/2017 Inactive acyclovir 400 mg tablet RxNorm: 409514 1 Tablet(s) PO TID 05/08/2017 06/06/2017 Inactive nystatin 100,000 unit/gram topical cream RxNorm: 759707 1 Application TOP BID 12/31/2016 No Stop Date Active triamcinolone acetonide 0.025 % topical cream RxNorm: 6069251 1 Application TOP BID 12/31/2016 07/30/2017 Inactive Bactrim DS 800 mg-160 mg tablet RxNorm: 889518 1 Tablet(s) PO BID 03/15/2016 03/28/2016 Inactive Adderall XR 30 mg capsule,extended release RxNorm: 738257 1 Capsule(s) PO daily No Start Date 07/30/2017 Inactive lamotrigine 150 mg tablet RxNorm: 714525 1 Tablet(s) PO daily No Start Date [...] Item Item Code Result Date Estrogens Total 006828 ESTROGENS, TOTAL 342 pg/mL 01/04/2017 Cbc With Differential Ord2 WBC 6.01 K/ul 12/31/2016 Cbc With Differential Ord2 RBC 4.51 M/ul 12/31/2016 Cbc With Differential Ord2 HGB 14.3 g/dl 12/31/2016 Cbc With Differential Ord2 HCT 42.1 % 12/31/2016 Cbc With Differential Ord2 Neut% 63.6 % 12/31/2016 Cbc With Differential Ord2 MCV 93.3 fl 12/31/2016 Cbc With Differential Ord2 Lymph% 24.1 % 12/31/2016 Cbc With Differential Ord2 [place]% 11.3 % 12/31/2016 Cbc With Differential Ord2 MCH 31.7 pg 12/31/2016 Cbc With Differential Ord2 MCHC 34.0 pg 12/31/2016 Cbc With Differential Ord2 Eos% 0.8 % 12/31/2016 Cbc With Differential Ord2 Baso% 0.2 % 12/31/2016 Cbc With Differential Ord2 PLT 267 K/ul 12/31/2016 Cbc With Differential Ord2 Neut ABS# 3.82 K/ul 12/31/2016 Cbc With Differential Ord2 RDW 12.4 % 12/31/2016 Cbc With Differential Ord2 Lymph ABS# 1.45 K/ul 12/31/2016 Cbc With Differential Ord2 [place] ABS# 0.7 K/ul 12/31/2016 Cbc With Differential Ord2 Eos ABS# 0.1 K/ul 12/31/2016 Cbc With Differential Ord2 Baso ABS# 0.0 K/ul 12/31/2016 Progesterone Ogj039 Prog 3.96 ng/mL 12/31/2016 Tsh Ord6 hTSH II 2.46 uIU/mL 12/31/2016 Comp Metabolic Exg678 NA 140 mEq/L 12/31/2016 Comp Metabolic Ood816 K 4.2 mEq/L 12/31/2016 Comp Metabolic Erd777 CL 103 mEq/L 12/31/2016 Comp Metabolic Hwc836 CO2 29.0 mEq/L 12/31/2016 Comp Metabolic Vvr270 ANION GAP 12 12/31/2016 Comp Metabolic Ele236 GLUCOSE 87 mg/dL 12/31/2016 Comp Metabolic Ojb442 Creat 0.7 mg/dL 12/31/2016 Comp Metabolic Omg487 eGFR 96 ml/min/1.73m2 12/31/2016 Comp Metabolic Pvj325 BUN 9 mg/dL 12/31/2016 Comp Metabolic Ywm426 B/C Ratio 12.7 Ratio 12/31/2016 Comp Metabolic Nrj261 CALCIUM 9.1 mg/dL 12/31/2016 Comp Metabolic Daz389 ALK PHOS 93 U/L 12/31/2016 Comp Metabolic Pqv538 AST(SGOT) 12 U/L 12/31/2016 Comp Metabolic Kdz823 ALT(SGPT) 10 U/L 12/31/2016 Comp Metabolic Mao238 BILI T 0.4 mg/dL 12/31/2016 Comp Metabolic Uar036 ALBUMIN 4.2 g/dL 12/31/2016 Comp Metabolic Acj424 TPRO 6.1 g/dL 12/31/2016 Comp Metabolic Krc552 GLOB 2.0 g/dL 12/31/2016 Comp Metabolic Bjg135 A/G Ratio 2.1 Ratio 12/31/2016 Comp Metabolic Ewt712 Osmo 277 mOsmo 12/31/2016 Review of Systems System Result Effective [...] Effective Dates Notes Full Exam - General 1995 Constitutional general [...] 1: 122/70 Code: 8480-6 BMI: 24.5 Code: 97232-8 Heart Rate 1: 97 bpm Height: 5'4" SpO2: 98% Weight: 145 lbs 08/20/2017 Blood Pressure 1: 120/78 Code: 8480-6 BMI: 24.3 Code: 87097-5 Heart Rate 1: 97 bpm Height: 5'4" SpO2: 97% Weight: 144 lbs 05/08/2017 Blood Pressure 1: 124/78 Code: 8480-6 BMI: 24.7 Code: 73380-7 Heart Rate 1: 101 bpm Height: 5'4" SpO2: 98% Weight: 146 lbs 12/31/2016 Blood Pressure 1: 128/74 Code: 8480-6 Heart Rate 1: 94 bpm SpO2: 99% Weight: 141 lbs 03/15/2016 Blood Pressure 1: 126/80 Code: 8480-6 BMI: 23.5 Code: 00103-2 Heart Rate 1: 94 bpm Height: 5'4" [...] Codes Date EST. PATIENT, LEVEL III Diagnosis: Attention-deficit hyperactivity disorder, combined type[ICD10: F90.2] Anais Heredia MD, [facility] CPT-4: 08857 01/21/2018 [id number] EST. PATIENT, LEVEL III Diagnosis: Attention-deficit hyperactivity disorder, combined type[ICD10: F90.2] Diagnosis: Rash and other nonspecific skin eruption[ICD10: R21] Anais Heredia MD, [facility] CPT-4: 95156 08/20/2017 17036 EST. 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 PATIENT, LEVEL III Diagnosis: Mastodynia[ICD10: N64.4] [facility] CPT-4: 73351 12/31/2016 (78045) OFFICE VISIT, NEW - LEVEL 3 Diagnosis: Cellulitis of left lower limb[ICD10: L03.116] [facility] CPT-4: 64271 03/15/2016 Plan of Care Planned Activity Notes [...] not prescribed. 01/21/2018 Appointment: Anais Hennessy WPtel: [address] [place], [place] [phone] (30 min) [facility] 01/21/2018 Patient Education: Patient Medication Summary Completed [...] or concerns. 08/20/2017 Appointment: Anais Hennessy WPtel: [facility] (30 min) Complex 08/20/2017 Patient Education: Patient Medication Summary Completed 08/20/2017 Care Plan: Unilateral DIAGNOSTICMAMMOGRAPHYDIGITAL LOINC : 48982-4 Pending 08/20/2017 Care Plan: SCREENINGMAMMOGRAPHYDIGITAL LOINC : 26820-3 Pending 08/20/2017 Visit Plan: Cold sores - [...] not prescribed. 05/08/2017 Appointment: Anais Hennessy WPtel: [address] [place], [place] [phone] (15 min) Moderate 05/08/2017 Patient Education: Patient Medication Summary Completed 05/08/2017 Visit Plan: Rash to left breast - will send RX, will order mammogram - pt is to call for acute change in symptoms, worsening redness, warmth, discharge, increase in size of the lesion, increase in pain. 12/31/2016 Appointment: Anais Hennessy WPtel: [id number] (30 min) Complex 12/31/2016 Patient Education: Patient Medication Summary Completed 12/31/2016 Visit Plan: Cellulitis - continue with oral antibiotics as previously directed, return to clinic as previously directed, call for acute change in symptoms, worsening redness, warmth, discharge. 03/15/2016 Appointment: Anais Hennessy WPtel: [address] [place], [place] [phone] New Patient 03/15/2016 Patient Education: Patient Medication [...]
[2019-01-13] MEDS ORDERED: CATHETER FLUSH 10 ML SYR IV PRN (17:45)
[2019-01-13] MEDS ORDERED: HOLD METFORMIN - RECEIVED CONTRAST 20 ML VIAL IV SCH (17:45)
[2019-01-13] MEDS ORDERED: IOHEXOL 350 MG/ML 100 ML (OMNIPAQUE 350) VIAL IV ONE (17:45)
[2019-01-13] MEDS ORDERED: NS 100 ML (IVPB) BAG IV ONE (17:45)
[2019-01-13 17:51] LABS: BASOPHILS % (AUTO) 1 % (0-10); BILIRUBIN,URINE NEGATIVE (NEGATIVE); CLARITY,URINE CLEAR; COLOR,URINE YELLOW; EOSINOPHILS # (AUTO) 0.1 10^3/uL (0.0-0.3); EOSINOPHILS % (AUTO) 1 % (0-10); GLUCOSE, URINE (UA) NEGATIVE (NEGATIVE); HEMATOCRIT 40 % (35-52); HEMOGLOBIN 13.1 G/DL (11.5-16.0); KETONES,URINE NEGATIVE (NEGATIVE); LEUKOCYTE ESTERASE ,URINE NEGATIVE (NEGATIVE); LYMPHOCYTES # (AUTO) 1.5 X 10^3 (1.0-4.0); LYMPHOCYTES % (AUTO) 29 % (12-44); MEAN CORPUSCULAR HEMOGLOBIN 30 PG (25-34); MEAN CORPUSCULAR HGB CONC 33 G/DL (32-36); MEAN CORPUSCULAR VOLUME 93 FL (80-99); MEAN PLATELET VOLUME 9.5 FL (7.4-10.4); MONOCYTES # (AUTO) 0.5 X 10^3 (0.0-1.0); MONOCYTES % (AUTO) 10 % (0-12); NEUTROPHILS % (AUTO) 59 % (42-75); NITRITE,URINE NEGATIVE (NEGATIVE); PH,URINE 5 (5-9); PLATELET COUNT 273 10^3/uL (130-400); PROTEIN,URINE NEGATIVE (NEGATIVE); RED CELL DISTRIBUTION WIDTH 12.3 % (10.0-14.5); UROBILINOGEN,URINE NORMAL (NORMAL); WHITE BLOOD COUNT 5.1 10^3/uL (4.3-11.0)
[2019-01-13 18:10] LABS: BACTERIA,URINE FEW /HPF
[2019-01-13 18:15] LABS: ALANINE AMINOTRANSFERASE 15 U/L (0-55); ALBUMIN 4.4 GM/DL (3.2-4.5); ALKALINE PHOSPHATASE 119 U/L (40-136); BILIRUBIN,TOTAL 0.5 MG/DL (0.1-1.0); BUN/CREATININE RATIO 13; CALCIUM 9.4 MG/DL (8.5-10.1); CARBON DIOXIDE 25 MMOL/L (21-32); CHLORIDE 104 MMOL/L (98-107); CREATININE SERUM 0.82 MG/DL (0.60-1.30); GFR ESTIMATED > 60; GLUCOSE 93 MG/DL (70-105); POTASSIUM 3.9 MMOL/L (3.6-5.0); SODIUM 140 MMOL/L (135-145); TOTAL PROTEIN 6.7 GM/DL (6.4-8.2)
--- NOTE | 2019-01-13 18:15 | NUR ---
PT TO CT AT THIS TIME TO OBTAIN IMAGES, PT SHOWS NO S/S OF DISTRESS, PT DENEIS ANY NEEDS OR C/O AT THIS TIME, PT HAS NOT HAD EPISODE OF "BLUE" COLORED LIPS AT THIS TIME, VS ASSESSED AND STABLE, WILL CONTINUE TO MONITOR
--- NOTE | 2019-01-13 18:58 | NUR ---
REPORT GIVEN TO JUSTINE DENTON
--- NOTE | 2019-01-13 18:59 | Diagnostic Imaging Report ---
INDICATION: Decreased oxygen saturation. Patient also reports some duskiness in the lips and both fingers and toes. TECHNIQUE: Axial imaging through the chest, abdomen and pelvis was performed after the administration of intravenous contrast. CT angiography protocol for the chest was utilized. Multiplanar, 3-D and MIP reformations of the chest were also performed. COMPARISON: No prior studies are available for comparison. CT ANGIOGRAM CHEST: The thoracic aorta is normal in caliber. No dissection is seen. The pulmonary arterial system is without thromboembolism. No filling defects are seen within central, lobar or segmental branches. No pericardial or pleural fluid is identified. No pulmonary infiltrates, nodules or masses are seen. There are postsurgical changes of bilateral breast augmentation. IMPRESSION: Unremarkable CT angiogram of the chest. There is no evidence of thoracic aortic dissection or pulmonary embolism. CT ABDOMEN AND PELVIS: The liver contains innumerable circumscribed low-density masses consistent with cysts. Gallbladder is unremarkable. No biliary duct dilatation is seen. The pancreas and spleen are unremarkable. No adrenal mass is seen. Numerous cysts involving bilateral kidneys are also noted. There is no hydronephrosis. Aorta is nonaneurysmal. Moderate stool throughout the colon is seen consistent with constipation. Small bowel loops do not appear to be appreciably dilated. There is no ascites. No inflammatory changes are seen. Delayed images demonstrate excretion of contrast from both renal collecting systems into the ureters. The bladder is unremarkable. Bony structures are nonacute. IMPRESSION: 1. Polycystic hepatic and renal disease. 2. Moderate stool suggestive of constipation. 3. No acute feature in the abdomen or pelvis is identified. Dictated by: Dictated on workstation # [id number]
[2019-01-13 19:10] VITALS: BP 121/96
== END 2019-01-13 19:12 | disposition home or self-care (01) ==
LOC: EDUNIT# 17:13 → ER 17:15
DX: D74.9 Methemoglobinemia, unspecified (principal); Q61.3 Polycystic kidney, unspecified; Q44.6 Cystic disease of liver; F41.9 Anxiety disorder, unspecified; F32.9 Major depressive disorder, single episode, unspecified; F90.9 Attention-deficit hyperactivity disorder, unspecified type; F17.290 Nicotine dependence, other tobacco product, uncomplicated; Z90.710 Acquired absence of both cervix and uterus; Z87.828 Personal history of other (healed) physical injury and trauma; Z88.0 Allergy status to penicillin; Z88.5 Allergy status to narcotic agent
CPT/HCPCS: 36415; 71275; 74177; 80053; 81000; 83050; 83880; 84484; 84703; 85025; 85379

== ENCOUNTER → 2020-03-18 | Outpatient (CLI) | payer BC ==
[~2020-03-18] MED LIST: DAPS100T3; DEXT30TA12; DOXY100C2; ERGO50006; HOLD METFORMIN - RECEIVED CONTRAST 20 ML VIAL IV SCH; IOHEXOL 350 MG/ML 100 ML (OMNIPAQUE 350) VIAL IV ONE; LAMO150T4; NS 100 ML (IVPB) BAG IV ONE
--- NOTE | 2020-03-18 12:59 | Diagnostic Imaging Report ---
PROCEDURE: CT abdomen with contrast only. TECHNIQUE: Multiple contiguous axial images were obtained through the abdomen after the administration of intravenous contrast. Auto Exposure Controls were utilized during the CT exam to meet ALARA standards for radiation dose reduction. INDICATION: Polycystic kidney disease. Comparison is made with prior CT from 01/13/2019. Lung bases are clear. The liver contains innumerable circumscribed low density masses again consistent with cysts. These are similar in appearance when compared to prior exam. Gallbladder is unremarkable. No biliary ductal dilatation is identified. The pancreas and spleen are unremarkable. No adrenal mass is identified. Kidneys again demonstrate multiple circumscribed low-density masses consistent with cysts. A right kidney measures 10.4 cm cephalocaudal by 5.8 mm AP x 5.4 cm transverse and the left kidney measures 10.8 cm cephalocaudal x 5.7 cm AP x 6.0 cm transverse. Evaluation for renal lesion enhancement cannot be performed due to absence of precontrast imaging. The aorta is non-aneurysmal. Visualized bowel loops are normal caliber. There is no free fluid detected. The bony structures appear nonacute. IMPRESSION: Polycystic hepatic and renal disease, similar when compared with examination from 01/13/2019. Renal measurements are stable when compared with prior exam. No acute abnormality is detected. Dictated by: Dictated on workstation # [id number]
== END ==
LOC: RAD 11:45
PROVIDERS: ATTEND Internal Medicine Nephrology
DX: Q61.2 Polycystic kidney, adult type (principal); Q44.6 Cystic disease of liver
CPT/HCPCS: 74160

== ENCOUNTER → 2020-06-15 | Outpatient (CLI) | payer BC ==
[~2020-06-15] MED LIST changes: -HOLD METFORMIN - RECEIVED CONTRAST 20 ML VIAL IV SCH; -IOHEXOL 350 MG/ML 100 ML (OMNIPAQUE 350) VIAL IV ONE; -NS 100 ML (IVPB) BAG IV ONE
--- NOTE | 2020-06-15 16:48 | Diagnostic Imaging Report ---
CLINICAL INDICATION: Patient with no head complaints. Patient has polycystic kidney disease. EXAMS: MRA [place] performed without IV contrast using 3D [id number]. Multiple rotating 3-D MIP images were created. COMPARISON: None. FINDINGS: MRA [place] shows no significant stenosis, dissection, vascular malformation, or aneurysm seen. The visualized portions of both ICAs are patent. The anterior cerebral arteries and their branches, middle cerebral arteries and their branches are unremarkable. The bilateral financial analyst intern, basilar artery, and vertebral arteries are unremarkable. Relatively codominant vertebral arteries are seen. IMPRESSION: Unremarkable MRA of [place] with no evidence of significant stenosis, dissection, vascular malformation, or aneurysm. Dictated by: Dictated on workstation # [id number]
== END ==
LOC: RAD 14:45
PROVIDERS: ATTEND Internal Medicine Nephrology
DX: Q61.2 Polycystic kidney, adult type (principal)
CPT/HCPCS: 70544

== ENCOUNTER → 2021-07-28 | Outpatient (CLI) | payer BC ==
[~2021-07-28] MED LIST changes: -DOXY100C2; +DOXY100C5
--- NOTE | 2021-07-28 15:56 | Diagnostic Imaging Report ---
INDICATION: Routine screening. COMPARISON: Prior mammogram from 08/30/2017. EXAMINATION: 2D and 3D bilateral screening mammography was performed with CAD. 3D tomographic images were obtained and reviewed. FINDINGS: Both breasts are heterogeneously dense, limiting the sensitivity of mammography. Bilateral breast implants were noted. Implant contours appear smooth. No mass or malignant-appearing microcalcifications are seen. The axillae are unremarkable. IMPRESSION: No mammographic features suspicious for malignancy are identified. ACR BI-RADS Category 2: Benign findings. Result letter will be mailed to the patient. Note: At least 10% of breast cancer is not imaged by mammography. Dictated by: Dictated on workstation # [id number]
== END ==
LOC: RAD 14:45
PROVIDERS: ATTEND Nurse Practitioner Family
DX: Z12.31 Encounter for screening mammogram for malignant neoplasm of breast (principal)
CPT/HCPCS: 77063; 77067